=== PATIENT | female | born 1975 | race Two or more races ===

== ENCOUNTER → 2021-07-01 08:56 | Outpatient (BNVA) | payer MEDICARE, SELFPAY | PROVIDERS: PCP Nurse Practitioner Adult Health; Visit Provider Nurse Practitioner Family | DX: M47.27 Other spondylosis with radiculopathy, lumbosacral region (principal); M53.3 Sacrococcygeal disorders, not elsewhere classified; M13.0 Polyarthritis, unspecified; M79.7 Fibromyalgia; G58.8 Other specified mononeuropathies; Q79.60 Ehlers-Danlos syndrome, unspecified | CPT/HCPCS: 99202 ==

== ENCOUNTER 2021-07-08 05:57 | Outpatient (REF) | payer MEDICARE, SELFPAY ==
--- NOTE | ~2021-07-08 | FL_ITS ---
EXAMINATION: XR FLUOROSCOPY WITH IMAGES CLINICAL INFORMATION: G58.8 - Other specified mononeuropathies COMPARISON: Chest radiographs 03/20/2018 TECHNIQUE: Fluoroscopy performed by pain management physician. Fluoroscopy time: 0.3 minutes DAP: 0.0382 mGycm2 Images: 3 FINDINGS: There are spinal needles directed at the inferior aspect two posterior left ribs. There is contrast seen along the inferior rib. There is likely some paraspinal contrast. No visible vascular communication. FL/FL guidance in treatment room IMPRESSION: Fluoroscopy for pain management procedures.
== END 2021-07-08 05:58 | disposition home or self-care (01) ==
LOC: HO.RADIR 05:57
PROVIDERS: Visit Provider Anesthesiology
DX: G58.8 Other specified mononeuropathies (principal); M47.27 Other spondylosis with radiculopathy, lumbosacral region; M53.3 Sacrococcygeal disorders, not elsewhere classified; M13.0 Polyarthritis, unspecified; M79.7 Fibromyalgia; Q79.60 Ehlers-Danlos syndrome, unspecified
CPT/HCPCS: 64420; 64421; J3300; Q9967

== ENCOUNTER 2021-07-22 05:57 | Outpatient (REF) | payer MEDICARE, SELFPAY ==
--- NOTE | ~2021-07-22 | FL_ITS ---
EXAMINATION: XR FLUOROSCOPY WITH IMAGES CLINICAL INFORMATION: Fluoroscopy was provided during a musculoskeletal procedure. The radiologist was not present during the procedure. COMPARISON: None. TECHNIQUE: Fluoroscopy performed by Dr. Walsh. Fluoroscopy time: 0.2 minutes DAP: 4.7 Gycm2 Images: 2 FINDINGS: Images demonstrate a needle with contrast near the sacroiliac joint. FL/FL guidance in treatment room IMPRESSION: Images with a needle near the sacroiliac joint.
== END 2021-07-22 05:58 | disposition home or self-care (01) ==
LOC: HO.RADIR 05:57
PROVIDERS: Visit Provider Anesthesiology
DX: M47.27 Other spondylosis with radiculopathy, lumbosacral region (principal); M53.3 Sacrococcygeal disorders, not elsewhere classified; M13.0 Polyarthritis, unspecified; M79.7 Fibromyalgia; Q79.60 Ehlers-Danlos syndrome, unspecified; G58.8 Other specified mononeuropathies
CPT/HCPCS: 27096; Q9967

== ENCOUNTER → 2021-07-25 11:39 | Outpatient (BNVA) | payer MEDICARE, SELFPAY | PROVIDERS: PCP Nurse Practitioner Adult Health; Visit Provider Nurse Practitioner Family | DX: M53.3 Sacrococcygeal disorders, not elsewhere classified (principal); M47.27 Other spondylosis with radiculopathy, lumbosacral region; M79.7 Fibromyalgia; M13.0 Polyarthritis, unspecified; Q79.60 Ehlers-Danlos syndrome, unspecified | CPT/HCPCS: Q3014 ==

== ENCOUNTER 2021-08-26 05:59 | Outpatient (REF) | payer MEDICARE, SELFPAY ==
--- NOTE | ~2021-08-26 | FL_ITS ---
EXAMINATION: XR FLUOROSCOPY WITH IMAGES CLINICAL INFORMATION: M53.3 - Sacrococcygeal disorders, not elsewhere classified COMPARISON: None. TECHNIQUE: Fluoroscopy performed by Dr. Morales Walsh. Fluoroscopy time: 0.3 minutes DAP: 0.037 Gycm2 Images: 2 FINDINGS: Spinal needles overlies mid left and mid right SI joints. There is contrast in the periarticular soft tissues with questionable early intra-articular contrast. FL/FL guidance in treatment room IMPRESSION: Fluoroscopy for pain management procedure.
== END 2021-08-26 06:00 | disposition home or self-care (01) ==
LOC: HO.RADIR 05:59
PROVIDERS: Visit Provider Anesthesiology
DX: M53.3 Sacrococcygeal disorders, not elsewhere classified (principal); M47.27 Other spondylosis with radiculopathy, lumbosacral region; M79.7 Fibromyalgia; M13.0 Polyarthritis, unspecified; Q79.60 Ehlers-Danlos syndrome, unspecified
CPT/HCPCS: 27096; J3300; Q9967

== ENCOUNTER → 2021-09-29 08:59 | Outpatient (BNVA) | payer MEDICARE, SELFPAY | PROVIDERS: PCP Nurse Practitioner Adult Health; Visit Provider Nurse Practitioner Family | DX: Q79.60 Ehlers-Danlos syndrome, unspecified (principal); M13.0 Polyarthritis, unspecified; M79.7 Fibromyalgia; M53.3 Sacrococcygeal disorders, not elsewhere classified | CPT/HCPCS: Q3014 ==

== ENCOUNTER → 2021-11-27 16:09 | Outpatient (BNVA) | payer MEDICARE, SELFPAY | PROVIDERS: Visit Provider Nurse Practitioner Family | DX: M47.817 Spondylosis without myelopathy or radiculopathy, lumbosacral region (principal); M13.0 Polyarthritis, unspecified; M79.7 Fibromyalgia; M53.3 Sacrococcygeal disorders, not elsewhere classified; Q79.60 Ehlers-Danlos syndrome, unspecified | CPT/HCPCS: Q3014 ==

== ENCOUNTER 2021-11-29 13:08 | Emergency (ER) | payer MEDICARE, SELFPAY ==
--- NOTE | ~2021-11-29 | XR_ITS ---
EXAMINATION: XR CHEST CLINICAL INFORMATION: Chest wall pain COMPARISON: Previous chest x-ray most recent March 2018 TECHNIQUE: 2 views of the chest were obtained. FINDINGS: No significant abnormality is noted involving the heart, lungs, mediastinum, bony thorax or soft tissues. XR/XR chest 2V IMPRESSION: Unremarkable examination.
[2021-11-29 13:23] VITALS: BP 142/86; PULSE 112; RESP 18; TEMP 37.1; O2SAT 98; BMI 22.8
--- NOTE | 2021-11-29 13:23 | ECG_ITS ---
Test Reason : cx pain Blood Pressure : / mmHG Vent. Rate : 106 BPM Atrial Rate : 106 BPM P-R Int : 118 ms QRS Dur : 076 ms QT Int : 318 ms P-R-T Axes : 069 041 031 degrees QTc Int : 422 ms Sinus tachycardia Otherwise normal ECG When compared with ECG of 20-MAR-2018 22:40, Vent. rate has increased BY 36 BPM Nonspecific T wave abnormality now evident in Inferior leads T wave amplitude has decreased in Lateral leads Referred By: Generic ED Physician Electronically Signed By:TJ ACHARYA MD
[2021-11-29 13:45] LABS: MANUAL DIFF FLAG NO
[2021-11-29 13:47] LABS: Basophils Percent Auto 0.2 % (0-2); Eosinophils Percent Auto 0.1 % (0-4); Hematocrit 38.4 % (37.0-47.0); Imm Gran Abs Auto 0.03 X10*3/uL (0.00-0.03); Imm Gran Pct Auto 0.3 % (0.0-0.4); Lymphocytes Absolute Auto 0.5 X10*3/uL (1.2-4.9); Lymphocytes Percent Auto 4.5 % (20-40); Mean Corpuscular HGB Conc 33.9 g/dl (31.0-35.0); Mean Corpuscular Hemoglobin 31.6 pg (27.0-33.0); Mean Corpuscular Volume 93.2 fL (80.0-98.0); Mean Platelet Volume 10.7 fL (9.4-12.3); Monocytes Absolute Auto 0.8 X10*3/uL (0.1-1.2); Monocytes Percent Auto 7.3 % (2-11); Neutrophils Absolute Auto 9.1 x10*3/uL (2.0-8.3); Neutrophils Percent Auto 87.6 % (45-73); Platelet Count 216 X10*3/uL (160-400); Red Blood Count 4.12 X10*6/uL (4.20-5.50); Red Cell Distribution Width 11.9 % (11.0-16.0); White Blood Count 10.4 X10*3/uL (4.8-10.8)
[2021-11-29 14:00] LABS: Anion Gap 12 (12-20); Blood Urea Nitrogen 9 mg/dL (9-16); Calcium 9.2 mg/dL (8.4-10.2); Carbon Dioxide 30 mmol/L (22-29); Chloride 99 mmol/L (96-108); Creatinine Clr Calc Pharmacy 61.8; Estimated Glomerular Filt Rate > 60; Glucose Random 122 mg/dL (60-115); Potassium 3.7 mmol/L (3.3-5.1); Sodium 137 mmol/L (135-145)
[2021-11-29 14:05] LABS: COVID-19 Test Negative (Negative)
[2021-11-29 14:06] LABS: Troponin-I High Sensitivity < 3.5 ng/L (<3.5-17.0)
== END 2021-11-30 00:25 | disposition left against medical advice (07) ==
LOC: HO.ED 11-30 00:20
PROVIDERS: Emergency Medicine; Emergency Provider Emergency Medicine; PCP Nurse Practitioner Adult Health
DX: R07.89 Other chest pain (principal); Z20.822 Contact with and (suspected) exposure to COVID-19; Z79.899 Other long term (current) drug therapy
CPT/HCPCS: 71046; 80048; 84484; 85025; 87635; 93005; 99283

== ENCOUNTER 2021-12-02 09:06 | Outpatient (REF) | payer MEDICARE, SELFPAY ==
--- NOTE | ~2021-12-02 | XR_ITS ---
EXAMINATION: XR LUMBOSACRAL SPINE WITH OBLIQUES CLINICAL INFORMATION: Spondylosis without myelopathy or radiculopathy COMPARISON: None TECHNIQUE: AP, both oblique, and lateral views of the lumbar spine. Lateral view of the lumbosacral junction. FINDINGS: The vertebral bodies and posterior elements are normal. The disc spaces are preserved and the vertebral alignment is normal. The paraspinal soft tissues are normal. There is moderate stool in the colon. XR/XR lumbar spine 6V w bending IMPRESSION: Unremarkable lumbar spine examination.
== END 2021-12-02 09:07 | disposition home or self-care (01) ==
LOC: HO.XRAY 09:06
PROVIDERS: PCP Nurse Practitioner Adult Health; Visit Provider Nurse Practitioner Family
DX: M47.817 Spondylosis without myelopathy or radiculopathy, lumbosacral region (principal); Q79.60 Ehlers-Danlos syndrome, unspecified
CPT/HCPCS: 72114

== ENCOUNTER 2021-12-23 06:05 | Outpatient (REF) | payer MEDICARE, SELFPAY ==
--- NOTE | ~2021-12-23 | FL_ITS ---
EXAMINATION: XR FLUOROSCOPY WITH IMAGES CLINICAL INFORMATION: M53.3 - Sacrococcygeal disorders, not elsewhere classified COMPARISON: Radiographs lumbar spine 12/02/2021 TECHNIQUE: Fluoroscopy performed by Dr. Morales Walsh. Fluoroscopy time: 0.2 minutes. Cumulative Dose: 2.37 mGy. DAP: 0.646 Gy-cm2. Images: 2. FINDINGS: Spinal needle overlies bilateral mid to lower SI joints. There is contrast in the periarticular soft tissues with probable early intra-articular contrast. FL/FL guidance in treatment room IMPRESSION: Fluoroscopy for pain management procedures.
== END 2021-12-23 06:06 | disposition home or self-care (01) ==
LOC: HO.RADIR 06:05
PROVIDERS: Visit Provider Anesthesiology
DX: M53.3 Sacrococcygeal disorders, not elsewhere classified (principal); M47.27 Other spondylosis with radiculopathy, lumbosacral region; M79.7 Fibromyalgia; M13.0 Polyarthritis, unspecified; Q79.60 Ehlers-Danlos syndrome, unspecified
CPT/HCPCS: 27096; J3300

== ENCOUNTER → 2022-01-26 08:25 | Outpatient (BNVA) | payer MEDICARE, SELFPAY | PROVIDERS: PCP Nurse Practitioner Adult Health; Visit Provider Nurse Practitioner Family | DX: Q79.60 Ehlers-Danlos syndrome, unspecified (principal); M13.0 Polyarthritis, unspecified; M53.3 Sacrococcygeal disorders, not elsewhere classified | CPT/HCPCS: Q3014 ==

== ENCOUNTER → 2022-08-14 10:15 | Outpatient (BNVA) | payer MEDICARE, SELFPAY | PROVIDERS: PCP Nurse Practitioner Adult Health; Visit Provider Nurse Practitioner Family | DX: M47.27 Other spondylosis with radiculopathy, lumbosacral region (principal); Q79.60 Ehlers-Danlos syndrome, unspecified; M54.31 Sciatica, right side; M53.3 Sacrococcygeal disorders, not elsewhere classified; M62.838 Other muscle spasm | CPT/HCPCS: 99212 ==

== ENCOUNTER 2022-08-21 06:31 | Outpatient (REF) | payer MEDICARE, SELFPAY ==
[2022-08-21 08:03] LABS: Alanine Aminotransferase 49 U/L (0-31); Albumin Level 4.5 g/dL (3.5-5.0); Alkaline Phosphatase 122 U/L (39-117); Aspartate Amino Transferase 42 U/L (5-31); Bilirubin Direct < 0.2 mg/dL (0.0-0.5); Bilirubin Total 0.3 mg/dL (0.0-1.0)
== END 2022-08-21 06:32 | disposition home or self-care (01) ==
LOC: HO.LAB 06:31
PROVIDERS: PCP Nurse Practitioner Adult Health; Visit Provider Nurse Practitioner Family
DX: Z01.818 Encounter for other preprocedural examination (principal)
CPT/HCPCS: 36415; 80076

== ENCOUNTER 2022-09-09 14:45 | Outpatient (REF) | payer MEDICARE, SELFPAY ==
--- NOTE | ~2022-09-09 | MR_ITS ---
EXAMINATION: MR LUMBAR SPINE WITHOUT CONTRAST CLINICAL INFORMATION: Right lower extremity radiculopathy. COMPARISON: None available. TECHNIQUE: Multiplanar, multisequence imaging was obtained. FINDINGS: VERTEBRAL BODIES AND PARASPINAL STRUCTURES: The marrow signal is within normal limits. There are no compression fractures or significant subluxations. Marrow edema is present within the left L5 pedicle and left L4-L5 posterior elements, likely reactive to severity of degenerative joint disease. The paraspinal soft tissues are normal. The imaged bony pelvis is unremarkable. CONUS MEDULLARIS AND CAUDA EQUINE: The distal cord, conus tip, and cauda equina nerve roots are normal. SPINAL LEVELS: L1-L2: No disc pathology. Patent central canal and foramina. L2-L3: Very mild loss of disc height and mild disc bulge with mild facet arthropathy. No central canal stenosis. Bulging disc slightly encroaches upon the left neural foramen. L3-L4: Minimal annular bulge and mild facet arthrosis. No central canal stenosis or foraminal narrowing. L4-L5: Very mild disc bulge and rkfkkmrq-ji-gbdstr facet arthropathy with reactive edema in the articular processes, more so on the left side and in the left posterior paraspinal soft tissues, presumably reactive. No central canal stenosis or foraminal narrowing. L5-S1: Broad-based disc bulge present with a right subarticular zone disc protrusion severely compressing the right S1 nerve root. Moderate facet arthropathy without central canal stenosis or foraminal narrowing. MR/MR lumbar spine wo con IMPRESSION: 1. Right subarticular zone disc protrusion at L5-S1 severely compressing the right S1 nerve root. 2. Jzsakwtk-tl-ywwquq facet degeneration at L4-L5 with reactive edema in the articular processes, more so on the left side.
== END 2022-09-09 14:46 | disposition home or self-care (01) ==
LOC: HO.MRI 14:45
PROVIDERS: PCP Nurse Practitioner Adult Health; Visit Provider Nurse Practitioner Family
DX: M47.817 Spondylosis without myelopathy or radiculopathy, lumbosacral region (principal); M54.16 Radiculopathy, lumbar region; Q79.60 Ehlers-Danlos syndrome, unspecified
CPT/HCPCS: 72148

== ENCOUNTER → 2022-09-10 14:42 | Outpatient (BNVA) | payer MEDICARE, SELFPAY | PROVIDERS: PCP Nurse Practitioner Adult Health; Visit Provider Nurse Practitioner Family | DX: M62.838 Other muscle spasm (principal); M54.16 Radiculopathy, lumbar region; M47.817 Spondylosis without myelopathy or radiculopathy, lumbosacral region; M79.7 Fibromyalgia; M53.3 Sacrococcygeal disorders, not elsewhere classified; Q79.60 Ehlers-Danlos syndrome, unspecified | CPT/HCPCS: 99212 ==

== ENCOUNTER → 2022-10-21 09:02 | Outpatient (BNVA) | payer MEDICARE, SELFPAY | PROVIDERS: PCP Nurse Practitioner Adult Health; Visit Provider Neurological Surgery | DX: M54.16 Radiculopathy, lumbar region (principal) | CPT/HCPCS: 99202 ==

== ENCOUNTER 2023-07-19 08:16 | Outpatient (AMB) | payer MEDICARE, SELFPAY ==
--- NOTE | 2023-07-19 08:20 | A.OFFVIS_ITS ---
Intake Vital Signs 07/19/23 08:26 Height 5 ft 2 in Weight 128 lb 6 oz BMI 23.5 BP 128/75 Blood Pressure Location Rt brachial Position Sitting Pulse 69 Pulse Source Pulse Oximeter Pulse Oximetry (%) 100 Oxygen Delivery Method Room Air Intake Visit Reasons: Follow up Intake Note: Pain toay 11/23 Principal Technologist Required: No Accompanied by: Self / Same As Patient Allergies sulfamethoxazole [From BACTRIM] Allergy (Intermediate, Verified 07/19/23 08:26) hives trimethoprim [From BACTRIM] Allergy (Intermediate, Verified 07/19/23 08:26) hives propranolol Allergy (Unknown, Verified 07/19/23 08:26) Unknown Sulfa (Sulfonamide Antibiotics) Allergy (Unknown, Verified 07/19/23 08:26) Unknown Medication List - Last Reconciled 07/19/23 by TRACY Hernandez albuterol sulfate 90 mcg/actuation 2 puffs PO QID PRN pregabalin 25 mg PO BID 30 days thyroid (pork) ([place] Thyroid) 60 mg PO DAILY venlafaxine ER 150 mg PO DAILY venlafaxine ER 37.5 mg PO DAILY zolpidem 10 mg PO BEDTIME PRN HPI HPI Comments History of Present Illness Details Patient presents today for follow up with increasing mid to lower back pain. Denies any recent trauma, injury or falls. Back pain is axial with discogenic and sacroiliac joint components. Patient reports her sciatic and SIJ pain has been under control at this time. Lumbar extension causes her moderate symptoms. She also experiences lower back pain with tightness with bending or flexing forward. Denies any bladder or bowel incontinence or saddle anesthesia. Patient has been treating her symptoms with regular home exercise program, light yoga, red light therapy, ice and heat therapy, TENS unit, and topical applications with CBD and tiger balm but continues with moderate to severe back symptoms. She takes pregabalin for fibromyalgia 25 mg BID and reports this has been beneficial. Patient also receives intranasal Ketamine for Interstitial cystitis and reports some benefit for depression as well. She regularly follows with mental therapist and Psychiatrist. Denies any recent cough, cold, infection, fever, any significant changes in her medical history, medications or recent hospitalizations. PRIOR: Patient presents today in the office for follow up for worsening low back pain radiating to her right leg. Patient was last seen in our office in January 2022 and reached out to our office in May for a physical therapy order for back and SIJ pain exacerbation since April 2022. Patient reports she completed PT, tried TENS unit, ice and heat therapy, rest, continued home exercise program, took CBD roll on, Ibuprofen and Tylenol without any pain relief. Patient reports pins and needles, numbness and tingling sensation in her right leg in L5-S1 distribution. She is also wearing SIJ and right thigh support brace today and ambulates with antalgic and limping gait. Patient reports she was evaluated in [facility] and underwent diagnostic right SIJ injections. She then went for right SIJ RFA procedure on 07/14/[address] [facility] with no pain relief. 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 Patient reports her pain and symptoms have been getting progressively worse and she went to [facility] ER on 07/27/22 and was admitted for pain management and elevated LFT levels which she believes due to taking Tylenol for pain. Patient reports her LFTs have been trending down. She has been treated with Dilaudid 2 mg and Ibuprofen. Patient denies any fever, chills, abdominal pain, bowel or bladder incontinence or saddle anesthesia. Reports right lower extremity weakness. Patient reports chronic constipation and able to move her bowels only with enema. Past Procedures: 07/14/22: Right Sacroiliac Joint RFA at [facility]-0% pain relief 12/23/21: Bilateral Therapeutic SIJ inje ctions-80% ongoing pain relief 07/08/21: Intercostal Therapeutic Inject ion Rib 6,7-100% pain relief 07/22/21: Bilateral Diagnostic SIJ Injec tions-90-95% pain relief for 6 hours 08/26/21: Bilateral Therapeutic SIJ inje ctions-100% pain relief for 2.5 weeks, ongoing 50% pain relief x 3 months PRIOR: Patient is a pleasant 45 year old female who presents to the office in no acute distress, with costochondritis, chronic back pain x 15 years, fibromyalgia, and Samra Danlos syndrome. Costochondritis pain started about 2.5 weeks ago at the lower midsternal area. She had complete work up for chest pain at ER which was negative. Today, she reports her pain is now at the left lateral rib area. Her lower back pain with radiation posteriorly to her left side just below left knee, with mild paresthesias and pain of the left buttock. She cannot sit or stand for prolonged time because her back will lock up. Patient reports she has to stand against the wall or counter, bending forward to relieve her pain partially. She denies any previous back surgery or injections. Denies trauma, injury or fall. She denies lower or upper extremities weakness. Patient denies any fever, abdominal or groin pain, malaise, weight loss, numbness, tingling, bladder/bowel dysfunction or saddle anesthesia. The pain onset was sudden, varies throughout the day and has been constant or intermittent with worst pain intensity rated at 8/10 and least severe pain at 3/10. She states the pain is interfering with sleep, activities of daily living, mood, quality of life, and she cannot function normally. The patient reports the pain in terms of tissue damage as dull, sore, hurting, aching, heavy, tiring, exhausting, punishing, and killing. She has been taking Tylenol, Ibuprofen, intranasal ketamine, gabapentin, cyclobenzaprine, medical marijuana (edible, tincture, vape), lidocaine 5% patches and short script of tramadol with some improvement in her pain. Weather changes, movements and activity aggravates her pain. Heat and cold applications, topical and oral medications have been helpful partially. She rates their pain 3/10. Previously she has tried physical therapy, the last being 5 years [facility]. She is interested in restarting formal PT at different locations. Patient continues home exercise program. She also has tried home acupuncture, massage, and TENS unit. Denies chiropractic manipulation or aqua therapy. She last had imaging of the lumbar MRI within last year at [facility]. This imaging/report is not available today. Referral notes present with normal chest xrays 06/16/21, 06/17/[address] chest pulmonary angiogram 06/17/21 which was also normal and negative for pulmonary embolus. Past medical history is significant for anxiety, asthma, chronic fatigue, depressive disorder, Samra-Danlos syndrome, fibromyalgia, hypothyroidism, interstitial cystitis, irritable bowel syndrome and chronic lower back pain. [facility] Medical History Pelvic prolapse Periodic limb movement disorder GERD (gastroesophageal reflux disease) TMJ (dislocation of temporomandibular joint) Fibromyalgia Sleep apnea Migraine PTSD (post-traumatic stress disorder) Anxiety Polyarthritis Pelvic floor dysfunction Irritable bowel syndrome (IBS) Visceral pain Polycystic ovary Depression Samra-Danlos disease Interstitial cystitis Hypothyroid Asthma Review of Systems Const All systems reviewed & are unremarkable except as noted in HPI and below Physical Exam Vital Signs: Last Vital Signs Pulse 69 07/19/23 08:26 BP 128/75 07/19/23 08:26 Pulse Ox 100 07/19/23 08:26 Oxygen Delivery Method Room Air 07/19/23 08:26 BMI result Body Mass Index 23.5 General: Appears afebrile. Alert and oriented. Mood and affect appropriate. Follows and participates in conversation appropriately. Respiratory effort is unlabored. No cough. Able to transition from sit to stand unassisted. Ambulates with bilaterally normal heel strike and toe off. Repetitive lumbar flexion and axial rotation reproduces pain. Back/Spine/Pelvis Cervical Spine: cervical ROM normal, cervical muscular tenderness and No Cervical spine tenderness Thoracic/Lumbar Spine: thoracic and lumbar spine normal to inspection, Lasegue's sign negative, straight leg raise negative bilaterally, pain with thoraco-lumbar ROM, paraspinal muscle tenderness, No thoracic spinal tenderness and lumbar spinal tenderness at L3, at L4 and at L5 Pelvis: buttock tenderness on the right and no sciatic notch tenderness Sacroiliac joints: bilaterally tender to palpation Results Reviewed Results Reviewed: MR LUMBAR SPINE WITHOUT CONTRAST 09/09/22 CLINICAL INFORMATION: Right lower extremity radiculopathy. FINDINGS: VERTEBRAL BODIES AND PARASPINAL STRUCTURES: The marrow signal is within normal limits. There are no compression fractures or significant subluxations. Marrow edema is present within the left L5 pedicle and left L4-L5 posterior elements, likely reactive to severity of degenerative joint disease. The paraspinal soft tissues are normal. The imaged bony pelvis is unremarkable. CONUS MEDULLARIS AND CAUDA EQUINE: The distal cord, conus tip, and cauda equina nerve roots are normal. SPINAL LEVELS: L1-L2: No disc pathology. Patent central canal and foramina. L2-L3: Very mild loss of disc height and mild disc bulge with mild facet arthropathy. No central canal stenosis. Bulging disc slightly encroaches upon the left neural foramen. L3-L4: Minimal annular bulge and mild facet arthrosis. No central canal stenosis or foraminal narrowing. L4-L5: Very mild disc bulge and fwnygwmu-wy-ddscmr facet arthropathy with reactive edema in the articular processes, more so on the left side and in the left posterior paraspinal soft tissues, presumably reactive. No central canal stenosis or foraminal narrowing. L5-S1: Broad-based disc bulge present with a right subarticular zone disc protrusion severely compressing the right S1 nerve root. Moderate facet arthropathy without central canal stenosis or foraminal narrowing. IMPRESSION: 1. Right subarticular zone disc protrusion at L5-S1 severely compressing the right S1 nerve root. 2. Azocxtjx-kb-bfqcyp facet degeneration at L4-L5 with reactive edema in the articular processes, more so on the left side. Assessment & Plan Assessment & Plan (1) Samra-Danlos disease: Code(s): Q79.60 - Samra-Danlos syndrome, unspecified (2) Polyarthritis: Code(s): M13.0 - Polyarthritis, unspecified (3) Fibromyalgia: Code(s): M79.7 - Fibromyalgia (4) Sacroiliac joint dysfunction of both sides: Code(s): M53.3 - Sacrococcygeal disorders, not elsewhere classified (5) Lumbosacral spondylosis: Code(s): M47.817 - Spondylosis without myelopathy or radiculopathy, lumbosacral region Plan 1. Continue HEP, light yoga, red light therapy, ice and heat therapy, TENS unit, and topical applications with CBD and tiger balm. 2. Schedule for Bilateral Diagnostic L3-L4 DR L5 MBB with local and fluoroscopy for axial low back pain. If she has significant relief from the diagnostic blocks for her axial low back pain, will consider either therapeutic injections, Sprint PNS or RFA depending on her preference. 3. Refill provided for pregabalin. Patient reports good tolerance and no side effects. All questions and concerns have been answered and patient agreed with the plan. Follow up after injections and sooner if needed. Anticoagulation: Patient not on anticoagulant Justification for interventional therapy: ? Patient with average pain > 6/10 ? Patient has exhausted conservative therapy, including physical therapy, acupuncture, massages and TENS unit. ? Patient continuing home exercise program The risks, consequences, alternatives, and benefits of various treatment options were discussed with the patient in great detail, including conservative managem ent, injections and procedures. Medications: Refilled pregabalin 25 mg PO BID 30 days 60 caps 1RF pain M47.817 - Spondylosis without myelopathy or radiculopathy, lumbosacral region, M54.16 - Radiculopathy, lumbar region, M79.7 - Fibromyalgia Coding Level of Care Code Est Pt Level 4 (86612) Diagnoses Samra-Danlos disease Q79.60 Polyarthritis M13.0 Fibromyalgia M79.7 Sacroiliac joint dysfunction of both sides M53.3 Lumbosacral spondylosis M47.817
[2023-07-19 08:26] VITALS: BP 128/75; PULSE 69; O2SAT 100; BMI 23.5
== END 2023-07-19 08:50 | disposition home or self-care (01) ==
PROVIDERS: PCP Nurse Practitioner Adult Health; Visit Provider Nurse Practitioner Family
DX: Q79.60 Ehlers-Danlos syndrome, unspecified (principal); M13.0 Polyarthritis, unspecified; M79.7 Fibromyalgia; M53.3 Sacrococcygeal disorders, not elsewhere classified; M47.817 Spondylosis without myelopathy or radiculopathy, lumbosacral region
CPT/HCPCS: 99214

== ENCOUNTER → 2023-07-19 08:16 | Outpatient (BNVA) | payer MEDICARE, SELFPAY | PROVIDERS: PCP Nurse Practitioner Adult Health; Visit Provider Nurse Practitioner Family | DX: M13.0 Polyarthritis, unspecified (principal); M79.7 Fibromyalgia; M53.3 Sacrococcygeal disorders, not elsewhere classified; M47.817 Spondylosis without myelopathy or radiculopathy, lumbosacral region; Q79.60 Ehlers-Danlos syndrome, unspecified | CPT/HCPCS: 99212 ==

== ENCOUNTER 2023-07-21 09:58 | Outpatient (AMB) | payer MEDICARE, SELFPAY ==
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
== END 2023-07-21 10:49 | disposition home or self-care (01) ==
LOC: HO.HOP 09:58
PROVIDERS: PCP Nurse Practitioner Adult Health; Visit Provider Clinical Nurse Specialist Psychiatric/Mental Health
DX: F33.9 Major depressive disorder, recurrent, unspecified (principal); F41.1 Generalized anxiety disorder; F90.9 Attention-deficit hyperactivity disorder, unspecified type; M79.7 Fibromyalgia
CPT/HCPCS: 99214

== ENCOUNTER → 2023-07-21 09:58 | Outpatient (BNVA) | payer MEDICARE, SELFPAY | PROVIDERS: PCP Nurse Practitioner Adult Health; Visit Provider Clinical Nurse Specialist Psychiatric/Mental Health | DX: F33.9 Major depressive disorder, recurrent, unspecified (principal); F41.1 Generalized anxiety disorder; F90.9 Attention-deficit hyperactivity disorder, unspecified type; M79.7 Fibromyalgia | CPT/HCPCS: 99212 ==

== ENCOUNTER 2023-09-16 10:00 | Outpatient (RCR) | payer MEDICARE, SELFPAY | END 2023-11-16 15:03 | disposition home or self-care (01) | LOC: HO.PT 10:00 | PROVIDERS: PCP Nurse Practitioner Adult Health; Visit Provider Nurse Practitioner Family | DX: M62.838 Other muscle spasm (principal); N94.10 Unspecified dyspareunia | CPT/HCPCS: 97110; 97140; 97162 ==

== ENCOUNTER 2023-09-21 06:16 | Outpatient (REF) | payer MEDICARE, SELFPAY ==
--- NOTE | ~2023-09-21 | FL_ITS ---
EXAMINATION: XR FLUOROSCOPY WITH IMAGES CLINICAL INFORMATION: Spondylosis. COMPARISON: None available. TECHNIQUE: Fluoroscopy Supervised By: Dr. Walsh. Fluoroscopy Time: 0.5 min. Cumulative Dose: 3.42 mGy. DAP: 0.595 Gycm2. Images: 10. FINDINGS: Intraoperative fluoroscopy and spot films were performed during a procedure in the OR. Images demonstrate spinal needles overlying the spine at 4 different levels with contrast surrounding the tips. Please see Dr. Walsh's report for complete details. FL/FL guidance in treatment room IMPRESSION: Intraoperative fluoroscopy and spot films were obtained. Please see Dr. Walsh's report for complete details.
== END 2023-09-21 06:17 | disposition home or self-care (01) ==
LOC: CF 06:16
PROVIDERS: Visit Provider Anesthesiology
DX: M47.817 Spondylosis without myelopathy or radiculopathy, lumbosacral region (principal); Q79.60 Ehlers-Danlos syndrome, unspecified; M13.0 Polyarthritis, unspecified; M79.7 Fibromyalgia; M53.3 Sacrococcygeal disorders, not elsewhere classified
CPT/HCPCS: 64493; 64494; J2795; Q9967

== ENCOUNTER 2023-09-21 13:57 | Outpatient (AMB) | payer MEDICARE, SELFPAY ==
--- NOTE | 2023-09-21 14:01 | A.OFFVIS_ITS ---
Vital Signs 09/21/23 14:46 09/21/23 14:47 Height 5 ft 2 in Weight 128 lb BMI 23.4 BP 116/82 118/70 Blood Pressure Location Lt brachial Lt brachial Position Sitting Sitting Respiration 16 16 Pulse 80 83 Pulse Source Pulse Oximeter Pulse Oximeter Pulse Oximetry (%) 98 97 Oxygen Delivery Method Room Air Room Air Comment Pre-op Post-Op Intake Visit Reasons: BILATERAL DIAGNOSTIC L3, L4, DRL5 MBB Allergies sulfamethoxazole [From BACTRIM] Allergy (Intermediate, Verified 07/19/23 08:26) hives trimethoprim [From BACTRIM] Allergy (Intermediate, Verified 07/19/23 08:26) hives propranolol Allergy (Unknown, Verified 07/19/23 08:26) Unknown Sulfa (Sulfonamide Antibiotics) Allergy (Unknown, Verified 07/19/23 08:26) Unknown [facility] Medical History Pelvic prolapse Periodic limb movement disorder GERD (gastroesophageal reflux disease) TMJ (dislocation of temporomandibular joint) Fibromyalgia Sleep apnea Migraine PTSD (post-traumatic stress disorder) Anxiety Polyarthritis Pelvic floor dysfunction Irritable bowel syndrome (IBS) Visceral pain Polycystic ovary Depression Samra-Danlos disease Interstitial cystitis Hypothyroid Asthma Physical Exam Vital Signs: Last Vital Signs Pulse 83 09/21/23 14:47 Resp 16 09/21/23 14:47 BP 118/70 09/21/23 14:47 Pulse Ox 97 09/21/23 14:47 Oxygen Delivery Method Room Air 09/21/23 14:47 BMI result Body Mass Index 23.4 Assessment & Plan Assessment & Plan (1) Samra-Danlos disease: Code(s): Q79.60 - Samra-Danlos syndrome, unspecified Category: Medical (2) Polyarthritis: Code(s): M13.0 - Polyarthritis, unspecified Category: Medical (3) Fibromyalgia: Code(s): M79.7 - Fibromyalgia Category: Medical (4) Sacroiliac joint dysfunction of both sides: Code(s): M53.3 - Sacrococcygeal disorders, not elsewhere classified Category: Medical (5) Lumbosacral spondylosis: Code(s): M47.817 - Spondylosis without myelopathy or radiculopathy, lumbosacral region Category: Medical Plan: Diagnostic medial branch block L3,L4 dorsal ramus L5 bilateral.? ? ?Informed consent was explained to the patient. All questions were explained and? answered.? The patient was taken inside the operating room where she was positioned prone on the operating table. Time-out was performed delineating correct site, side, the nature of the procedure, patient's allergy, . All operating room staff was participating in OR time-out procedure. ? ? The lower back was prepped with ChloraPrep and draped with sterile towels.? C- arm was brought over the operating field and sq picture of L4-, L5 vertebra and S1 AREA were delineated on the screen.? Point of interest were delineated as confluence of superior articular process of L4 and L5 vertebra bilaterally with corresponding transverse processes as well as confluence of the sacral alae bilaterally with superior articular process of S1.? The projection of the point of interest to the skin were injected with the small amount of local anesthetic lidocaine 2% 1-1.5 cc.? After that 22 gauge 3.5 inch spinal needle was driven sequentially to the points of interest in tunnel vision fashion. After needles gently contacted the bone at the point of interests the needle was injected with small amount of the contrast.? The injection of the contrast did not demonstrate any intravascular or intrathecal spread of the contrast.? After that injection of the? ropivacaine 0.5%-1cc was performed at each needle location.??after that the needles were removed and Bandaids were applied. ? Upon completion of the injections? needle was? removed and sterile Band-Aids were applied.? The patient tolerated procedure very well. Plan 1. Continue HEP, light yoga, red light therapy, ice and heat therapy, TENS unit, and topical applications with CBD and tiger balm. 2. Schedule for Bilateral Diagnostic L3-L4 DR L5 MBB with local and fluoroscopy for axial low back pain. If she has significant relief from the diagnostic blocks for her axial low back pain, will consider either therapeutic injections, Sprint PNS or RFA depending on her preference. 3. Refill provided for pregabalin. Patient reports good tolerance and no side effects. All questions and concerns have been answered and patient agreed with the plan. Follow up after injections and sooner if needed. Anticoagulation: Patient not on anticoagulant Justification for interventional therapy: ? Patient with average pain > 6/10 ? Patient has exhausted conservative therapy, including physical therapy, acupuncture, massages and TENS unit. ? Patient continuing home exercise program The risks, consequences, alternatives, and benefits of various treatment options were discussed with the patient in great detail, including conservative management, injections and procedures. Orders: Orders FL guidance in treatment room 09/21/23 M47.817 - Spondylosis without myelopathy or radiculopathy, lumbosacral region Coding Level of Care Code Procedure Only Diagnoses Samra-Danlos disease Q79.60 Polyarthritis M13.0 Fibromyalgia M79.7 Sacroiliac joint dysfunction of both sides M53.3 Lumbosacral spondylosis M47.817
[2023-09-21 14:46] VITALS: BP 116/82; PULSE 80; RESP 16; O2SAT 98; BMI 23.4
[2023-09-21 14:47] VITALS: BP 118/70; PULSE 83; RESP 16; O2SAT 97
== END 2023-09-21 14:48 | disposition home or self-care (01) ==
LOC: HO.PMCPRC 13:57
PROVIDERS: PCP Nurse Practitioner Adult Health; Visit Provider Anesthesiology
DX: M47.817 Spondylosis without myelopathy or radiculopathy, lumbosacral region (principal); Q79.60 Ehlers-Danlos syndrome, unspecified; M13.0 Polyarthritis, unspecified; M79.7 Fibromyalgia; M53.3 Sacrococcygeal disorders, not elsewhere classified
CPT/HCPCS: 64493; 64494

== ENCOUNTER 2023-09-28 11:16 | Outpatient (AMB) | payer MEDICARE, SELFPAY ==
--- NOTE | 2023-09-28 11:22 | A.OFFVIS_ITS ---
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 Walsh. Patient reports 90-100% pain relief for 6-8 hours after procedure with improved range of motion, mobility and functioning. She is interested to proceed with Sprint PNS trial for axial low back pain as next steps. Patient reports she did not sleep well that day as she went to ER at midnight same day with increased abdominal and mid back pain and recurrence of elevated LFTs. Patient reports she has upcoming GI follow up and plans for potential elective gallbladder removal. Patient denies any recent cough, cold, infection, fever, any other significant changes in her medical history, medications or recent hospitalizations. Denies any bowel dysfunction or saddle anesthesia. Reports intermittent urine incontinence, follows Urology regularly for this and currently undergong Pelvic Floor PT. Patient reports history of PV sling in 2020, vagingal prolapse, rectocele and cystocele repairs. Reports chronic constipation relieved with enemas, medication and dietary fiber. Past Procedures: 09/21/23: Bilateral Diagnostic L3-L4 DR L5 MBB-90-100% pain relief for 6-8 hours 07/14/22: Right Sacroiliac Joint RFA at [facility]-0% pain relief 12/23/21: Bilateral Therapeutic SIJ injections-80% ongoing pain relief 07/08/21: Intercostal Therapeutic Injection Rib 6,7-100% pain relief 07/22/21: Bilateral Diagnostic SIJ Fznikluklc-18-27% pain relief for 6 hours 08/26/21: Bilateral Therapeutic SIJ injections-100% pain relief for 2.5 weeks, ongoing 50% pain relief x 3 months PRIOR: Patient is a pleasant 45 year old female who presents to the office in no acute distress, with costochondritis, chronic back pain x 15 years, fibromyalgia, and Samra Danlos syndrome. Costochondritis pain started about 2.5 weeks ago at the lower midsternal area. She had complete work up for chest pain at ER which was negative. Today, she reports her pain is now at the left lateral rib area. Her lower back pain with radiation posteriorly to her left side just below left knee, with mild paresthesias and pain of the left buttock. She cannot sit or stand for prolonged time because her back will lock up. Patient reports she has to stand against the wall or counter, bending forward to relieve her pain partially. She denies any previous back surgery or injections. Denies trauma, injury or fall. She denies lower or upper extremities weakness. Patient denies any fever, abdominal or groin pain, malaise, weight loss, numbness, tingling, bladder/bowel dysfunction or saddle anesthesia. The pain onset was sudden, varies throughout the day and has been constant or intermittent with worst pain intensity rated at 8/10 and least severe pain at 3/10. She states the pain is interfering with sleep, activities of daily living, mood, quality of life, and she cannot function normally. The patient reports the pain in terms of tissue damage as dull, sore, hurting, aching, heavy, tiring, exhausting, punishing, and killing. She has been taking Tylenol, Ibuprofen, intranasal ketamine, gabapentin, cyclobenzaprine, medical marijuana (edible, tincture, vape), lidocaine 5% patches and short script of tramadol with some improvement in her pain. Weather changes, movements and activity aggravates her pain. Heat and cold applications, topical and oral medications have been helpful partially. She rates their pain 3/10. Previously she has tried physical therapy, the last being 5 years ago through [facility]. She is interested in restarting formal PT at different locations. Patient continues home exercise program. She also has tried home acupuncture, massage, and TENS unit. Denies chiropractic manipulation or aqua therapy. She last had imaging of the lumbar MRI within last year at [facility]. This imaging/report is not available today. Referral notes present with normal chest xrays 06/16/21, 06/17/[address] chest pulmonary angiogram 06/17/21 which was also normal and negative for pulmonary embolus. Past medical history is significant for anxiety, asthma, chronic fatigue, depressive disorder, Samra-Danlos syndrome, fibromyalgia, hypothyroidism, interstitial cystitis, irritable bowel syndrome and chronic lower back pain. [facility] Medical History Pelvic prolapse Periodic limb movement disorder GERD (gastroesophageal reflux disease) TMJ (dislocation of temporomandibular joint) Fibromyalgia Sleep apnea Migraine PTSD (post-traumatic stress disorder) Anxiety Polyarthritis Pelvic floor dysfunction Irritable bowel syndrome (IBS) Visceral pain Polycystic ovary Depression Samra-Danlos disease Interstitial cystitis Hypothyroid Asthma Review of Systems Const All systems reviewed & are unremarkable except as noted in HPI and below Physical Exam Vital Signs: Last Vital Signs Pulse 68 09/28/23 11:25 BP 111/66 09/28/23 11:25 Pulse Ox 97 09/28/23 11:25 Oxygen Delivery Method Room Air 09/28/23 11:25 BMI result Body Mass Index 23.0 General: Appears afebrile. Alert and oriented. Mood and affect appropriate. Follows and participates in conversation appropriately. Respiratory effort is unlabored. No cough. Able to transition from sit to stand unassisted. Ambulates with bilaterally normal heel strike and toe off. Repetitive lumbar flexion and axial rotation reproduces pain. General: Yes no CVA tenderness Back/Spine/Pelvis Other: Lumbar extension reproduces moderate pain, flexion reproduces mild symptoms. Painful facet loading bilaterally. Multiple widespread TTPs 16/16 bilaterally, including upper and lower extremities. Back: no CVA tenderness Cervical Spine: cervical ROM normal, cervical muscular tenderness and No Cervical spine tenderness Thoracic/Lumbar Spine: thoracic and lumbar spine normal to inspection, No Thoracic/lumbar spine scar(s), Lasegue's sign negative, straight leg raise negative bilaterally, pain with thoraco-lumbar ROM, paraspinal muscle tenderness , thoracic spinal tenderness (mid and lower thoracic) and lumbar spinal tenderness at L3, at L4 and at L5 Pelvis: no buttock tenderness and no sciatic notch tenderness Sacroiliac joints: bilaterally tender to palpation Extrem General: Yes capillary refill normal, Yes no clubbing, cyanosis or edema and Yes no calf tenderness Results Reviewed Results Reviewed: MR LUMBAR SPINE WITHOUT CONTRAST 09/09/22 CLINICAL INFORMATION: Right lower extremity radiculopathy. FINDINGS: VERTEBRAL BODIES AND PARASPINAL STRUCTURES: The marrow signal is within normal limits. There are no compression fractures or significant subluxations. Marrow edema is present within the left L5 pedicle and left L4-L5 posterior elements, likely reactive to severity of degenerative joint disease. The paraspinal soft tissues are normal. The imaged bony pelvis is unremarkable. CONUS MEDULLARIS AND CAUDA EQUINE: The distal cord, conus tip, and cauda equina nerve roots are normal. SPINAL LEVELS: L1-L2: No disc pathology. Patent central canal and foramina. L2-L3: Very mild loss of disc height and mild disc bulge with mild facet arthropathy. No central canal stenosis. Bulging disc slightly encroaches upon the left neural foramen. L3-L4: Minimal annular bulge and mild facet arthrosis. No central canal stenosis or foraminal narrowing. L4-L5: Very mild disc bulge and uyupgost-mx-hkypok facet arthropathy with reactive edema in the articular processes, more so on the left side and in the left posterior paraspinal soft tissues, presumably reactive. No central canal stenosis or foraminal narrowing. L5-S1: Broad-based disc bulge present with a right subarticular zone disc protrusion severely compressing the right S1 nerve root. Moderate facet arthropathy without central canal stenosis or foraminal narrowing. IMPRESSION: 1. Right subarticular zone disc protrusion at L5-S1 severely compressing the right S1 nerve root. 2. Agamhnrd-fx-tpcjwd facet degeneration at L4-L5 with reactive edema in the articular processes, more so on the left side. Assessment & Plan Assessment & Plan (1) Samra-Danlos disease: Code(s): Q79.60 - Samra-Danlos syndrome, unspecified Category: Medical (2) Polyarthritis: Code(s): M13.0 - Polyarthritis, unspecified Category: Medical (3) Fibromyalgia: Code(s): M79.7 - Fibromyalgia Category: Medical (4) Sacroiliac joint dysfunction of both sides: Code(s): M53.3 - Sacrococcygeal disorders, not elsewhere classified Category: Medical (5) Lumbosacral spondylosis: Code(s): M47.817 - Spondylosis without myelopathy or radiculopathy, lumbosacral region Category: Medical (6) Mid back pain: Code(s): M54.9 - Dorsalgia, unspecified Category: Medical Plan Patient is status post bilateral diagnostic lumbar medial branch blocks with good results, improved functioning and reduced pain. She would like to proceed with Sprint PNS trial as next steps. We previously discussed therapeutic injections, PNS trial and RFA procedures. Schedule for Bilateral L3 Medial Branch Sprint PNS trial with local and fluoroscopy for axial low back pain. Follow up with GI provider as scheduled. Will obtain thoracic spine to further follow up for mid back pain. Previous thoracic spine in 2016 per EMR review was unremarkable. All questions and concerns have been answered and patient agreed with the plan. Follow up after Sprint placement and sooner if needed. Anticoagulation: Patient not on anticoagulant Justification for interventional therapy: ? Patient with average pain > 6/10 ? Patient has exhausted conservative therapy, including physical therapy, acupuncture, massages and TENS unit. ? Patient continuing home exercise program ? Bilateral Diagnostic L3-L4 DR L5 MBB-90-100% pain relief for 6-8 hours The risks, consequences, alternatives, and benefits of various treatment options were discussed with the patient in great detail, including conservative management, injections and procedures. Orders: Orders XR thoracic spine 3V Today M54.9 - Dorsalgia, unspecified, Q79.60 - Samra- Danlos syndrome, unspecified Coding Level of Care Code Est Pt Level 4 (49420) Diagnoses Samra-Danlos disease Q79.60 Polyarthritis M13.0 Fibromyalgia M79.7 Sacroiliac joint dysfunction of both sides M53.3 Lumbosacral spondylosis M47.817 Mid back pain M54.9
[2023-09-28 11:25] VITALS: BP 111/66; PULSE 68; O2SAT 97; BMI 23.0
== END 2023-09-28 11:53 | disposition home or self-care (01) ==
PROVIDERS: PCP Nurse Practitioner Adult Health; Visit Provider Nurse Practitioner Family
DX: Q79.60 Ehlers-Danlos syndrome, unspecified (principal); M13.0 Polyarthritis, unspecified; M79.7 Fibromyalgia; M53.3 Sacrococcygeal disorders, not elsewhere classified; M47.817 Spondylosis without myelopathy or radiculopathy, lumbosacral region; M54.9 Dorsalgia, unspecified
CPT/HCPCS: 99214

== ENCOUNTER → 2023-09-28 11:16 | Outpatient (BNVA) | payer MEDICARE, SELFPAY | PROVIDERS: PCP Nurse Practitioner Adult Health; Visit Provider Nurse Practitioner Family | DX: M13.0 Polyarthritis, unspecified (principal); M79.7 Fibromyalgia; M53.3 Sacrococcygeal disorders, not elsewhere classified; M47.817 Spondylosis without myelopathy or radiculopathy, lumbosacral region; Q79.60 Ehlers-Danlos syndrome, unspecified; Z98.890 Other specified postprocedural states | CPT/HCPCS: 99212 ==

== ENCOUNTER 2023-10-25 09:29 | Outpatient (AMB) | payer MEDICARE, SELFPAY ==
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
== END 2023-10-25 14:44 | disposition home or self-care (01) ==
LOC: HO.HOP 09:29
PROVIDERS: PCP Nurse Practitioner Adult Health; Visit Provider Clinical Nurse Specialist Psychiatric/Mental Health
DX: F41.1 Generalized anxiety disorder (principal)
CPT/HCPCS: 99215

== ENCOUNTER → 2023-10-25 09:29 | Outpatient (BNVA) | payer MEDICARE, SELFPAY | PROVIDERS: PCP Nurse Practitioner Adult Health; Visit Provider Clinical Nurse Specialist Psychiatric/Mental Health | DX: F41.1 Generalized anxiety disorder (principal) | CPT/HCPCS: 99212 ==

== ENCOUNTER 2023-11-02 06:06 | Outpatient (REF) | payer MEDICARE, SELFPAY ==
--- NOTE | ~2023-11-02 | FL_ITS ---
EXAMINATION: XR FLUOROSCOPY WITH IMAGES CLINICAL INFORMATION: Lumbar spondylosis. COMPARISON: CT abdomen and pelvis 02/20/2018. TECHNIQUE: Fluoroscopy Supervised By: Dr. Morales Walsh. Fluoroscopy Time: 0.2 minutes. Cumulative Dose: 1.85 mGy. DAP: 0.506 Gycm2. Images: 2. FINDINGS: Intraoperative fluoroscopy and spot films were performed during a procedure in the OR. A needle is seen overlying the right side of L5. A tiny curvilinear thin structure is also seen, possibly a tiny epidural catheter. Please correlate with Dr. Morales Walsh's report for complete details. FL/FL guidance in treatment room IMPRESSION: Intraoperative fluoroscopy and spot films were obtained. Please see Dr. Morales Walsh's report for complete details.
== END 2023-11-02 06:07 | disposition home or self-care (01) ==
LOC: CF 06:06
PROVIDERS: Visit Provider Anesthesiology
DX: M47.817 Spondylosis without myelopathy or radiculopathy, lumbosacral region (principal); M47.816 Spondylosis without myelopathy or radiculopathy, lumbar region
CPT/HCPCS: 64555; C1778

== ENCOUNTER 2023-11-02 08:16 | Outpatient (AMB) | payer MEDICARE, SELFPAY ==
--- NOTE | 2023-11-02 08:18 | MHC.OFFVIS ---
Vital Signs 11/02/23 08:28 11/02/23 10:46 Height 5 ft 2 in 5 ft 2 in Weight 126 lb 126 lb BMI 23.0 23.0 BP 124/82 126/70 Blood Pressure Location Lt brachial Lt brachial Position Sitting Sitting Respiration 16 16 Pulse 82 64 Pulse Source Pulse Oximeter Pulse Oximeter Pulse Oximetry (%) 96 98 Oxygen Delivery Method Room Air Room Air Comment Pre-Op post-op Intake Visit Reasons: RIGHT L3 MB SPRINT PNS TRIAL Allergies sulfamethoxazole [From BACTRIM] Allergy (Intermediate, Verified 11/02/23 10:48) hives trimethoprim [From BACTRIM] Allergy (Intermediate, Verified 11/02/23 10:48) hives propranolol Allergy (Unknown, Verified 11/02/23 10:48) Unknown Sulfa (Sulfonamide Antibiotics) Allergy (Unknown, Verified 11/02/23 10:48) Unknown PFSH Medical History Pelvic prolapse Periodic limb movement disorder GERD (gastroesophageal reflux disease) TMJ (dislocation of temporomandibular joint) Fibromyalgia Sleep apnea Migraine PTSD (post-traumatic stress disorder) Anxiety Polyarthritis Pelvic floor dysfunction Irritable bowel syndrome (IBS) Visceral pain Polycystic ovary Depression Samra-Danlos disease Interstitial cystitis Hypothyroid Asthma Physical Exam Vital Signs: Last Vital Signs Pulse 64 11/02/23 10:46 Resp 16 11/02/23 10:46 BP 126/70 11/02/23 10:46 Pulse Ox 98 11/02/23 10:46 Oxygen Delivery Method Room Air 11/02/23 10:46 BMI result Body Mass Index 23.0 Office Procedures Sprint PNS Device: Sprint PNS Device [id number] Percutaneous Peripheral Neuroelectrode Procedure: 20555 - Percutaneous Peripheral Neuroelectrode Procedure code (CPT) selection complete Office Meds lidocaine (PF) 50 mg/5 mL (1 %) injection syringe Performing Provider: Pilar Sheikh APRN, MCKENNA Performing Location: [facility] Administered by: Morales Walsh MD on 11/02/23 08:45 Dose Route Admin Location Dispensed Lot Number Expiration Date NDC Fab[employer]ator Special Items 5 mL subcut 5 mL Assessment & Plan Assessment & Plan (1) Spondylosis of lumbar region without myelopathy or radiculopathy: Code(s): M47.816 - Spondylosis without myelopathy or radiculopathy, lumbar region Category: Medical Plan Sprint PNS L5 on the right. Percutaneous implantation of peripheral nerve stimulation Sprint system. After the risks, benefits and alternatives were discussed with the patient and informed consent was obtained, patient was placed in the prone position and padded to foster comfort. Time out was performed delineating correct site and side of the procedure , name and of the patient, patient participated in time out procedure. Sterily draped C-arm was brought over the operating field and clear picture of the L5 lamina on the right t was delineated on the screen. The upper central portion of the lamina was chosen as a target of the needle tip insertion . After identifying and marking the intended target, the skin around the planned entry point and the subcutaneous tissues were injected with local anesthetic forming skin wheal.. A percutaneous sleeve and stimulating probe lead introduction system were assembled, inserted and advanced through the skin wheal to the point of interest under C-arm view in tunnel vision fashion, the introducer needle was delivered to a location in proximity to the nerve. Multiple stimulation parameters were used to deliver stimulation to the nerve in concert with stimulating at multiple positions around the nerve. nerve target acquisition was confirmed noting generation of in the corresponding to the nerve being stimulated. Various electrical parameter combinations were tested, and the lead location was adjusted (physically relocated) until the patient indicated overlapping the distribution of the patient?s typical region of pain. The stimulating probe was removed from the introducer and a percutaneous lead was guided through the needle and delivered to a location in similar proximity to the nerve. Final location was verified with electrical stimulation. The introducer needle was removed, and the exposed end of the percutaneous lead was attached to an external stimulator unit. At the end of the case various electrical parameter combinations were again tested until the patient indicated paresthesia or muscle tension overlapping the distribution of the patient?s typical region of pain. After confirming that lead impedance was in the normal range, the external unit was detached, the needle was removed, and the lead was anchored at the skin. The lead was threaded into the connector block and electrical continuity and desired patient response was confirmed. The connector block was attached to the external stimulator unit. The site was covered with a sterile occlusive dressing and a image was taken to document final placement. Upon completion of the procedure the patient was taken outside the OR where she recovered uneventfully he went home without immediate complications Orders: Orders FL guidance in treatment room Today M47.817 - Spondylosis without myelopathy or radiculopathy, lumbosacral region AMB Sprint PNS Today M47.817 - Spondylosis without myelopathy or radiculopathy, lumbosacral region Coding Level of Care Code Procedure Only Diagnoses Spondylosis of lumbar region without myelopathy or radiculopathy M47.816 CPT Codes Sprint PNS - Sprint PNS Device: Sprint PNS Device ([id number]) Sprint PNS - SPRINT: 15502 - Percutaneous Peripheral Neuroelectrode ([id number])
[2023-11-02 08:28] VITALS: BP 124/82; PULSE 82; RESP 16; O2SAT 96; BMI 23.0
[2023-11-02 10:46] VITALS: BP 126/70; PULSE 64; RESP 16; O2SAT 98; BMI 23.0
== END 2023-11-02 09:08 | disposition home or self-care (01) ==
LOC: HO.PMCPRC 08:16
PROVIDERS: PCP Nurse Practitioner Adult Health; Visit Provider Anesthesiology
DX: M47.816 Spondylosis without myelopathy or radiculopathy, lumbar region (principal)
CPT/HCPCS: 64555

== ENCOUNTER 2023-11-09 09:01 | Outpatient (AMB) | payer MEDICARE, SELFPAY ==
--- NOTE | 2023-11-09 09:04 | MHC.OFFVIS ---
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 Walsh. Patient reports 80% ongoing pain relief since procedure with good results at 40 stimulation with positive paresthesia on right low back. Patient reports improved range of motion, mobility, functioning and sleep. The dressing was removed today. Lead insertion sites look clean, dry, intact, no redness, no swelling, no pathological discharge. Area was cleansed with Chloraprep. The lead area was cleansed with Chloraprep, applied Bacitracin and covered it with gauze and Tegaderm film dressing. Denies any recent cough, cold, infection, fever, any significant changes in her medical history, medications or recent hospitalizations. Will schedule weekly dressing changes in the office per patient's request. Past Procedures: 11/02/23: Right L5 Sprint PNS trial-80% ongoing pain relief 09/21/23: Bilateral Diagnostic L3-L4 DR L5 MBB-90-100% pain relief for 6-8 hours 07/14/22: Right Sacroiliac Joint RFA at [facility]-0% pain relief 12/23/21: Bilateral Therapeutic SIJ injections-80% ongoing pain relief 07/08/21: Intercostal Therapeutic Injection Rib 6,7-100% pain relief 07/22/21: Bilateral Diagnostic SIJ Yjlossxavt-63-01% pain relief for 6 hours 08/26/21: Bilateral Therapeutic SIJ injections-100% pain relief for 2.5 weeks, ongoing 50% pain relief x 3 months PRIOR: Patient is a pleasant 45 year old female who presents to the office in no acute distress, with costochondritis, chronic back pain x 15 years, fibromyalgia, and Samra Danlos syndrome. Costochondritis pain started about 2.5 weeks ago at the lower midsternal area. She had complete work up for chest pain at ER which was negative. Today, she reports her pain is now at the left lateral rib area. Her lower back pain with radiation posteriorly to her left side just below left knee, with mild paresthesias and pain of the left buttock. She cannot sit or stand for prolonged time because her back will lock up. Patient reports she has to stand against the wall or counter, bending forward to relieve her pain partially. She denies any previous back surgery or injections. Denies trauma, injury or fall. She denies lower or upper extremities weakness. Patient denies any fever, abdominal or groin pain, malaise, weight loss, numbness, tingling, bladder/bowel dysfunction or saddle anesthesia. The pain onset was sudden, varies throughout the day and has been constant or intermittent with worst pain intensity rated at 8/10 and least severe pain at 3/10. She states the pain is interfering with sleep, activities of daily living, mood, quality of life, and she cannot function normally. The patient reports the pain in terms of tissue damage as dull, sore, hurting, aching, heavy, tiring, exhausting, punishing, and killing. She has been taking Tylenol, Ibuprofen, intranasal ketamine, gabapentin, cyclobenzaprine, medical marijuana (edible, tincture, vape), lidocaine 5% patches and short script of tramadol with some improvement in her pain. Weather changes, movements and activity aggravates her pain. Heat and cold applications, topical and oral medications have been helpful partially. She rates their pain 3/10. Previously she has tried physical therapy, the last being 5 years ago through [facility]. She is interested in restarting formal PT at different locations. Patient continues home exercise program. She also has tried home acupuncture, massage, and TENS unit. Denies chiropractic manipulation or aqua therapy. She last had imaging of the lumbar MRI within last year at [facility]. This imaging/report is not available today. Referral notes present with normal chest xrays 06/16/21, 06/17/[address] chest pulmonary angiogram 06/17/21 which was also normal and negative for pulmonary embolus. Past medical history is significant for anxiety, asthma, chronic fatigue, depressive disorder, Samra-Danlos syndrome, fibromyalgia, hypothyroidism, interstitial cystitis, irritable bowel syndrome and chronic lower back pain. [facility] Medical History Pelvic prolapse Periodic limb movement disorder GERD (gastroesophageal reflux disease) TMJ (dislocation of temporomandibular joint) Fibromyalgia Sleep apnea Migraine PTSD (post-traumatic stress disorder) Anxiety Polyarthritis Pelvic floor dysfunction Irritable bowel syndrome (IBS) Visceral pain Polycystic ovary Depression Samra-Danlos disease Interstitial cystitis Hypothyroid Asthma Review of Systems Const All systems reviewed & are unremarkable except as noted in HPI and below Physical Exam Vital Signs: Last Vital Signs Pulse 84 11/09/23 09:09 BP 189/83 H 11/09/23 09:09 Pulse Ox 100 11/09/23 09:09 Oxygen Delivery Method Room Air 11/09/23 09:09 BMI result Body Mass Index 22.9 General: Appears afebrile. Alert and oriented. Mood and affect appropriate. Follows and participates in conversation appropriately. Respiratory effort is unlabored. No cough. Able to transition from sit to stand unassisted. Ambulates with bilaterally normal heel strike and toe off. Lead Insertion Site: Lead insertion site looks clean, dry, intact.? No pathological discharge, no swelling and no erythema.? Lead site dressings were changed today in the clinic. Positive paresthesia at 40 on the right. Results Reviewed Results Reviewed: MR LUMBAR SPINE WITHOUT CONTRAST 09/09/22 CLINICAL INFORMATION: Right lower extremity radiculopathy. FINDINGS: VERTEBRAL BODIES AND PARASPINAL STRUCTURES: The marrow signal is within normal limits. There are no compression fractures or significant subluxations. Marrow edema is present within the left L5 pedicle and left L4-L5 posterior elements, likely reactive to severity of degenerative joint disease. The paraspinal soft tissues are normal. The imaged bony pelvis is unremarkable. CONUS MEDULLARIS AND CAUDA EQUINE: The distal cord, conus tip, and cauda equina nerve roots are normal. SPINAL LEVELS: L1-L2: No disc pathology. Patent central canal and foramina. L2-L3: Very mild loss of disc height and mild disc bulge with mild facet arthropathy. No central canal stenosis. Bulging disc slightly encroaches upon the left neural foramen. L3-L4: Minimal annular bulge and mild facet arthrosis. No central canal stenosis or foraminal narrowing. L4-L5: Very mild disc bulge and qaiqoqdx-sq-aepzxd facet arthropathy with reactive edema in the articular processes, more so on the left side and in the left posterior paraspinal soft tissues, presumably reactive. No central canal stenosis or foraminal narrowing. L5-S1: Broad-based disc bulge present with a right subarticular zone disc protrusion severely compressing the right S1 nerve root. Moderate facet arthropathy without central canal stenosis or foraminal narrowing. IMPRESSION: 1. Right subarticular zone disc protrusion at L5-S1 severely compressing the right S1 nerve root. 2. Hqjjepfj-vb-kkmscx facet degeneration at L4-L5 with reactive edema in the articular processes, more so on the left side. Assessment & Plan Assessment & Plan (1) Spondylosis of lumbar region without myelopathy or radiculopathy: Code(s): M47.816 - Spondylosis without myelopathy or radiculopathy, lumbar region Category: Medical Plan Patient presented today a 1 week s/p Right L5 Sprint with good results. Patient reports improvement in her daily activities, social interactions and sleep. Dressing site was without any signs of infection or pathological discharge and dressing change was done today in the clinic. All questions were answered and the patient agreed with the plan. Follow up in 1 week for Sprint dressing change and sooner if needed. Coding Level of Care Code Est Pt Level 3 (36177) Diagnoses Spondylosis of lumbar region without myelopathy or radiculopathy M47.816
[2023-11-09 09:09] VITALS: BP 189/83; PULSE 84; O2SAT 100; BMI 22.9
== END 2023-11-09 09:25 | disposition home or self-care (01) ==
PROVIDERS: PCP Nurse Practitioner Adult Health; Visit Provider Nurse Practitioner Family
DX: M47.816 Spondylosis without myelopathy or radiculopathy, lumbar region (principal)
CPT/HCPCS: 99024

== ENCOUNTER 2023-11-09 21:19 | Emergency (ER) | payer MEDICARE, SELFPAY ==
[2023-11-09 21:29] VITALS: BP 112/70; PULSE 82; RESP 16; TEMP 37; O2SAT 95; BMI 22.9
[2023-11-09 23:27] VITALS: BP 119/75; PULSE 67; RESP 20; TEMP 37.1; O2SAT 97
--- NOTE | 2023-11-10 00:13 | ED.BACK ---
HPI - Back Pain/Injury General Chief Complaint: Back Pain/Injury Stated Complaint: post op pain and swelling Time Seen by Provider: 11/10/23 00:08 History of Present Illness HPI Narrative: Patient is status post sprint PNS L5 on the right on 11/02/2023 patient was doing fine till earlier today when dressing was changed at 09:00 in his office she came home and started having the pain very sensitive to touch no redness of the skin patient did not have much pain before dressing change patient has tried to connect the stimulator to the wire without much response. Patient's plan to see surgeon in a.m. Related Data Home Medications ?Medication ?Instructions ?Recorded ?Confirmed albuterol sulfate 90 mcg/actuation 2 puff PO QID PRN wheezing 07/01/21 10/25/23 aerosol inhaler thyroid (pork) 60 mg tablet 60 mg PO DAILY 07/01/21 10/25/23 (Bynum Thyroid) Previous Rx's ?Medication ?Instructions ?Recorded dextroamphetamine-amphetamine 10 10 mg PO BID 30 days #60 tabs 07/27/23 mg tablet (Adderall) pregabalin 25 mg capsule 25 mg PO BID pain 30 days #60 caps 09/23/23 dextroamphetamine-amphetamine 10 1 tab PO BID #60 tabs 10/28/23 mg tablet venlafaxine 150 mg 150 mg PO DAILY #90 caps 10/28/23 capsule,extended release 24 hr zolpidem 10 mg tablet (Ambien) 10 mg PO BEDTIME PRN sleep #30 tabs 10/28/23 Allergies Allergy/AdvReac Type Severity Reaction Status Date / Time sulfamethoxazole Allergy Intermediate hives Verified 11/09/23 21:33 [From BACTRIM] trimethoprim [From BACTRIM] Allergy Intermediate hives Verified 11/09/23 21:33 propranolol Allergy Unknown Unknown Verified 11/09/23 21:33 Sulfa (Sulfonamide Allergy Unknown Unknown Verified 11/09/23 21:33 Antibiotics) Review of Systems Review of Systems: Yes all other systems are reviewed and are negative PMFSH Past Medical History Medical History Pelvic prolapse Periodic limb movement disorder GERD (gastroesophageal reflux disease) TMJ (dislocation of temporomandibular joint) Fibromyalgia Sleep apnea Migraine PTSD (post-traumatic stress disorder) Anxiety Polyarthritis Pelvic floor dysfunction Irritable bowel syndrome (IBS) Visceral pain Polycystic ovary Depression Samra-Danlos disease Interstitial cystitis Hypothyroid Asthma Social History Social History Advance Directives: No Advance Directives Information Provided: No Do you have a plan to hurt others: No Plan Patient : No Physical Exam Vital Signs: Vital Signs: Last Vital Signs Temp 98.7 F 11/09/23 23:27 Pulse 67 11/09/23 23:27 Resp 20 11/09/23 23:27 BP 119/75 11/09/23 23:27 Pulse Ox 97 11/09/23 23:27 O2 Del Method Room Air 11/09/23 23:27 BMI result Body Mass Index 22.9 Appearance: Alert. Oriented X3. No acute distress. Neck: Normal inspection. Neck supple. CVS: Normal heart rate and rhythm. Pulses normal. Respiratory: No respiratory distress. Equal air entry bilateral, Abdomen: Soft and nontender. Bowel sounds are present, back: SPNS side looks healthy and intact Skin: Skin warm and dry. Normal skin color. Normal skin turgor. Extremities: No lower extremity edema. No calf tenderness Neuro: Oriented X 3. No motor deficit. No sensory deficit.No cerebellar signs , cranial nerves II-XII intact Medications Administered Discontinued Medications Generic Name Dose Route Start Last Admin Trade Name Freq PRN Reason Stop Dose Admin Morphine Sulfate 15 mg 11/10/23 00:24 11/10/23 00:43 Morphine Sulfate Immed Release 15 Mg Tablet PO 11/10/23 00:25 15 mg ONCE ONE Administration Medical Decision Making Medical Decision Making MDM Narrative: Patient with superficial tenderness at the site of stimulator wire placed at the right lower lumbar area no signs of infection new dressing was applied. Patient advised to follow up with surgeon aNaldomNaldo as scheduled X-ray ordered for lumbar spine but patient left without the x-ray and discharge papers Differential Diagnosis Differential Diagnoses: The differential diagnosis associated with the presentation includes dislodgement of the wire of the back stimulator/cellulitis/muscle spasm Discharge Plan Discharge Clinical Impression: Low back pain Patient Disposition: Home, Self-Care Instructions: Acute Low Back Pain (ED), Spinal Cord Stimulator Placement (DC) Additional Instructions: Follow-up with your pain clinic Apply ice pack Prescriptions: No Action pregabalin 25 mg capsule 25 mg PO BID 30 Days Qty: 60 1RF thyroid (pork) [Bynum Thyroid] 60 mg tablet 60 mg PO DAILY albuterol sulfate 90 mcg/actuation HFA aerosol inhaler 2 puff PO QID PRN (Reason: wheezing) dextroamphetamine-amphetamine [Adderall] 10 mg tablet 10 mg PO BID 30 Days Qty: 60 0RF Rx Instructions: administer doses at least 4-6 hours apart; Partial Fill upon patient request. dextroamphetamine-amphetamine 10 mg tablet 1 tab PO BID Qty: 60 0RF venlafaxine 150 mg capsule,extended release 24hr 150 mg PO DAILY Qty: 90 0RF zolpidem [Ambien] 10 mg tablet 10 mg PO BEDTIME PRN (Reason: sleep) Qty: 30 2RF Print Language: Turkish
[2023-11-10 00:40] VITALS: BP 119/75; PULSE 67; RESP 20; TEMP 37.1; O2SAT 97
[2023-11-10] MEDS: Morphine Sulfate Immed Release 15 MG TABLET PO (00:43)
== END 2023-11-10 01:41 | disposition home or self-care (01) ==
PROVIDERS: Emergency Provider Internal Medicine; PCP Nurse Practitioner Adult Health
DX: M54.50 Low back pain, unspecified (principal); Z79.899 Other long term (current) drug therapy
CPT/HCPCS: 99212; 99283; 99284

== ENCOUNTER 2023-11-11 10:29 | Outpatient (AMB) | payer MEDICARE, SELFPAY ==
--- NOTE | 2023-11-11 10:59 | MHC.OFFVIS ---
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 Walsh. She was seen initially after procedure this Wednesday and reported 80% pain relief at 40 stimulation and positive paresthesia at the right low back. Patient reports she developed pain Wednesday with titration of setting to 50. She did notify [employer] rep and was told new remote supplies were sent out to her. Patient presents today in significant discomfort unable to find a comfortable position. She went to ER yesterday to address acute right sided low back pain and was given Morphine IR 15 mg which provided her 4 hours of pain relief. The dressing was removed today. Lead insertion sites presents with significant redness, tenderness, erythema. Lead intact. No pathological discharge. Area was cleansed with Chloraprep. Given concern for surgical site infection, the Sprint lead was pulled with tip intact. The area was cleansed with Chloraprep, applied Bacitracin and covered it with gauze and Tegaderm film dressing. Patient denies any recent cough, cold, infection, fever, any significant changes in her medical history, medications or recent hospitalizations. Past Procedures: 11/11/23: Right L5 Sprint PNS lead removed 11/02/23: Right L5 [employer] PNS trial-80% ongoing pain relief 09/21/23: Bilateral Diagnostic L3-L4 DR L5 MBB-90-100% pain relief for 6-8 hours 07/14/22: Right Sacroiliac Joint RFA at [facility]-0% pain relief 12/23/21: Bilateral Therapeutic SIJ injections-80% ongoing pain relief 07/08/21: Intercostal Therapeutic Injection Rib 6,7-100% pain relief 07/22/21: Bilateral Diagnostic SIJ Mdsdahozxq-64-05% pain relief for 6 hours 08/26/21: Bilateral Therapeutic SIJ injections-100% pain relief for 2.5 weeks, ongoing 50% pain relief x 3 months PRIOR: Patient is a pleasant 45 year old female who presents to the office in no acute distress, with costochondritis, chronic back pain x 15 years, fibromyalgia, and Samra Danlos syndrome. Costochondritis pain started about 2.5 weeks ago at the lower midsternal area. She had complete work up for chest pain at ER which was negative. Today, she reports her pain is now at the left lateral rib area. Her lower back pain with radiation posteriorly to her left side just below left knee, with mild paresthesias and pain of the left buttock. She cannot sit or stand for prolonged time because her back will lock up. Patient reports she has to stand against the wall or counter, bending forward to relieve her pain partially. She denies any previous back surgery or injections. Denies trauma, injury or fall. She denies lower or upper extremities weakness. Patient denies any fever, abdominal or groin pain, malaise, weight loss, numbness, tingling, bladder/bowel dysfunction or saddle anesthesia. The pain onset was sudden, varies throughout the day and has been constant or intermittent with worst pain intensity rated at 8/10 and least severe pain at 3/10. She states the pain is interfering with sleep, activities of daily living, mood, quality of life, and she cannot function normally. The patient reports the pain in terms of tissue damage as dull, sore, hurting, aching, heavy, tiring, exhausting, punishing, and killing. She has been taking Tylenol, Ibuprofen, intranasal ketamine, gabapentin, cyclobenzaprine, medical marijuana (edible, tincture, vape), lidocaine 5% patches and short script of tramadol with some improvement in her pain. Weather changes, movements and activity aggravates her pain. Heat and cold applications, topical and oral medications have been helpful partially. She rates their pain 3/10. Previously she has tried physical therapy, the last being 5 years ago through [facility]. She is interested in restarting formal PT at different locations. Patient continues home exercise program. She also has tried home acupuncture, massage, and TENS unit. Denies chiropractic manipulation or aqua therapy. She last had imaging of the lumbar MRI within last year at [facility]. This imaging/report is not available today. Referral notes present with normal chest xrays 06/16/21, 06/17/[address] chest pulmonary angiogram 06/17/21 which was also normal and negative for pulmonary embolus. Past medical history is significant for anxiety, asthma, chronic fatigue, depressive disorder, Samra-Danlos syndrome, fibromyalgia, hypothyroidism, interstitial cystitis, irritable bowel syndrome and chronic lower back pain. [facility] Medical History Pelvic prolapse Periodic limb movement disorder GERD (gastroesophageal reflux disease) TMJ (dislocation of temporomandibular joint) Fibromyalgia Sleep apnea Migraine PTSD (post-traumatic stress disorder) Anxiety Polyarthritis Pelvic floor dysfunction Irritable bowel syndrome (IBS) Visceral pain Polycystic ovary Depression Samra-Danlos disease Interstitial cystitis Hypothyroid Asthma Social History (Updated 11/11/23 @ 11:06 by Alison Carlson) Substance Use Type: Other Substance Use Type Other:: edibles Review of Systems Const All systems reviewed & are unremarkable except as noted in HPI and below Physical Exam Vital Signs: Last Vital Signs Pulse 83 11/11/23 11:04 BP 142/92 H 11/11/23 11:04 Pulse Ox 96 11/11/23 11:04 Oxygen Delivery Method Room Air 11/11/23 11:04 BMI result Body Mass Index 22.9 General: Appears afebrile. Acute distress due to pain. Alert and oriented. Mood and affect appropriate. Follows and participates in conversation appropriately. Respiratory effort is unlabored. No cough. Able to transition from sit to stand unassisted. Ambulates with bilaterally normal heel strike and toe off. Lead Insertion Site: Lead insertion site dry, intact but with significant tenderness, erythema, redness and mild swelling. No pathological discharge. Lead removed with tip intact. Results Reviewed Results Reviewed: MR LUMBAR SPINE WITHOUT CONTRAST 09/09/22 CLINICAL INFORMATION: Right lower extremity radiculopathy. FINDINGS: VERTEBRAL BODIES AND PARASPINAL STRUCTURES: The marrow signal is within normal limits. There are no compression fractures or significant subluxations. Marrow edema is present within the left L5 pedicle and left L4-L5 posterior elements, likely reactive to severity of degenerative joint disease. The paraspinal soft tissues are normal. The imaged bony pelvis is unremarkable. CONUS MEDULLARIS AND CAUDA EQUINE: The distal cord, conus tip, and cauda equina nerve roots are normal. SPINAL LEVELS: L1-L2: No disc pathology. Patent central canal and foramina. L2-L3: Very mild loss of disc height and mild disc bulge with mild facet arthropathy. No central canal stenosis. Bulging disc slightly encroaches upon the left neural foramen. L3-L4: Minimal annular bulge and mild facet arthrosis. No central canal stenosis or foraminal narrowing. L4-L5: Very mild disc bulge and frocchaz-nu-hjmprk facet arthropathy with reactive edema in the articular processes, more so on the left side and in the left posterior paraspinal soft tissues, presumably reactive. No central canal stenosis or foraminal narrowing. L5-S1: Broad-based disc bulge present with a right subarticular zone disc protrusion severely compressing the right S1 nerve root. Moderate facet arthropathy without central canal stenosis or foraminal narrowing. IMPRESSION: 1. Right subarticular zone disc protrusion at L5-S1 severely compressing the right S1 nerve root. 2. Vlrloavh-jd-bqrfbl facet degeneration at L4-L5 with reactive edema in the articular processes, more so on the left side. Assessment & Plan Assessment & Plan (1) Spondylosis of lumbar region without myelopathy or radiculopathy: Code(s): M47.816 - Spondylosis without myelopathy or radiculopathy, lumbar region Category: Medical (2) Intractable low back pain: Code(s): M54.59 - Other low back pain Category: Medical (3) Surgical site infection: Code(s): T81.49XA - Infection following a procedure, other surgical site, initial encounter Category: Medical Plan Patient presented today with significant tenderness, redness and erythema at the site and significant right low back pain. Due to significant pain at the lead site, patient went to ER on 11/10/23 for pain control. We removed Sprint PNS lead today with tip intact for concern for surgical site infection. Script sent for cephalexin 500 mg PO Q12H #14 tabs for 7 days. Patient is also instructed to take probiotic in between cephalexin and one more week after patient completes antibiotic. For moderate-severe pain, script sent for Morphine IR 15 mg prn for 7 days. Narcan script sent too. Side effects and precautions were discussed with patient. All questions were answered and the patient agreed with the plan. Follow up in 1-2 weeks for wound site check and sooner if needed. Medications: New morphine Partial Fill upon patient request. 15 mg PO BID 7 days PRN 14 tabs 0RF pain (scale score 7-10) M47.816 - Spondylosis without myelopathy or radiculopathy, lumbar region, M54.59 - Other low back pain Lactobac. rhamnosus GG-inulin 20 billion cell -200 mg ([employer]) Take one tab between antibiotic x1 week and after completing antibiotic x1 week 1 cap PO DAILY 14 days 14 caps 0RF naloxone 4 mg/actuation (Narcan) spray 1 dose into ONE nostril; alternate nostrils w each dose until help arrives 4 mg intranasal Q2M PRN 2 ea 0RF opioid overdose cephalexin 500 mg PO Q12H 7 days 14 tabs 0RF M47.816 - Spondylosis without myelopathy or radiculopathy, lumbar region, T81.49XA - Infection following a procedure, other surgical site, initial encounter Coding Level of Care Code Est Pt Level 4 (10213) Diagnoses Spondylosis of lumbar region without myelopathy or radiculopathy M47.816 Intractable low back pain M54.59 Surgical site infection T81.49XA
[2023-11-11 11:04] VITALS: BP 142/92; PULSE 83; O2SAT 96; BMI 22.9
== END 2023-11-11 11:27 | disposition home or self-care (01) ==
PROVIDERS: PCP Nurse Practitioner Adult Health; Visit Provider Nurse Practitioner Family
DX: M47.816 Spondylosis without myelopathy or radiculopathy, lumbar region (principal); M54.59 Other low back pain; T81.49XA Infection following a procedure, other surgical site, initial encounter
CPT/HCPCS: 99024

== ENCOUNTER → 2023-11-11 10:29 | Outpatient (BNVA) | payer MEDICARE, SELFPAY | PROVIDERS: PCP Nurse Practitioner Adult Health; Visit Provider Nurse Practitioner Family | DX: M47.816 Spondylosis without myelopathy or radiculopathy, lumbar region (principal); M54.59 Other low back pain; T81.49XA Infection following a procedure, other surgical site, initial encounter | CPT/HCPCS: 99212 ==

== ENCOUNTER 2023-11-16 06:13 | Outpatient (REF) | payer MEDICARE, SELFPAY | END 2023-11-16 06:14 | disposition home or self-care (01) | LOC: CF 06:13 | PROVIDERS: Visit Provider Anesthesiology | DX: Z13.89 Encounter for screening for other disorder (principal) ==

== ENCOUNTER 2024-01-18 09:24 | Outpatient (REF) | payer MEDICARE, SELFPAY ==
[2024-01-18 11:21] LABS: Alanine Aminotransferase 48 U/L (0-31); Albumin Level 4.6 g/dL (3.5-5.0); Alkaline Phosphatase 136 U/L (39-117); Aspartate Amino Transferase 36 U/L (5-31); Bilirubin Direct 0.1 mg/dL (0.0-0.5); Bilirubin Total 0.3 mg/dL (0.0-1.0); Total Protein 7.9 g/dL (6.5-8.0)
== END 2024-01-18 09:25 | disposition home or self-care (01) ==
LOC: HO.LAB 09:24
PROVIDERS: PCP Nurse Practitioner Adult Health; Visit Provider Clinical Nurse Specialist Psychiatric/Mental Health
DX: R74.8 Abnormal levels of other serum enzymes (principal); F90.0 Attention-deficit hyperactivity disorder, predominantly inattentive type; F33.9 Major depressive disorder, recurrent, unspecified
CPT/HCPCS: 36415; 80076; 99212

== ENCOUNTER 2024-01-18 09:24 | Outpatient (AMB) | payer MEDICARE, SELFPAY ==
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
== END 2024-01-18 10:10 | disposition home or self-care (01) ==
LOC: HO.HOP 09:25
PROVIDERS: PCP Nurse Practitioner Adult Health; Visit Provider Clinical Nurse Specialist Psychiatric/Mental Health
DX: F90.0 Attention-deficit hyperactivity disorder, predominantly inattentive type (principal); R74.8 Abnormal levels of other serum enzymes; F33.1 Major depressive disorder, recurrent, moderate
CPT/HCPCS: 99214

== ENCOUNTER 2024-04-20 09:36 | Outpatient (AMB) | payer MEDICARE, SELFPAY ==
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
== END 2024-04-20 10:28 | disposition home or self-care (01) ==
LOC: HO.HOP 09:36
PROVIDERS: PCP Nurse Practitioner Adult Health; Visit Provider Clinical Nurse Specialist Psychiatric/Mental Health
DX: F33.1 Major depressive disorder, recurrent, moderate (principal); F90.0 Attention-deficit hyperactivity disorder, predominantly inattentive type; F41.1 Generalized anxiety disorder; G47.00 Insomnia, unspecified
CPT/HCPCS: 99215

== ENCOUNTER → 2024-04-20 09:36 | Outpatient (BNVA) | payer MEDICARE, SELFPAY | PROVIDERS: PCP Nurse Practitioner Adult Health; Visit Provider Clinical Nurse Specialist Psychiatric/Mental Health | DX: F41.1 Generalized anxiety disorder (principal); F90.0 Attention-deficit hyperactivity disorder, predominantly inattentive type; F33.1 Major depressive disorder, recurrent, moderate; G47.00 Insomnia, unspecified; G47.8 Other sleep disorders; Z71.89 Other specified counseling | CPT/HCPCS: 99212 ==

== ENCOUNTER 2024-06-01 09:32 | Outpatient (AMB) | payer MEDICARE, SELFPAY ==
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
== END 2024-06-01 10:06 | disposition home or self-care (01) ==
LOC: HO.HOP 09:32
PROVIDERS: PCP Nurse Practitioner Adult Health; Visit Provider Clinical Nurse Specialist Psychiatric/Mental Health
DX: F41.1 Generalized anxiety disorder (principal); F90.0 Attention-deficit hyperactivity disorder, predominantly inattentive type; G47.00 Insomnia, unspecified; G47.8 Other sleep disorders; F33.1 Major depressive disorder, recurrent, moderate
CPT/HCPCS: 99214

== ENCOUNTER → 2024-06-01 09:32 | Outpatient (BNVA) | payer MEDICARE, SELFPAY | PROVIDERS: PCP Nurse Practitioner Adult Health; Visit Provider Clinical Nurse Specialist Psychiatric/Mental Health | DX: F90.0 Attention-deficit hyperactivity disorder, predominantly inattentive type (principal); F41.1 Generalized anxiety disorder; F33.1 Major depressive disorder, recurrent, moderate; G47.00 Insomnia, unspecified; G47.8 Other sleep disorders; Z71.89 Other specified counseling | CPT/HCPCS: 99212 ==

== ENCOUNTER 2024-07-17 08:45 | Outpatient (REF) | payer MEDICARE, SELFPAY ==
--- NOTE | ~2024-07-17 | XR_ITS ---
EXAMINATION: XR HIP 1 VIEW RIGHT WITH PELVIS HISTORY: M25.551 - Pain in right hip COMPARISON: There are no prior studies for comparison. FINDINGS: A single AP view of the pelvis and two views of the right hip are submitted. Osseous mineralization is normal. There is no fracture or dislocation. The joint space is maintained. The soft tissues are unremarkable. XR/XR hip RT w PEL1V IMPRESSION: Unremarkable examination of the right hip. Electronically signed by: Kip Ramey MD 07/17/2024 10:57 AM AIMEE MALDONADO
--- OUTSIDE RECORDS SUMMARY | 2024-07-17 10:22 | XMS_ITS | Clinical Summary ---
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
== END 2024-07-17 08:46 | disposition home or self-care (01) ==
LOC: HO.XRAY 08:45
PROVIDERS: PCP Nurse Practitioner Adult Health; Visit Provider Nurse Practitioner Family
DX: M25.551 Pain in right hip (principal); M53.3 Sacrococcygeal disorders, not elsewhere classified; M79.7 Fibromyalgia; M62.838 Other muscle spasm; M47.27 Other spondylosis with radiculopathy, lumbosacral region
CPT/HCPCS: 73502; 99212

== ENCOUNTER 2024-07-17 08:45 | Outpatient (AMB) | payer MEDICARE, SELFPAY ==
--- NOTE | 2024-07-17 08:52 | MHC.OFFVIS ---
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 Denies any inciting events, recent trauma, injury or falls. Main pain generator today is right hip pain with radiation into her right groin and lateral thigh. She also continues to endorse significant axial low back and SIJ pain on the right with positive provocative testing. She cannot sleep on right side due to hip pain. Patient has completed numerous courses of formal PT and HEP, with last PT in summer. She also attempted Sprint PNS for axial low back pain but this had to be removed due to insertion site tenderness and concern for infection. Patient has been managing with heat and ice therapy, TENS unit, CBD and fascia blasting. Denies lower extremity weakness, bladder or bowel dysfunction or saddle anesthesia. Denies any recent cough, cold, infection, fever, any significant changes in her medical history, medications or recent hospitalizations. Past Procedures: 11/11/23: Right L5 Sprint PNS lead removed 11/02/23: Right L5 Sprint PNS trial-80% ongoing pain relief 09/21/23: Bilateral Diagnostic L3-L4 DR L5 MBB-90-100% pain relief for 6-8 hours 07/14/22: Right Sacroiliac Joint RFA at [facility]-0% pain relief 12/23/21: Bilateral Therapeutic SIJ injections-80% ongoing pain relief 07/08/21: Intercostal Therapeutic Injection Rib 6,7-100% pain relief 07/22/21: Bilateral Diagnostic SIJ [id number]-66-24% pain relief for 6 hours 08/26/21: Bilateral Therapeutic SIJ injections-100% pain relief for 2.5 weeks, ongoing 50% pain relief x 3 months PRIOR: Patient is a pleasant 45 year old female who presents to the office in no acute distress, with costochondritis, chronic back pain x 15 years, fibromyalgia, and Samra Danlos syndrome. Costochondritis pain started about 2.5 weeks ago at the lower midsternal area. She had complete work up for chest pain at ER which was negative. Today, she reports her pain is now at the left lateral rib area. Her lower back pain with radiation posteriorly to her left side just below left knee, with mild paresthesias and pain of the left buttock. She cannot sit or stand for prolonged time because her back will lock up. Patient reports she has to stand against the wall or counter, bending forward to relieve her pain partially. She denies any previous back surgery or injections. Denies trauma, injury or fall. She denies lower or upper extremities weakness. Patient denies any fever, abdominal or groin pain, malaise, weight loss, numbness, tingling, bladder/bowel dysfunction or saddle anesthesia. The pain onset was sudden, varies throughout the day and has been constant or intermittent with worst pain intensity rated at 8/10 and least severe pain at 3/10. She states the pain is interfering with sleep, activities of daily living, mood, quality of life, and she cannot function normally. The patient reports the pain in terms of tissue damage as dull, sore, hurting, aching, heavy, tiring, exhausting, punishing, and killing. She has been taking Tylenol, Ibuprofen, intranasal ketamine, gabapentin, cyclobenzaprine, medical marijuana (edible, tincture, vape), lidocaine 5% patches and short script of tramadol with some improvement in her pain. Weather changes, movements and activity aggravates her pain. Heat and cold applications, topical and oral medications have been helpful partially. She rates their pain 3/10. Previously she has tried physical therapy, the last being 5 years ago through [facility]. She is interested in restarting formal PT at different locations. Patient continues home exercise program. She also has tried home acupuncture, massage, and TENS unit. Denies chiropractic manipulation or aqua therapy. She last had imaging of the lumbar MRI within last year at [facility]. This imaging/report is not available today. Referral notes present with normal chest xrays 06/16/21, 06/17/[address] chest pulmonary angiogram 06/17/21 which was also normal and negative for pulmonary embolus. Past medical history is significant for anxiety, asthma, chronic fatigue, depressive disorder, Samra-Danlos syndrome, fibromyalgia, hypothyroidism, interstitial cystitis, irritable bowel syndrome and chronic lower back pain. [facility] Medical History Major depression, recurrent Pelvic prolapse Periodic limb movement disorder GERD (gastroesophageal reflux disease) TMJ (dislocation of temporomandibular joint) Fibromyalgia Sleep apnea Migraine PTSD (post-traumatic stress disorder) Anxiety Polyarthritis Pelvic floor dysfunction Irritable bowel syndrome (IBS) Visceral pain Polycystic ovary Depression Samra-Danlos disease Interstitial cystitis Hypothyroid Asthma Social History Substance Use Type: Other Review of Systems Const All systems reviewed & are unremarkable except as noted in HPI and below Physical Exam Vital Signs: Last Vital Signs Pulse 91 07/17/24 08:55 BP 131/84 07/17/24 08:55 Pulse Ox 98 07/17/24 08:55 Oxygen Delivery Method Room Air 07/17/24 08:55 BMI result Body Mass Index 25.1 General: Appears afebrile. Alert and oriented. Mood and affect appropriate. Follows and participates in conversation appropriately. Respiratory effort is unlabored. No cough. Able to transition from sit to stand unassisted. Ambulates with bilaterally normal heel strike and toe off. Repetitive lumbar flexion and axial rotation reproduces pain. General: Yes no CVA tenderness Back/Spine/Pelvis Other: Patient is able to walk and stand on heels and tip toes with no difficulties demonstrating good motor tone. No limping. Can flex forward to 80-90 degrees and extend to 5-10 degrees before experiencing lumbar pain. Painful facet loading bilaterally, worse on the right side. Demonstrates 5/5 strength of quadriceps bilaterally as well as flexion/dorsiflexion of bilateral feet against resistance. 2+ pedal pulses bilaterally. SLR test with dorsiflexion negative bilaterally. +2 patellar and achilles reflexes bilaterally. Facet loading test positive bilaterally. Arron sign, Brent?s, Gaenslen, Pelvic compression and Stinchfield tests are positive on the right. Moderate groin pain with right I/E hip rotations. Significant paraspinals tenderness mostly on the right mid and lower back. Valsalva maneuver negative. Multiple widespread TTPs 16/16 bilaterally, including upper and lower extremities. Back: no CVA tenderness Cervical Spine: cervical ROM normal, cervical muscular tenderness and No Cervical spine tenderness Thoracic/Lumbar Spine: thoracic and lumbar spine normal to inspection, Lasegue's sign negative, straight leg raise negative bilaterally, pain with thoraco-lumbar ROM, paraspinal muscle tenderness, No thoracic spinal tenderness and lumbar spinal tenderness (L4-S1) Pelvis: buttock tenderness on the right and no sciatic notch tenderness Sacroiliac joints: bilaterally (right>left) tender to palpation Extrem General: Yes capillary refill normal, Yes no clubbing, cyanosis or edema and Yes no calf tenderness Results Reviewed Results Reviewed: MR LUMBAR SPINE WITHOUT CONTRAST 09/09/22 CLINICAL INFORMATION: Right lower extremity radiculopathy. FINDINGS: VERTEBRAL BODIES AND PARASPINAL STRUCTURES: The marrow signal is within normal limits. There are no compression fractures or significant subluxations. Marrow edema is present within the left L5 pedicle and left L4-L5 posterior elements, likely reactive to severity of degenerative joint disease. The paraspinal soft tissues are normal. The imaged bony pelvis is unremarkable. CONUS MEDULLARIS AND CAUDA EQUINE: The distal cord, conus tip, and cauda equina nerve roots are normal. SPINAL LEVELS: L1-L2: No disc pathology. Patent central canal and foramina. L2-L3: Very mild loss of disc height and mild disc bulge with mild facet arthropathy. No central canal stenosis. Bulging disc slightly encroaches upon the left neural foramen. L3-L4: Minimal annular bulge and mild facet arthrosis. No central canal stenosis or foraminal narrowing. L4-L5: Very mild disc bulge and wkxikvsq-rx-vdokwb facet arthropathy with reactive edema in the articular processes, more so on the left side and in the left posterior paraspinal soft tissues, presumably reactive. No central canal stenosis or foraminal narrowing. L5-S1: Broad-based disc bulge present with a right subarticular zone disc protrusion severely compressing the right S1 nerve root. Moderate facet arthropathy without central canal stenosis or foraminal narrowing. IMPRESSION: 1. Right subarticular zone disc protrusion at L5-S1 severely compressing the right S1 nerve root. 2. Dvpgapaj-fs-gczzdp facet degeneration at L4-L5 with reactive edema in the articular processes, more so on the left side. Assessment & Plan Assessment & Plan (1) Sacroiliac joint dysfunction of both sides: Code(s): M53.3 - Sacrococcygeal disorders, not elsewhere classified Category: Medical (2) Right hip pain: Code(s): M25.551 - Pain in right hip Category: Medical (3) Fibromyalgia: Code(s): M79.7 - Fibromyalgia Category: Medical (4) Muscle spasm: Code(s): M62.838 - Other muscle spasm Category: Medical (5) Spondylosis of lumbosacral spine with radiculopathy: Code(s): M47.27 - Other spondylosis with radiculopathy, lumbosacral region Category: Medical Plan Right hip xray to assess degree of degenerative changes and arthritis. Discussed interventional treatments for current pain generators, including diagnostic vs therapeutic injections, neuromodulation and ablation procedures. Script provided for cyclobenzaprine. Patient tolerated this well in the past. She is aware to continue monitor for any side effects. All questions and concerns have been answered and patient agreed with the plan. Follow up for xray results and sooner as needed. Orders: Orders XR hip RT w PEL1V Today M25.551 - Pain in right hip, M53.3 - Sacrococcygeal disorders, not elsewhere classified Medications: New cyclobenzaprine 10 mg PO BID PRN 60 tabs 1RF muscle spasm M62.838 - Other muscle spasm, M79.7 - Fibromyalgia Coding Level of Care Code Est Pt Level 4 (21265) Complex EM visit Add On G2211 Diagnoses Sacroiliac joint dysfunction of both sides M53.3 Right hip pain M25.551 Fibromyalgia M79.7 Muscle spasm M62.838 Spondylosis of lumbosacral spine with radiculopathy M47.27
[2024-07-17 08:55] VITALS: BP 131/84; PULSE 91; O2SAT 98; BMI 25.1
--- OUTSIDE RECORDS SUMMARY | 2024-07-17 09:17 | XMS_ITS | Clinical Summary ---
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 1 12/14/2014 Active phenazopyridine (PYRIDIUM) 200 MG tablet Take 200 mg by mouth every 8 (eight) hours. 0 08/28/2015 Active cyclobenzaprine (FLEXERIL) 10 MG tablet 0 10/03/2015 Active meloxicam (MOBIC) 15 MG tablet Take 15 mg by mouth daily. with food 0 11/06/2015 Active ARMOUR THYROID 30 MG tablet 8 12/11/2015 Active SUMAtriptan (IMITREX) 50 MG tablet TAKE 1 TABLET AT FIRST SIGN OF MIGRAINE. MAY REPEAT IN 2 HOURS IF NEEDED DIRECTED 1 05/01/2016 Active NATURE-THROID 48.75 MG TABS 0 07/06/2016 Active tretinoin (RETIN-A) 0.1 % cream APPLY 1 APPLICATION TO AFFECTED AREA EVERY OTHER DAY. MAY INCREASE TO EVERYDAY IF TOLERATED. 0 12/31/2016 Active ALPRAZolam (XANAX) 0.5 MG tablet Take 1 tablet (0.5 mg total) by mouth 2 (two) times a day. 60 tablet 1 03/08/2017 Active duloxetine (CYMBALTA) DR capsule 20 mg Take 1 capsule (20 mg total) by mouth daily. 30 capsule 1 05/06/2017 Active amitriptyline (ELAVIL) tablet 50 mg TAKE 1 TABLET (50 MG TOTAL) BY MOUTH EVERY NIGHT AT BEDTIME. 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 09/26/2014 Family History Medical History Relation Name Comments Alcohol abuse Brother Hypertension Brother Alcohol abuse Father Diabetes Father Stroke Father Suicide Attempts Maternal Grandfather Anemia Mother Diabetes Mother Hypertension Mother Relation Name Status Comments Brother Alive Father Alive Maternal Grandfather Maternal Grandmother Mother Alive Paternal Grandfather Paternal Grandmother Social History Tobacco Use Types Packs/Day Years Used Date Smoking Tobacco: Never Smokeless Tobacco: Never Tobacco Cessation:Counseling Given: No Alcohol Use Standard Drinks/Week Comments Yes 0 (1 standard drink = 0.6 oz pur e alcohol) rare, 2 glasses wine max Sex and Gender Information Value Date Recorded Sex Assigned at Not on file Gender Identity Not on file Sexual Orientation Not on file Last Filed Vital Signs Vital Sign Reading Time Taken Comments Blood Pressure 93/65 04/19/2015 8:08 AM EST Pulse 108 04/19/2015 8:08 AM EST Temperature 36.6 ??C (97.8 ??F) 04/19/2015 8:07 AM ES T Respiratory Rate 18 04/19/2015 8:08 AM EST Oxygen Saturation - - Inhaled Oxygen Concentration - - Weight 58.2 kg (128 lb 4.8 oz) 04/16/2015 5:54 P M EST Height 157.5 cm (5' 2 ) 04/16/2015 5:54 PM EST Body Mass Index 23.47 04/16/2015 5:54 PM EST Plan of Treatment Health Maintenance Due Date Last Done Comments Hepatitis B Vaccines (1 of 3 - 3-dose series) 1973 Hepatitis C Screening 1973 COVID-19 Vaccine (#1) 01/10/1974 Depression Screening 1985 Preventative Health Evaluation 1991 DTap / Tdap / Td (1 - Tdap) 1992 Cervical Cancer Screening (P ap Smear) 1994 Colon Cancer Screening (Colonoscopy) 2018 Breast Cancer Screening (Mammogram) 2023 Shingrix-Zoster Vaccine (1 of 2) 2023 Influenza Vaccine (#1) 2024 Pneumococcal Vaccine Aged Out No long er eligible based on patient's age to complete this topic RSV Ped < 20 months Aged Out No longe r eligible based on patient's age to complete this topic Advance Directives For more information, please contact: [phone] Documents on File Type Date Recorded 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
== END 2024-07-17 09:16 | disposition home or self-care (01) ==
PROVIDERS: PCP Nurse Practitioner Adult Health; Visit Provider Nurse Practitioner Family
DX: M53.3 Sacrococcygeal disorders, not elsewhere classified (principal); M25.551 Pain in right hip; M79.7 Fibromyalgia; M62.838 Other muscle spasm; M47.27 Other spondylosis with radiculopathy, lumbosacral region
CPT/HCPCS: 99214; G2211

== ENCOUNTER → 2024-07-17 09:32 | Outpatient (BNV) | payer MEDICARE, SELFPAY | PROVIDERS: PCP Nurse Practitioner Adult Health; Visit Provider Radiology Diagnostic Radiology | DX: M25.551 Pain in right hip (principal) | CPT/HCPCS: 73502 ==

== ENCOUNTER 2024-08-08 09:24 | Outpatient (AMB) | payer MEDICARE, SELFPAY ==
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
== END 2024-08-08 10:23 | disposition home or self-care (01) ==
LOC: HO.HOP 09:24
PROVIDERS: PCP Nurse Practitioner Adult Health; Visit Provider Clinical Nurse Specialist Psychiatric/Mental Health
DX: F33.0 Major depressive disorder, recurrent, mild (principal); G47.00 Insomnia, unspecified; G47.8 Other sleep disorders; F90.0 Attention-deficit hyperactivity disorder, predominantly inattentive type; F41.1 Generalized anxiety disorder
CPT/HCPCS: 99214

== ENCOUNTER → 2024-08-08 09:24 | Outpatient (BNVA) | payer MEDICARE, SELFPAY | PROVIDERS: PCP Nurse Practitioner Adult Health; Visit Provider Clinical Nurse Specialist Psychiatric/Mental Health | DX: G47.00 Insomnia, unspecified (principal); F33.0 Major depressive disorder, recurrent, mild; F90.0 Attention-deficit hyperactivity disorder, predominantly inattentive type; G47.8 Other sleep disorders; F41.1 Generalized anxiety disorder | CPT/HCPCS: 99212 ==

== ENCOUNTER 2024-09-07 08:33 | Outpatient (AMB) | payer MEDICARE, SELFPAY ==
--- NOTE | 2024-09-07 08:55 | A.OFFVIS_ITS ---
Vital Signs 09/07/24 08:56 Height 5 ft 2 in Weight 130 lb BMI 23.8 BP 148/74 H Blood Pressure Location Rt brachial Position Sitting Respiration 16 Pulse 93 Pulse Source Pulse Oximeter Pulse Oximetry (%) 98 Oxygen Delivery Method Room Air Intake Visit Reasons: Low back- rt hip and SI joint Intake Note: Pain 9/10 right hip, lower back and right groin with radiation into the calf Allergies sulfamethoxazole [From BACTRIM] Allergy (Intermediate, Verified 07/17/24 08:55) hives trimethoprim [From BACTRIM] Allergy (Intermediate, Verified 07/17/24 08:55) hives propranolol Allergy (Unknown, Verified 07/17/24 08:55) Unknown Sulfa (Sulfonamide Antibiotics) Allergy (Unknown, Verified 07/17/24 08:55) Unknown HPI Comments Details: The patient is a 49-year-old female presenting for follow up for chronic pain management, specifically considering right therapeutic sacroiliac joint injections. She initially postponed planned injections due to intense pain and subsequently sought alternative pain relief methods. The current pain involves severe right sided radiating sciatic discomfort with a compression finding at the right L5-S1 nerve root on previous MRI, resulting in radicular symptoms accompanied by numbness and tingling. Most recent right hip xray was normal. The patient's pain rating is exceedingly high, leading to impaired functionality, decreased mobility and disrupted sleep. While exploring non- steroidal pain management, the patient has engaged in modalities such as self- hypnosis, with noted utility in reorienting her pain response. She also uses ice, heat, CBD, tens unit, Epsom salt baths, gentle myofascial massage and fu nctional exercise and stretching to manage her pain and mobility issues. - Onset and Timing: Pain long-standing, deferred injection plan last month. - Quality and Character: Described as severe, shooting, throbbing, aching, dull, impacting right hip, lower back, groin, radiating to right calf. - Primary Location: Right hip, lower back, groin. - Areas of Radiation: Down to the calf, intermittent numbness and tingling - Exacerbating Factors: Walking, changing position from sitting to standing, prolonged sitting, standing, movements. - Relieving Factors: Ice, heat, use of TENS unit, self-hypnosis aiding brain response, CBC gummies. - Interference: Affects much of daily function, mobility, sleep and social interactions due to consistent high-intensity levels. - Affect: Patient undergoes self-hypnosis to refocus pain perception. - Analgesia: Uses transdermal patch with progesterone; current pain level reported as 9/10. - Adverse Effects: Not specified. - Activities of Daily Living: Pain impairs daily activities, sustained high level of discomfort. - Aberrant Drug-Related Behaviors: None indicated. PRIOR: Patient presents today for follow up with acute on chronic exacerbation of right sided low back pain, SIJ and right hip pain. Denies any inciting events, recent trauma, injury or falls. Main pain generator today is right hip pain with radiation into her right groin and lateral thigh. She also continues to endorse significant axial low back and SIJ pain on the right with positive provocative testing. She cannot sleep on right side due to hip pain. Patient has completed numerous courses of formal PT and HEP, with last PT in summer. She also attempted Sprint PNS for axial low back pain but this had to be removed due to insertion site tenderness and concern for infection. Patient has been managing with heat and ice therapy, TENS unit, CBD and fascia blasting. Denies lower extremity weakness, bladder or bowel dysfunction or saddle anesthesia. Denies any recent cough, cold, infection, fever, any significant changes in her medical history, medications or recent hospitalizations. Past Procedures: 11/11/23: Right L5 Sprint PNS lead removed 11/02/23: Right L5 Sprint PNS trial-80% ongoing pain relief 09/21/23: Bilateral Diagnostic L3-L4 DR L5 MBB-90-100% pain relief for 6-8 hours 07/14/22: Right Sacroiliac Joint RFA at [facility]-0% pain relief 12/23/21: Bilateral Therapeutic SIJ injections-80% ongoing pain relief 07/08/21: Intercostal Therapeutic Injection Rib 6,7-100% pain relief 07/22/21: Bilateral Diagnostic SIJ Usdkolaagx-81-78% pain relief for 6 hours 08/26/21: Bilateral Therapeutic SIJ injections-100% pain relief for 2.5 weeks, ongoing 50% pain relief x 3 months PRIOR: Patient is a pleasant 45 year old female who presents to the office in no acute distress, with costochondritis, chronic back pain x 15 years, fibromyalgia, and Samra Danlos syndrome. Costochondritis pain started about 2.5 weeks ago at the lower midsternal area. She had complete work up for chest pain at ER which was negative. Today, she reports her pain is now at the left lateral rib area. Her lower back pain with radiation posteriorly to her left side just below left knee, with mild paresthesias and pain of the left buttock. She cannot sit or stand for prolonged time because her back will lock up. Patient reports she has to stand against the wall or counter, bending forward to relieve her pain partially. She denies any previous back surgery or injections. Denies trauma, injury or fall. She denies lower or upper extremities weakness. Patient denies any fever, abdominal or groin pain, malaise, weight loss, numbness, tingling, bladder/bowel dysfunction or saddle anesthesia. The pain onset was sudden, varies throughout the day and has been constant or intermittent with worst pain intensity rated at 8/10 and least severe pain at 3/10. She states the pain is interfering with sleep, activities of daily living, mood, quality of life, and she cannot function normally. The patient reports the pain in terms of tissue damage as dull, sore, hurting, aching, heavy, tiring, exhausting, punishing, and killing. She has been taking Tylenol, Ibuprofen, i ntranasal ketamine, gabapentin, cyclobenzaprine, medical marijuana (edible, tincture, vape), lidocaine 5% patches and short script of tramadol with some improvement in her pain. Weather changes, movements and activity aggravates her pain. Heat and cold applications, topical and oral medications have been helpful partially. She rates their pain 3/10. Previously she has tried physical therapy, the last being 5 years ago through [facility]. She is interested in restarting formal PT at different locations. Patient continues home exercise program. She also has tried home acupuncture, massage, and TENS unit. Denies chiropractic manipulation or aqua therapy. She last had imaging of the lumbar MRI within last year at [facility]. This imaging/report is not available today. Referral notes present with normal chest xrays 06/16/21, 06/17/[address] chest pulmonary angiogram 06/17/21 which was also normal and negative for pulmonary embolus. Past medical history is significant for anxiety, asthma, chronic fatigue, depressive disorder, Samra-Danlos syndrome, fibromyalgia, hypothyroidism, interstitial cystitis, irritable bowel syndrome and chronic lower back pain. [facility] Medical History Major depression, recurrent Pelvic prolapse Periodic limb movement disorder GERD (gastroesophageal reflux disease) TMJ (dislocation of temporomandibular joint) Fibromyalgia Sleep apnea Migraine PTSD (post-traumatic stress disorder) Anxiety Polyarthritis Pelvic floor dysfunction Irritable bowel syndrome (IBS) Visceral pain Polycystic ovary Depression Samra-Danlos disease Interstitial cystitis Hypothyroid Asthma Social History Substance Use Type: Other Review of Systems Const All systems reviewed & are unremarkable except as noted in HPI and below Physical Exam General: Appears afebrile. Alert and oriented. Mood and affect appropriate. Follows and participates in conversation appropriately. Respiratory effort is unlabored. No cough. Able to transition from sit to stand unassisted. Ambulates with bilaterally normal heel strike and toe off. Repetitive lumbar flexion and axial rotation reproduces pain. General: Yes no CVA tenderness Back/Spine/Pelvis Other: Limited lumbar ROM due to pain. Antalgic gait with mild limping. Painful facet loading bilaterally, worse on the right side. Demonstrates 5/5 strength of quadriceps bilaterally as well as flexion/dorsiflexion of bilateral feet against resistance. 2+ pedal pulses bilaterally. SLR test with dorsiflexion positive on the right. +2 patellar and achilles reflexes bilaterally. Facet loading test positive bilaterally. Arron sign, Brent?s, Gaenslen, Pelvic compression and Stinchfield tests are positive on the right, equivocal on the left. Moderate groin pain with right I/E hip rotations. Significant paraspinals tenderness mostly on the right mid and lower back. Valsalva maneuver negative. Multiple widespread TTPs 16/16 bilaterally, including upper and lower extremities. Back: no CVA tenderness Cervical Spine: cervical ROM normal, cervical muscular tenderness and No Cervical spine tenderness Thoracic/Lumbar Spine: thoracic and lumbar spine normal to inspection, Lasegue's sign positive on the right and diffuse, pain with thoraco-lumbar ROM, paraspinal muscle tenderness, No thoracic spinal tenderness and lumbar spinal tenderness (L4-S1) Pelvis: buttock tenderness on the right and no sciatic notch tenderness Sacroiliac joints: bilaterally (right>left) tender to palpation Extrem General: Yes capillary refill normal, Yes no clubbing, cyanosis or edema and Yes no calf tenderness Results Reviewed Results Reviewed: MR LUMBAR SPINE WITHOUT CONTRAST 09/09/22 CLINICAL INFORMATION: Right lower extremity radiculopathy. FINDINGS: VERTEBRAL BODIES AND PARASPINAL STRUCTURES: The marrow signal is within normal limits. There are no compression fractures or significant subluxations. Marrow edema is present within the left L5 pedicle and left L4-L5 posterior elements, likely reactive to severity of degenerative joint disease. The paraspinal soft tissues are normal. The imaged bony pelvis is unremarkable. CONUS MEDULLARIS AND CAUDA EQUINE: The distal cord, conus tip, and cauda equina nerve roots are normal. SPINAL LEVELS: L1-L2: No disc pathology. Patent central canal and foramina. L2-L3: Very mild loss of disc height and mild disc bulge with mild facet arthropathy. No central canal stenosis. Bulging disc slightly encroaches upon the left neural foramen. L3-L4: Minimal annular bulge and mild facet arthrosis. No central canal stenosis or foraminal narrowing. L4-L5: Very mild disc bulge and tsohnhpd-xb-icimkn facet arthropathy with reactive edema in the articular processes, more so on the left side and in the left posterior paraspinal soft tissues, presumably reactive. No central canal stenosis or foraminal narrowing. L5-S1: Broad-based disc bulge present with a right subarticular zone disc protrusion severely compressing the right S1 nerve root. Moderate facet arthropathy without central canal stenosis or foraminal narrowing. IMPRESSION: 1. Right subarticular zone disc protrusion at L5-S1 severely compressing the right S1 nerve root. 2. Nkpfbznz-ce-ijpjur facet degeneration at L4-L5 with reactive edema in the articular processes, more so on the left side. XR HIP 1 VIEW RIGHT WITH PELVIS 07/17/24 HISTORY: M25.551 - Pain in right hip COMPARISON: There are no prior studies for comparison. FINDINGS: A single AP view of the pelvis and two views of the right hip are submitted. Osseous mineralization is normal. There is no fracture or dislocation. The joint space is maintained. The soft tissues are unremarkable. IMPRESSION: Unremarkable examination of the right hip. Assessment & Plan Assessment & Plan (1) Samra-Danlos disease: Code(s): Q79.60 - Samra-Danlos syndrome, unspecified Category: Medical (2) Sacroiliac joint dysfunction of both sides: Code(s): M53.3 - Sacrococcygeal disorders, not elsewhere classified Category: Medical (3) Spondylosis of lumbosacral spine with radiculopathy: Code(s): M47.27 - Other spondylosis with radiculopathy, lumbosacral region Category: Medical (4) Lumbar back pain with radiculopathy affecting right lower extremity: Code(s): M54.16 - Radiculopathy, lumbar region Category: Medical (5) Intractable low back pain: Code(s): M54.59 - Other low back pain Category: Medical (6) Right hip pain: Code(s): M25.551 - Pain in right hip Category: Medical (7) Fibromyalgia: Code(s): M79.7 - Fibromyalgia Category: Medical (8) Muscle spasm: Code(s): M62.838 - Other muscle spasm Category: Medical Plan Right hip xray was normal. Patient continues to endorse daily chronic pain syndrome associated with low back axial and radicular pain, right SI joint and hip pain. Discussed interventional treatments for current pain generators, including diagnostic vs therapeutic injections, ablation procedures and longer term neuromodulation with SCS trial and implant. Extensive discussion regarding the risks and benefits of SCS trial and implant procedures and all questions were answered to patient satisfaction. Alternatively, an ITDD pain pump was discussed to offer opioid and non-opioid relief options tailored to effectiveness assessed during a trial phase. The patient favored hydromorphone for pain relief, an alignment appreciated given her refractory pain levels. Patient is aware of necessity to complete psychological evaluation. She is currently seeing Tamara Dubon ASSOCIATE RELATIONS SPECIALIST at [facility] per patient. Placed referral for psychology clearance in anticipation of SCS vs ITDD trial. In meantime, we will proceed with right therapeutic SI joint injection as planned for symptomatic relief while awaiting psychology clearance. Patient was informed and verbally consented to the use of an ambient scribe for clinic note documentation during this visit. Orders: Referrals Psychology Referral F33.0 - Major depressive disorder, recurrent, mild, F41.1 - Generalized anxiety disorder, F90.0 - Attention-deficit hyperactivity disorder, predominantly inattentive type, M47.27 - Other spondylosis with radiculopathy, lumbosacral region, M53.3 - Sacrococcygeal disorders, not elsewhere classified, M54.16 - Radiculopathy, lumbar region, M54.59 - Other low back pain, Q79.60 - Samra-Danlos syndrome, unspecified Patient Instructions: - Review the given brochure materials about the spinal cord stimulator and pain pump treatments. - Follow up with your psychologist for psychological evaluation needed before tr ial procedures. - Consider discussing further pain management strategies based on the information provided. - Contact the clinic if experiencing any new or worsening symptoms. - Maintain current pain relief regimen as much as possible within comfort levels until next follow-up. - Await call from our office to reschedule right SI joint steroid injection as previously planned. Coding Level of Care Code Est Pt Level 4 (69820) Complex EM visit Add On G2211 Diagnoses Samra-Danlos disease Q79.60 Sacroiliac joint dysfunction of both sides M53.3 Spondylosis of lumbosacral spine with radiculopathy M47.27 Lumbar back pain with radiculopathy affecting right lower extremity M54.16 Intractable low back pain M54.59 Right hip pain M25.551 Fibromyalgia M79.7 Muscle spasm M62.838
[2024-09-07 08:56] VITALS: BP 148/74; PULSE 93; RESP 16; O2SAT 98; BMI 23.8
--- OUTSIDE RECORDS SUMMARY | 2024-09-07 08:58 | XMS_ITS | Clinical Summary ---
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
== END 2024-09-07 09:08 | disposition home or self-care (01) ==
LOC: HO.PMC 08:34
PROVIDERS: PCP Nurse Practitioner Adult Health; Visit Provider Nurse Practitioner Family
DX: Q79.60 Ehlers-Danlos syndrome, unspecified (principal); M53.3 Sacrococcygeal disorders, not elsewhere classified; M47.27 Other spondylosis with radiculopathy, lumbosacral region; M54.59 Other low back pain; M25.551 Pain in right hip; M79.7 Fibromyalgia; M62.838 Other muscle spasm
CPT/HCPCS: 99214; G2211

== ENCOUNTER → 2024-09-07 08:33 | Outpatient (BNVA) | payer MEDICARE, SELFPAY | PROVIDERS: PCP Nurse Practitioner Adult Health; Visit Provider Nurse Practitioner Family | DX: Q79.60 Ehlers-Danlos syndrome, unspecified (principal); M53.3 Sacrococcygeal disorders, not elsewhere classified; M47.27 Other spondylosis with radiculopathy, lumbosacral region; M54.16 Radiculopathy, lumbar region; M54.59 Other low back pain; M25.551 Pain in right hip; M79.7 Fibromyalgia; M62.838 Other muscle spasm | CPT/HCPCS: 99212 ==

== ENCOUNTER 2024-10-16 09:35 | Outpatient (AMB) | payer MEDICARE, SELFPAY ==
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
--- OUTSIDE RECORDS SUMMARY | 2024-10-16 10:14 | XMS_ITS | Clinical Summary ---
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
== END 2024-10-16 10:09 | disposition home or self-care (01) ==
LOC: HO.HOP 09:35
PROVIDERS: PCP Nurse Practitioner Adult Health; Visit Provider Clinical Nurse Specialist Psychiatric/Mental Health
DX: F33.0 Major depressive disorder, recurrent, mild (principal); G47.00 Insomnia, unspecified; G47.8 Other sleep disorders; F90.0 Attention-deficit hyperactivity disorder, predominantly inattentive type; F41.1 Generalized anxiety disorder
CPT/HCPCS: 99214

== ENCOUNTER → 2024-10-16 09:35 | Outpatient (BNVA) | payer MEDICARE, SELFPAY | PROVIDERS: PCP Nurse Practitioner Adult Health; Visit Provider Clinical Nurse Specialist Psychiatric/Mental Health | DX: F33.0 Major depressive disorder, recurrent, mild (principal); G47.00 Insomnia, unspecified; G47.8 Other sleep disorders; F90.0 Attention-deficit hyperactivity disorder, predominantly inattentive type; F41.1 Generalized anxiety disorder; Z71.89 Other specified counseling | CPT/HCPCS: 99212 ==

== ENCOUNTER 2025-01-12 08:27 | Outpatient (AMB) | payer MEDICARE, SELFPAY ==
--- NOTE | 2025-01-12 08:33 | A.OFFVIS_ITS ---
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 The right hip pain has been persistent and radiates to the groin and buttocks, exacerbated by prolonged sitting or lying on the side. The patient previously received a right therapeutic sacroiliac injection in August, which provided temporary relief. A pelvic X-ray in July showed normal hip structures. The left elbow pain began in mid-October without any specific injury and was initially accompanied by swelling. The patient has been using NSAIDs, heat, ice, and K-Tape for management, with some improvement in swelling but persistent pain. The patient has a history of chronic low back pain and interstitial cystitis, for which she uses cyclobenzaprine as needed, pregabalin daily, and intranasal ketamine for acute pain management. - Right hip pain radiates to the groin and buttocks, exacerbated by prolonged sitting or lying on the side. - Left elbow pain began in mid-October, initially swollen, worsened by supination and pronation. - Affect: Pain impacts daily activities and mood. - Analgesia: Uses cyclobenzaprine as needed, pregabalin daily, and intranasal ketamine for acute pain. - Adverse Effects: No specific adverse effects discussed. - Activities of Daily Living: Pain interferes with prolonged sitting and certain movements. - Aberrant Drug Related Behaviors: No aberrant behaviors reported. PRIOR: The patient is a 49-year-old female presenting for follow up for chronic pain management, specifically considering right therapeutic sacroiliac joint injections. She initially postponed planned injections due to intense pain and subsequently sought alternative pain relief methods. The current pain involves severe right sided radiating sciatic discomfort with a compression finding at the right L5-S1 nerve root on previous MRI, resulting in radicular symptoms accompanied by numbness and tingling. Most recent right hip xray was normal. The patient's pain rating is exceedingly high, leading to impaired functionality, decreased mobility and disrupted sleep. While exploring non- steroidal pain management, the patient has engaged in modalities such as self- hypnosis, with noted utility in reorienting her pain response. She also uses ice, heat, CBD, tens unit, Epsom salt baths, gentle myofascial massage and f unctional exercise and stretching to manage her pain and mobility issues. - Onset and Timing: Pain long-standing, deferred injection plan last month. - Quality and Character: Described as severe, shooting, throbbing, aching, dull, impacting right hip, lower back, groin, radiating to right calf. - Primary Location: Right hip, lower back, groin. - Areas of Radiation: Down to the calf, intermittent numbness and tingling - Exacerbating Factors: Walking, changing position from sitting to standing, prolonged sitting, standing, movements. - Relieving Factors: Ice, heat, use of TENS unit, self-hypnosis aiding brain response, CBC gummies. - Interference: Affects much of daily function, mobility, sleep and social interactions due to consistent high-intensity levels. - Affect: Patient undergoes self-hypnosis to refocus pain perception. - Analgesia: Uses transdermal patch with progesterone; current pain level reported as 9/10. - Adverse Effects: Not specified. - Activities of Daily Living: Pain impairs daily activities, sustained high level of discomfort. - Aberrant Drug-Related Behaviors: None indicated. PRIOR: Patient presents today for follow up with acute on chronic exacerbation of right sided low back pain, SIJ and right hip pain. Denies any inciting events, recent trauma, injury or falls. Main pain generator today is right hip pain with radiation into her right groin and lateral thigh. She also continues to endorse significant axial low back and SIJ pain on the right with positive provocative testing. She cannot sleep on right side due to hip pain. Patient has completed numerous courses of formal PT and HEP, with last PT in summer. She also attempted Sprint PNS for axial low back pain but this had to be removed due to insertion site tenderness and concern for infection. Patient has been managing with heat and ice therapy, TENS unit, CBD and fascia blasting. Denies lower extremity weakness, bladder or bowel dysfunction or saddle anesthesia. Denies any recent cough, cold, infection, fever, any significant changes in her medical history, medications or recent hospitalizations. Past Procedures: 11/11/23: Right L5 Sprint PNS lead removed 11/02/23: Right L5 Sprint PNS trial-80% ongoing pain relief 09/21/23: Bilateral Diagnostic L3-L4 DR L5 MBB-90-100% pain relief for 6-8 hours 07/14/22: Right Sacroiliac Joint RFA at [facility]-0% pain relief 12/23/21: Bilateral Therapeutic SIJ injections-80% ongoing pain relief 07/08/21: Intercostal Therapeutic Injection Rib 6,7-100% pain relief 07/22/21: Bilateral Diagnostic SIJ Gfaygsiiax-79-32% pain relief for 6 hours 08/26/21: Bilateral Therapeutic SIJ injections-100% pain relief for 2.5 weeks, ongoing 50% pain relief x 3 months PRIOR: Patient is a pleasant 45 year old female who presents to the office in no acute distress, with costochondritis, chronic back pain x 15 years, fibromyalgia, and Samra Danlos syndrome. Costochondritis pain started about 2.5 weeks ago at the lower midsternal area. She had complete work up for chest pain at ER which was negative. Today, she reports her pain is now at the left lateral rib area. Her lower back pain with radiation posteriorly to her left side just below left knee, with mild paresthesias and pain of the left buttock. She cannot sit or stand for prolonged time because her back will lock up. Patient reports she has to stand against the wall or counter, bending forward to relieve her pain partially. She denies any previous back surgery or injections. Denies trauma, injury or fall. She denies lower or upper extremities weakness. Patient denies any fever, abdominal or groin pain, malaise, weight loss, numbness, tingling, bladder/bowel dysfunction or saddle anesthesia. The pain onset was sudden, varies throughout the day and has been constant or intermittent with worst pain intensity rated at 8/10 and least severe pain at 3/10. She states the pain is interfering with sleep, activities of daily living, mood, quality of life, and she cannot function normally. The patient reports the pain in terms of tissue damage as dull, sore, hurting, aching, heavy, tiring, exhausting, punishing, and killing. She has been taking Tylenol, Ibuprofen, intranasal ketamine, gabapentin, cyclobenzaprine, medical marijuana (edible, tincture, vape), lidocaine 5% patches and short script of tramadol with some improvement in her pain. Weather changes, movements and activity aggravates her pain. Heat and cold applications, topical and oral medications have been helpful partially. She rates their pain 3/10. Previously she has tried physical therapy, the last being 5 years ago through [facility]. She is interested in restarting formal PT at different locations. Patient continues home exercise program. She also has tried home acupuncture, massage, and TENS unit. Denies chiropractic manipulation or aqua therapy. She last had imaging of the lumbar MRI within last year at [facility]. This imaging/report is not available today. Referral notes present with normal chest xrays 06/16/21, 06/17/[address] chest pulmonary angiogram 06/17/21 which was also normal and negative for pulmonary embolus. Past medical history is significant for anxiety, asthma, chronic fatigue, depressive disorder, Samra-Danlos syndrome, fibromyalgia, hypothyroidism, interstitial cystitis, irritable bowel syndrome and chronic lower back pain. [facility] Medical History Major depression, recurrent Pelvic prolapse Periodic limb movement disorder GERD (gastroesophageal reflux disease) TMJ (dislocation of temporomandibular joint) Fibromyalgia Sleep apnea Migraine PTSD (post-traumatic stress disorder) Anxiety Polyarthritis Pelvic floor dysfunction Irritable bowel syndrome (IBS) Visceral pain Polycystic ovary Depression Samra-Danlos disease Interstitial cystitis Hypothyroid Asthma Social History Substance Use Type: Other Review of Systems Const Details: - Musculoskeletal: Reports right hip pain radiating to right low back, groin and buttock, left elbow pain with initial swelling. - Neurological: Denies any new neurological symptoms. All systems reviewed & are unremarkable except as noted in HPI and below Physical Exam Vital Signs: Last Vital Signs Pulse 89 01/12/25 08:38 BP 122/72 01/12/25 08:38 Pulse Ox 100 01/12/25 08:38 Oxygen Delivery Method Room Air 01/12/25 08:38 BMI result Body Mass Index 25.3 General: Appears afebrile. Alert and oriented. Mood and affect appropriate. Follows and participates in conversation appropriately. Respiratory effort is unlabored. No cough. Able to transition from sit to stand unassisted. Ambulates with bilaterally normal heel strike and toe off. Repetitive lumbar flexion and axial rotation reproduces pain. General: Yes no CVA tenderness Back/Spine/Pelvis Other: Limited lumbar ROM due to pain. Demonstrates 5/5 strength of quadriceps bilaterally as well as flexion/dorsiflexion of bilateral feet against resistance. 2+ pedal pulses bilaterally. SLR test with dorsiflexion negative bilaterally. +2 patellar and achilles reflexes bilaterally. Facet loading test positive bilaterally. Arron sign, Brent?s, Gaenslen, Pelvic compression and Stinchfield tests are positive on the right. Mild groin pain with right I/E hip rotations. Moderate TTP to right GTB. Valsalva maneuver negative. Multiple widespread TTPs 16/16 bilaterally, including upper and lower extremities. Back: no CVA tenderness Cervical Spine: cervical ROM normal, cervical muscular tenderness and No Cervical spine tenderness Thoracic/Lumbar Spine: thoracic and lumbar spine normal to inspection, Thoracic/lumbar spine scar(s), Lasegue's sign negative, straight leg raise negative bilaterally, pain with thoraco-lumbar ROM, paraspinal muscle tenderness, thoraco-lumbar ROM limited, No thoracic spinal tenderness and lumbar spinal tenderness (L4-S1) Pelvis: buttock tenderness on the right and no sciatic notch tenderness Sacroiliac joints: bilaterally (right>left) tender to palpation Extrem General: Yes capillary refill normal, Yes no clubbing, cyanosis or edema and Yes no calf tenderness Left upper extremity: elbow/forearm Details: normal to inspection, tenderness Location: of the olecranon and of the lateral epicondyle, normal ROM, crepitus and distal pulses intact; no swelling, no unusual warmth and no ecchymosis Results Reviewed Results Reviewed: MR LUMBAR SPINE WITHOUT CONTRAST 09/09/22 CLINICAL INFORMATION: Right lower extremity radiculopathy. FINDINGS: VERTEBRAL BODIES AND PARASPINAL STRUCTURES: The marrow signal is within normal limits. There are no compression fractures or significant subluxations. Marrow edema is present within the left L5 pedicle and left L4-L5 posterior elements, likely reactive to severity of degenerative joint disease. The paraspinal soft tissues are normal. The imaged bony pelvis is unremarkable. CONUS MEDULLARIS AND CAUDA EQUINE: The distal cord, conus tip, and cauda equina nerve roots are normal. SPINAL LEVELS: L1-L2: No disc pathology. Patent central canal and foramina. L2-L3: Very mild loss of disc height and mild disc bulge with mild facet arthropathy. No central canal stenosis. Bulging disc slightly encroaches upon the left neural foramen. L3-L4: Minimal annular bulge and mild facet arthrosis. No central canal stenosis or foraminal narrowing. L4-L5: Very mild disc bulge and zsxivahh-vj-phthgo facet arthropathy with reactive edema in the articular processes, more so on the left side and in the left posterior paraspinal soft tissues, presumably reactive. No central canal stenosis or foraminal narrowing. L5-S1: Broad-based disc bulge present with a right subarticular zone disc protrusion severely compressing the right S1 nerve root. Moderate facet arthropathy without central canal stenosis or foraminal narrowing. IMPRESSION: 1. Right subarticular zone disc protrusion at L5-S1 severely compressing the right S1 nerve root. 2. Acyrtefp-hy-hbzzjm facet degeneration at L4-L5 with reactive edema in the articular processes, more so on the left side. XR HIP 1 VIEW RIGHT WITH PELVIS 07/17/24 HISTORY: M25.551 - Pain in right hip COMPARISON: There are no prior studies for comparison. FINDINGS: A single AP view of the pelvis and two views of the right hip are submitted. Osseous mineralization is normal. There is no fracture or dislocation. The joint space is maintained. The soft tissues are unremarkable. IMPRESSION: Unremarkable examination of the right hip. Assessment & Plan Assessment & Plan (1) Lumbosacral spondylosis: Code(s): M47.817 - Spondylosis without myelopathy or radiculopathy, lumbosacral region Category: Medical (2) Right hip pain: Code(s): M25.551 - Pain in right hip Category: Medical (3) Samra-Danlos disease: Code(s): Q79.60 - Samra-Danlos syndrome, unspecified Category: Medical (4) Fibromyalgia: Code(s): M79.7 - Fibromyalgia Category: Medical (5) Sacroiliac joint dysfunction of both sides: Code(s): M53.3 - Sacrococcygeal disorders, not elsewhere classified Category: Medical (6) Greater trochanteric bursitis of right hip: Code(s): M70.61 - Trochanteric bursitis, right hip Category: Medical (7) Lateral epicondylitis of left elbow: Code(s): M77.12 - Lateral epicondylitis, left elbow Category: Medical Plan - Plan to perform right therapeutic sacroiliac joint and right greater trochanteric bursa steroid injections with local anesthesia and fluoroscopy. Expectations, risks and benefits were reviewed. Patient is aware she will be contacted to schedule this procedure. - Referral to Orthopedics for further evaluation and management of left elbow pain. Continue conservative management and PT. - Continue current medication regimen including cyclobenzaprine and pregabalin. All questions and concerns have been answered and patient agreed with the treatment plan. Follow up for and sooner as needed. Patient was informed and verbally consented to the use of an ambient scribe for clinic note documentation during this visit. Patient Instructions: I discussed with the patient the plan to proceed with right therapeutic sacroiliac joint and greater trochanteric bursa injections once insurance approval is obtained. We also talked about referring her to orthopedics for her left elbow pain to explore further treatment options. Coding Level of Care Code Est Pt Level 4 (83044) Complex EM visit Add On G2211 Diagnoses Lumbosacral spondylosis M47.817 Right hip pain M25.551 Samra-Danlos disease Q79.60 Fibromyalgia M79.7 Sacroiliac joint dysfunction of both sides M53.3 Greater trochanteric bursitis of right hip M70.61 Lateral epicondylitis of left elbow M77.12
[2025-01-12 08:38] VITALS: BP 122/72; PULSE 89; O2SAT 100; BMI 25.3
--- OUTSIDE RECORDS SUMMARY | 2025-01-12 09:18 | XMS_ITS | Encounter Summary ---
Author Organization [facility] Address [address] [facility] [address] [place] [address] Phone Care Team Providers Care Teacher Music Name Role Phone Rigo Lopez MCKENNA Primary Care Provider [phone] iLsa Sommers MD Unavailable [phone] Smitha Simmons APRICOT WASHER Unavailable Gina Barajas PA Unavailable Reddy Valdez MD Unavailable [phone] Tamara Dubon MAINTENANCE LEADER Unavailable Monika James MD Unavailable Alhaji Reese MD Unavailable [phone] Cesar Lester MD Unavailable Beth Armendariz RN Unavailable Amisha Steen ASSISTANT LIBRARIAN Unavailable [phone] Encounter Details Date Type Department Care Team (Late st Contact Info) Description 06/16/2022 Telephone [facility] [address] [facility], [address] [place] [address] Tyrone Brennan MD [address] [facility] [address] [place] [address] [email or web address] Social History Tobacco Use Types Packs/Day Years Used Date Smoking Tobacco: Never Smokeless Tobacco: Never Alcohol Use Standard Drinks/Week Comments Yes 0 (1 standard drink = 0.6 oz pur e alcohol) rarely Comments No Sex and Gender Information Value Date Recorded Sex Assigned at Female 05/14/2019 9:08 PM EST Legal Sex Female 10:31 PM EDT Gender Identity Female 05/14/2019 9:08 PM EST Sexual Orientation Choose not to disclose 2018 9:08 PM EST Occupation Industry Job Start Date Job End Date SSDI Not on file Not on file Not on file documented as of this encounter Plan of Treatment Upcoming Encounters Date Type Department Care Team (Late st Contact Info) Description 09/13/2024 Procedure Pass [address] [address] 01/31/2025 3:00 PM EDT Office Visit [facility] [address] [place] [address] Alhaji Swan MD [address] [place] [address] 2nd [place] [address] [email or web address] 03/27/2025 8:00 AM EST Appointment [address] [address] Rigo Lopez CNP [address] [place] [address], [address] [place] [address] [email or web address] documented as of this encounter Visit Diagnoses Diagnosis Arthropathy of right sacroiliac joint- Primary Visit for screening mammogram documented in this encounter Additional Health Concerns Assessment Noted Time PHQ-2 Depression Total Score: 2 05/28/19 22 8:17 AM EST documented as of this encounter Care Teams Teacher Music Relationship Specialty Start Date End Date Rigo Lopez CNP [address] [place] [address], [address] [place] [address] [email or web address] [email or web address] PCP - General Family Medicine 07/25/18 Lisa Sommers MD [address] [place] [address], [address] [place] [address] Urology 07/25/18 Smitha Simmons NP [address] [place] [address] Family Medicine 05/21/20 Gina Barajas PA [address] [place] [address] Bread Baker 05/21/20 08/20/22 Reddy Valdez MD [address] [place] [address] [address] [place] [address] [email or web address] Sleep Medicine 05/21/20 08/20/22 Tamara Dubon, MAINTENANCE LEADER [address] [place] [address] 16 [place] [address] Psychiatry 03/31/21 Monika James MD [address] [place] [address], [facility] [address] [place] [address] [email or web address] Rheumatology 03/31/21 08/20/22 Alhaji Reese MD [address] [place] [address] Gastroenterology 05/28/21 08/20/22 Cesar Lester MD [address] [place] [address], [address] [place] [address] [email or web address] Insurance Assigned Provider 08/23/21 05/22/23 Beth Armendariz, RN [address] [place] [address] [email or web address] iCMP Roll Forming Machine Operator 10/05/22 Amisha Steen FNP [address] [place] [address] [address] [place] [address] Nurse Practitioner 08/27/23 documented as of this encounter Additional Source Comments The information contained in this document represents components of the legal health record. It is not the complete legal health record.[facility]
--- OUTSIDE RECORDS SUMMARY | 2025-01-12 09:18 | XMS_ITS | Encounter Summary ---
Author Organization [facility] Address [address] [address] Phone Care Team Providers Care Commercial Pest Control Representative Name Role Phone Rigo Lopez MCKENNA Primary Care Provider [phone] Lisa Sommers MD Unavailable Smitha Simmons LITIGATION PARTNER Unavailable [phone] Gina Barajas PA Unavailable Reddy Valdez MD Unavailable [phone] Tamara Dubon INVENTORY CONTROL ANALYST Unavailable Monika James MD Unavailable lAhaji Reese MD Unavailable [phone] Cesar Lester MD Unavailable Beth Armendariz RN Unavailable Amisha Steen ISOBUTYLENE OPERATOR CHIEF Unavailable [phone] Encounter Details Date Type Department Care Team (Late st Contact Info) Description 07/17/2021 Procedure Pass [facility], Ct Scan - [address] [address] Social History Tobacco Use Types Packs/Day Years Used Date Smoking Tobacco: Never Smokeless Tobacco: Never Alcohol Use Standard Drinks/Week Comments Not Currently 0 (1 standard drink = 0.6 oz pur e alcohol) Comments No Sex and Gender Information Value [...] st Contact Info) Description 09/13/2024 Procedure Pass [facility], [address] [address] 01/31/2025 3:00 PM EDT Office Visit [facility] [address] [place] [address] Alhaji Swan MD [address] [place] [address] 03/27/2025 8:00 AM EST Appointment [address] [address] Rigo Lopez CNP [address] [place] [address], [address] [address] jesus documented as of this encounter Visit Diagnoses Not on filedocumented in this encounter Additional Health Concerns Infection Onset Date Last Indicated Resolved Time CoV-Risk 10/09/2021 10/09/2021 10/20/2021 1:24 AM EDT Assessment Noted Time PHQ-2 Depression Total Score: 2 05/28/19 22 8:17 AM EST documented as of this encounter Care Teams Commercial Pest Control Representative Relationship Specialty Start Date End Date Rigo Lopez CNP [address] [place] [address], [address] [place] [address] jesus PCP - General Family Medicine 07/25/18 Lisa Sommers MD [address] [place] [address], [address] [place] [address] [email or web address] Urology 07/25/18 Smitha Simmons, LITIGATION PARTNER [address] [place] [address] Family Medicine 05/21/20 Gina Barajas PA [address] [place] [address] Automobile Lights Assembler 05/21/20 08/20/22 Reddy Valdez MD [address] [place] [address], [address] [place] [address] Sleep Medicine 05/21/20 08/20/22 Tamara Dubon, INVENTORY CONTROL ANALYST [address] [place] [address] 16 [place] [address] Psychiatry 03/31/21 Monika James MD [address] [place] [address], [address] [place] [address] Rheumatology 03/31/21 08/20/22 Alhaji Reese MD [address] [place] [address] Gastroenterology 05/28/21 08/20/22 Cesar Lester MD [address] [place] [address], [address] [place] [address] [email or web address] Insurance Assigned Provider 08/23/21 05/22/23 Beth Armendariz, RN [address] [place] [address] [email or web address] iCMP Residential Carpet Installer 10/05/22 Amisha Steen FNP [address] [place] [address] Nurse Practitioner 08/27/23 documented as of this encounter Additional Source Comments The information contained in this document represents components of the legal health record. It is not the complete legal health record.[facility]
--- OUTSIDE RECORDS SUMMARY | 2025-01-12 09:18 | XMS_ITS | Encounter Summary ---
Author Organization [facility] Address [address] [address] Phone Care Team Providers Care Dish Room Worker Name Role Phone Rigo Lopez MCKENNA Primary Care Provider [phone] Lisa Sommers MD Unavailable [phone] Kuldeep Pérez Unavailable Smitha Simmons POTATO CHIP SORTER Unavailable Gina Barajas PA Unavailable Reddy Valdez MD Unavailable [phone] Ling Tamara A FOREIGN STUDENT ADVISER Unavailable Monika James MD Unavailable Alhaji Reese MD Unavailable [phone] Cesar Lester MD Unavailable Beth Armendariz RN Unavailable Amisha SteenP Unavailable Encounter Details Date Type Department Care Team (Late st Contact Info) Description 09/30/2020 Procedure Pass [facility] Admitting Dept Virtual Department 30 [place] [address] Social History Tobacco Use Types Packs/Day [...] st Contact Info) Description 09/13/2024 Procedure Pass [facility], [address] [address] 01/31/2025 3:00 PM EDT Office Visit [facility] [address] [place] [address] Alhaji Swan MD [address] [place] [address] 03/27/2025 8:00 AM EST Appointment [address] [address] Rigo Lopez CNP [address] [place] [address], [address] [place] [address] jesus documented as of this encounter Visit Diagnoses Not on filedocumented in this encounter Additional Health Concerns Infection Onset Date Last Indicated Resolved Time CoV-Risk 10/09/2021 10/09/2021 10/20/2021 1:24 AM EDT Assessment Noted Time PHQ-2 Depression Total Score: 2 05/18/19 21 11:52 AM EST documented as of this encounter Care Teams Dish Room Worker Relationship Specialty Start Date End Date Rigo Lopez CNP [address] [place] [address], [address] [place] [address] jesus PCP - General Family Medicine 07/25/18 Lisa Sommers MD [address] [place] [address], [address] [place] [address] Urology 07/25/18 Kuldeep Pérez PA [address] [place] [address], [address] [place] [address] [email or web address] 05/21/20 03/30/21 Smitha Simmons NP [address] [place] [address] Family Medicine 05/21/20 Gina Barajas PA [address] [place] [address] Metallurgist Helper 05/21/20 08/20/22 Reddy Valdez MD [address] [place] [address] [email or web address] Sleep Medicine 05/21/20 08/20/22 Tamara Dubon, FOREIGN STUDENT ADVISER [address] [place] [address] 16 [place] [address] Psychiatry 03/31/21 Monika James MD [address] [place] [address] [email or web address] Rheumatology 03/31/21 08/20/22 Alhaji Reese MD [address] [place] [address] [email or web address] Gastroenterology 05/28/21 08/20/22 Cesar Lester MD [address] [place] [address], [address] [place] [address] [email or web address] Insurance Assigned Provider 08/23/21 05/22/23 Beth Armendariz, RN [address] [place] [address] [email or web address] iCMP Security Operations Analyst 10/05/22 Amisha Steen FNP [address] [place] [address] [address] [place] [address] Nurse Practitioner 08/27/23 documented as of this encounter Additional Source Comments The information contained in this document represents components of the legal health record. It is not the complete legal health record.[facility]
--- OUTSIDE RECORDS SUMMARY | 2025-01-12 09:18 | XMS_ITS | Encounter Summary ---
Author Organization [facility] Address [address] [address] Phone Care Team Providers Care Truck Jumper Name Role Phone Rigo Lopez MCKENNA Primary Care Provider [phone] Lisa Sommers MD Unavailable Kuldeep Pérez Unavailable Smitha Simmons PRODUCTION HELPER Unavailable Gina Barajas PA Unavailable Reddy Valdez MD Unavailable [phone] Ling Tamara A CLOUD SECURITY ARCHITECT Unavailable Monika James MD Unavailable Alhaji Reese MD Unavailable [phone] Cesar Lester MD Unavailable Beth Armendariz RN Unavailable [phone] Amisha SteenP Unavailable Encounter Details Date Type Department Care Team (Late st Contact Info) Description 03/09/2021 Procedure Pass [facility], Ct Scan - [address] [id number] Social History Tobacco Use Types Packs/Day Years [...] on file documented as of this encounter Functional Status * Calculated C-SSRS Risk Score (Lifetime/Recent) Answer Date of Assessment Author No Risk Indicated 03/09/2021 6:16 AM EDT Vinny Marquez, MAGGY * Alpha Suicide Severity Rating Scale (Screener/Recent Self-Report) Question Answer Date of Assessment Author 1. Wish to be (Past 1 Month) No 021 6:16 AM ALFREDT Vinny Marquez, MAGGY 2. Non-Specific Active Suici gonsalo Thoughts (Past 1 Month) No 03/09/2021 6:16 AM EDT Luis Marquez, MAGGY 6. Suicidal Behavior (Lifetime) No 6:16 AM EDT Vinny Marquez, MAGGY documented as of this encounter Plan of Treatment Upcoming Encounters Date Type Department Care Team (Late st Contact Info) Description 09/13/2024 Procedure Pass [address] [address] 01/31/2025 3:00 PM EDT Office Visit [facility] [address] [place] [address] [place] [address] Alhaji Swan MD [address] [place] [address] 2nd [place] [address] 03/27/2025 8:00 AM EST Appointment [address] [address] Rigo Lopez, HEEL COVERER [address] [facility], [address] [place] [address] jesus documented as of this encounter Visit Diagnoses Not on filedocumented in this encounter Additional Health Concerns Infection Onset Date Last Indicated Resolved Time CoV-Risk 10/09/2021 10/09/2021 10/20/2021 1:24 AM EDT Assessment Noted Time PHQ-2 Depression Total Score: 2 05/18/19 21 11:52 AM EST documented as of this encounter Care Teams Truck Jumper Relationship Specialty Start Date End Date Rigo Lopez CNP [address] [place] [address], [address] [place] [address] jesus PCP - General Family Medicine 07/25/18 Lisa Sommers MD [address] [place] [address], [address] [place] [address] Urology 07/25/18 Kuldeep Pérez PA [address] [place] [address], [address] [place] [address] [email or web address] 05/21/20 03/30/21 Smitha Simmons NP [address] [place] [address] Family Medicine 05/21/20 Gina Barajas PA [address] [place] [address] Cat Breeder 05/21/20 08/20/22 Reddy Valdez MD [address] [place] [address], [address] [place] [address] Sleep Medicine 05/21/20 08/20/22 Tamara Dubon, CLOUD SECURITY ARCHITECT [address] [place] [address] [address] [place] [address] Psychiatry 03/31/21 Monika James MD [address] [place] [address], [address] [place] [address] Rheumatology 03/31/21 08/20/22 Alhaji Reese MD [address] [place] [address] Gastroenterology 05/28/21 08/20/22 Cesar Lester MD [address] [place] [address], [address] [place] [address] Insurance Assigned Provider 08/23/21 05/22/23 Beth Armendariz RN [address] [place] [address] [email or web address] iCMP Drafter Patent 10/05/22 Amisha Steen FNP [address] [place] [address] Nurse Practitioner 08/27/23 documented as of this encounter Additional Source Comments The information contained in this document represents components of the legal health record. It is not the complete legal health record.[facility]
--- OUTSIDE RECORDS SUMMARY | 2025-01-12 09:18 | XMS_ITS | Encounter Summary ---
Author Organization [facility] Address [address] [address] Phone Care Team Providers Care Underwater Trapper Name Role Phone Rigo Lopez MCKENNA Primary Care Provider [phone] Lisa Sommers MD Unavailable Smitha Simmons FULL ROLL INSPECTOR Unavailable [phone] Gina Barajas PA Unavailable Reddy Valdez MD Unavailable [phone] Tamara Dubon MACHINE CHOCOLATE MOLDER Unavailable Monika James MD Unavailable [phone] Alhaji Reese MD Unavailable [phone] Cesar Lester MD Unavailable Beth Armendariz RN Unavailable Amisha Steen CONDUCTOR SYMPHONIC ORCHESTRA Unavailable Encounter Details Date Type Department Care Team (Late st Contact Info) Description 01/21/2022 Procedure Pass [facility], [address] [address] Social History Tobacco Use Types [...] st Contact Info) Description 09/13/2024 Procedure Pass [address] [address] 01/31/2025 3:00 PM EDT Office Visit [facility] [address] [place] [address] Alhaji Swan MD [address] [place] [address] [email or web address] 03/27/2025 8:00 AM EST Appointment [address] [address] Rigo Lopez CNP [address] [place] [address], [address] [place] [address] [email or web address] [email or web address] documented as of this encounter Visit Diagnoses Not on filedocumented in this encounter Additional Health Concerns Assessment Noted Time PHQ-2 Depression Total Score: 2 05/28/19 22 8:17 AM EST documented as of this encounter Care Teams Underwater Trapper Relationship Specialty Start Date End Date Rigo Lopez CNP [address] [place] [address], [address] [place] [address] jesus [email or web address] PCP - General Family Medicine 07/25/18 Lisa Sommers MD [address] [place] [address], [address] [place] [address] Urology 07/25/18 Smitha Simmons NP [address] [place] [address] Family Medicine 05/21/20 Gian Barajas PA [address] [place] [address] Water Maintenance Supervisor 05/21/20 08/20/22 Reddy Valdez MD [address] [place] [address], [facility] [address] [place] [address] [email or web address] Sleep Medicine 05/21/20 08/20/22 Tamara Dubon CNS [address] [place] [address] 16 [place] [address] Psychiatry 03/31/21 Monika James MD [address] [place] [address], [facility] [address] [place] [address] [email or web address] Rheumatology 03/31/21 08/20/22 Alhaji Reese MD [address] [place] [address] [email or web address] Gastroenterology 05/28/21 08/20/22 Cesar Lester MD [address] [place] [address], [address] [place] [address] [email or web address] Insurance Assigned Provider 08/23/21 05/22/23 Beth Armendariz RN 10 [place] [address] iCMP Medical Billing Coder 10/05/22 Amisha Steen FNP [address] [place] [address] Nurse Practitioner 08/27/23 documented as of this encounter Additional Source Comments The information contained in this document represents components of the legal health record. It is not the complete legal health record.[facility]
--- OUTSIDE RECORDS SUMMARY | 2025-01-12 09:18 | XMS_ITS | Encounter Summary ---
Author Organization [facility] Address [address] [address] Phone Care Team Providers Care Engine Builder Name Role Phone Rigo Lopez MCKENNA Primary Care Provider [phone] Lisa Sommers MD Unavailable Smitha Simmons ELECTRIC SPOT WELDER Unavailable [phone] Gina Barajas PA Unavailable Reddy Valdez MD Unavailable [phone] Tamara Dubon MARINE OPERATIONS COORDINATOR Unavailable Monika James MD Unavailable Alhaji Reese MD Unavailable [phone] Cesar Lester MD Unavailable Beth Armendariz RN Unavailable Amisha Steen LENS EDGE GRINDER MACHINE Unavailable [phone] Encounter Details Date Type Department Care Team (Late st Contact Info) Description 07/10/2021 Procedure Pass [facility], [address] [address] Social History Tobacco Use Types [...] st Contact Info) Description 09/13/2024 Procedure Pass [address] [address] 01/31/2025 3:00 PM EDT Office Visit [facility] [address] [place] [address] Alhaji Swan MD [address] [place] [address] 03/27/2025 8:00 AM EST Appointment [address] [address] Rigo Lopez CNP [address] [place] [address], [address] [address] jesus documented as of this encounter Visit Diagnoses Not on filedocumented in this encounter Additional Health Concerns Infection Onset Date Last Indicated Resolved Time CoV-Risk 10/09/2021 10/09/2021 10/20/2021 1:24 AM EDT Assessment Noted Time PHQ-2 Depression Total Score: 2 05/28/19 22 8:17 AM EST documented as of this encounter Care Teams Engine Builder Relationship Specialty Start Date End Date Rigo Lopez CNP [address] [place] [address], [address] [address] jesus PCP - General Family Medicine 07/25/18 Lisa Sommers MD [address] [place] [address], [address] [place] [address] Urology 07/25/18 Smitha Simmons, ELECTRIC SPOT WELDER [address] [place] [address] Family Medicine 05/21/20 Gina Barajas PA [address] [place] [address] Spine Supervisor 05/21/20 08/20/22 Reddy Valdez MD [address] [place] [address], [address] [place] [address] Sleep Medicine 05/21/20 08/20/22 Tamara Dubon, MARINE OPERATIONS COORDINATOR [address] [place] [address] 16 [place] [address] Psychiatry 03/31/21 Monika James MD [address] [place] [address], [address] [place] [address] Rheumatology 03/31/21 08/20/22 Alhaji Reese MD [address] [place] [address] Gastroenterology 05/28/21 08/20/22 Cesar Lester MD [address] [place] [address], [address] [place] [address] Insurance Assigned Provider 08/23/21 05/22/23 Beth Armendariz, RN [address] [place] [address] [email or web address] iCMP Hogshead Wrecker 10/05/22 Amisha Steen FNP [address] [place] [address] Nurse Practitioner 08/27/23 documented as of this encounter Additional Source Comments The information contained in this document represents components of the legal health record. It is not the complete legal health record.[facility]
--- OUTSIDE RECORDS SUMMARY | 2025-01-12 09:18 | XMS_ITS | Encounter Summary ---
Author Organization [facility] Address [address] [address] Phone Care Team Providers Care Frame Stripper Name Role Phone Rigo Lopez MCKENNA Primary Care Provider [phone] Lisa Sommers MD Unavailable [phone] Smitha Simmons SALESPERSON PETS AND PET SUPPLIES Unavailable [phone] Tamara Dubon CONTROL AND RECOVERY SPECIAL TACTICS Unavailable Beth Armendariz RN Unavailable Amisha Steen GAS TURBINE POWERPLANT MECHANIC Unavailable [phone] Encounter Details Date Type Department Care Team (Late st Contact Info) Description 06/25/2023 Procedure Pass [facility], [address] [id number] Social History Tobacco Use Types Packs/Day Years Used Date Smoking Tobacco: Never Smokeless Tobacco: Never Alcohol Use Standard Drinks/Week Comments Not Currently 0 (1 standard drink = 0.6 oz pur e alcohol) Education Answer Date Recorded Are you interested in more education? Not on kwame e 09/11/2022 Are you concerned about learning? Not on file 09/11/2022 No 09/11/2022 No 09/11/2022 Digital Access Answer Date Recorded No 10/12/2022 No 10/12/2022 Reliable internet access at home? Not on file 10/12/2022 Device with a working camera? Not on file Comments No Sex and Gender Information Value [...] st Contact Info) Description 09/13/2024 Procedure Pass [facility], [address] [address] 01/31/2025 3:00 PM EDT Office Visit [facility] Pul[facility], Allergy and Critical Care Medicine 10 [facility] [place] [address] Alhaji Swan MD [address] [place] [address] [email or web address] 03/27/2025 8:00 AM EST Appointment [address] [address] Rigo Lopez CNP 22 [facility], [address] [place] [address] jesus documented as of this encounter Visit Diagnoses Not on filedocumented in this encounter Additional Health Concerns Assessment Noted Time PHQ-9 Depression Total Score: 19 024 7:15 AM EDT PHQ-2 Depression Total Score: 5 08/27/19 24 7:15 AM EDT documented as of this encounter Care Teams Frame Stripper Relationship Specialty Start Date End Date Rigo Lopez CNP 22 [facility], [address] [place] [address] jesus PCP - General Family Medicine 07/25/18 Lisa Sommers MD [address] [facility], [address] [place] [address] [email or web address] [email or web address] 07/25/18 Smitha Simmons, SALESPERSON PETS AND PET SUPPLIES [address] [place] [address] Family Medicine 05/21/20 Tamara Dubon CNS [address] [place] [address] Psychiatry 03/31/21 Beth Armendariz, MAGGY 10 [place] [address] [email or web address] [email or web address] Administrator Health Care Facility 10/05/22 Amisha Steen FNP [address] [place] [address] Nurse Practitioner 08/27/23 documented as of this encounter Additional Source Comments The information contained in this document represents components of the legal health record. It is not the complete legal health record.[facility]
--- OUTSIDE RECORDS SUMMARY | 2025-01-12 09:18 | XMS_ITS | Encounter Summary ---
Author Organization [facility] Address [address] [address] Phone Care Team Providers Care Steel Box Toe Inserter Name Role Phone Rigo Lopez MCKENNA Primary Care Provider [phone] Lisa Sommers MD Unavailable Smitha Simmons CUSTOMS IMPORT SPECIALIST Unavailable [phone] Tamara Dubon BUMPER STRAIGHTENER Unavailable [phone] Beth Armendariz RN Unavailable Amisha Steen CREATIVE DEVELOPER Unavailable Reason for Visit * Reason Onset Date Comments Abdominal Pain 07/06/2023 X 5 days Encounter Details Date Type Department Care Team (Late st Contact Info) Description 07/06/2023 Nurse Triage [facility]NAGEMENT 30 [place] [address] Beth Armendariz, RN 10 [place], [place] [id number] Abdominal Pain (X 5 days) Social History Tobacco Use Types Packs/Day Years [...] st Contact Info) Description 09/13/2024 Procedure Pass [address] [address] 01/31/2025 3:00 PM EDT Office Visit [facility] Pulmonary, Allergy and Critical Care Medicine [address] [place] [address] Alhaji Swan MD [address] [place] [address] [email or web address] 03/27/2025 8:00 AM EST Appointment [address] [address] Rigo Lopez CNP [address] [place] [address], [address] [place] [address] jesus documented as of this encounter Visit Diagnoses Not on filedocumented in this encounter Additional Health Concerns Assessment Noted Time PHQ-9 Depression Total Score: 19 023 7:59 AM EDT PHQ-2 Depression Total Score: 2 10/28/19 23 9:48 AM EDT documented as of this encounter Care Teams Steel Box Toe Inserter Relationship Specialty Start Date End Date Rigo Lopez CNP [address] [place] [address], [address] [place] [address] jesus PCP - General Family Medicine 07/25/18 Lisa Sommers MD [address] [place] [address], [address] [place] [address] Urology 07/25/18 Smitha Simmons, CUSTOMS IMPORT SPECIALIST [address] [place] [address] Family Medicine 05/21/20 Tamara Dubon CNS [address] [place] [address] 16 [place] [address] Psychiatry 03/31/21 Beth Armendariz RN [address] [place] [address] iCMP Pile Driver Engineer 10/05/22 Amisha Steen FNP [address] [place] [address] Nurse Practitioner 08/27/23 documented as of this encounter Additional Source Comments The information contained in this document represents components of the legal health record. It is not the complete legal health record.[facility]
--- OUTSIDE RECORDS SUMMARY | 2025-01-12 09:18 | XMS_ITS | Encounter Summary ---
Author Organization [facility] Address [address] [address] Phone Care Team Providers Care Dispensing Lead Name Role Phone Rigo Lopez MCKENNA Primary Care Provider [phone] Lisa Sommers MD Unavailable [phone] Smitha Simmons SURVEILLANCE SYSTEMS ENGINEER Unavailable [phone] Tamara Dubon SKIVER MACHINE OPERATOR Unavailable Beth Armendariz RN Unavailable [phone] Amisha Steen PRESENTATION SPECIALIST Unavailable Encounter Details Date Type Department Care Team (Late st Contact Info) Description 01/09/2025 Telephone [facility] [facility] [address] [place] [phone] Lesli Schmid LPN 22 [place], [place] [phone] [email or web address] Social History Tobacco Use Types Packs/Day Years [...] with a working camera? Not on file Intimate Partner Violence Answer Date R ecorded Denied Basic Needs Not on file 08/27/2023 In the past 12 months have y ou been in a relationship with a person who hurts, threatens, or tries to control you? No 08/27/2023 Worried food would run out Not on file 08/26 In the past 12 months have y ou been in a relationship with a person who hurts, threatens, or tries to control you? No 08/27/2023 Comments No Sex and Gender Information Value Date Recorded Sex Assigned at Female 05/14/2019 9:08 PM EST Legal Sex Female 10:31 PM EDT Gender Identity Female 05/14/2019 9:08 PM EST Sexual Orientation Choose not to disclose 2018 9:08 PM EST Occupation Industry Job Start Date Job End Date SSDI Not on file Not on file Not on file documented as of this encounter Progress Notes * Lesli Schmid LPN - 01/09/2025 1:38 PM EDT Signed orders for [facility] PT faxed to [phone] with confirmation of receipt. Sent for scanning to the chart. documented in this encounter Plan of Treatment Upcoming Encounters Date Type Department Care Team (Late st Contact Info) Description 09/13/2024 Procedure Pass [address] [address] 01/31/2025 3:00 PM EDT Office Visit [facility], Allergy and Critical Care Medicine [address] [place] [address] [place] [address] Alhaji Swan MD [address] [place] [address] 2nd [place] [address] 03/27/2025 8:00 AM EST Appointment [facility], Mammography- [facility] 30 [place] [address] Rigo Lopez CNP 22 [facility], [address] [place] [address] jesus documented as of this encounter Visit Diagnoses Not on filedocumented in this encounter Additional Health Concerns Assessment Noted Time PHQ-9 Depression Total Score: 19 024 7:15 AM EDT PHQ-2 Depression Total Score: 5 08/27/19 24 7:15 AM EDT documented as of this encounter Care Teams Dispensing Lead Relationship Specialty Start Date End Date Rigo Lopez CNP [address] [place] [address], [address] [place] [address] jesus PCP - General Family Medicine 07/25/18 Lisa Sommers MD [address] [place] [address], [address] [address] Urology 07/25/18 Smitha Simmons SURVEILLANCE SYSTEMS ENGINEER [address] [place] [address] Family Medicine 05/21/20 Tamara Dubon CNS [address] [place] [address] Psychiatry 03/31/21 Beth Armendariz, MAGGY [address] [place] [address] iCMP Box Attacher 10/05/22 Amisha Steen FNP [address] [place] [address] Nurse Practitioner 08/27/23 documented as of this encounter Additional Source Comments The information contained in this document represents components of the legal health record. It is not the complete legal health record.[facility]
--- OUTSIDE RECORDS SUMMARY | 2025-01-12 09:18 | XMS_ITS | Encounter Summary ---
Author Organization [facility] Address [address] [address] Phone Care Team Providers Care Telephone Ad Taker Name Role Phone Rigo Lopez MCKENNA Primary Care Provider [phone] Lisa Sommers MD Unavailable Smitha Simmons DYNAMIC BALANCER Unavailable [phone] Tamara Dubon APPARATUS OPERATOR Unavailable Cesar Lester MD Unavailable [phone] Beth Armendariz RN Unavailable Amisha Steen INVENTORY TRANSCRIBER Unavailable Encounter Details Date Type Department Care Team (Late st Contact Info) Description 08/21/2022 Procedure Pass [facility], [facility] 30 [place] [address] Social History Tobacco Use Types Packs/Day Years [...] st Contact Info) Description 09/13/2024 Procedure Pass [facility], [address] [address] 01/31/2025 3:00 PM EDT Office Visit [facility], Allergy and Critical Care Medicine 10 [facility] [place] [address] Alhaji Swan MD [address] [place] [address] 2nd [place] [address] 03/27/2025 8:00 AM EST Appointment [facility], [address] [address] Rigo Lopez CNP [address] [place] [address], [address] [place] [address] jesus documented as of this encounter Visit Diagnoses Not on filedocumented in this encounter Additional Health Concerns Assessment Noted Time PHQ-9 Depression Total Score: 19 023 7:59 AM EDT PHQ-2 Depression Total Score: 6 08/20/19 23 7:59 AM EDT documented as of this encounter Care Teams Telephone Ad Taker Relationship Specialty Start Date End Date Rigo Lopez CNP [address] [place] [address], [address] [place] [address] jesus PCP - General Family Medicine 07/25/18 Lisa Sommers MD [address] [place] [address], [address] [address] Urology 07/25/18 Smitha Simmons NP [address] [place] [address] Family Medicine 05/21/20 Tamara Dubon CNS [address] [place] [address] 16 [place] [address] Psychiatry 03/31/21 Cesar Lester MD [address] [place] [address], [address] [place] [address] [email or web address] Insurance Assigned Provider 08/23/21 05/22/23 Beth Armendariz RN [address] [place] [phone] [email or web address] iCMP [employer] Labourer 10/05/22 Amisha Steen FNP [address] [place] [address] Nurse Practitioner 08/27/23 documented as of this encounter Additional Source Comments The information contained in this document represents components of the legal health record. It is not the complete legal health record.[facility]
--- OUTSIDE RECORDS SUMMARY | 2025-01-12 09:18 | XMS_ITS | Encounter Summary ---
Author Organization [facility] Address [address] [address] Phone Care Team Providers Care Advertising Editor Name Role Phone Rigo Lopez CNP Unavailable Harvinder Vallejo MD Unavailable [phone] Rigo Lopez CNP Primary Care Provider [phone] Alhaji Martinez MD Unavailable [phone] Lisa Sommers MD Unavailable Cesar Lester MD Unavailable [phone] Kuldeep Pérez PA Unavailable Smitha Simmons FLIGHT COORDINATOR Unavailable Gina Barajas PA Unavailable Reddy Valdez MD Unavailable [phone] Tamara Dubon FOOD SPECIALIST Unavailable Monika James MD Unavailable [phone] Alhaji Reese MD Unavailable [phone] Cesar Lester MD Unavailable [phone] Beth Armendariz RN Unavailable Buchachiy, Amisha K AUTOMATION ANALYST Unavailable Reason for Referral * Physical Therapy (Routine) - Closed Specialty Diagnoses / Procedures Referred By Contac t Referred To Contact Physical Therapy Diagnoses Encounter for rehabilitation Kobi Bradley MD Phone: tel: fax: [address] [address] Phone: tel: Referral ID Status Reason Start Date Expiration Date Visits Re quested Visits Authorized [id number] Closed 05/31/2019 05/31/2020 99 [phone] Encounter Details Date Type Department Care Team (Latest Contact Info) Description 05/31/2019 Transcribe Orders [facility] [address] [place] [address] Kobi Bradley MD [address] [place] [address] Encounter for rehabilitation (Primary Dx) Social History Tobacco Use Types Packs/Day Years Used Date Smoking Tobacco: Never Smokeless Tobacco: Never Alcohol Use Standard Drinks/Week Comments Not Currently 0 (1 standard drink = 0.6 oz pur e alcohol) Comments Unknown Sex and Gender Information Value Date Recorded [...] st Contact Info) Description 09/13/2024 Procedure Pass [facility], [facility]- [address] [address] 01/31/2025 3:00 PM EDT Office Visit [facility], Allergy and Critical Care Medicine 10 [facility] [address] [place], [place] [phone] Alhaji Swan MD [address] [address] 03/27/2025 8:00 AM EST Appointment [facility], Mammography- [address] [address] Rigo Lopez CNP 22 [facility], [address] [place] [address] jesus documented as of this encounter Procedures Procedure Name Priority Date/Time Associated Diagnosis Comments AMB REFERRAL TO [facility] PHYSICAL THERAPY Routine 06/14/2019 3:15 PM EST Encounter for rehabilitation documented in this encounter Results * Ambulatory referral to [facility] Physical Therapy (06/14/2019 3:15 PM EST) Kobi Bradley MD AMB [facility] REFERRALS Final Result documented in this encounter Visit Diagnoses Diagnosis Encounter for rehabilitation- Primary Visit for screening mammogram documented in this encounter Additional Health Concerns Infection Onset Date Last Indicated Resolved Time CoV-Risk 09/18/2019 09/18/2019 10/02/2019 1:23 AM EDT CoV-Risk 10/09/2021 10/09/2021 10/20/2021 1:24 AM EDT Assessment Noted Time PHQ-2 Depression Total Score: 2 07/26/19 19 8:38 AM EDT documented as of this encounter Care Teams Advertising Editor Relationship Specialty Start Date End Date Rigo Lopez CNP 22 [facility], [address] [place] [address] jesus PCP - General Family Medicine 07/25/18 Rigo Lopez CNP 22 [facility], [address] [place] [address] jesus Historical LMR Provider 03/06/17 Harvinder Vallejo MD 22 [facility], [address] [place] [address] Internal Medicine 04/19/18 05/20/20 Alhaji Martinez MD [address] [place] [address] [email or web address] Rheumatology 07/25/18 05/20/20 Lisa Sommers MD [address] [place] [address], [address] [place] [address] Urology 07/25/18 Cesar Lester MD [address] [place] [address], [address] [place] [address] [email or web address] Insurance Assigned Provider 02/11/19 05/25/20 Kuldeep Pérez PA [address] [place] [address], [address] [place] [address] [email or web address] 05/21/20 03/30/21 Smitha Simmons NP [address] [place] [address] Family Medicine 05/21/20 Gina Barajas PA [address] [place] [address] [address] Cleaner 05/21/20 08/20/22 Reddy Valdez MD [address] [place] [address], [address] [place] [address] [email or web address] Sleep Medicine 05/21/20 08/20/22 Tamara Dubon, FOOD SPECIALIST [address] [place] [address] 16 [place] [address] Psychiatry 03/31/21 Monika James MD [address] [place] [address], [address] [place] [address] Rheumatology 03/31/21 08/20/22 Alhaji Reese MD [address] [place] [address] Gastroenterology 05/28/21 08/20/22 Cesar Lester MD [address] [place] [address], [address] [place] [address] Insurance Assigned Provider 08/23/21 05/22/23 Beth Armendariz RN [address] [place] [address] iCMP Greenhouse Instructor 10/05/22 Amisha Steen FNP [address] [place] [address] 205 [place] [address] Nurse Practitioner 08/27/23 documented as of this encounter Additional Source Comments The information contained in this document represents components of the legal health record. It is not the complete legal health record.[facility]
--- OUTSIDE RECORDS SUMMARY | 2025-01-12 09:18 | XMS_ITS | Clinical Summary ---
Author Organization [facility] Address [address] [address] Phone Care Team Providers Care Clinical Resource Director Name Role Phone Cristela Alba MCKENNA Primary Care Provider [phone] Lisa Sommers MD Unavailable [phone] Smitha Simmons PARTY SUPPLY SPECIALIST Unavailable Tamara Dubon SENIOR DENTIST Unavailable Beth Armendariz RN Unavailable Amisha tSeen DOPE HOUSE OPERATOR HELPER Unavailable Allergies Active Allergy Reactions Criticality Noted Date Comments Arnica Rash Low 11/11/2021 Nsaids (Non-Steroidal Anti-Inflammatory Drug) Rash Low 05/28/2021 Propofol Anaphylaxis High 10/07/2018 During ear drum patching Sulfamethoxazole-Trimetho prim Hives High 04/16/2015 Medications lysine 500 mg Tab Take by mouth daily. Active thyroid, pork, 60 mg Tab Take 60 mg by mouth daily. Active assist device for inhaler DeviIndications:M ild persistent asthma with acute exacerbation Use as directed with inhaler for asthma 1 each 2 Active zolpidem (AMBIEN) 10 mg tablet Take 10 mg by mouth nightly at bedtime as needed. 3 Active dextroamphetamine -amphetamine (ADDERALL) 10 mg Tab tablet Take 10 mg by mouth daily. Take 5-10 mg po once to twice daily Active pregabalin (LYRICA) 25 MG capsule Take 25 mg by mouth 2 (two) times a day. Active venlafaxine (EFFEXOR-XR) 150 MG 24 hr capsule Take 1 capsule by mouth every morning. 4 Active venlafaxine (EFFEXOR-XR) 37.5 MG 24 hr capsule Take 37.5 mg by mouth. 4 Active triamcinolone acetonide 0.1 % cream Apply topically 2 (two) times a day. 30 g 4 Active estradioL (VIVELLE-DOT) 0.025 mg/[address] 1 patch onto the skin 2 (two) times a week. 5 Active progesterone (PROMETRIUM) 100 mg capsule Take 100 mg by mouth daily. 5 Active betamethasone dipropionate 0.05 % cream Apply topically daily as needed. 5 Active albuterol 90 mcg/actuation inhalerIndication s:Mild persistent asthma, unspecified whether complicated Inhale 2 puffs into the lungs every 6 (six) hours as needed for wheezing or shortness of breath/dyspnea . 18 g 1 5 Active EPINEPHrine 0.3 mg/0.3 mL auto-injector Inject 0.3 mL (0.3 mg total) into the muscle as needed for anaphylaxis. 1 each 2 5 Active cyclobenzaprine (FLEXERIL) 10 MG tablet Take 10 mg by mouth 2 (two) times a day as needed (muscle spasm). 5 Active Active Problems Patient Care Coordination No te Formatting of this note migh t be different from the original. Patient is high risk for these reasons: Samra-Danlos syndrome, chronic fatigue, fibromyalgia. Living Situation: Own home, has stairs to enter. She is able to safely enter and exit home. Functional Status (ADL's/iADLs): Independent in ADL's. Chores can be sporadic depending on how she is feeling. Family/Social Supports: Has emergency contacts listed, no other supports discussed. Goals of Care (HCP/Molst): Reports having HCP will get a copy to PCP office. Community Supports (e.g. VNA, DME Vendors, Elder Services): Mental health providers. [facility] Transportation: She has her own vehicle, drives herself. Medication Management System/Specialized Pharmacy Needs: TBD Financial Concerns: N/A Other Supports and Care Needs: PA for thyroid medication. Problem Noted Date Diagnosed Date Medicare annual wellness visit, subsequent 08/26 Assessment & Plan (08/27/2023 9:33 AM EDT): She declines PCV20 vaccine. We discussed that she is eligible for Covid and Shingrix. Warning signs of breast cancer and breast self-awareness reviewed. Pap smears have been discontinued per ASCCP guidelines. Next screening colonoscopy 2030 per GI. She will have labs drawn through [facility] at her next visit. Screening HIV test today. Continue regular dental and eye care. Disorder of SI (sacroiliac) joint 11/11/2021 Assessment & Plan (08/27/2023 9:34 AM EDT): Chronic back pain. She reports that she is currently in a flare today. She continues on pregabalin and is waiting for authorization for stimulator. Family history of early CAD 05/28/2021 Chronic constipation 03/20/2020 Assessment & Plan (08/27/2023 9:35 AM EDT): Back to baseline after switching back to XR venlafaxine from IR formulation. Assessment & Plan (08/04/2023 3:48 PM EDT): Her exam is very benign and reassuring. Likely had an exacerbation of her chronic constipation. This is likely due to changing from extended release venlafaxine to twice daily. I asked her to check with her medication prescriber to see if there is some way to get her back on the extended release as I suspect the cost differential could not be as significant as she was led to believe. If this does not help her symptoms, she will let us know. She was started on Lyrica about 3 months ago, and this could possibly be playing a role, but timewise it seems less likely to be causative. S/P sacrocolpopexy 03/20/2020 Carpal tunnel syndrome of left wrist 12/01/2019 Assessment & Plan (12/03/2020 12:23 PM EDT): Continue Cock-Up wrist splint for Carpal tunnel symptom relief. Patient also using CBD, medical marijuana. Assessment & Plan (07/30/2020 8:42 AM EDT): Continue Cock-Up wrist splint for Carpal Tunnel Syndrome symptom relief at night. Trial of Diclofenac gel for wrist tenderness relief. Narcolepsy and cataplexy 10/15/2018 Pain in both hands 09/01/2018 Pain in both feet 09/01/2018 Conductive hearing loss, bilateral 03/10/2018 Overview (03/10/2018): Chronic, has had PE tubes and chronic perforation on the R. Hx Surgery with Dr Melgoza. Chronic fatigue syndrome with fibromyalgia 03/24 Assessment & Plan (08/27/2023 9:34 AM EDT): Medications have been stable. Continue specialist follow up. She walks in her home and takes the stairs frequently. Activity encouraged. Moderate episode of recurrent major depressive d isorder 03/24/2017 Assessment & Plan (08/27/2023 9:35 AM EDT): Moderately severe based on PHQ today. She endorses low mood which she attributes to the loss of a friend. She is under the care of a psychiatric prescriber and therapist and denies thoughts of self harm. 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 Continue Stretching, strengthening exercises. Assessment & Plan (07/30/2020 8:39 AM EDT): Strengthening, stretching exercises for elbows. Will start physical therapy strengthening exercise for hands at next visit. Hypothyroidism 03/24/2017 Assessment & Plan (08/27/2023 9:33 AM EDT): Managed by integrative medicine. Await next TSH. Mild persistent asthma with acute exacerbation 1 05/24/2016 REBECA (obstructive sleep apnea) 03/24/2017 Pelvic floor dysfunction 08/10/2012 Assessment & Plan (08/27/2023 9:34 AM EDT): Doing pelvic floor PT through [facility] with HEP. Interstitial cystitis 07/22/2012 Irritable bowel syndrome with constipation 06/26 Sciatica 08/15/2009 Resolved Problems Problem Noted Date Diagnosed Date Resolved Date Abdominal pain, epigastric 07/17/2021 0 08/27/2023 Polyarthropathy 01/06/2019 08/21/2022 Assessment & Plan (12/03/2020 12:25 PM EDT): Continue Flexeril 10 mg PO daily. Continue Stretching, strengthening exercises. Patient also using CBD, Medical marijuana. Assessment & Plan (07/30/2020 8:43 AM EDT): Trial of Diclofenac gel. Apply 2 g to upper extremity, 4 g to lower extremity joint 2-3 times daily for joint pain relief. Patient also uses CBD oil, Medical Marijuana. Fibromyalgia 09/01/2018 08/21/2022 Assessment & Plan (12/03/2020 12:24 PM EDT): Continue Flexeril 10 mg PO daily. Patient will trial 1 1/2 pills PO qhs to see if it will increase sleep at [facility]. Patient is taking Seroquel and temazepam for sleep aids. Continue good sleep habits. Assessment & Plan (07/30/2020 8:41 AM EDT): Continue Flexeril 10 mg PO qhs for sleep aid, muscle tenderness of Fibromyalgia. Patient also uses CBD oild, Medical marijuana, Seroquel, Temazepam for Sleep, Fibromyalgia muscle tenderness relief. Intractable migraine with au ra without status migrainosus 03/24/2017 07/25/2018 Dysthymia 09/26/2014 07/25/2018 Disturbance in personality 09/26/2014 0 07/25/2018 Encounters Date Type Department Care Team Description 01/09/2025 Telephone [facility] [address] [place] [address] Lesli Schmid LPN 01/04/2025 Patient Outreach [facility] [address] [place] [address] Beth Armendariz, MAGGY Care Coordination ([facility] Follow up outreach, [facility] transition information ) 11/30/2024 Patient Outreach [facility] [address] [place] [address] Beth Armendariz, MAGGY Care Coordination ([facility] Follow up outreach ) 11/24/2024 3:30 PM EDT Office Visit [address] [place] [address] Cristela Alba CNP Left elbow pain (Primary Dx) 11/24/2024 Orders Only [address] [place] [address] ProviderMikie MD 10/27/2024 3:00 PM EDT Office Visit [address] [place] [address] Cristela Alba CNP Multiple allergies (Primary Dx); Rash and other nonspecific skin eruption; Mild persistent asthma, unspecified whether complicated 10/23/2024 Patient Outreach [facility] [address] [address] Beth Armendariz, MAGGY Care Coordination ([facility] Follow up outreach ) from Last 3 Months Immunizations Immunization Administration Dates Next Due COVID-19 (Pre-03/08) Moderna Vaccine, mRNA, PF 09/06/2020,08/09/2020 Hepatitis B Adult 03/15/2019,10/13/2018,09/14/19 19 Influenza Quadrivalent Preservative Free IM 09/2020 Influenza Recombinant Andrea valent Preservative Free IM 03/22/2018 Pneumococcal polysaccharide PPSV23 12/28/2016 Tdap 05/20/2022,12/28/2016 Family History Medical History Relation Comments Hypertension Brother 1 Obesity Brother 1 Alcohol abuse Brother 2 EDILSON disease Brother 2 Heart attack Brother 2 Smoker Hyperlipidemia Brother 2 Hypertension Brother 2 Stroke Brother 2 x 3 Depression Daughter GI problems Daughter Joint hypermobility Daughter Macular degeneration Daughter Alcohol abuse Father In remission Diabetes type II Father Hyperlipidemia Father Hypertension Father Stroke Father Former smoker. Ischemic stroke, wheelchair bound. No Known Problems Maternal Grandfather No Known Problems Maternal Grandmother Cancer Mother Diabetes type II Mother Hypertension Mother No Known Problems Paternal Grandfather No Known Problems Paternal Grandmother Heart attack Paternal Uncle Breast cancer Neg Hx Colon cancer Neg Hx Glaucoma Neg Hx Prostate cancer Neg Hx Relation Status Comments Brother 1 Alive Brother 2 Alive Daughter Alive Father Alive Maternal Grandfather Maternal Grandmother Mother Alive Paternal Grandfather Paternal Grandmother Paternal Uncle (Age 43) Social History Tobacco Use Types Packs/Day Years Used Date Smoking Tobacco: Never Smokeless Tobacco: Never Tobacco Cessation:Counseling Given: Not Answered Alcohol Use Standard Drinks/Week Comments Not Currently [...] file Not on file Not on file Last Filed Vital Signs Vital Sign Reading Time Taken Comments Blood Pressure 108/72 11/24/2024 3:12 PM EDT Pulse 89 11/24/2024 3:12 PM EDT Temperature 36.8 C (98.2 F) 11/24/2024 3:12 PM EDT Respiratory Rate 20 08/07/2022 9:38 AM EDT Oxygen Saturation 98% 11/24/2024 3:12 PM EDT Inhaled Oxygen Concentration - - Weight 63.5 kg (140 lb) 11/24/2024 3:12 PM EDT Height 157.5 cm (5' 2 ) 11/24/2024 3:12 PM EDT Body Mass Index 25.61 11/24/2024 3:12 PM EDT Plan of Treatment Upcoming Encounters Date Type Department Care Team (Late st Contact Info) Description 09/13/2024 Procedure [facility], [address] [address] 01/31/2025 3:00 PM EDT Office Visit [facility] [address] [place] [address] [place] [address] Jimmy Swan MD [address] [place] [id number] 03/27/2025 8:00 AM EST Appointment [facility], [address] [address] Cristela Alba, ACQUISITION ASSOCIATE [address] [facility], [address] [place] [address] [email or web address] Health Maintenance Due Date Last Done Comments PNEUMOCOCCAL VACCINES (50+ years) (2 of 2 - PCV) 12/28/2017 12/28/2016 COLOGUARD 2018 FIT TEST 2018 FOBT 2018 SIGMOIDOSCOPY 2018 VIRTUAL COLONOSCOPY 2018 ZOSTER VACCINES (1 of 2) 2023 COVID-19 VACCINE ( season) 2024 04/19/2021, 09/06/2020, 08/09/2020 DEPRESSION SCREENING 08/26/2024 08/27/2023, 08/27/19 24 INFLUENZA VACCINE (#1) 2024 , 05/21/2020, 03/22/2018 MAMMOGRAM 12/09/2025 12/10/2023, 05/0 01/2023, 07/10/2021, Additional history exists LIPID PANEL 06/11/2026 06/11/2021, 05/18, 06/11/2021, Additional history exists SCREENING FOR DIABETES 09/06/2026 4, 08/07/2022, 08/20/2020, Additional history exists COLONOSCOPY 09/30/2030 09/30/2020, 08/29/2012 COLORECTAL CANCER SCREENING 09/30/2030 Adult Td,Tdap Booster 05/20/2032 05/20/2022, 017 HEPATITIS C SCREENING Completed 10/24/2022, 021 HIV ONE-TIME SCREENING (18-65 YEARS) Completed 09/29/2023 SMOKING STATUS SCREENING (Once After 26 Yrs) Completed 11/24/2024 HEPATITIS A VACCINES Aged Out No long er eligible based on patient's age to complete this topic HIB VACCINES Aged Out No longer eligi ble based on patient's age to complete this topic MENINGOCOCCAL VACCINES (ACWY) Aged Out No longer eligible based on patient's age to complete this topic MENINGOCOCCAL VACCINES (B) Aged Out N o longer eligible based on patient's age to complete this topic Medical Devices Not on file Procedures Procedure Name Priority Date/Time Associated Diagnosis Comments OUTSIDE XR IMAGING REPORT ONLY Routine 11/21/2024 3:52 PM EDT BI MAMMOGRAM SCREENING WITH TOMOSYNTHESIS WITH CAD (BILATERAL) Routine 12/10/2023 11:22 AM EDT Visit for screening mammogram OUTSIDE GLUCOSE FASTING Routine 09/07/2023 OUTSIDE HDL Routine 06/11/2021 ENDOSCOPY, COLON 09/30/2020 1:29 PM EDT OUTSIDE HEPATITIS C VIRUS SCREENING Routine 05/28/2020 from Last 3 Months or Most Recently Relevant to Health Maintenance Results * Outside XR Imaging Report Only (11/21/2024 3:52 PM EDT) Historical Provider MD FAY XR CHEST Final Res ult * BI MAMMOGRAM SCREENING WITH TOMOSYNTHESIS WITH CAD (BILATERAL) (12/10/2023 11:22 AM EDT) Anatomical Region Laterality Modality Breast Left, Breast Right, Breast Bilateral Bila teral Mammography 12/13/2023 12:4 1 PM EDT Impressions 12/13/2023 12:42 PM EDT No mammographic evidence of malignancy in either breast. Annual screening mammography is recommended. BI-RADS 1 NEGATIVE The patient will be notified of the results and recommendations. Narrative 12/13/2023 12:42 PM EDT BI MAMMOGRAM SCREENING WITH TOMOSYNTHESIS WITH CAD (BILATERAL) Additional patient information: Screening. COMPARISON: Comparison is made with relevant prior imaging. Breast composition: The breast tissue is heterogeneously dense which may obscure small masses. FINDINGS: No abnormal masses, suspicious calcifications, or other significant findings are identified mammographically in either breast. Procedure Note Siri Castro MD - 12/13/2023 BI MAMMOGRAM SCREENING WITH TOMOSYNTHESIS WITH CAD (BILATERAL) Additional patient information: Screening. COMPARISON: Comparison is made with relevant prior imaging. Breast composition: The breast tissue is heterogeneously dense which mayobscure small masses. FINDINGS: No abnormal masses, suspicious calcifications, or other significantfindings are identified mammographically in either breast. IMPRESSION: No mammographic evidence of malignancy in either breast. Annual screening mammography is recommended. BI-RADS 1 NEGATIVE The patient will be notified of the results and recommendations. Cristela Alba ACQUISITION ASSOCIATE IMG MG EXAMS Final Res ult * Outside Glucose,Fasting (09/07/2023) Glucose, fasting - External 94 65 - 99 mg/dL us Historical Provider LAB BLOOD ORDERABLES Татьяна l Result * Outside HDL (06/11/2021) HDL - External 71 40 - 80 mg/dL us Historical Provider LAB BLOOD ORDERABLES Татьяна l Result * ENDOSCOPY, COLON (09/30/2020 1:29 PM EDT) Narrative Transcriptions Jimmy Reese MD - 09/30/2020 1:29 PM EDT Patient Name: Kaitlynn Ness Attending MD:: JIMMY REESE MD Procedure Date: 09/30/2020 1:29 PM Date of : 1975 Age: 45 Admit Type: Outpatient Gender: Female Room: [facility] Referring MD: CRISTELA ALBA Exam Type: Colonoscopy Indications: Last colonoscopy: 2012 (elsewhere), Generalized abdominal pain, Change in bowel habits,Constipation, Obstipation Medications: Monitored Anesthesia Care, Total IV Anesthesia(TIVA); NO PROPOFOL GIVEN Procedure: Informed consent was obtained from the patient after discussion of the indications, limitations, alternatives, benefits, and risks of the procedure. Risks specifically discussed include but are not limited to medication reactions, missed lesions, bleeding, perforation, or the need for emergentsurgery. Throughout the procedure, the patient's bloodpressure, pulse, end-tidal CO2, and oxygen saturations were monitored continuously. The Olympus pediatric variable colonoscopePCF-[id number] #4 was introduced through the anus and advanced tothe terminal ileum, with identification of theappendiceal orifice and IC valve. The colonoscopy was somewhat difficult due to the patient's discomfort during the procedure. Successful completion of the procedurewas aided by increasing the dose of sedation medicationand applying abdominal pressure. The patient toleratedthe procedure fairly well. The quality of the bowel preparation was good. Complications: No immediate complications. Estimated blood loss:None. Findings: Hemorrhoids were found on perianal exam. The colon (entire examined portion) was mildly redundant. The terminal ileum appeared normal. Retroflexion in the right colon was performed. Non-bleeding internal hemorrhoids were found during retroflexion. The hemorrhoids were small. The exam was otherwise without abnormality on direct and retroflexion views. Normal mucosa was found in the entire colon.Biopsies for histology were taken with a cold forceps fromthe ascending colon and transverse colon for evaluationof microscopic colitis. Impression: - Hemorrhoids found on perianal exam. - Redundant colon. - The examined portion of the ileum was normal. - Non-bleeding internal hemorrhoids. - The examination was otherwise normal on direct and retroflexion views. - Normal mucosa in the entire examined colon.Biopsied. Recommendation: - I will send results of your biopsy to you and your referring physician or provider. If you do notreceive notification within 3 weeks, please call [email or web address]. - Repeat colonoscopy in 10 years for screeningpurposes. - Return to GI office as previously scheduled. JIMMY REESE MD 09/30/2020 2:01:57 PM This report has been signed electronically. Number of Addenda: 0 Note Initiated On: 09/30/2020 1:29 PM Procedure Code(s): --- Professional --- 77622, Colonoscopy, flexible; with biopsy, single or multiple --- Technical --- 12774, Colonoscopy, flexible; with biopsy, single or multiple Diagnosis Code(s): --- Professional --- K64.8, Other hemorrhoids R10.84, Generalized abdominal pain R19.4, Change in bowel habit K59.00, Constipation, unspecified Q43.8, Other specified congenital malformations of intestine --- Technical --- K64.8, Other hemorrhoids R10.84, Generalized abdominal pain R19.4, Change in bowel habit K59.00, Constipation, unspecified Q43.8, Other specified congenital malformations of intestine CPT copyright 2018 [employer]. All rights reserved. The codes documented in this report are preliminary and upon volunteer firefighter reviewmay be revised to meet current compliance requirements. Procedure Date: 09/30/2020 1:29:00 PM [address] [place] [address] Cristela Alba ACQUISITION ASSOCIATE GI PROCEDURE ORDERABLES F inal Result * Outside Hepatitis C Virus Screening (05/28/2020) Hepatitis C Screening - External Neg Historical Provider LAB BLOOD ORDERABLES Татьяна l Result from Last 3 Months or Most Recently Relevant to Health Maintenance Insurance MEDICARE PART A & B [employer] MEDEX SUPPLEMENT MEDICARE PART A & B [employer] SUPPLE[employer] MEDICARE PART A & B [employer] MEDEX SUPPLEMENT MEDICARE PART A & B [facility] MEDEX SUPPLEMENT MEDICARE PART A & B [employer] CROSS MEDEX SUPPLEMENT MEDICARE PART A & B [employer] CROSS MEDEX SUPPLEMENT MEDICARE PART A & B [employer] CROSS MEDEX SUPPLEMENT MEDICARE PART A & B [employer] CROSS MEDEX SUPPLEMENT MEDICARE PART A & B [employer] MEDEX SUPPLEMENT Care Teams Clinical Resource Director Relationship Specialty Start Date End Date Cristela Alba CNP [address] [place] [address], [address] [place] [address] [email or web address] PCP - General Family Medicine 07/25/18 Lisa Sommers MD [address] [place] [address], [address] [place] [address] Urology 07/25/18 Smitha Simmons NP [address] [place] [id number] Family Medicine 05/21/20 Tamara Dubon CNS [address] [place] [address] [address] [place] [address] Psychiatry 03/31/21 Beth Armendariz, MAGGY [address] [place] [address] [email or web address] Grower 10/05/22 Amisha Steen FNP [address] [place] [id number] Nurse Practitioner 08/27/23 Additional Source Comments The information contained in this document represents components of the legal health record. It is not the complete legal health record.[facility]
--- OUTSIDE RECORDS SUMMARY | 2025-01-12 09:18 | XMS_ITS | Encounter Summary ---
Author Organization [facility] Address [address] [address] Phone Care Team Providers Care Fireworks Display Specialist Name Role Phone Rigo Lopez [facility] Unavailable Alhaji Martinez MD Unavailable [phone] Rigo Lopez [facility] Primary Care Provider [phone] Harvinder Vallejo MD Unavailable [phone] Rigo Lopez [facility] Primary Care Provider Alhaji Martinez MD Unavailable Lisa Sommers MD Unavailable Cesar Lester MD Unavailable [phone] Kuldeep Pérez PA Unavailable Smitha Simmons SCALES INSPECTOR Unavailable Gina Barajas PA Unavailable Reddy Valdez MD Unavailable [phone] Tamara Dubon SOCK DRIER Unavailable Monika James MD Unavailable Alhaji Reese MD Unavailable [phone] Cesar Lester MD Unavailable [phone] Beth Armendariz RN Unavailable [phone] Amisha Steen Unavailable [phone] Reason for Referral * Physical Therapy (Routine) - Closed Specialty Diagnoses / Procedures Referred By Conttyrone t Referred To Contact Physical Therapy Diagnoses Pelvic floor dysfunction System, Provider Not In, [facility] [id number] [place] [address] Phone: tel: Referral ID Status Reason Start Date Expiration Date Visits Re quested Visits Authorized [id number] Closed 11/16/2017 05/16/[phone] Encounter Details Date Type Department Care Team (Latest Contact Info) Description 11/16/2017 Transcribe Orders [facility] Rehabilitation Services [address] [place] [address] Kobi Bradley MD [address] [place] [address] Pelvic floor dysfunction (Primary Dx) Social History Tobacco Use Types Packs/Day Years Used Date Smoking Tobacco: Never Smokeless Tobacco: Never Comments Unknown Sex and Gender Information Value Date Recorded Sex Assigned at Female 05/14/2019 9:08 PM EST Legal Sex Female 10:31 PM EDT Gender Identity Female 05/14/2019 9:08 PM EST Sexual Orientation Choose not to disclose 2018 9:08 PM EST documented as of this encounter Plan of Treatment Upcoming Encounters Date Type Department Care Team (Late st Contact Info) Description 09/13/2024 Procedure Pass [facility], [facility]- [address] [address] 01/31/2025 3:00 PM EDT Office Visit [facility] Pulmonary, Allergy and Critical Care Medicine 10 [facility] [place] [address] [place] [address] Alhaji Swan MD 10 [facility] 2nd [place] [address] 03/27/2025 8:00 AM EST Appointment [facility], Mammography- [facility] [address] [place] [address] Rigo Lopez CNP 22 [facility], [address] [place] [address] jesus documented as of this encounter Procedures Procedure Name Priority Date/Time Associated Diagnosis Comments AMB REFERRAL TO [facility] PHYSICAL THERAPY Routine 12/02/2017 10:52 AM EDT Pelvic floor dysfunction documented in this encounter Results * Ambulatory referral to [facility] Physical Therapy (12/02/2017 10:52 AM EDT) us Provider Not In System PhD AMB [facility] REFERRALS Fin al Result documented in this encounter Visit Diagnoses Diagnosis Pelvic floor dysfunction- Primary Visit for screening mammogram documented in this encounter Additional Health Concerns Infection Onset Date Last Indicated Resolved Time CoV-Risk 09/18/2019 09/18/2019 10/02/2019 1:23 AM EDT CoV-Risk 10/09/2021 10/09/2021 10/20/2021 1:24 AM EDT documented as of this encounter Care Teams Fireworks Display Specialist Relationship Specialty Start Date End Date Alhaji Martinez MD [address] [place] [address] [email or web address] PCP - Internal Medicine Rheumatology 03/24/17 9 Rigo Lopez CNP 22 [facility], [address] [place] [address] jesus PCP - General Family Medicine 03/24/17 07/24/18 Rigo Lopez CNP 22 [facility], [address] [place] [address] jesus PCP - General Family Medicine 07/25/18 Rigo Lopez CNP [address] [place] [address], [address] [place] [address] jesus [email or web address] Historical LMR Provider 03/06/17 Harvinder Vallejo MD [address] [place] [address], [address] [place] [address] [email or web address] Internal Medicine 04/19/18 05/20/20 Alhaji Martinez MD [address] [place] [address] [email or web address] Rheumatology 07/25/18 05/20/20 Lisa Sommers MD [address] [place] [address], [address] [place] [address] [email or web address] Urology 07/25/18 Cesar Lester MD [address] [place] [address], [address] [place] [address] [email or web address] Insurance Assigned Provider 02/11/19 05/25/20 Kuldeep éPrez PA [address] [place] [address], [address] [place] [address] [email or web address] 05/21/20 03/30/21 Smitha Simmons NP [address] [place] [address] Family Medicine 05/21/20 Gina Barajas PA [address] [place] [address] J2Ee Programmer 05/21/20 08/20/22 Reddy Valdez MD [address] [place] [address], [address] [place] [address] [email or web address] Sleep Medicine 05/21/20 08/20/22 Tamara Dubon, SOCK DRIER [address] [place] [address] 16 [place] [address] Psychiatry 03/31/21 Monika James MD [address] [place] [address], [address] [place] [address] Rheumatology 03/31/21 08/20/22 Alhaji Reese MD [address] [place] [address] Gastroenterology 05/28/21 08/20/22 Cesar Lester MD [address] [place] [address], [address] [place] [address] Insurance Assigned Provider 08/23/21 05/22/23 Beth Armendariz, MAGGY [address] [place] [address] iCMP Financial Reporting Specialist 10/05/22 Amisha Steen FNP [address] [place] [address] Nurse Practitioner 08/27/23 documented as of this encounter Additional Source Comments The information contained in this document represents components of the legal health record. It is not the complete legal health record.[facility]
--- OUTSIDE RECORDS SUMMARY | 2025-01-12 09:18 | XMS_ITS | Encounter Summary ---
Author Organization [facility] Address [address] [address] Phone Care Team Providers Care Industrial Education Teacher Name Role Phone Rigo Lopez [facility] Primary Care Provider [phone] Lisa Sommers MD Unavailable [phone] Smitha Simmons SHRINK PIT SUPERVISOR Unavailable Gina Barajas PA Unavailable Reddy Valdez MD Unavailable Tamara Dubon PILE DRIVER ENGINEER Unavailable Monika James MD Unavailable Alhaji Reese MD Unavailable [phone] Cesar Lester MD Unavailable Beth Armendariz RN Unavailable [phone] Amisha Steen SALT CUTTER Unavailable [phone] Encounter Details Date Type Department Care Team (Late st Contact Info) Description 06/16/2021 Procedure Pass [facility], Ct Scan - [address] [id number] Social History Tobacco Use Types Packs/Day Years [...] Date of Assessment Author No Risk Indicated 06/17/2021 2:02 PM EST [place]Ad[place], TENT FINISHER * [place] Suicide Severity Rating Scale (Screener/Recent Self-Report) Question Answer Date of Assessment Author 1. Wish to be (Past 1 Month) No 06/17/2021 2:02 PM EST CharAdalgisa nye, TENT FINISHER 2. Non-Specific Active Suicidal Thoughts (Past 1 Month) No 06/17/2021 2:02 PM EST CharAdalgisa, TENT FINISHER 6. Suicidal Behavior (Lifetime) No 06/17/2021 2:02 PM EST BurlingtonAdalgisa, TENT FINISHER documented as of this encounter Plan of Treatment Upcoming Encounters Date Type Department Care Team (Late st Contact Info) Description 09/13/2024 Procedure Pass [address] [address] 01/31/2025 3:00 PM EDT Office Visit [facility] Pulmonary, Allergy and Critical Care Medicine [address] [place] [address] Alhaji Swan MD [address] [place] [address] 03/27/2025 8:00 AM EST Appointment [address] [address] Rigo Lopez CNP 22 [facility], [address] [place] [address] jesus documented as of this encounter Visit Diagnoses Not on filedocumented in this encounter Additional Health Concerns Infection Onset Date Last Indicated Resolved Time CoV-Risk 10/09/2021 10/09/2021 10/20/2021 1:24 AM EDT Assessment Noted Time PHQ-2 Depression Total Score: 2 05/28/19 8:17 AM EST documented as of this encounter Care Teams Industrial Education Teacher Relationship Specialty Start Date End Date Rigo Lopez CNP [address] [place] [address], [address] [place] [address] jesus [email or web address] PCP - General Family Medicine 07/25/18 Lisa Sommers MD [address] [place] [address], [address] [place] [address] Urology 07/25/18 Smitha Simmons NP [address] [place] [address] Family Medicine 05/21/20 Gina Barajas PA [address] [place] [address] Microsoft Infrastructure Consultant 05/21/20 08/20/22 Reddy Valdez MD [address] [place] [address], [address] [address] [email or web address] Sleep Medicine 05/21/20 08/20/22 Tamara Dubon CNS [address] [place] [address] 16 [place] [address] Psychiatry 03/31/21 Monika James MD [address] [place] [address], [address] [place] [address] Rheumatology 03/31/21 08/20/22 Alhaji Reese MD [address] [place] [address] 2 [place] [address] [email or web address] Gastroenterology 05/28/21 08/20/22 Cesar Lester MD [address] [place] [address], [address] [place] [address] Insurance Assigned Provider 08/23/21 05/22/23 Beth Armendariz RN 10 [place] [address] [email or web address] iCMP Development Executive 10/05/22 Amisha Steen FNP [address] [place] [address] 205 [place] [address] Nurse Practitioner 08/27/23 documented as of this encounter Additional Source Comments The information contained in this document represents components of the legal health record. It is not the complete legal health record.[facility]
--- OUTSIDE RECORDS SUMMARY | 2025-01-12 09:19 | XMS_ITS | Encounter Summary ---
Author Organization [facility] Address [address] [address] Phone Care Team Providers Care Mold Yard Crane Operator Name Role Phone Rigo Lopez [facility] Primary Care Provider Lisa Sommers MD Unavailable Smitha Simmons CONVEYOR CONSOLE OPERATOR Unavailable Gina Barajas PA Unavailable Reddy Valdez MD Unavailable [phone] Tamara Dubon INSURANCE FOLLOW UP REPRESENTATIVE Unavailable Monika James MD Unavailable Alhaji Reese MD Unavailable [phone] Cesar Lester MD Unavailable Beth Armendariz RN Unavailable [phone] Amisha SteenP Unavailable Encounter Details Date Type Department Care Team (Late st Contact Info) Description 06/19/2021 Ancillary Orders [facility],Outside Imaging 30 [place] [address] System, Provider Not In, PhD Partners [address] [address] Social History Tobacco Use Types Packs/Day Years [...] st Contact Info) Description 09/13/2024 Procedure Pass [facility], [address] [address] 01/31/2025 3:00 PM EDT Office Visit [facility] Pulmonary, Allergy and Critical Care Medicine [address] [place] [address] Alhaji Swan MD [address] [place] [address] 03/27/2025 8:00 AM EST Appointment [address] [address] Rigo Lopez, MCKENNA 22 [facility], [address] [place] [address] jesus documented as of this encounter Results * Mammogram Outside (No Interpretation) (12/27/2014 12:00 AM EDT) Narrative SYSTEMGENERATED, DOCUMENTATION - 06/19/2021 11:44 AM EST This study is for PACS storage only and not for interpretation. us Provider Not In System PhD IMG OUTSIDE IMAGING W /OUT INTERPRETATION Final Result documented in this encounter Visit Diagnoses Not on filedocumented in this encounter Additional Health Concerns Infection Onset Date Last Indicated Resolved Time CoV-Risk 10/09/2021 10/09/2021 10/20/2021 1:24 AM EDT Assessment Noted Time PHQ-2 Depression Total Score: 2 05/28/19 22 8:17 AM EST documented as of this encounter Care Teams Mold Yard Crane Operator Relationship Specialty Start Date End Date AishwaryaRigo mckee CNP [address] [place] [address], [address] [place] [address] jesus [email or web address] PCP - General Family Medicine 07/25/18 Lisa Sommers MD [address] [place] [address], [address] [place] [address] [email or web address] Urology 07/25/18 Smitha Simmons CONVEYOR CONSOLE OPERATOR [address] [place] [address] Family Medicine 05/21/20 Gina Barajas PA [address] [place] [address] Glass Production Machine Operator 05/21/20 08/20/22 Reddy Valdez MD [address] [place] [address], [address] [place] [address] [email or web address] Sleep Medicine 05/21/20 08/20/22 Tamara Dubon, INSURANCE FOLLOW UP REPRESENTATIVE [address] [place] [address] 16 [place] [address] Psychiatry 03/31/21 Monika James MD [address] [place] [address], [address] [place] [address] Rheumatology 03/31/21 08/20/22 Alhaji Reese MD [address] [place] [address] 2 [place] [address] [email or web address] Gastroenterology 05/28/21 08/20/22 Cesar Lester MD [address] [place] [address], [address] [place] [address] [email or web address] Insurance Assigned Provider 08/23/21 05/22/23 Beth Armendariz RN [address] [place] [address] [email or web address] iCMP Vp Analysis 10/05/22 Amisha Steen FNP [address] [place] [address] 205 [place] [address] Nurse Practitioner 08/27/23 documented as of this encounter Additional Source Comments The information contained in this document represents components of the legal health record. It is not the complete legal health record.[facility]
--- OUTSIDE RECORDS SUMMARY | 2025-01-12 09:19 | XMS_ITS | Encounter Summary ---
Author Organization [facility] Address [address] [address] Phone Care Team Providers Care Safety Risk Lead Name Role Phone Rigo Lopez [facility]NA Primary Care Provider [phone] Lisa Sommers MD Unavailable [phone] Smitha Simmons FINANCIAL COMPLIANCE MANAGER Unavailable Gina Barajas PA Unavailable [phone] Reddy Valdez MD Unavailable [phone] Tamara Dubon V BELT MOLD ASSEMBLER AND CURER Unavailable Monika James MD Unavailable Alhaji Reese MD Unavailable [phone] Cesar Lester MD Unavailable Beth Armendariz RN Unavailable [phone] Amisha Steen FIGHTING VEHICLE INFANTRYMAN Unavailable [phone] Encounter Details Date Type Department Care Team (Late st Contact Info) Description 05/28/2021 Procedure Pass [facility], [address] [address] Social History Tobacco Use Types [...] st Contact Info) Description 09/13/2024 Procedure Pass [address] [address] 01/31/2025 3:00 PM EDT Office Visit [facility], Allergy and Critical Care Medicine [address] [place] [address] Alhaji Swan MD [address] [place] [address] 03/27/2025 8:00 AM EST Appointment [address] [address] Rigo Lopez CNP [address] [place] [address], [address] [address] [email or web address] [email or web address] documented as of this encounter Visit Diagnoses Not on filedocumented in this encounter Additional Health Concerns Infection Onset Date Last Indicated Resolved Time CoV-Risk 10/09/2021 10/09/2021 10/20/2021 1:24 AM EDT Assessment Noted Time PHQ-2 Depression Total Score: 2 05/28/19 22 8:17 AM EST documented as of this encounter Care Teams Safety Risk Lead Relationship Specialty Start Date End Date Rigo Lopez CNP [address] [place] [address], [address] [address] jesus PCP - General Family Medicine 07/25/18 Lisa Sommers MD [address] [place] [address], [address] [place] [address] Urology 07/25/18 Smitha Simmons, FINANCIAL COMPLIANCE MANAGER [address] [place] [address] Family Medicine 05/21/20 Gina Barajas PA [address] [place] [address] Public Relations Sales Marketing 05/21/20 08/20/22 Reddy Valdez MD [address] [place] [address], [address] [place] [address] Sleep Medicine 05/21/20 08/20/22 Tamara Dubon, V BELT MOLD ASSEMBLER AND CURER [address] [place] [address] 16 [place] [address] Psychiatry 03/31/21 Monika James MD [address] [place] [address], [address] [place] [address] Rheumatology 03/31/21 08/20/22 Alhaji Reese MD [address] [place] [address] Gastroenterology 05/28/21 08/20/22 Cesar Lester MD [address] [place] [address], [address] [place] [address] Insurance Assigned Provider 08/23/21 05/22/23 Beth Armendariz, RN [address] [place] [address] [email or web address] Water Gas Operator 10/05/22 Amisha Steen FNP [address] [place] [address] Nurse Practitioner 08/27/23 documented as of this encounter Additional Source Comments The information contained in this document represents components of the legal health record. It is not the complete legal health record.[facility]
--- OUTSIDE RECORDS SUMMARY | 2025-01-12 09:19 | XMS_ITS | Clinical Summary ---
Author Organization [facility] Address [address] [place] [address] Care Team Providers Care Retail Interior Designer Name Role Phone Unavailable Primary Care Provider [...] 108 04/19/2015 8:08 AM EST Temperature 36.6 C (97.8 F) 04/19/2015 8:07 AM EST Respiratory Rate 18 04/19/2015 8:08 AM EST [...] (1 of 2) 2023 Influenza Vaccine (#1) 2025 Pneumococcal Vaccine Aged Out No long er eligible based on patient's age to complete this topic RSV Ped < 20 months Aged Out No longe r eligible based on patient's age to complete this topic Advance Directives For more information, please contact: [phone] Documents on File Type Date Recorded Patient Bow Maker Production Expl anation Advance Directive and Living Will 04/23/2015 Latest Code Status on File Code Status Date Activated Date Inactivated Comments Full Code 04/16/2015 6:34 PM 04/19/2015 7:40 PM This code status was ascertained in the following way: per unit protocol.
--- OUTSIDE RECORDS SUMMARY | 2025-01-12 09:19 | XMS_ITS | Encounter Summary ---
Author Organization [facility] Address [address] [address] Phone Care Team Providers Care Insulation And Flooring Assembler Name Role Phone Rigo Lopez MCKENNA Primary Care Provider Lisa Sommers MD Unavailable [phone] Smitha Simmons FIRE RANGE TECHNICIAN Unavailable Gina Barajas PA Unavailable Reddy Valdez MD Unavailable [phone] Tamara Dubon PRE SALES TECHNICAL ENGINEER Unavailable Monika James MD Unavailable Alhaji Reese MD Unavailable [phone] Cesar Lester MD Unavailable Beth Armendariz RN Unavailable Amisha SteenP Unavailable Encounter Details Date Type Department Care Team (Late st Contact Info) Description 06/19/2021 Ancillary Orders [facility],Outside Imaging 30 [place] [address] System, Provider Not In, PhD Partners [address] [address] Social History Tobacco Use Types Packs/Day Years [...] st Contact Info) Description 09/13/2024 Procedure Pass [facility], [address] [address] 01/31/2025 3:00 PM EDT Office Visit [facility], Allergy and Critical Care Medicine [address] [place] [address] Alhaji Swan MD [address] [place] [address] 03/27/2025 8:00 AM EST Appointment [address] [address] Rigo Lopez, MCKENNA 22 [facility], [address] [place] [address] jesus documented as of this encounter Results * Mammogram Outside (No Interpretation) (09/05/2016 12:00 AM EDT) Narrative SYSTEMGENERATED, DOCUMENTATION - 06/19/2021 11:43 AM EST This study is for PACS [...] documented as of this encounter Care Teams Insulation And Flooring Assembler Relationship Specialty Start Date End Date AishwaryaRigo mckee CNP [address] [place] [address], [address] [place] [address] jesus [email or web address] PCP - General Family Medicine 07/25/18 Lisa Sommers MD [address] [place] [address], [address] [place] [address] [email or web address] Urology 07/25/18 Smitha Simmons FIRE RANGE TECHNICIAN [address] [place] [address] Family Medicine 05/21/20 Gina Barajas PA [address] [place] [address] Print Production Manager 05/21/20 08/20/22 Reddy Valdez MD [address] [place] [address], [address] [place] [address] [email or web address] Sleep Medicine 05/21/20 08/20/22 Tamara Dubon, PRE SALES TECHNICAL ENGINEER [address] [place] [address] 16 [place] [address] Psychiatry 03/31/21 Monika James MD [address] [place] [address], [address] [place] [address] Rheumatology 03/31/21 08/20/22 Alhaji Reese MD [address] [place] [address] 2 [place] [address] [email or web address] Gastroenterology 05/28/21 08/20/22 Cesar Lester MD [address] [place] [address], [address] [place] [address] [email or web address] Insurance Assigned Provider 08/23/21 05/22/23 Beth Armendariz RN [address] [place] [address] [email or web address] Assistant Professor Of Biology 10/05/22 Amisha Steen FNP [address] [place] [address] 205 [place] [address] Nurse Practitioner 08/27/23 documented as of this encounter Additional Source Comments The information contained in this document represents components of the legal health record. It is not the complete legal health record.[facility]
== END 2025-01-12 08:58 | disposition home or self-care (01) ==
LOC: HO.PMC 08:28
PROVIDERS: PCP Nurse Practitioner Adult Health; Visit Provider Nurse Practitioner Family
DX: M47.817 Spondylosis without myelopathy or radiculopathy, lumbosacral region (principal); M25.551 Pain in right hip; Q79.60 Ehlers-Danlos syndrome, unspecified; M79.7 Fibromyalgia; M53.3 Sacrococcygeal disorders, not elsewhere classified; M70.61 Trochanteric bursitis, right hip; M77.12 Lateral epicondylitis, left elbow
CPT/HCPCS: 99214; G2211

== ENCOUNTER → 2025-01-12 08:27 | Outpatient (BNVA) | payer MEDICARE, SELFPAY | PROVIDERS: PCP Nurse Practitioner Adult Health; Visit Provider Nurse Practitioner Family | DX: M47.817 Spondylosis without myelopathy or radiculopathy, lumbosacral region (principal); M25.551 Pain in right hip; M79.7 Fibromyalgia; M53.3 Sacrococcygeal disorders, not elsewhere classified; M70.61 Trochanteric bursitis, right hip; M77.12 Lateral epicondylitis, left elbow; Q79.60 Ehlers-Danlos syndrome, unspecified | CPT/HCPCS: 99212 ==

== ENCOUNTER 2025-01-16 09:06 | Outpatient (AMB) | payer MEDICARE, SELFPAY ==
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
--- OUTSIDE RECORDS SUMMARY | 2025-01-16 09:59 | XMS_ITS | Encounter Summary ---
Author Organization [facility] Address [address] [address] Phone Care Team Providers Care Neuropsychiatric Aide Name Role Phone Rigo Lopez MCKENNA Primary Care Provider Lisa Sommers MD Unavailable Smitha Simmons ELECTRICIAN HELPER POWERHOUSE Unavailable [phone] Gina Barajas PA Unavailable Reddy Valdez MD Unavailable [phone] Tamara Dubon RESPITE WORKER Unavailable Monika James MD Unavailable [phone] Alhaji Reese MD Unavailable [phone] Cesar Lester MD Unavailable Beth Armendariz RN Unavailable Amisha SteenP Unavailable Encounter Details Date Type Department Care Team (Late st Contact Info) Description 06/19/2021 Ancillary Orders [facility],Outside Imaging [address] [place] [address] System, Provider Not In, PhD Partners [address] [address] Social History Tobacco Use Types Packs/Day Years [...] st Contact Info) Description 09/13/2024 Procedure Pass [facility], [address] [address] 01/31/2025 3:00 PM EDT Office Visit [facility], Allergy [facility] Critical [facility] Medicine [address] [place] [address] Alhaji Swan MD [address] [place] [address] 03/27/2025 8:00 AM EST Appointment [address] [address] Rigo Lopez, MCKENNA 22 [facility], [address] [place] [address] jesus documented as of this encounter Results [...] documented as of this encounter Care Teams Neuropsychiatric Aide Relationship Specialty Start Date End Date AishwaryaRigo mckee CNP [address] [place] [address], [address] [place] [address] [email or web address] [email or web address] PCP - General Family Medicine 07/25/18 Lisa Sommers MD [address] [place] [address], [address] [place] [address] [email or web address] Urology 07/25/18 Smitha Simmons ELECTRICIAN HELPER POWERHOUSE [address] [place] [address] Family Medicine 05/21/20 Gina Barajas PA [address] [place] [address] Hotel Operations Manager 05/21/20 08/20/22 Reddy Valdez MD [address] [place] [address], [address] [place] [address] [email or web address] Sleep Medicine 05/21/20 08/20/22 Tamara Dubon, RESPITE WORKER [address] [place] [address] 16 [place] [address] Psychiatry 03/31/21 Monika James MD [address] [place] [address], [address] [place] [address] Rheumatology 03/31/21 08/20/22 Alhaji Reese MD [address] [place] [address] 2 [place] [address] [email or web address] Gastroenterology 05/28/21 08/20/22 Cesar Lester MD [address] [place] [address], [address] [place] [address] [email or web address] Insurance Assigned Provider 08/23/21 05/22/23 Beth Armendariz RN [address] [place] [address] [email or web address] iCMP Shallot Packer 10/05/22 Amisha Steen FNP [address] [place] [address] 205 [place] [address] Nurse Practitioner 08/27/23 documented as of this encounter Additional Source Comments The information contained in this document represents components of the legal health record. It is not the complete legal health record.[facility]
--- OUTSIDE RECORDS SUMMARY | 2025-01-16 09:59 | XMS_ITS | Encounter Summary ---
Author Organization [facility] Address [address] [address] Phone Care Team Providers Care Automatic Machines Supervisor Name Role Phone Rigo Lopez MCKENNA Primary Care Provider Lisa Sommers MD Unavailable Smitha Simmons GENERAL MANAGER IN TRAINING Unavailable Gina Barajas PA Unavailable [phone] Reddy Valdez MD Unavailable [phone] Tamara Dubon PRODUCTION PACKAGER Unavailable Monika James MD Unavailable Alhaji Reese MD Unavailable [phone] Cesar Lester MD Unavailable Beth Armendariz RN Unavailable [phone] Amisha SteenP Unavailable Encounter Details Date Type Department Care Team (Late st Contact Info) Description 06/19/2021 Ancillary Orders [facility],Outside Imaging 30 [place] [address] System, Provider Not In, PhD Partners [address] [address] Social History Tobacco Use Types Packs/Day Years [...] st Contact Info) Description 09/13/2024 Procedure Pass [facility], [address] [address] 01/31/2025 3:00 PM EDT Office Visit [facility], Allergy and Critical Care Medicine [address] [place] [address] Alhaji Swan MD [address] [place] [address] 03/27/2025 8:00 AM EST Appointment [address] [address] Rigo Lopez, MCKENNA 22 [facility], [address] [place] [address] jesus documented as of this encounter Results [...] documented as of this encounter Care Teams Automatic Machines Supervisor Relationship Specialty Start Date End Date AishwaryaRigo mckee CNP [address] [place] [address], [address] [place] [address] jesus [email or web address] PCP - General Family Medicine 07/25/18 Lisa Sommers MD [address] [place] [address], [address] [place] [address] [email or web address] Urology 07/25/18 Smitha Simmons GENERAL MANAGER IN TRAINING [address] [place] [address] Family Medicine 05/21/20 Gina Barajas PA [address] [place] [address] Colliery Clerk 05/21/20 08/20/22 Reddy Valdez MD [address] [place] [address], [address] [place] [address] [email or web address] Sleep Medicine 05/21/20 08/20/22 Tamara Dubon, PRODUCTION PACKAGER [address] [place] [address] 16 [place] [address] Psychiatry 03/31/21 Monika James MD [address] [place] [address], [address] [place] [address] Rheumatology 03/31/21 08/20/22 Alhaji Reese MD [address] [place] [address] 2 [place] [address] [email or web address] Gastroenterology 05/28/21 08/20/22 Cesar Lester MD [address] [place] [address], [address] [place] [address] [email or web address] Insurance Assigned Provider 08/23/21 05/22/23 Beth Armendariz RN [address] [place] [address] [email or web address] iCMP Senior Contracts Manager 10/05/22 Amisha Steen FNP [address] [place] [address] 205 [place] [address] Nurse Practitioner 08/27/23 documented as of this encounter Additional Source Comments The information contained in this document represents components of the legal health record. It is not the complete legal health record.[facility]
--- OUTSIDE RECORDS SUMMARY | 2025-01-16 09:59 | XMS_ITS | Encounter Summary ---
Author Organization [facility] Address [address] [address] Phone Care Team Providers Care Security Nurse Name Role Phone Rigo Lopez MCKENNA Primary Care Provider [phone] Lisa Sommers MD Unavailable [phone] Smitha Simmons BAIT MAN Unavailable Gina Barajas PA Unavailable Reddy Valdez MD Unavailable [phone] Tamara Dubon CERTIFIED VETERINARY TECHNICIAN Unavailable Monika James MD Unavailable Alhaji Reese MD Unavailable [phone] Cesar Lester MD Unavailable Beth Armendariz RN Unavailable Amisha Steen HYPERBARIC WELDER DIVER Unavailable [phone] Encounter Details Date Type Department Care Team (Late st Contact Info) Description 05/28/2021 Procedure Pass [facility], [address] [address] Social History Tobacco Use Types [...] st Contact Info) Description 09/13/2024 Procedure Pass [address] [address] 01/31/2025 3:00 PM EDT Office Visit [facility], All[facility] Critical [facility] [address] [place] [address] Alhaji Swan MD [address] [place] [address] 03/27/2025 8:00 AM EST Appointment [address] [address] Rigo Lopez CNP [address] [place] [address], [address] [address] [email or web address] [email or web address] documented as of this encounter Visit Diagnoses Not on filedocumented in this encounter Additional Health Concerns Infection Onset Date Last Indicated Resolved Time CoV-Risk 10/09/2021 10/09/2021 10/20/2021 1:24 AM EDT Assessment Noted Time PHQ-2 Depression Total Score: 2 05/28/19 22 8:17 AM EST documented as of this encounter Care Teams Security Nurse Relationship Specialty Start Date End Date Rigo Lopez CNP [address] [place] [address], [address] [address] jesus PCP - General Family Medicine 07/25/18 Lisa Sommers MD [address] [place] [address], [address] [place] [address] Urology 07/25/18 Smitha Simmons, BAIT MAN [address] [place] [address] Family Medicine 05/21/20 Gina Barajas PA [address] [place] [address] Tomahawk Weapon System Operator 05/21/20 08/20/22 Reddy Valdez MD [address] [place] [address], [address] [place] [address] Sleep Medicine 05/21/20 08/20/22 Tamara Dubon, CERTIFIED VETERINARY TECHNICIAN [address] [place] [address] 16 [place] [address] Psychiatry 03/31/21 Monika James MD [address] [place] [address], [address] [place] [address] Rheumatology 03/31/21 08/20/22 Alhaji Reese MD [address] [place] [address] Gastroenterology 05/28/21 08/20/22 Cesar Lester MD [address] [place] [address], [address] [place] [address] Insurance Assigned Provider 08/23/21 05/22/23 Beth Armendariz, RN [address] [place] [address] [email or web address] iCMP Market Development Executive 10/05/22 Amisha Steen FNP [address] [place] [address] Nurse Practitioner 08/27/23 documented as of this encounter Additional Source Comments The information contained in this document represents components of the legal health record. It is not the complete legal health record.[facility]
--- OUTSIDE RECORDS SUMMARY | 2025-01-16 09:59 | XMS_ITS | Encounter Summary ---
Author Organization [facility] Address [address] [address] Phone Care Team Providers Care Senior Professional Services Consultant Name Role Phone Rigo Lopez MCKENNA Primary Care Provider [phone] Lisa Sommers MD Unavailable Smitha Simmons PROOF PLATE MAKER Unavailable Gina Barajas PA Unavailable Reddy Valdez MD Unavailable [phone] Tamara Dubon FINISH INSPECTOR Unavailable Monika James MD Unavailable Alhaji Reese MD Unavailable [phone] Cesar Lester MD Unavailable [phone] Beth Armendariz RN Unavailable [phone] Amisha Steen ENVIRONMENTAL DIRECTOR Unavailable Encounter Details Date Type Department Care Team (Late st Contact Info) Description 07/10/2021 Procedure Pass [facility], [address] [address] Social History Tobacco Use Types [...] st Contact Info) Description 09/13/2024 Procedure Pass [address] [address] 01/31/2025 3:00 PM EDT Office Visit [facility] [address] [place] [address] Alhaji Swan MD [address] [place] [address] 03/27/2025 8:00 AM EST Appointment [address] [address] Rigo Lopez CNP [address] [place] [address], [address] [address] [email or web address] [email or web address] documented as of this encounter Visit Diagnoses Not on filedocumented in this encounter Additional Health Concerns Infection Onset Date Last Indicated Resolved Time CoV-Risk 10/09/2021 10/09/2021 10/20/2021 1:24 AM EDT Assessment Noted Time PHQ-2 Depression Total Score: 2 05/28/19 22 8:17 AM EST documented as of this encounter Care Teams Senior Professional Services Consultant Relationship Specialty Start Date End Date Rigo Lopez CNP [address] [place] [address], [address] [address] jesus PCP - General Family Medicine 07/25/18 Lisa Sommers MD [address] [place] [address], [address] [place] [address] Urology 07/25/18 Smitha Simmons, PROOF PLATE MAKER [address] [place] [address] Family Medicine 05/21/20 Gina Barajas PA [address] [place] [address] Waist Cutter 05/21/20 08/20/22 Reddy Valdez MD [address] [place] [address], [address] [place] [address] Sleep Medicine 05/21/20 08/20/22 Tamara Dubon, FINISH INSPECTOR [address] [place] [address] 16 [place] [address] Psychiatry 03/31/21 Monika James MD [address] [place] [address], [address] [place] [address] Rheumatology 03/31/21 08/20/22 Alhaji Reese MD [address] [place] [address] Gastroenterology 05/28/21 08/20/22 Cesar Lester MD [address] [place] [address], [address] [place] [address] Insurance Assigned Provider 08/23/21 05/22/23 Beth Armendariz, RN [address] [place] [address] [email or web address] iCMP Video Game Programmer 10/05/22 Amisha Steen FNP [address] [place] [address] Nurse Practitioner 08/27/23 documented as of this encounter Additional Source Comments The information contained in this document represents components of the legal health record. It is not the complete legal health record.[facility]
--- OUTSIDE RECORDS SUMMARY | 2025-01-16 09:59 | XMS_ITS | Encounter Summary ---
Author Organization [facility] Address [address] [address] Phone Care Team Providers Care Motor Vehicles Supervisor Name Role Phone Rigo Lopez MCKENNA Primary Care Provider [phone] Lisa Sommers MD Unavailable Kuldeep Pérez Unavailable Smitha Simmons FREIGHT CALLER Unavailable Gina Barajas PA Unavailable [phone] Reddy Valdez MD Unavailable [phone] Ling Tamara A PASSENGER TIRE INSPECTOR Unavailable Monika James MD Unavailable Alhaji Reese MD Unavailable Cesar Lester MD Unavailable Beth Armendariz RN Unavailable [phone] Amisha SteenP Unavailable Encounter Details Date Type Department Care Team (Late st Contact Info) Description 03/09/2021 Procedure Pass [facility], Ct Scan - [address] [id number] Social History Tobacco Use Types Packs/Day Years [...] 6:16 AM EDT Vinny Marquez, MAGGY * Pershing Suicide Severity Rating Scale (Screener/Recent Self-Report) Question [...] st Contact Info) Description 09/13/2024 Procedure Pass [address] [address] 01/31/2025 3:00 PM EDT Office Visit [facility], Allergy and Critical [facility] Medicine [address] [place] [address] [place] [address] Alhaji Swan MD [address] [place] [address] 2nd [place] [address] 03/27/2025 8:00 AM EST Appointment [address] [address] Rigo Lopez, ORNAMENTAL PAINTER 22 [facility], [address] [place] [address] jesus documented as of this encounter Visit Diagnoses Not on filedocumented in this encounter Additional Health Concerns Infection Onset Date Last Indicated Resolved Time CoV-Risk 10/09/2021 10/09/2021 10/20/2021 1:24 AM EDT Assessment Noted Time PHQ-2 Depression Total Score: 2 05/18/19 21 11:52 AM EST documented as of this encounter Care Teams Motor Vehicles Supervisor Relationship Specialty Start Date End Date Rigo Lopez CNP [address] [place] [address], [address] [place] [address] jesus PCP - General Family Medicine 07/25/18 Lisa Sommers MD [address] [place] [address], [address] [place] [address] Urology 07/25/18 Kuldeep Pérez PA [address] [place] [address], [address] [place] [address] [email or web address] 05/21/20 03/30/21 Smitha Simmons NP [address] [place] [address] Family Medicine 05/21/20 Gina Barajas PA [address] [place] [address] Loan Underwriter 05/21/20 08/20/22 Reddy Valdez MD [address] [place] [address], [address] [place] [address] Sleep Medicine 05/21/20 08/20/22 Tamara Dubon, PASSENGER TIRE INSPECTOR [address] [place] [address] [address] [place] [address] Psychiatry 03/31/21 Monika James MD [address] [place] [address], [address] [place] [address] Rheumatology 03/31/21 08/20/22 Alhaji Reese MD [address] [place] [address] Gastroenterology 05/28/21 08/20/22 Cesar Lester MD [address] [place] [address], [address] [place] [address] Insurance Assigned Provider 08/23/21 05/22/23 Beth Armendariz RN [address] [place] [address] [email or web address] iCMP School Traffic Supervisor 10/05/22 Amisha Steen FNP [address] [place] [address] Nurse Practitioner 08/27/23 documented as of this encounter Additional Source Comments The information contained in this document represents components of the legal health record. It is not the complete legal health record.[facility]
--- OUTSIDE RECORDS SUMMARY | 2025-01-16 09:59 | XMS_ITS | Encounter Summary ---
Author Organization [facility] Address [address] [address] Phone Care Team Providers Care Route Carrier Name Role Phone Rigo Lopez MCKENNA Primary Care Provider [phone] Lisa Sommers MD Unavailable Smitha Simmons SENIOR TECHNICAL ANALYST Unavailable [phone] Gina Barajas PA Unavailable Reddy Valdez MD Unavailable [phone] Tamara Dubon LOTUS NOTES ADMINISTRATOR Unavailable Monika James MD Unavailable Alhaji Reese MD Unavailable [phone] Cesar Lester MD Unavailable Beth Armendariz RN Unavailable Amisha Steen DIGITAL MARKETER Unavailable Encounter Details Date Type Department Care Team (Late st Contact Info) Description 07/17/2021 Procedure Pass [facility], Ct Scan - [address] [address] Social History Tobacco Use Types [...] st Contact Info) Description 09/13/2024 Procedure Pass [facility], [address] [address] 01/31/2025 3:00 PM EDT Office Visit [facility] Critical [facility] Medicine [address] [place] [address] Alhaji Swan MD [address] [place] [address] 03/27/2025 8:00 AM EST Appointment [address] [address] Rigo Lopez CNP [address] [place] [address], [address] [address] [email or web address] documented as of this encounter Visit Diagnoses Not on filedocumented in this encounter Additional Health Concerns Infection Onset Date Last Indicated Resolved Time CoV-Risk 10/09/2021 10/09/2021 10/20/2021 1:24 AM EDT Assessment Noted Time PHQ-2 Depression Total Score: 2 05/28/19 22 8:17 AM EST documented as of this encounter Care Teams Route Carrier Relationship Specialty Start Date End Date Rigo Lopez CNP [address] [place] [address], [address] [place] [address] jesus PCP - General Family Medicine 07/25/18 Lisa Sommers MD [address] [place] [address], [address] [place] [address] [email or web address] Urology 07/25/18 Smitha Simmons, SENIOR TECHNICAL ANALYST [address] [place] [address] Family Medicine 05/21/20 Gina Barajas PA [address] [place] [address] Dependency Case Manager 05/21/20 08/20/22 Reddy Valdez MD [address] [place] [address], [address] [place] [address] Sleep Medicine 05/21/20 08/20/22 Tamara Dubon, LOTUS NOTES ADMINISTRATOR [address] [place] [address] 16 [place] [address] Psychiatry 03/31/21 Monika James MD [address] [place] [address], [address] [place] [address] Rheumatology 03/31/21 08/20/22 Alhaji Reese MD [address] [place] [address] Gastroenterology 05/28/21 08/20/22 Cesar Lester MD [address] [place] [address], [address] [place] [address] [email or web address] Insurance Assigned Provider 08/23/21 05/22/23 Beth Armendariz, RN [address] [place] [address] [email or web address] iCMP Curriculum Development Manager 10/05/22 Amisha Steen FNP [address] [place] [address] Nurse Practitioner 08/27/23 documented as of this encounter Additional Source Comments The information contained in this document represents components of the legal health record. It is not the complete legal health record.[facility]
--- OUTSIDE RECORDS SUMMARY | 2025-01-16 09:59 | XMS_ITS | Encounter Summary ---
Author Organization [facility] Address [address] [address] Phone Care Team Providers Care Flame Hardener Name Role Phone Rigo Lopez MCKENNA Primary Care Provider [phone] Lisa Sommers MD Unavailable Smitha Simmons SUBMERSIBLE PILOT Unavailable [phone] Tamara Dubon COMMERCIAL LINES SALES EXECUTIVE Unavailable [phone] Cesar Lester MD Unavailable Beth Armendariz RN Unavailable Amisha Steen FINANCIAL CONTROLLER Unavailable Encounter Details Date Type Department Care Team (Late st Contact Info) Description 08/21/2022 Procedure Pass [facility], [facility] [address] [place] [address] Social History Tobacco Use Types Packs/Day Years [...] st Contact Info) Description 09/13/2024 Procedure Pass [facility], [address] [address] 01/31/2025 3:00 PM EDT Office Visit [facility], Allergy and Critical Care Medicine 10 [facility] [place] [address] [place] [address] Alhaji Swan MD [address] [place] [address] 2nd [place] [address] 03/27/2025 8:00 AM EST Appointment [facility], [address] [address] Rigo Lopez CNP [address] [place] [address], [address] [place] [address] jesus documented as of this encounter Visit Diagnoses Not on filedocumented in this encounter Additional Health Concerns Assessment Noted Time PHQ-9 Depression Total Score: 19 023 7:59 AM EDT PHQ-2 Depression Total Score: 6 08/20/19 23 7:59 AM EDT documented as of this encounter Care Teams Flame Hardener Relationship Specialty Start Date End Date Rigo Lopez CNP [address] [place] [address], [address] [place] [address] jesus PCP - General Family Medicine 07/25/18 Lisa Sommers MD [address] [place] [address], [address] [address] Urology 07/25/18 Smitha Simmons NP [address] [place] [address] Family Medicine 05/21/20 Tamara Dubon CNS [address] [place] [address] 16 [place] [address] Psychiatry 03/31/21 Cesar Lester MD [address] [place] [address], [address] [place] [address] [email or web address] Insurance Assigned Provider 08/23/21 05/22/23 Beth Armendariz RN [address] [place] [id number] [email or web address] iCMP Global Clinical Leader 10/05/22 Amisha Steen FNP [address] [place] [address] Nurse Practitioner 08/27/23 documented as of this encounter Additional Source Comments The information contained in this document represents components of the legal health record. It is not the complete legal health record.[facility]
--- OUTSIDE RECORDS SUMMARY | 2025-01-16 09:59 | XMS_ITS | Clinical Summary ---
Author Organization [facility] Address [address] [place] [address] Care Team Providers Care Kieselguhr Regenerator Operator Name Role Phone Unavailable Primary Care Provider [...] Advance Directives For more information, please contact: [phone] Documents on File Type Date Recorded Patient Named Account Executive Expl anation Advance Directive and Living Will 04/23/2015 Latest Code Status on File Code Status Date Activated Date Inactivated Comments Full Code 04/16/2015 6:34 PM 04/19/2015 7:40 PM This code status was ascertained in the following way: per unit protocol.
--- OUTSIDE RECORDS SUMMARY | 2025-01-16 09:59 | XMS_ITS | Encounter Summary ---
Author Organization [facility] Address [address] [address] Phone Care Team Providers Care Concrete Products Machine Operator Name Role Phone Rigo Lopez MCKENNA Primary Care Provider [phone] Lisa Sommers MD Unavailable Smitha Simmons EAP SPECIALIST Unavailable [phone] Gina Barajas PA Unavailable [phone] Reddy Valdez MD Unavailable [phone] Tamara Dubon FURNACE FEEDER Unavailable Monika James MD Unavailable [phone] Alhaji Reese MD Unavailable [phone] Cesar Lester MD Unavailable Beth Armendariz RN Unavailable [phone] Amisha Steen CASE MAKING MACHINE OPERATOR Unavailable Encounter Details Date Type Department Care Team (Late st Contact Info) Description 06/16/2021 Procedure Pass [facility], Ct Scan - [address] [id number] Social History Tobacco Use Types Packs/Day Years [...] No Risk Indicated 06/17/2021 2:02 PM EST CharAdalgisa, MOTOR TRANSPORT INSPECTOR * Knox Suicide Severity Rating Scale (Screener/Recent Self-Report) Question Answer Date of Assessment Author 1. Wish to be (Past 1 Month) No 06/17/2021 2:02 PM EST [place] n[place], MOTOR TRANSPORT INSPECTOR 2. Non-Specific Active Suicidal Thoughts (Past 1 Month) No 06/17/2021 2:02 PM EST CharAdalgisa, MOTOR TRANSPORT INSPECTOR 6. Suicidal Behavior (Lifetime) No 06/17/2021 2:02 PM EST CharAdalgisa, MOTOR TRANSPORT INSPECTOR documented as of this encounter Plan of Treatment Upcoming Encounters Date Type Department Care Team (Late st Contact Info) Description 09/13/2024 Procedure Pass [address] [address] 01/31/2025 3:00 PM EDT Office Visit [facility], Allergy [facility] Critical Care Medicine [address] [place] [address] Alhaji Swan MD [address] [place] [address] 03/27/2025 8:00 AM EST Appointment [address] [address] Rigo Lopez CNP [address], [address] [place] [address] jesus documented as of this encounter Visit Diagnoses Not on filedocumented in this encounter Additional Health Concerns Infection Onset Date Last Indicated Resolved Time CoV-Risk 10/09/2021 10/09/2021 10/20/2021 1:24 AM EDT Assessment Noted Time PHQ-2 Depression Total Score: 2 05/28/19 8:17 AM EST documented as of this encounter Care Teams Concrete Products Machine Operator Relationship Specialty Start Date End Date Rigo Lopez CNP [address] [place] [address], [address] [place] [address] [email or web address] PCP - General Family Medicine 07/25/18 Lisa Sommers MD [address] [place] [address], [address] [place] [address] Urology 07/25/18 Smitha Simmons NP [address] [place] [address] Family Medicine 05/21/20 Gina Barajas PA [address] [place] [address] Screen Tacker 05/21/20 08/20/22 Reddy Valdez MD [address] [place] [address], [address] [address] [email or web address] Sleep Medicine 05/21/20 08/20/22 Tamara Dubon CNS [address] [place] [address] 16 [place] [address] Psychiatry 03/31/21 Monika James MD [address] [place] [address], [address] [place] [address] Rheumatology 03/31/21 08/20/22 Alhaji Reese MD [address] [place] [address] 2 [place] [address] [email or web address] Gastroenterology 05/28/21 08/20/22 Cesar Lester MD [address] [place] [address], [address] [place] [address] Insurance Assigned Provider 08/23/21 05/22/23 Beth Armendariz RN 10 [place] [address] [email or web address] iCMP Typesetting Machine Tender 10/05/22 Amisha Steen FNP [address] [place] [address] 205 [place] [address] Nurse Practitioner 08/27/23 documented as of this encounter Additional Source Comments The information contained in this document represents components of the legal health record. It is not the complete legal health record.[facility]
--- OUTSIDE RECORDS SUMMARY | 2025-01-16 09:59 | XMS_ITS | Encounter Summary ---
Author Organization [facility] Address [address] [facility] [address] [place] [address] Phone Care Team Providers Care Executive Assistant To General Counsel Name Role Phone Rigo Lopez MCKENNA Primary Care Provider [phone] Lisa Sommers MD Unavailable Smitha Simmons LICENSED DIRECT ENTRY MIDWIFE Unavailable Gina Barajas PA Unavailable Reddy Valdez MD Unavailable [phone] Tamara Dubon MARKETING ADMINISTRATIVE ASSISTANT Unavailable Monika James MD Unavailable Alhaji Reese MD Unavailable [phone] Cesar Lester MD Unavailable Beth Armendariz RN Unavailable Amisha Steen STAFF TOXICOLOGIST Unavailable Encounter Details Date Type Department Care Team (Late st Contact Info) Description 06/16/2022 Telephone [facility] [address] [facility], [address] [place] [address] Tyrone Brennan MD [address] [facility] [address] [place] [address] [email or web address] Social History Tobacco Use Types Packs/Day Years [...] st Contact Info) Description 09/13/2024 Procedure Pass [address] [address] 01/31/2025 3:00 PM EDT Office Visit [facility] Critical [facility] [address] [place] [address] Alhaji Swan MD [address] [place] [address] 2[address] [place] [address] [email or web address] 03/27/2025 8:00 AM EST Appointment [address] [address] Rigo Lopez CNP [address] [place] [address], [address] [place] [address] [email or web address] documented as of this encounter Visit Diagnoses Diagnosis Arthropathy of right sacroiliac joint- Primary Visit for screening mammogram documented in this encounter Additional Health Concerns Assessment Noted Time PHQ-2 Depression Total Score: 2 05/28/19 22 8:17 AM EST documented as of this encounter Care Teams Executive Assistant To General Counsel Relationship Specialty Start Date End Date Rigo Lopez CNP [address] [place] [address], [address] [place] [address] [email or web address] PCP - General Family Medicine 07/25/18 Lisa Sommers MD [address] [place] [address], [address] [place] [address] Urology 07/25/18 Smitha Simmons NP [address] [place] [address] Family Medicine 05/21/20 Gina Barajas PA [address] [place] [address] French Comber 05/21/20 08/20/22 Reddy Valdez MD [address] [place] [address] [address] [place] [address] [email or web address] Sleep Medicine 05/21/20 08/20/22 Tamara Dubon, MARKETING ADMINISTRATIVE ASSISTANT [address] [place] [address] 16 [place] [address] Psychiatry 03/31/21 Monika James MD [address] [place] [address], [facility] [address] [place] [address] [email or web address] Rheumatology 03/31/21 08/20/22 Alhaji Reese MD [address] [place] [address] Gastroenterology 05/28/21 08/20/22 Cesar Lester MD [address] [place] [address], [address] [place] [address] [email or web address] Insurance Assigned Provider 08/23/21 05/22/23 eBth Armendariz, RN [address] [place] [address] [email or web address] iCMP Senior Software Qa Analyst 10/05/22 Amisha Steen FNP [address] [place] [address] [address] [place] [address] Nurse Practitioner 08/27/23 documented as of this encounter Additional Source Comments The information contained in this document represents components of the legal health record. It is not the complete legal health record.[facility]
--- OUTSIDE RECORDS SUMMARY | 2025-01-16 09:59 | XMS_ITS | Clinical Summary ---
Author Organization [facility] Address [address] [address] Phone Care Team Providers Care Supervisor Feed House Name Role Phone Cristela Alba MCKENNA Primary Care Provider [phone] Lisa Sommers MD Unavailable Smitha Simmons WATERSHED PROGRAM MANAGER Unavailable Tamara Dubon OCCUPATIONAL HEALTH PROFESSIONAL Unavailable Beth Armendariz RN Unavailable Amisha Steen PARTITION NOTCHER Unavailable Allergies Active Allergy Reactions Criticality Noted [...] DME Vendors, Elder Services): Mental health providers. [facility] Transportation: She has her own vehicle, drives [...] GI. She will have labs drawn through [facility] at her next visit. Screening HIV test [...] AM EDT): Doing pelvic floor PT through [facility] with HEP. Interstitial cystitis 07/22/2012 Irritable bowel [...] see if it will increase sleep at [facility]. Patient is taking Seroquel and [...] Type Department Care Team Description 01/09/2025 Telephone [facility] [address] [place] [address] Lesli Schmid LPN 01/04/2025 Patient Outreach [facility] [address] [place] [address] Beth Armendariz, MAGGY Care Coordination ([facility] Follow up outreach, [facility] transition information ) 11/30/2024 Patient Outreach [facility] [address] [place] [address] Beth Armendariz, MAGGY Care Coordination ([facility] Follow up outreach ) 11/24/2024 3:30 PM EDT Office Visit [address] [place] [address] Cristela Alba CNP Left elbow pain (Primary Dx) 11/24/2024 Orders Only [address] [place] [address] ProviderMikie MD 10/27/2024 3:00 PM EDT Office Visit [address] [place] [address] Cristela Alba CNP Multiple allergies (Primary Dx); Rash and other nonspecific skin eruption; Mild persistent asthma, unspecified whether complicated 10/23/2024 Patient Outreach [facility] [address] [address] Beth Armendariz, MAGGY Care Coordination ([facility] Follow up outreach ) from Last [...] st Contact Info) Description 09/13/2024 Procedure Pass [facility], [address] [address] 01/31/2025 3:00 PM EDT Office Visit [facility] [address] [place] [address] [place] [address] Jimmy Swan MD [address] [place] [address] 03/27/2025 8:00 AM EST Appointment [facility], [address] [address] Cristela Alba, RUBBER BOOTS AND SHOES REPAIRER [address] [facility], [address] [place] [address] jesus Health Maintenance Due Date Last Done Comments PNEUMOCOCCAL VACCINES (50+ years) (2 of 2 - PCV) 12/28/2017 12/28/2016 COLOGUARD 2018 FIT TEST 2018 FOBT 2018 SIGMOIDOSCOPY 2018 VIRTUAL COLONOSCOPY 2018 ZOSTER VACCINES (1 of 2) 2023 DEPRESSION SCREENING 08/26/2024 08/27/2023, 08/27/19 24 INFLUENZA VACCINE (#1) 2024 , 05/21/2020, 03/22/2018 COVID-19 VACCINE ( season) 2025 04/19/2021, 09/06/2020, 08/09/2020 MAMMOGRAM 12/09/2025 12/10/2023, 05/0 01/2023, 07/10/2021, Additional history exists LIPID PANEL 06/11/2026 06/11/2021, 05/18, 06/11/2021, Additional history exists SCREENING FOR DIABETES 09/06/2026 , 08/07/2022, 08/20/2020, Additional history exists COLONOSCOPY 09/30/2030 [...] of the results and recommendations. Cristela Alba RUBBER BOOTS AND SHOES REPAIRER IMG MG EXAMS Final Res ult * [...] 47 Admit Type: Outpatient Gender: Female Room: [facility] Referring MD: CRISTELA ALBA Exam Type: Colonoscopy [...] 1:29 PM Procedure Code(s): --- Professional --- 67656, Colonoscopy, flexible; with biopsy, single or multiple --- Technical --- 97376, Colonoscopy, flexible; with biopsy, single or multiple Diagnosis Code(s): --- Professional --- K64.8, Other hemorrhoids R10.84, Generalized abdominal pain R19.4, Change in bowel habit K59.00, Constipation, unspecified Q43.8, Other specified congenital malformations of intestine --- Technical --- K64.8, Other hemorrhoids R10.84, Generalized abdominal pain R19.4, Change in bowel habit K59.00, Constipation, unspecified Q43.8, Other specified congenital malformations of intestine CPT copyright 2018 [employer]. All rights reserved. The codes documented in this report are preliminary and upon finisher wallboard and plasterboard reviewmay be revised to meet current compliance requirements. Procedure Date: 09/30/2020 1:29:00 PM [address] [place] [address] Cristela Alba RUBBER BOOTS AND SHOES REPAIRER GI PROCEDURE ORDERABLES F inal Result * Outside Hepatitis C Virus Screening (05/28/2020) Hepatitis C Screening - External Neg Historical Provider LAB BLOOD ORDERABLES Татьяна l Result from Last 3 Months or Most Recently Relevant to Health Maintenance Insurance MEDICARE PART A & B [facility] MEDEX SUPPLEMENT MEDICARE PART A & B [employer] SUPPLEMENT MEDICARE PART A & B [employer] SUPPLEMENT MEDICARE PART A & B [facility] MEDEX SUPPLEMENT MEDICARE PART A & B [facility] [employer] MEDEX SUPPLEMENT MEDICARE PART A & B [facility] MEDEX SUPPLEMENT MEDICARE PART A & B [facility] MEDEX SUPPLEMENT MEDICARE PART A & B [facility] MEDEX SUPPLEMENT MEDICARE PART A & B [employer] MEDEX SUPPLEMENT Care Teams Supervisor Feed House Relationship Specialty Start Date End Date Cristela lAba CNP [address] [place] [address], [address] [place] [address] jesus PCP - General Family Medicine 07/25/18 Lisa Sommers MD [address] [place] [address], [address] [place] [address] Urology 07/25/18 Smitha Simmons NP [address] [place] [address] Family Medicine 05/21/20 Tamara Dubon CNS [address] [place] [address] 16 [place] [address] Psychiatry 03/31/21 Beth Armendariz, MAGGY [address] [place] [address] [email or web address] iCMP Laboratory Technology Teacher 10/05/22 Amisha Steen FNP [address] [place] [address] Nurse Practitioner 08/27/23 Additional Source Comments The information contained in this document represents components of the legal health record. It is not the complete legal health record.[facility]
--- OUTSIDE RECORDS SUMMARY | 2025-01-16 09:59 | XMS_ITS | Encounter Summary ---
Author Organization [facility] Address [address] [address] Phone Care Team Providers Care Windshield Technician Name Role Phone Rigo Lopez MCKENNA Primary Care Provider [phone] Lisa Sommers MD Unavailable Kuldeep Pérez Unavailable Smitha Simmons LIVESTOCK NUTRITION TERRITORY MANAGER Unavailable [phone] Gina Barajas PA Unavailable Reddy Valdez MD Unavailable [phone] Ling Tamara A WIRELESS NETWORK ENGINEER Unavailable Monika James MD Unavailable Alhaji Reese MD Unavailable [phone] Cesar Lester MD Unavailable Beth Armendariz RN Unavailable Amisha SteenP Unavailable [phone] Encounter Details Date Type Department Care Team (Late st Contact Info) Description 09/30/2020 Procedure Pass [facility] Endoscopy Admitting Dept Virtual Department 30 [place] [address] Social History Tobacco Use Types [...] st Contact Info) Description 09/13/2024 Procedure Pass [facility], [address] [address] 01/31/2025 3:00 PM EDT Office Visit [facility] Pulmonary, Allergy and Critical Care Medicine [address] [place] [address] Alhaji Swan MD [address] [place] [address] 03/27/2025 8:00 AM EST Appointment [address] [address] Rigo Lopez CNP [address] [place] [address], [address] [place] [address] jesus documented as of this encounter Visit Diagnoses Not on filedocumented in this encounter Additional Health Concerns Infection Onset Date Last Indicated Resolved Time CoV-Risk 10/09/2021 10/09/2021 10/20/2021 1:24 AM EDT Assessment Noted Time PHQ-2 Depression Total Score: 2 05/18/19 21 11:52 AM EST documented as of this encounter Care Teams Windshield Technician Relationship Specialty Start Date End Date Rigo Lopez CNP [address] [place] [address], [address] [place] [address] jesus PCP - General Family Medicine 07/25/18 Lisa Sommers MD [address] [place] [address], [address] [place] [address] Urology 07/25/18 Kuldeep Pérez PA [address] [place] [address], [address] [place] [address] [email or web address] 05/21/20 03/30/21 Smitha Simmons NP [address] [place] [address] Family Medicine 05/21/20 Gina Barajas PA [address] [place] [address] Bridge Toll Collector 05/21/20 08/20/22 Reddy Valdez MD [address] [place] [address] [email or web address] Sleep Medicine 05/21/20 08/20/22 Tamara Dubon, WIRELESS NETWORK ENGINEER [address] [place] [address] 16 [place] [address] Psychiatry 03/31/21 Monika James MD [address] [place] [address] [email or web address] Rheumatology 03/31/21 08/20/22 Alhaji Reese MD [address] [place] [address] [email or web address] Gastroenterology 05/28/21 08/20/22 Cesar Lester MD [address] [place] [address], [address] [place] [address] [email or web address] Insurance Assigned Provider 08/23/21 05/22/23 Beth Armendariz, RN [address] [place] [address] [email or web address] iCMP Tire Stripper 10/05/22 Amisha Steen FNP [address] [place] [address] [address] [place] [address] Nurse Practitioner 08/27/23 documented as of this encounter Additional Source Comments The information contained in this document represents components of the legal health record. It is not the complete legal health record.[facility]
--- OUTSIDE RECORDS SUMMARY | 2025-01-16 09:59 | XMS_ITS | Encounter Summary ---
Author Organization [facility] Address [address] [address] Phone Care Team Providers Care Hris Specialist Name Role Phone Rigo Lopez [facility] Unavailable Alhaji Martinez MD Unavailable [phone] Rigo Lopez [facility] Primary Care Provider [phone] Harvinder Vallejo MD Unavailable [phone] Rigo Lopez [facility] Primary Care Provider Alhaji Martinez MD Unavailable Lisa Sommers MD Unavailable Cesar Lester MD Unavailable [phone] Kuldeep Pérez PA Unavailable Smitha Simmons MARKETING AND OUTREACH COORDINATOR Unavailable Gina Barajas PA Unavailable Reddy Valdez MD Unavailable [phone] Tamara Dubon LANDSCAPE DESIGNER Unavailable Monika James MD Unavailable Alhaji Reese MD Unavailable [phone] Cesar Lester MD Unavailable Beth Armendariz RN Unavailable [phone] Amisha Steen Unavailable [phone] Reason for Referral * Physical Therapy (Routine) - Closed Specialty Diagnoses / Procedures Referred By Conttyrone t Referred To Contact Physical Therapy Diagnoses Pelvic floor dysfunction System, Provider Not In, [facility] [id number] [place] [address] Phone: tel: Referral ID Status Reason Start Date Expiration Date Visits Re quested Visits Authorized [id number] Closed 11/16/2017 05/16/2018 99 99 Encounter Details Date Type Department Care Team (Latest Contact Info) Description 11/16/2017 Transcribe Orders [facility] Rehabilitation Services 8 [place] [address] Kobi Bradley MD [address] [place] [address] Pelvic floor dysfunction (Primary Dx) Social History [...] st Contact Info) Description 09/13/2024 Procedure Pass [facility], [facility]- [address] [address] 01/31/2025 3:00 PM EDT Office Visit [facility] Pulmonary, Allergy and Critical Care Medicine 10 [facility] [place] [address] Alhaji Swan MD 10 [facility] 2nd [place] [address] 03/27/2025 8:00 AM EST Appointment [facility], Mammography- [facility] 30 [place] [address] Rigo Lopez CNP [address] [facility], [address] [place] [address] jesus documented as of this encounter Procedures Procedure Name Priority Date/Time Associated Diagnosis Comments AMB REFERRAL TO [facility] PHYSICAL THERAPY Routine 12/02/2017 10:52 AM EDT Pelvic floor dysfunction documented in this encounter Results * Ambulatory referral to [facility] Physical Therapy (12/02/2017 10:52 AM EDT) us Provider Not In System PhD AMB [facility] REFERRALS Fin al Result documented in this encounter Visit Diagnoses Diagnosis Pelvic floor dysfunction- Primary Visit for screening mammogram documented in this encounter Additional Health Concerns Infection Onset Date Last Indicated Resolved Time CoV-Risk 09/18/2019 09/18/2019 10/02/2019 1:23 AM EDT CoV-Risk 10/09/2021 10/09/2021 10/20/2021 1:24 AM EDT documented as of this encounter Care Teams Hris Specialist Relationship Specialty Start Date End Date Alhaji Martinez MD [address] [place] [address] [email or web address] PCP - Internal Medicine Rheumatology 03/24/17 9 Rigo Lopez CNP [address] [facility], [address] [place] [address] jesus PCP - General Family Medicine 03/24/17 07/24/18 Rigo Lopez CNP [address] [facility], [address] [place] [address] jesus PCP - General Family Medicine 07/25/18 Rigo Lopez CNP [address] [place] [address], [address] [place] [address] jesus [email or web address] Historical LMR Provider 03/06/17 Harvinder Vallejo MD [address] [place] [address], [address] [place] [address] [email or web address] Internal Medicine 04/19/18 05/20/20 Alhaji Martinez MD [address] [place] [address] [email or web address] Rheumatology 07/25/18 05/20/20 Lisa Sommers MD [address] [place] [address], [address] [place] [address] [email or web address] Urology 07/25/18 Cesar Lester MD [address] [place] [address], [address] [place] [address] [email or web address] Insurance Assigned Provider 02/11/19 05/25/20 Kuldeep Pérez PA [address] [place] [address], [address] [place] [address] [email or web address] 05/21/20 03/30/21 Smitha Simmons NP [address] [place] [address] Family Medicine 05/21/20 Gina Barajas PA [address] [place] [address] Pasting Machine Offbearer 05/21/20 08/20/22 Reddy Valdez MD [address] [place] [address], [address] [place] [address] [email or web address] Sleep Medicine 05/21/20 08/20/22 Tamara Dubon, LANDSCAPE DESIGNER [address] [place] [address] 16 [place] [address] Psychiatry 03/31/21 Monika James MD [address] [place] [address], [address] [place] [address] Rheumatology 03/31/21 08/20/22 Alhaji Reese MD [address] [place] [address] Gastroenterology 05/28/21 08/20/22 Cesar Lester MD [address] [place] [address], [address] [place] [address] Insurance Assigned Provider 08/23/21 05/22/23 Beth Armendariz, MAGGY 10 [place] [address] iCMP Copier Technician 10/05/22 Amisha Steen FNP [address] [place] [address] Nurse Practitioner 08/27/23 documented as of this encounter Additional Source Comments The information contained in this document represents components of the legal health record. It is not the complete legal health record.[facility]
--- OUTSIDE RECORDS SUMMARY | 2025-01-16 09:59 | XMS_ITS | Encounter Summary ---
Author Organization [facility] Address [address] [address] Phone Care Team Providers Care Lifter Name Role Phone Rigo Lopez MCKENNA Primary Care Provider [phone] Lisa Sommers MD Unavailable Smitha Simmons FRANCHISE DEVELOPMENT MANAGER Unavailable [phone] Tamara Dubon EGG FACTORY WORKER Unavailable [phone] Beth Armendariz RN Unavailable Amisha Steen JIG HAND Unavailable Reason for Visit * Reason Onset Date Comments Abdominal Pain 07/06/2023 X 5 days Encounter Details Date Type Department Care Team (Late st Contact Info) Description 07/06/2023 Nurse Triage [facility] INTEGRATED CARE MANAGEMENT 30 [place] [address] Beth Armendariz, RN 10 [place], [place] [phone] Abdominal Pain (X 5 days) Social History [...] st Contact Info) Description 09/13/2024 Procedure Pass [address] [address] 01/31/2025 3:00 PM EDT Office Visit [facility] Pulmonary, Allergy and Critical Care Medicine [address] [place] [address] Alhjai Swan MD [address] [place] [address] [email or web address] 03/27/2025 8:00 AM EST Appointment [address] [address] Rigo Lopez CNP [address] [place] [address], [address] [place] [address] jesus documented as of this encounter Visit Diagnoses Not on filedocumented in this encounter Additional Health Concerns Assessment Noted Time PHQ-9 Depression Total Score: 19 023 7:59 AM EDT PHQ-2 Depression Total Score: 2 10/28/19 23 9:48 AM EDT documented as of this encounter Care Teams Lifter Relationship Specialty Start Date End Date Rigo Lopez CNP [address] [place] [address], [address] [place] [address] jesus PCP - General Family Medicine 07/25/18 Lisa Sommers MD [address] [place] [address], [address] [place] [address] Urology 07/25/18 Smitha Simmnos, FRANCHISE DEVELOPMENT MANAGER [address] [place] [address] Family Medicine 05/21/20 Tamara Dubon CNS [address] [place] [address] 16 [place] [address] Psychiatry 03/31/21 Beth Armendariz RN [address] [place] [address] iCMP Development Chemist 10/05/22 Amisha Steen FNP [address] [place] [address] Nurse Practitioner 08/27/23 documented as of this encounter Additional Source Comments The information contained in this document represents components of the legal health record. It is not the complete legal health record.[facility]
--- OUTSIDE RECORDS SUMMARY | 2025-01-16 09:59 | XMS_ITS | Encounter Summary ---
Author Organization [facility] Address [address] [address] Phone Care Team Providers Care Smearer Name Role Phone Rigo Lopez MCKENNA Primary Care Provider [phone] Lisa Sommers MD Unavailable [phone] Smitha Simmons SOCIAL STUDIES TEACHER Unavailable Gina Barajas PA Unavailable Reddy Valdez MD Unavailable [phone] Tamara Dubon CAPITAL PROJECT ENGINEER Unavailable Monika James MD Unavailable Alhaji Reese MD Unavailable [phone] Cesar Lester MD Unavailable Beth Armendariz RN Unavailable Amisha Steen BROOCH AND BRACELET MAKER Unavailable [phone] Encounter Details Date Type Department Care Team (Late st Contact Info) Description 01/21/2022 Procedure Pass [facility], [address] [address] Social History Tobacco Use Types [...] st Contact Info) Description 09/13/2024 Procedure Pass [address] [address] 01/31/2025 3:00 PM EDT Office Visit [facility] Pulmonary, Allergy and Critical Care Medicine [address] [place] [address] Alhaji Swan MD [address] [place] [address] [email or web address] 03/27/2025 8:00 AM EST Appointment [address] [address] Rigo Lopez CNP [address] [place] [address], [address] [place] [address] jesus [email or web address] documented as of this encounter Visit Diagnoses Not on filedocumented in this encounter Additional Health Concerns Assessment Noted Time PHQ-2 Depression Total Score: 2 05/28/19 22 8:17 AM EST documented as of this encounter Care Teams Smearer Relationship Specialty Start Date End Date Rigo Lopez CNP [address] [place] [address], [address] [place] [address] jesus [email or web address] PCP - General Family Medicine 07/25/18 Lisa Sommers MD [address] [place] [address], [address] [place] [address] Urology 07/25/18 Smitha Simmons NP [address] [place] [address] Family Medicine 05/21/20 Gina Barajas PA [address] [place] [address] Reefer Truck Driver 05/21/20 08/20/22 Reddy Valdez MD [address] [place] [address], [facility] [address] [place] [address] [email or web address] Sleep Medicine 05/21/20 08/20/22 Tamara Dubon CNS [address] [place] [address] 16 [place] [address] Psychiatry 03/31/21 Monika James MD [address] [place] [address], [facility] 203 [place] [address] [email or web address] Rheumatology 03/31/21 08/20/22 Alhaji Reese MD [address] [place] [address] [email or web address] Gastroenterology 05/28/21 08/20/22 Cesar Lester MD [address] [place] [address], [address] [place] [address] [email or web address] Insurance Assigned Provider 08/23/21 05/22/23 Beth Armendariz RN 10 [place] [address] iCMP Holter Scanning Technician 10/05/22 Amisha Steen FNP [address] [place] [address] Nurse Practitioner 08/27/23 documented as of this encounter Additional Source Comments The information contained in this document represents components of the legal health record. It is not the complete legal health record.[facility]
--- OUTSIDE RECORDS SUMMARY | 2025-01-16 09:59 | XMS_ITS | Encounter Summary ---
Author Organization [facility] Address [address] [address] Phone Care Team Providers Care Legal Word Processor Name Role Phone Rigo Lopez MCKENNA Primary Care Provider [phone] Lisa Sommers MD Unavailable Smitha Simmons STRIPPING SHOVEL OPERATOR Unavailable Tamara Dubon BAKESHOP CLEANER Unavailable [phone] Beth Armendariz RN Unavailable [phone] Amisha Steen DRAWING INSTRUCTOR Unavailable Encounter Details Date Type Department Care Team (Late st Contact Info) Description 06/25/2023 Procedure Pass [facility], [address] [phone] Social History Tobacco Use Types Packs/Day Years [...] st Contact Info) Description 09/13/2024 Procedure Pass [facility], [address] [address] 01/31/2025 3:00 PM EDT Office Visit [facility] Pulmonary, Allergy and Critical Care Medicine [address] [place] [address] Alhaji Swan MD [address] [place] [address] [email or web address] 03/27/2025 8:00 AM EST Appointment [address] [address] Rigo Lopez CNP 22 [facility], [address] [place] [address] jesus documented as of this encounter Visit Diagnoses Not on filedocumented in this encounter Additional Health Concerns Assessment Noted Time PHQ-9 Depression Total Score: 19 024 7:15 AM EDT PHQ-2 Depression Total Score: 5 08/27/19 24 7:15 AM EDT documented as of this encounter Care Teams Legal Word Processor Relationship Specialty Start Date End Date Rigo Lopez CNP [address] [facility], [address] [place] [address] jesus PCP - General Family Medicine 07/25/18 Lisa Sommers MD [address] [facility], [address] [place] [address] [email or web address] Urology 07/25/18 Smitha Simmons, STRIPPING SHOVEL OPERATOR [address] [place] [address] Family Medicine 05/21/20 Tamara Dubon CNS [address] [place] [address] Psychiatry 03/31/21 Beth Armendariz, MAGGY 10 [place] [address] [email or web address] iCMP Director Of Radio Services 10/05/22 Amisha Steen FNP [address] [place] [address] Nurse Practitioner 08/27/23 documented as of this encounter Additional Source Comments The information contained in this document represents components of the legal health record. It is not the complete legal health record.[facility]
--- OUTSIDE RECORDS SUMMARY | 2025-01-16 09:59 | XMS_ITS | Encounter Summary ---
Author Organization [facility] Address [address] [address] Phone Care Team Providers Care Armature Rewinder Name Role Phone Rigo Lopez CNP Unavailable Harvinder Vallejo MD Unavailable [phone] Rigo Lopez CNP Primary Care Provider [phone] Alhaji Martinez MD Unavailable [phone] Lisa Sommers MD Unavailable Cesar Lester MD Unavailable [phone] Kuldeep Pérez PA Unavailable Smitha Simmons MODEL MAKING SUPERVISOR Unavailable Gina Barajas PA Unavailable Reddy Valdez MD Unavailable [phone] Tamara Dubon NAME PLATE STAMPING MACHINE OPERATOR Unavailable Monika James MD Unavailable [phone] Alhaji Reese MD Unavailable [phone] Cesar Lester MD Unavailable [phone] Beth Armendariz RN Unavailable Buchachiy, Amisha K DRILL PRESS OPERATOR Unavailable Reason for Referral * Physical Therapy (Routine) - Closed Specialty Diagnoses / Procedures Referred By Contac t Referred To Contact Physical Therapy Diagnoses Encounter for rehabilitation Kobi Bradley MD Phone: tel: fax: [address] [address] Phone: tel: Referral ID Status Reason Start Date Expiration Date Visits Re quested Visits Authorized [id number] Closed 05/31/2019 05/31/2020 99 [phone] Encounter Details Date Type Department Care Team (Latest Contact Info) Description 05/31/2019 Transcribe Orders [facility] Rehabilitation Services 8 [place] [address] Kobi Bradley MD [address] [place] [address] Encounter for rehabilitation (Primary Dx) Social History [...] st Contact Info) Description 09/13/2024 Procedure Pass [facility], [facility]- [address] [address] 01/31/2025 3:00 PM EDT Office Visit [facility] Pulmonary, Allergy and Critical Care Medicine 10 [facility] [address] [place], [place] [phone] Alhaji Swan MD [address] [address] 03/27/2025 8:00 AM EST Appointment [facility], Mammography- [address] [address] Rigo Lopez CNP 22 [facility], [address] [place] [address] jesus documented as of this encounter Procedures Procedure Name Priority Date/Time Associated Diagnosis Comments AMB REFERRAL TO [facility] PHYSICAL THERAPY Routine 06/14/2019 3:15 PM EST Encounter for rehabilitation documented in this encounter Results * Ambulatory referral to [facility] Physical Therapy (06/14/2019 3:15 PM EST) Kobi Bradley MD AMB [facility] REFERRALS Final Result documented in this [...] documented as of this encounter Care Teams Armature Rewinder Relationship Specialty Start Date End Date Rigo Lopez CNP 22 [facility], [address] [place] [address] jesus PCP - General Family Medicine 07/25/18 Rigo Lopez CNP 22 [facility], [address] [place] [address] jesus Historical LMR Provider 03/06/17 Harvinder Vallejo MD 22 [facility], [address] [place] [address] Internal Medicine 04/19/18 05/20/20 Alhaji Martinez MD [address] [place] [address] [email or web address] Rheumatology 07/25/18 05/20/20 Lisa Sommers MD [address] [place] [address], [address] [place] [address] Urology 07/25/18 Cesar Lester MD [address] [place] [address], [address] [place] [address] [email or web address] Insurance Assigned Provider 02/11/19 05/25/20 Kuldeep Pérez PA [address] [place] [address], [address] [place] [address] [email or web address] 05/21/20 03/30/21 Smitha Simmons NP [address] [place] [address] Family Medicine 05/21/20 Gina Barajas PA [address] [place] [address] Patient Account Representative 05/21/20 08/20/22 Reddy Vladez MD [address] [place] [address], [address] [place] [address] [email or web address] Sleep Medicine 05/21/20 08/20/22 Tamara Dubon, NAME PLATE STAMPING MACHINE OPERATOR [address] [place] [address] 16 [place] [address] Psychiatry 03/31/21 Monika James MD [address] [place] [address], [address] [place] [address] Rheumatology 03/31/21 08/20/22 Alhaji Reese MD [address] [place] [address] Gastroenterology 05/28/21 08/20/22 Cesar Lester MD [address] [place] [address], [address] [place] [address] Insurance Assigned Provider 08/23/21 05/22/23 Beth Armendariz RN [address] [place] [address] iCMP Medical Administrator 10/05/22 Amisha Steen FNP [address] [place] [address] 205 [place] [address] Nurse Practitioner 08/27/23 documented as of this encounter Additional Source Comments The information contained in this document represents components of the legal health record. It is not the complete legal health record.[facility]
== END 2025-01-16 10:07 | disposition home or self-care (01) ==
LOC: HO.HOP 09:06
PROVIDERS: PCP Nurse Practitioner Adult Health; Visit Provider Clinical Nurse Specialist Psychiatric/Mental Health
DX: F33.0 Major depressive disorder, recurrent, mild (principal); G47.00 Insomnia, unspecified; G47.8 Other sleep disorders; F90.0 Attention-deficit hyperactivity disorder, predominantly inattentive type; F41.1 Generalized anxiety disorder
CPT/HCPCS: 99214

== ENCOUNTER → 2025-01-16 09:06 | Outpatient (BNVA) | payer MEDICARE, SELFPAY | PROVIDERS: PCP Nurse Practitioner Adult Health; Visit Provider Clinical Nurse Specialist Psychiatric/Mental Health | DX: F33.0 Major depressive disorder, recurrent, mild (principal); G47.00 Insomnia, unspecified; G47.8 Other sleep disorders; F90.0 Attention-deficit hyperactivity disorder, predominantly inattentive type; F41.1 Generalized anxiety disorder | CPT/HCPCS: 99212 ==

== ENCOUNTER 2025-02-20 06:24 | Outpatient (REF) | payer MEDICARE, SELFPAY ==
--- NOTE | ~2025-02-20 | FL_ITS ---
EXAMINATION: XR FLUOROSCOPY WITH IMAGES CLINICAL INFORMATION: Sacrococcygeal disorder COMPARISON: Previous imaging 07/06/2024 TECHNIQUE: Fluoroscopy provided to: Dr. Walsh Fluoroscopy time: 12.3 seconds DAP: 1.4 mGycm2 Images: 4 FINDINGS: Intraoperative fluoroscopy was provided for use by Dr. Walsh. A radiologist was not present during imaging. Today's dictation is only for administrative purposes to document intraoperative fluoroscopy. FL/FL guidance in treatment room IMPRESSION: Intraoperative fluoroscopy provided for use by Dr. Walsh. Please see procedure note for details findings. Electronically signed by: Brain Arnold MD 02/20/2025 04:18 PM EDT
--- OUTSIDE RECORDS SUMMARY | 2025-02-20 06:27 | XMS_ITS | Encounter Summary ---
Author Organization [facility] Address [address] [address] Phone Care Team Providers Care Roastmaster Name Role Phone Rigo Lopez MCKENNA Primary Care Provider Lisa Sommers MD Unavailable Smitha Simmons SAMPLE GRINDER Unavailable Gina Barajas PA Unavailable [phone] Reddy Valdez MD Unavailable [phone] Tamara Dubon MANAGER CAFE Unavailable Monika James MD Unavailable Alhaji Reese MD Unavailable [phone] Cesar Lester MD Unavailable [phone] Beth Armendariz RN Unavailable [email or web address] Amisha Steen REHABILITATION COUNSELOR Unavailable Divina Jade RN Unavailable [phone] Encounter Details Date Type Department Care Team (Late st Contact Info) Description 06/19/2021 Ancillary Orders [facility],Outside Imaging 30 [place], [place] [id number] System, Provider Not In, PhD Partners [address] [address] Social History Tobacco Use Types Packs/Day Years [...] st Contact Info) Description 09/13/2024 Procedure Pass [address] [address] 03/27/2025 8:00 AM EST Appointment [address] [address] Rigo Lopez, TOW CAR DRIVER [address] [facility], [address] [place] [address] jesus 05/22/2025 2:00 PM EST Office Visit [facility] Pulmonary, Allergy and Critical Care Medicine [address] [place] [address] Remy Darby MD [address] [place] [address] documented as of this encounter Results * [...] documented as of this encounter Care Teams Roastmaster Relationship Specialty Start Date End Date Rigo Lopez CNP [address] [facility], [address] [place] [address] jesus PCP - General Family Medicine 07/25/18 Lisa Sommers MD [address] [place] [address], [address] [place] [address] Urology 07/25/18 Smitha Simmons SAMPLE GRINDER [address] [place] [address] Family Medicine 05/21/20 Gina Barajas PA 395 [place] [address] Supply Controller 05/21/20 08/20/22 Reddy Valdez MD [address] [facility], [address] [place] [address] Sleep Medicine 05/21/20 08/20/22 Tamara Dubon, MANAGER CAFE [address] [place] [address] 16 [place] [address] Psychiatry 03/31/21 Monika James MD [address] [facility], [address] [place] [address] Rheumatology 03/31/21 08/20/22 Alhaji Reese MD [address] [place] [address] [email or web address] Gastroenterology 05/28/21 08/20/22 Cesar Lester MD [address] [place] [address], [address] [place] [address] [email or web address] Insurance Assigned Provider 08/23/21 05/22/23 Beth Armendariz RN [address] [place] [address], [address] [place] [address] [email or web address] iCMP Agency Service Representative 10/05/22 01/17/25 Amisha Steen FNP [address] [place] [address] Nurse Practitioner 08/27/23 Divina Jade, RN [address] [place] [address] [email or web address] iCMP Agency Service RepresentativeRelease Manager 01/18/25 documented as of this encounter Additional Source Comments The information contained in this document represents components of the legal health record. It is not the complete legal health record.[facility]
--- OUTSIDE RECORDS SUMMARY | 2025-02-20 06:27 | XMS_ITS ---
Author Organization [facility] Address [address] [place] [address] Phone Care Team Providers Care Mine Analyst Name Role Phone John Rigo ANDRES Primary Care Provider [phone] Lisa Sommers MD Unavailable Smitha Simmons SECURITY TEST ENGINEER Unavailable [phone] Tamara Dubon BENCH MOLDER Unavailable Amisha Steen INSTRUMENTATION ENGINEER Unavailable [phone] Divina Jade RN Unavailable Population Health Care Management (PHCM) Status:Enrolled (Active) Start date:06/01/2023 Enrollment date:06/01/2023 Current support & services provided:[facility] Related social drivers of health:Housing Stability, Child or Family Care, Education, Food, Unemployment, Paying for Meds, Paying Utility Bills, Transportation, Digital Access, SNAP/WIC Case Team Name Relationship Phone Email Divina Jade RN Registered Nurse(Responsible Staff) [phone] Alma Waller PHCM Hydro Plant Operator [email or web address] Continued Care and Services Coordination
--- OUTSIDE RECORDS SUMMARY | 2025-02-20 06:27 | XMS_ITS | Encounter Summary ---
Author Organization [facility] Address [address] [place] [address] Phone Care Team Providers Care Mulling Machine Operator Name Role Phone Rigo Lopez MCKENNA Primary Care Provider Lisa Sommers MD Unavailable Smitha Simmons MATERIAL ASSEMBLER Unavailable Gina Barajas Unavailable Reddy Valdez MD Unavailable [phone] Tamara Dubon OFFICE ADMINISTRATION INSTRUCTOR Unavailable Monika James MD Unavailable [phone] Alhaji Reese MD Unavailable [phone] Cesar Lester MD Unavailable [phone] Beth Armendariz RN Unavailable [email or web address] Amisha Steen TYPING CHECKER Unavailable [phone] Divina Jade RN Unavailable [phone] Encounter Details Date Type Department Care Team (Late st Contact Info) Description 05/28/2021 Procedure Pass [facility], [address] [id number] Social History Tobacco Use Types Packs/Day Years [...] st Contact Info) Description 09/13/2024 Procedure Pass [address] [address] 03/27/2025 8:00 AM EST Appointment [address] [address] Rigo Lopez CNP [address] [place] [address], [address] [place] [address] [email or web address] [email or web address] 05/22/2025 2:00 PM EST Office Visit [facility] Pulmonary, Allergy and Critical Care Medicine 10 [place] [address] Remy Darby MD [address] [place] [address] 2nd [place] [address] documented as of this encounter Visit Diagnoses Not on filedocumented in this encounter Additional Health Concerns Infection Onset Date Last Indicated Resolved Time CoV-Risk 10/09/2021 10/09/2021 10/20/2021 1:24 AM EDT Assessment Noted Time PHQ-2 Depression Total Score: 2 05/28/19 22 8:17 AM EST documented as of this encounter Care Teams Mulling Machine Operator Relationship Specialty Start Date End Date Rigo Lopez CNP [address] [place] [address], [address] [place] [address] jesus PCP - General Family Medicine 07/25/18 Lisa Sommers MD [address] [place] [address], [address] [place] [address] Urology 07/25/18 Smitha Simmons, RIC [address] [place] [address] Family Medicine 05/21/20 Gina Barajas PA [address] [place] [address] Stain Dipper 05/21/20 08/20/22 Reddy Valdez MD [address] [place] [address], [address] [place] [address] [email or web address] Sleep Medicine 05/21/20 08/20/22 Tamara Dubon, OFFICE ADMINISTRATION INSTRUCTOR [address] [place] [address] 16 [place] [address] Psychiatry 03/31/21 Monika James MD [address] [place] [address], [address] [place] [address] [email or web address] Rheumatology 03/31/21 08/20/22 Alhaji Reese MD [address] [place] [address] Gastroenterology 05/28/21 08/20/22 Cesar Lester MD [address] [place] [address], [address] [place] [address] [email or web address] Insurance Assigned Provider 08/23/21 05/22/23 Beth Armendariz, MAGGY 22 [facility], [address] [place] [address] [email or web address] iCMP Billet Grinder 10/05/22 01/17/25 Amisha Steen, [facility] [address] [place] [address] Drive Jai [address] [place] [address] Nurse Practitioner 08/27/23 Divina Jade, MAGGY 10 [place], [place] 2995662 [email or web address] iCMP Billet GrinderMopper 01/18/25 documented as of this encounter Additional Source Comments The information contained in this document represents components of the legal health record. It is not the complete legal health record.[facility]
--- OUTSIDE RECORDS SUMMARY | 2025-02-20 06:27 | XMS_ITS | Encounter Summary ---
Author Organization [facility] Address [address] [facility] [address] [place] [address] Phone Care Team Providers Care Ror Engineer Name Role Phone Rigo Lopez MCKENNA Primary Care Provider Lisa Sommers MD Unavailable Smitha Simmons TICKER INSTALLER Unavailable Gina Barajas PA Unavailable [phone] Reddy Valdez MD Unavailable [phone] Tamara Dubon BUSINESS RECORDS MANAGER Unavailable Monika James MD Unavailable Alhaji Reese MD Unavailable [phone] Cesar Lester MD Unavailable [phone] Beth Armendariz RN Unavailable [email or web address] Amisha Steen TURNING SANDER OPERATOR Unavailable [phone] Divina Jade RN Unavailable [phone] Encounter Details Date Type Department Care Team (Late st Contact Info) Description 06/16/2022 Telephone [facility] [address] [place] [address], [address] [place], [place] [phone] Tyrone Brennan MD [facility] [address] [place] [address] [email or web address] Social History Tobacco Use Types Packs/Day Years [...] st Contact Info) Description 09/13/2024 Procedure Pass [address] [address] 03/27/2025 8:00 AM EST Appointment [address] [address] Rigo Lopez CNP [address] [place] [address], [address] [place] [address] jesus 05/22/2025 2:00 PM EST Office Visit [facility] Pulmonary, Allergy and Critical Care Medicine [address] [place] [address] [place] [address] Remy Darby MD [address] [place] [address] documented as of this encounter Visit Diagnoses Diagnosis Arthropathy of right sacroiliac joint- Primary Visit for screening mammogram documented in this encounter Additional Health Concerns Assessment Noted Time PHQ-2 Depression Total Score: 2 05/28/19 22 8:17 AM EST documented as of this encounter Care Teams Ror Engineer Relationship Specialty Start Date End Date Rigo Lopez CNP [address] [place] [address], [address] [place] [address] [email or web address] [email or web address] PCP - General Family Medicine 07/25/18 Lisa Sommers MD [address] [place] [address], [address] [place] [address] Urology 07/25/18 Smitha Simmons, TICKER INSTALLER [address] [place] [address] Family Medicine 05/21/20 Gina Barajas PA [address] [place] [address] Insurance Underwriter Sales 05/21/20 08/20/22 Reddy Valdez MD [address] [place] [address], [address] [place] [address] [email or web address] Sleep Medicine 05/21/20 08/20/22 Tamara Dubon, BUSINESS RECORDS MANAGER [address] [place] [address] 16 [place] [address] Psychiatry 03/31/21 Monika James MD [address] [place] [address], [facility] [address] [place] [address] Rheumatology 03/31/21 08/20/22 Alhaji Reese MD [address] [place] [address] Gastroenterology 05/28/21 08/20/22 Cesar Lester MD 22 [facility], [address] [place] [address] [email or web address] Insurance Assigned Provider 08/23/21 05/22/23 Beth Armendariz RN 22 [facility], [address] [place] [address] [email or web address] iCMP Audiovisual Equipment Operator 10/05/22 01/17/25 Amisha Steen FNP [address] [place] [address] Drive [address] [place] [address] Nurse Practitioner 08/27/23 Divina Jade, RN [address] [place] [address] [email or web address] iCMP Audiovisual Equipment OperatorFuneral Director/Embalmer 01/18/25 documented as of this encounter Additional Source Comments The information contained in this document represents components of the legal health record. It is not the complete legal health record.[facility]
--- OUTSIDE RECORDS SUMMARY | 2025-02-20 06:27 | XMS_ITS | Encounter Summary ---
Author Organization [facility] Address [address] [address] Phone Care Team Providers Care Associate Director Qa Name Role Phone Rigo Lopez MCKENNA Primary Care Provider [phone] Lisa Sommers MD Unavailable Smitha Simmons SYSTEMS OPERATOR Unavailable Tamara Dubon SOLVENT PLANT TREATER Unavailable Amisha Steen [employer] HOME ECONOMICS TEACHER Unavailable Divina Jade RN Unavailable Reason for Visit * Reason Onset Date Comments Vortex spacer in office 02/16/2025 Encounter Details Date Type Department Care Team (Late st Contact Info) Description 02/16/2025 Telephone [facility] Pulmonary, Allergy and Critical Care Medicine 10 [place], [place] [phone] Deborah Pugh 10 [place], [place] [phone] [email or web address] Vortex spacer in office Social History Tobacco Use Types Packs/Day Years [...] as of this encounter Progress Notes * Deborah Pugh - 02/16/2025 10:24 AM EDT Pt 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 Pt rcvd. documented in this encounter Plan of Treatment Upcoming Encounters Date Type Department Care Team (Late st Contact Info) Description 09/13/2024 Procedure Pass [address] [address] 03/27/2025 8:00 AM EST Appointment [address] [address] Rigo Lopez, SLABBING MACHINE OPERATOR 22 [facility], [address] [place] [address] jesus 05/22/2025 2:00 PM EST Office Visit [facility] Pulmonary, Allergy and Critical Care Medicine 10 [facility] [place], [place] [phone] Remy Darby MD [address] [place] [address] documented as of this encounter Visit Diagnoses Not on filedocumented in this encounter Additional Health Concerns Assessment Noted Time PHQ-9 Depression Total Score: 19 024 7:15 AM EDT PHQ-2 Depression Total Score: 5 08/27/19 24 7:15 AM EDT documented as of this encounter Care Teams Associate Director Qa Relationship Specialty Start Date End Date Rigo Lopez CNP [address] [place] [address], [address] [place] [address] jesus PCP - General Family Medicine 07/25/18 Lisa Sommers MD [address] [place] [address], [address] [place] [address] Urology 07/25/18 Smitha Simmons, RIC [address] [place] [address] Family Medicine 05/21/20 Tamara Dubon SOLVENT PLANT TREATER [address] [place] [address] 16 [place] [address] Psychiatry 03/31/21 Amisha Steen FNP [address] [place] [address] [place] [address] Nurse Practitioner 08/27/23 Divina Jade, MAGGY [address] [place] [address] iCMP Cereal ChemistPublications Distribution Clerk 01/18/25 documented as of this encounter Additional Source Comments The information contained in this document represents components of the legal health record. It is not the complete legal health record.[facility]
--- OUTSIDE RECORDS SUMMARY | 2025-02-20 06:27 | XMS_ITS | Encounter Summary ---
Author Organization [facility] Address [address] [address] Phone Care Team Providers Care Hedis Coordinator Name Role Phone Rigo Lopez MCKENNA Primary Care Provider [phone] Lisa Sommers MD Unavailable Smitha Simmons SOCIOLOGY RESEARCH ASSISTANT Unavailable Tamara Dubon SHIP WORKER Unavailable [phone] Beth Armendariz RN Unavailable [email or web address] Amisha Steen TARIFF COMPILING CLERK Unavailable [phone] Divina Jade RN Unavailable [phone] Reason for Visit * Reason Onset Date Comments Abdominal Pain 07/06/2023 X 5 days Encounter Details Date Type Department Care Team (Late st Contact Info) Description 07/06/2023 Nurse Triage [facility]ATED [facility]NAGEMENT 30 [place] [address] Beth Armendariz, MAGGY [email or web address] Abdominal Pain (X 5 days) Social History [...] st Contact Info) Description 09/13/2024 Procedure [address] [address] 03/27/2025 8:00 AM EST Appointment [address] [address] Rigo Lopez CNP 22 [facility], [address] [place] [address] jesus [email or web address] 05/22/2025 2:00 PM EST Office Visit [facility] Pulmonary, Allergy and Critical Care Medicine [address] [place] [address] [place] [address] Remy Darby MD [address] [place] [address] documented as of this encounter Visit Diagnoses Not on filedocumented in this encounter Additional Health Concerns Assessment Noted Time PHQ-9 Depression Total Score: 19 023 7:59 AM EDT PHQ-2 Depression Total Score: 2 10/28/19 23 9:48 AM EDT documented as of this encounter Care Teams Hedis Coordinator Relationship Specialty Start Date End Date Rigo Lopez CNP [address] [place] [address], [address] [place] [address] jesus PCP - General Family Medicine 07/25/18 Lisa Sommers MD [address] [facility], [address] [place] [address] [email or web address] Urology 07/25/18 Smitha Simmons, SOCIOLOGY RESEARCH ASSISTANT [address] [place] [address] Family Medicine 05/21/20 Tamara Dubon, SHIP WORKER [address] [place] [address] Psychiatry 03/31/21 Beth Armendariz RN [address] [place] [address] [email or web address] iCMP Charhouse Worker 10/05/22 Amisha Steen FNP [address] [place] [address] J[address] [place] [address] Nurse Practitioner 08/27/23 Divina Jade, RN [address] [place] [address] [email or web address] iCMP Charhouse WorkerLicensed Sales Producer 01/18/25 documented as of this encounter Additional Source Comments The information contained in this document represents components of the legal health record. It is not the complete legal health record.[facility]
--- OUTSIDE RECORDS SUMMARY | 2025-02-20 06:27 | XMS_ITS | Encounter Summary ---
Author Organization [facility] Address [address] [address] Phone Care Team Providers Care Head Of Maintenance Name Role Phone Rigo Lopez MCKENNA Primary Care Provider Lisa Sommers MD Unavailable Smitha Simmons BUSINESS CONTINUITY GLOBAL DIRECTOR Unavailable Gina Barajas PA Unavailable Reddy Valdez MD Unavailable [phone] Tamara Dubon LOCAL ANNOUNCER Unavailable Monika James MD Unavailable Alhaji Reese MD Unavailable [phone] Cesar Lester MD Unavailable [phone] Beth Armendariz RN Unavailable [email or web address] Amisha Steen LEARNING COORDINATOR Unavailable [phone] Divina Jade RN Unavailable [phone] Encounter Details Date Type Department Care Team (Late st Contact Info) Description 06/19/2021 Ancillary Orders [facility],Outside Imaging 30 [place], [place] [phone] System, Provider Not In, PhD Partners [address] [address] Social History Tobacco Use Types Packs/Day Years [...] st Contact Info) Description 09/13/2024 Procedure Pass [address] [address] 03/27/2025 8:00 AM EST Appointment [address] [address] Rigo Lopez, JOURNALISM PROFESSOR 22 [facility], [address] [place] [address] jesus 05/22/2025 2:00 PM EST Office Visit [facility] Pulmonary, Allergy and Critical Care Medicine [address] [place] [address] Remy Darby MD [address] [place] [address] documented as of this encounter Results * [...] documented as of this encounter Care Teams Head Of Maintenance Relationship Specialty Start Date End Date Rigo Lopez CNP 22 [facility], [address] [place] [address] jesus PCP - General Family Medicine 07/25/18 Lisa Sommers MD [address] [place] [address], [address] [place] [address] Urology 07/25/18 Smitha Simmons BUSINESS CONTINUITY GLOBAL DIRECTOR [address] [place] [address] Family Medicine 05/21/20 Gina Barajas PA [address] [place] [address] Tuft Machine Operator 05/21/20 08/20/22 Reddy Valdez MD 22 [facility], [address] [place] [address] Sleep Medicine 05/21/20 08/20/22 Tamara Dubon, LOCAL ANNOUNCER [address] [place] [address] 16 [place] [address] Psychiatry 03/31/21 Monika James MD 22 [facility], [address] [place] [address] Rheumatology 03/31/21 08/20/22 Alhaji Reese MD [address] [place] [address] [email or web address] Gastroenterology 05/28/21 08/20/22 Cesar Lester MD [address] [place] [address], [address] [place] [address] [email or web address] Insurance Assigned Provider 08/23/21 05/22/23 Beth Armendariz RN [address] [place] [address], [address] [place] [address] [email or web address] iCMP Member Of The Legislative [employer] 10/05/22 01/17/25 Amisha Steen FNP [address] [place] [address] Nurse Practitioner 08/27/23 Divina Jade, RN [address] [place] [address] [email or web address] iCMP Member Of The Legislative CouncilChief Librarian Work With Blind 01/18/25 documented as of this encounter Additional Source Comments The information contained in this document represents components of the legal health record. It is not the complete legal health record.[facility]
--- OUTSIDE RECORDS SUMMARY | 2025-02-20 06:27 | XMS_ITS | Encounter Summary ---
Author Organization [facility] Address [address] [address] Phone Care Team Providers Care Crisis Clinician Name Role Phone Rigo Lopez MCKENNA Primary Care Provider Lisa Sommers MD Unavailable Smitha Simmons RABBLER Unavailable [phone] Gina Barajas Unavailable Reddy Valdez MD Unavailable [phone] Tamara Dubon FALSEWORK BUILDER Unavailable Monika James MD Unavailable Alhaji Reese MD Unavailable Cesar Lester MD Unavailable [phone] Beth Armendariz RN Unavailable [email or web address] Amisha Steen MOLD CLEANING AND STORAGE SUPERVISOR Unavailable Divina Jade RN Unavailable [phone] Encounter Details Date Type Department Care Team (Late st Contact Info) Description 07/17/2021 Procedure Pass [facility], Ct Scan - [address] [id number] Social History Tobacco Use Types Packs/Day Years [...] st Contact Info) Description 09/13/2024 Procedure Pass [address] [address] 03/27/2025 8:00 AM EST Appointment [address] [address] Rigo Lopez CNP [address] [place] [address], [address] [place] [address] jesus .Global Active 05/22/2025 2:00 PM EST Office Visit [facility] Critical [facility] Medicine [address] [place] [address] Remy Darby MD [address] [place] [address] 2nd [place] [address] documented as of this encounter Visit Diagnoses Not on filedocumented in this encounter Additional Health Concerns Infection Onset Date Last Indicated Resolved Time CoV-Risk 10/09/2021 10/09/2021 10/20/2021 1:24 AM EDT Assessment Noted Time PHQ-2 Depression Total Score: 2 05/28/19 22 8:17 AM EST documented as of this encounter Care Teams Crisis Clinician Relationship Specialty Start Date End Date Rigo Lopez CNP [address] [place] [address], [address] [place] [address] jesus PCP - General Family Medicine 07/25/18 Lisa Sommers MD [address] [place] [address], [address] [place] [address] Urology 07/25/18 Smitha Simmons, RIC [address] [place] [address] Family Medicine 05/21/20 Gina Barajas PA [address] [place] [address] Compensator Worker 05/21/20 08/20/22 Reddy Valdez MD [address] [place] [address], [facility] [address] [place] [address] [email or web address] Sleep Medicine 05/21/20 08/20/22 Tamara Dubon, FALSEWORK BUILDER [address] [place] [address] 16 [place] [address] Psychiatry 03/31/21 Monika James MD [address] [place] [address], [address] [place] [address] Rheumatology 03/31/21 08/20/22 Alhaji Reese MD [address] [place] [address] Gastroenterology 05/28/21 08/20/22 Cesar Lester MD [address] [place] [address], [address] [place] [address] [email or web address] Insurance Assigned Provider 08/23/21 05/22/23 Beth Armendariz, MAGGY [address] [facility], [address] [place] [address] [email or web address] iCMP Cycle Director 10/05/22 01/17/25 Amihsa Steen, [facility] [address] [place] [address] [address] [place] [address] Nurse Practitioner 08/27/23 Divina Jade, MAGGY [address] [place], [place] [id number] [email or web address] [facility] Cycle DirectorHarness Worker 01/18/25 documented as of this encounter Additional Source Comments The information contained in this document represents components of the legal health record. It is not the complete legal health record.[facility]
--- OUTSIDE RECORDS SUMMARY | 2025-02-20 06:27 | XMS_ITS | Clinical Summary ---
Author Organization [facility] Address [address] [address] Phone Care Team Providers Care Virtual Classroom Manager Name Role Phone Cristela Alba MCKENNA Primary Care Provider [phone] Lisa Sommers MD Unavailable Smitha Simmons METAL TECHNICIAN Unavailable [phone] Tamara Dubon TAR HEEL Unavailable Amisha Steen DIRECTOR FUNDS DEVELOPMENT Unavailable Divina Jade RN Unavailable Allergies Active Allergy Reactions Criticality Noted Date Comments Arnica Rash Low 11/11/2021 Nickel Rash Low 01/31/2025 Nsaids (Non-Steroidal Anti-Inflammatory Drug) Rash Low 05/28/2021 Propofol Anaphylaxis High 10/07/2018 During ear drum patching Sulfamethoxazole-Trimetho prim Hives High 04/16/2015 Medications lysine 500 mg Tab Take by mouth daily. Active thyroid, pork, 60 mg Tab Take 60 mg by mouth daily. Active assist device for inhaler DeviIndications: Mild persistent asthma with acute exacerbation Use as directed with inhaler for asthma 1 each 2 Active zolpidem (AMBIEN) 10 mg tablet Take 10 mg by mouth nightly at bedtime as needed. 3 Active dextroamphetamin e-amphetamine (ADDERALL) 10 mg Tab tablet Take 10 [...] Take 37.5 mg by mouth. 4 Active estradioL (VIVELLE-DOT) 0.025 mg/[address] 1 patch onto the skin 2 (two) times a week. 5 Active progesterone (PROMETRIUM) 100 mg capsule Take 100 mg by mouth daily. 5 Active albuterol 90 mcg/actuation inhalerIndicatio ns:Mild persistent asthma, unspecified whether complicated Inhale 2 puffs into the lungs every 6 (six) hours as needed for wheezing or shortness of breath/dyspne a. 18 g 1 5 Active EPINEPHrine 0.3 mg/0.3 mL auto-injector Inject 0.3 mL (0.3 mg total) into the muscle as needed for anaphylaxis. 1 each 2 5 Active cyclobenzaprine (FLEXERIL) 10 MG tablet Take 10 mg by mouth 2 (two) times a day as needed (muscle spasm). 5 Active cetirizine (ZYRTEC) 10 MG tablet Take 10 mg by mouth daily. Active budesonide-formo terol 80-4.5 mcg/actuation inhaler Inhale 2 puffs into the lungs 2 (two) times a day. 10.2 g 5 5 Active triamcinolone acetonide 0.1 % cream Apply topically 2 (two) times a day. 30 g 4 02/01/20 25 Discontin ued(No longer taking) betamethasone dipropionate 0.05 % cream Apply topically daily as needed. 5 02/01/20 25 Discontin ued(No longer taking) Active Problems Patient Care Coordination No te [...] DME Vendors, Elder Services): Mental health providers. [place] [employer] Transportation: She has her own vehicle, drives herself. Medication Management System/Specialized Pharmacy Needs: TBD Financial Concerns: N/A Other Supports and Care Needs: PA for thyroid medication. Problem Noted Date Diagnosed Date Dermatitis 01/31/2025 Assessment & Plan (01/31/2025 3:55 PM EDT): Episode of pruritic erythematous rash with periorbital swelling in the spring which resolved after stopping use of protein shakes and new face wash. Unclear if it was due to a contact dermatitis which seems less likely given the appearance and time course, or rather more of an eczematous or nonspecific allergic reaction. Given that there is been no recurrence over the last 3 months, no further testing or intervention required. She certainly can rechallenge herself with low doses of hemp, flax or Kosta which were ingredients in her protein shake. Would avoid the use of the previous face wash. Seasonal allergic rhinitis due to pollen 025 Assessment & Plan (01/31/2025 3:57 PM EDT): Mild symptoms of allergic rhinitis managed well with oral antihistamines. No indication of further testing and certainly no indication for subcu immunotherapy. Can always add trial of nasal steroids if needed. Would continue daily nonsedating antihistamine given frequent oral symptoms with use of cannabis. Would consider rotating antihistamines however and avoid long-term use of only Zyrtec given recent reports of withdrawal pruritus. Medicare annual wellness visit, subsequent 08/26 Assessment & Plan (08/27/2023 9:33 AM EDT): She declines PCV20 vaccine. We discussed that she is eligible for Covid and Shingrix. Warning signs of breast cancer and breast self-awareness reviewed. Pap smears have been discontinued per ASCCP guidelines. Next screening colonoscopy 2030 per GI. She will have labs drawn through [facility] at her next visit. Screening HIV [...] by integrative medicine. Await next TSH. Mild intermittent asthma without complication Assessment & Plan (01/31/2025 3:56 PM EDT): Mild intermittent asthma with occasional albuterol use. Recommend discontinue albuterol and changed to ICS/LABA for as needed use. If becomes ill and needs regular use, can be used both as a maintenance and rescue. In the future if she were to have more significant recurrent asthma symptoms, further evaluation with spirometry would be appropriate. REBECA (obstructive sleep apnea) 03/24/2017 Pelvic floor dysfunction 08/10/2012 Assessment & Plan (08/27/2023 9:34 AM EDT): Doing pelvic floor PT [facility] with HE[facility]. Interstitial cystitis 07/22/2012 Irritable bowel [...] see if it will increase sleep at [facility]. Patient is taking Seroquel and temazepam for [...] Encounters Date Type Department Care Team Description 02/16/2025 Telephone [facility], Allergy and Critical Care Medicine [address] [place], [place] [id number] Lexy, Deborah Vortex spacer in office 02/12/[address] [facility] [address] [place] [address] 02/08/2025 Telephone [facility], Allergy [facility] Critical Care Medicine [address] [place] [address] Ewa Elaine RN 02/01/2025 Telephone [facility]ergy [facility] [address] [place] [address] Lexy Deborah Spacer sample 01/31/2025 3:00 PM EDT Office Visit [facility], Allergy [facility] Critical Care Medicine 10 [place] [address] Jimmy Swan MD Mild intermittent asthma without complication (Primary Dx); Seasonal allergic rhinitis due to pollen; Dermatitis 01/09/[address] [place] [address] Lesli Schmid LPN 01/04/2025 Patient Outreach [facility] [address] [place] [address] Beth Armendariz, MAGGY Care Coordination ([facility] Follow up outreach, [facility] transition information ) 11/30/2024 Patient Outreach [facility] [address] [place] [address] Beth Armendariz, MAGGY Care Coordination ([facility] Follow up outreach ) 11/24/2024 3:30 PM EDT Office Visit [address] [place] [address] Cristela Alba, MCKENNA Left elbow pain (Primary Dx) 11/24/2024 Orders Only [address] [place] [address] Provider, MD Mikie from Last 3 Months Immunizations Immunization Administration [...] Sign Reading Time Taken Comments Blood Pressure 106/84 01/31/2025 2:51 PM EDT Pulse 67 01/31/2025 2:51 PM EDT Temperature 36.3 C (97.3 F) 01/31/2025 2:51 PM EDT Respiratory Rate 96 01/31/2025 2:51 PM EDT Oxygen Saturation 98% 11/24/2024 3:12 PM EDT Inhaled Oxygen Concentration - - Weight 63.8 kg (140 lb 9.6 oz) 01/31/2025 2:51 P M EDT Height 157.5 cm (5' 2 ) 01/31/2025 2:51 PM EDT Body Mass Index 25.72 01/31/2025 2:51 PM EDT Plan of Treatment Upcoming Encounters Date Type Department Care Team (Late st Contact Info) Description 09/13/2024 Procedure Pass [address] [address] 03/27/2025 8:00 AM EST Appointment [address] [address] Cristela Alba, ROVING HAULER [facility], [address] [place] [address] jesus 05/22/2025 2:00 PM EST Office Visit [facility], Allergy and Critical Care Medicine 10 [facility] [place] [address] Remy Darby MD [address] [address] Health Maintenance Due Date Last Done Comments PNEUMOCOCCAL VACCINES (50+ years) (2 of 2 - PCV) 12/28/2017 12/28/2016 COLOGUARD 2018 FIT TEST 2018 FOBT 2018 SIGMOIDOSCOPY 2018 VIRTUAL COLONOSCOPY 2018 RSV VACCINE (1 - Risk 50-74 years 1-dose series) 2023 ZOSTER VACCINES (1 of 2) 2023 DEPRESSION SCREENING 08/26/2024 08/27/2023, 08/27/19 24 INFLUENZA VACCINE (#1) 2024 , 05/21/2020, 03/22/2018 COVID-19 VACCINE ( - season) 2025 04/19/2021, 09/06/2020, 08/09/2020 MAMMOGRAM 12/09/2025 [...] of the results and recommendations. Cristela Alba ROVING HAULER IMG MG EXAMS Final Res ult * Outside Glucose,Fasting (09/07/2023) Glucose, fasting - External 94 65 - 99 mg/dL Historical Provider MD LAB BLOOD ORDERABLES Татьяна l Result * Outside HDL (06/11/2021) HDL - External 71 40 - 80 mg/dL Historical Provider LAB BLOOD ORDERABLES Татьяан l Result * ENDOSCOPY, COLON (09/30/2020 1:29 PM EDT) Narrative Transcriptions Jimmy Reese MD - 09/30/2020 1:29 PM EDT Patient Name: Kaitlynnpedrito Wongon Attending MD:: JIMMY REESE MD Procedure Date: 09/30/2020 1:29 PM Date of : 1975 Age: 45 Admit Type: Outpatient Gender: Female Room: [facility] Referring MD: CRISTELA ALBA Exam Type: [...] 1:29 PM Procedure Code(s): --- Professional --- 40327, Colonoscopy, flexible; with biopsy, single or multiple --- Technical --- 78779, Colonoscopy, flexible; with biopsy, single or multiple Diagnosis Code(s): --- Professional --- K64.8, Other hemorrhoids R10.84, Generalized abdominal pain R19.4, Change in bowel habit K59.00, Constipation, unspecified Q43.8, Other specified congenital malformations of intestine --- Technical --- K64.8, Other hemorrhoids R10.84, Generalized abdominal pain R19.4, Change in bowel habit K59.00, Constipation, unspecified Q43.8, Other specified congenital malformations of intestine CPT copyright 2018 [employer]. All rights reserved. The codes documented in this report are preliminary and upon invasive manager reviewmay be revised to meet current compliance requirements. Procedure Date: 09/30/2020 1:29:00 PM [address] [place], [place] [phone] Cristela Alba CNP GI PROCEDURE ORDERABLES F inal Result * Outside Hepatitis C Virus Screening (05/28/2020) Hepatitis C Screening - External Neg Historical Provider LAB BLOOD ORDERABLES Татьяна l Result from Last 3 Months or Most Recently Relevant to Health Maintenance Insurance MEDICARE PART A & B [employer] MEDEX SUPPLEMENT MEDICARE PART A & B [employer] MED[employer] SUPPLEMENT MEDICARE PART A & B [employer] MEDEX SUPPLEMENT MEDICARE PART A & B [employer] MEDEX SUPPLEMENT MEDICARE PART A & B [employer] MEDEX SUPPLEMENT MEDICARE PART A & B [employer] MEDEX SUPPLEMENT MEDICARE PART A & B [facility] MEDEX SUPPLEMENT MEDICARE PART A & B [employer] MEDEX SUPPLEMENT MEDICARE PART A & B [employer] MEDEX SUPPLEMENT Care Teams Virtual Classroom Manager Relationship Specialty Start Date End Date Cristela Alba CNP [address] [place] [address], [address] [place] [address] jesus PCP - General Family Medicine 07/25/18 Lisa Sommers MD [address] [facility], [address] [place] [address] Urology 07/25/18 Smitha Simmons, METAL TECHNICIAN [address] [place] [address] Family Medicine 05/21/20 Tamara Dubon, TAR HEEL [address] [place] [address] Psychiatry 03/31/21 Amisha Steen FNP [address] [place] [address] Nurse Practitioner 08/27/23 Divina Jade, RN 10 [place] [address] [email or web address] iCMP Radiation Protection TechnicianTypewriter Operator Automatic 01/18/25 Additional Source Comments The information contained in this document represents components of the legal health record. It is not the complete legal health record.[facility]
--- OUTSIDE RECORDS SUMMARY | 2025-02-20 06:27 | XMS_ITS | Encounter Summary ---
Author Organization [facility] Address [address] [place] [address] Phone Care Team Providers Care Record Retrieval Specialist Name Role Phone Rigo Lopez MCKENNA Primary Care Provider Lisa Sommers MD Unavailable Smitha Simmons GLASS GLAZIER Unavailable Gina Barajas Unavailable Reddy Valdez MD Unavailable [phone] Tamara Dubon ACCOUNT SPECIALIST Unavailable Monika James MD Unavailable [phone] Alhaji Reese MD Unavailable [phone] Cesar Lester MD Unavailable [phone] Beth Armendariz RN Unavailable [email or web address] Amisha Steen FIREPOT OPERATOR AND TENDER Unavailable [phone] Divina Jade RN Unavailable [phone] Encounter Details Date Type Department Care Team (Late st Contact Info) Description 07/10/2021 Procedure Pass [facility], [address] [id number] Social History Tobacco Use Types Packs/Day Years [...] st Contact Info) Description 09/13/2024 Procedure Pass [address] [address] 03/27/2025 8:00 AM EST Appointment [address] [address] Rigo Lopez CNP [address] [place] [address], [address] [place] [address] jesus 05/22/2025 2:00 PM EST Office Visit [facility], Allergy and Critical Care Medicine 10 [place] [address] Remy Darby MD [address] [place] [address] 2nd [place] [address] documented as of this encounter Visit Diagnoses Not on filedocumented in this encounter Additional Health Concerns Infection Onset Date Last Indicated Resolved Time CoV-Risk 10/09/2021 10/09/2021 10/20/2021 1:24 AM EDT Assessment Noted Time PHQ-2 Depression Total Score: 2 05/28/19 22 8:17 AM EST documented as of this encounter Care Teams Record Retrieval Specialist Relationship Specialty Start Date End Date Rigo Lopez CNP [address] [place] [address], [address] [place] [address] jesus PCP - General Family Medicine 07/25/18 Lisa Sommers MD [address] [place] [address], [address] [place] [address] Urology 07/25/18 Smitha Simmons, RIC [address] [place] [address] Family Medicine 05/21/20 Gina Barajas PA [address] [place] [address] Egg Trayer 05/21/20 08/20/22 Reddy Valdez MD [address] [place] [address], [address] [place] [address] [email or web address] Sleep Medicine 05/21/20 08/20/22 Tamara Dubon, ACCOUNT SPECIALIST [address] [place] [address] 16 [place] [address] Psychiatry 03/31/21 Monika James MD [address] [place] [address], [address] [place] [address] [email or web address] Rheumatology 03/31/21 08/20/22 Alhaji Reese MD [address] [place] [address] Gastroenterology 05/28/21 08/20/22 Cesar Lester MD [address] [place] [address], [address] [place] [address] [email or web address] Insurance Assigned Provider 08/23/21 05/22/23 Beth Armendariz, MAGGY [address] [facility], [address] [place] [address] [email or web address] Oral And Maxillofacial Surgery Resident 10/05/22 01/17/25 Amisha Steen, [facility] [address] [place] [address] Drive [address] [place] [address] Nurse Practitioner 08/27/23 Divina Jade, MAGGY 10 [place], [place] [id number] [email or web address] iCMP Oral And Maxillofacial Surgery ResidentVp Training 01/18/25 documented as of this encounter Additional Source Comments The information contained in this document represents components of the legal health record. It is not the complete legal health record.[facility]
--- OUTSIDE RECORDS SUMMARY | 2025-02-20 06:27 | XMS_ITS | Encounter Summary ---
Author Organization [facility] Address [address] [address] Phone Care Team Providers Care Endoscope Technician Name Role Phone Rigo Lopez MCKENNA Primary Care Provider Lisa Sommers MD Unavailable Smitha Simmons MANAGER TRADING Unavailable [phone] Gina Barajas Unavailable [phone] Reddy Valdez MD Unavailable [phone] Tamara Dubon WOUND CARE COORDINATOR Unavailable Monika James MD Unavailable Alhaji Reese MD Unavailable [phone] Cesar Lester MD Unavailable [phone] Beth Armendariz RN Unavailable [email or web address] Amisha Steen MANAGER ECONOMIC Unavailable [phone] Divina Jade RN Unavailable [phone] Encounter Details Date Type Department Care Team (Late st Contact Info) Description 06/16/2021 Procedure Pass [facility], Ct Scan - [address] [id number] Social History Tobacco Use Types Packs/Day Years [...] Author No Risk Indicated 06/17/2021 2:02 PM Adalgisa Gonzalez CNP * [place] Suicide Severity Rating Scale (Screener/Recent Self-Report) Question Answer Date of Assessment Author 1. Wish to be (Past 1 Month) No 06/17/2021 2:02 PM Adalgisa Gonzalez CNP 2. Non-Specific Active Suicidal Thoughts (Past 1 Month) No 06/17/2021 2:02 PM Adalgisa Gonzalez CNP 6. Suicidal Behavior (Lifetime) No 06/17/2021 2:02 PM Adalgisa Gonzalez CNP documented as of this encounter Plan of Treatment Upcoming Encounters Date Type Department Care Team (Late st Contact Info) Description 09/13/2024 Procedure Pass [address] [address] 03/27/2025 8:00 AM EST Appointment [address] [address] Rigo Lopez CNP [address] [facility], [address] [place] [address] jesus 05/22/2025 2:00 PM EST Office Visit [facility] All[facility] Critical [facility] Medicine 10 [place] [address] Remy Darby MD [address] [place] [id number] [email or web address] documented as of this encounter Visit Diagnoses Not on filedocumented in this encounter Additional Health Concerns Infection Onset Date Last Indicated Resolved Time CoV-Risk 10/09/2021 10/09/2021 10/20/2021 1:24 AM EDT Assessment Noted Time PHQ-2 Depression Total Score: 2 05/28/19 22 8:17 AM EST documented as of this encounter Care Teams Endoscope Technician Relationship Specialty Start Date End Date Rigo Lopez CNP [address] [place] [address], [address] [place] [address] jesus [email or web address] PCP - General Family Medicine 07/25/18 Lisa Sommers MD [address] [place] [address], [address] [place] [address] Urology 07/25/18 Smitha Simmons MANAGER TRADING [address] [place] [address] Family Medicine 05/21/20 Gina Barajas PA [address] [place] [address] Sulfuric Acid Plant Supervisor 05/21/20 08/20/22 Reddy Valdez MD [address] [place] [address], [address] [place] [address] [email or web address] Sleep Medicine 05/21/20 08/20/22 Tamara Dubon CNS [address] [place] [address] 16 [place] [address] Psychiatry 03/31/21 Monika James MD [address] [place] [address], [address] [place] [address] [email or web address] Rheumatology 03/31/21 08/20/22 Alhaji Reese MD [address] [place] [address] [email or web address] Gastroenterology 05/28/21 08/20/22 Cesar Lester MD [address] [place] [address], [address] [place] [address] [email or web address] Insurance Assigned Provider 08/23/21 05/22/23 Beth Armendariz RN [address] [place] [address], [address] [place] [address] [email or web address] iCMP As400 Analyst 10/05/22 01/17/25 Amisha Steen FNP [address] [place] [address] Nurse Practitioner 08/27/23 Divina Jade, RN [address] [place] [address] [email or web address] iCMP As400 AnalystCommunity Health Nurse Supervisor 01/18/25 documented as of this encounter Additional Source Comments The information contained in this document represents components of the legal health record. It is not the complete legal health record.[facility]
--- OUTSIDE RECORDS SUMMARY | 2025-02-20 06:27 | XMS_ITS | Encounter Summary ---
Author Organization [facility] Address [address] [address] Phone Care Team Providers Care Lotus Notes Developer Name Role Phone Rigo Lopez MCKENNA Primary Care Provider Lisa Sommers MD Unavailable [phone] Smitha Simmons CALENDER ROLL OPERATOR Unavailable Tamara Dubon CRM CAMPAIGN MANAGER Unavailable [phone] Cesar Lester MD Unavailable [phone] Beth Armendariz RN Unavailable [email or web address] Amisha Steen OPERATIONS CONTROLLER Unavailable [phone] Divina Jade RN Unavailable [phone] Encounter Details Date Type Department Care Team (Late st Contact Info) Description 08/21/2022 Procedure Pass [facility], [facility] [address] [place] [address] Social History Tobacco Use Types Packs/Day Years [...] st Contact Info) Description 09/13/2024 Procedure Pass [facility], [address] [address] 03/27/2025 8:00 AM EST Appointment [address] [address] Rigo Lopez CNP 22 [facility], [address] [place] [address] jesus 05/22/2025 2:00 PM EST Office Visit CD Pulmonary, Allergy and Critical Care Medicine [address] [place] [address] [place], [place] [id number] Remy Darby MD [address] [place] [address] documented as of this encounter Visit Diagnoses Not on filedocumented in this encounter Additional Health Concerns Assessment Noted Time PHQ-9 Depression Total Score: 19 023 7:59 AM EDT PHQ-2 Depression Total Score: 6 08/20/19 23 7:59 AM EDT documented as of this encounter Care Teams Lotus Notes Developer Relationship Specialty Start Date End Date Rigo Lopez CNP [address] [place] [address], [address] [place] [address] jesus PCP - General Family Medicine 07/25/18 Lisa Sommers MD [address] [place] [address], [address] [place] [address] Urology 07/25/18 Smitha Simmons CALENDER ROLL OPERATOR [address] [place] [address] Family Medicine 05/21/20 Tamara Dubon CNS [address] [place] [address] 16 [place] [address] Psychiatry 03/31/21 Cesar Lester MD [address] [place] [address], [address] [place] [address] [email or web address] Insurance Assigned Provider 08/23/21 05/22/23 Beth Armendariz RN [address] [place] [address], [address] [place] [address] [email or web address] iCMP Live Truck Technician 10/05/22 01/17/25 Amisha Steen FNP [address] [place] [address] Nurse Practitioner 08/27/23 Divina Jade, RN [address] [place] [phone] [email or web address] iCMP Live Truck TechnicianChief Crna 01/18/25 documented as of this encounter Additional Source Comments The information contained in this document represents components of the legal health record. It is not the complete legal health record.[facility]
--- OUTSIDE RECORDS SUMMARY | 2025-02-20 06:27 | XMS_ITS | Encounter Summary ---
Author Organization [facility] Address [address] [address] Phone Care Team Providers Care Rn Midwife Name Role Phone Rigo Lopez MCKENNA Primary Care Provider [phone] Lisa Sommers MD Unavailable Kuldeep Pérez Unavailable [phone] Smitha Simmons SOLO MUSICIAN Unavailable Gina Barajas Unavailable Reddy Valdez MD Unavailable [phone] Ling Tamara A SECURITY PUBLIC SAFETY OFFICER Unavailable Monika James MD Unavailable Alhaji Reese MD Unavailable [phone] Cesar Lester MD Unavailable [phone] Beth Armendariz RN Unavailable [email or web address] Amisha SteenP Unavailable Divina Jade RN Unavailable Encounter Details Date Type Department Care Team (Late st Contact Info) Description 03/09/2021 Procedure Pass [facility], Ct Scan - [address] [address] Social History Tobacco Use Types Packs/Day Years [...] Risk Indicated 03/09/2021 6:16 AM EDT Vinny Marquez RN * [place] Suicide Severity Rating Scale (Screener/Recent Self-Report) Question Answer Date of Assessment Author 1. Wish to be (Past 1 Month) No 021 6:16 AM Vinny Newton RN 2. Non-Specific Active Suici gonsalo Thoughts (Past 1 Month) No 03/09/2021 6:16 AM Luis Newton, MAGGY 6. Suicidal Behavior (Lifetime) No 6:16 AM Vinny Newton, MAGGY documented as of this encounter Plan of Treatment Upcoming Encounters Date Type Department Care Team (Late st Contact Info) Description 09/13/2024 Procedure Pass [address] [address] 03/27/2025 8:00 AM EST Appointment [address] [address] Rigo Lopez, LACQUER COATER [address], [address] [place] [address] jesus 05/22/2025 2:00 PM EST Office Visit [facility] Pulmonary, Allergy and Critical Care Medicine 10 [facility] A [place] [address] Remy Darby MD [address] [place] [address] 2[address] [place] [address] documented as of this encounter Visit Diagnoses Not on filedocumented in this encounter Additional Health Concerns Infection Onset Date Last Indicated Resolved Time CoV-Risk 10/09/2021 10/09/2021 10/20/2021 1:24 AM EDT Assessment Noted Time PHQ-2 Depression Total Score: 2 05/18/19 21 11:52 AM EST documented as of this encounter Care Teams Rn Midwife Relationship Specialty Start Date End Date Rigo Lopez CNP 22 [facility], [address] [place] [address] jesus [email or web address] PCP - General Family Medicine 07/25/18 Lisa Sommers MD [address] [place] [address], [address] [place] [address] [email or web address] Urology 07/25/18 Kuldeep Pérez PA [address] [place] [address], [address] [place] [address] [email or web address] 05/21/20 03/30/21 Smitha Simmons NP [address] [place] [address] Family Medicine 05/21/20 Gina Barajas PA [address] [place] [address] Senior Consultant 05/21/20 08/20/22 Reddy Valdez MD 22 [facility], [address] [place] [address] Sleep Medicine 05/21/20 08/20/22 Tamara Dubon, RUSS [address] [place] [address] 16 [place] [address] Psychiatry 03/31/21 Monika James MD [address] [place] [address], [address] [place] [address] Rheumatology 03/31/21 08/20/22 Alhaji Reese MD [address] [place] [address] [email or web address] Gastroenterology 05/28/21 08/20/22 Cesar Lester MD [address] [place] [address], [address] [place] [address] [email or web address] Insurance Assigned Provider 08/23/21 05/22/23 Beth Armendariz, MAGGY [address] [place] [address], [address] [place] [address] [email or web address] iCMP Cone Cleaner 10/05/22 01/17/25 Amisha Steen FNP [address] [place] [address] Nurse Practitioner 08/27/23 Divina Jade, MAGGY [address] [place] [address] [email or web address] iCMP Cone CleanerAccount Manager Trainee 01/18/25 documented as of this encounter Additional Source Comments The information contained in this document represents components of the legal health record. It is not the complete legal health record.[facility]
--- OUTSIDE RECORDS SUMMARY | 2025-02-20 06:27 | XMS_ITS | Encounter Summary ---
Author Organization [facility] Address [address] [address] Phone Care Team Providers Care Health And Human Performance Professor Name Role Phone Rigo Lopez [facility] Unavailable Alhaji Martinez MD Unavailable [phone] Rigo Lopez [facility] Primary Care Provider [phone] Harvinder Vallejo MD Unavailable [phone] Rigo Lopez [facility] Primary Care Provider Alhaji Martinez MD Unavailable Lisa Sommers MD Unavailable [phone] Cesar Lester MD Unavailable [phone] Kuldeep Pérez PA Unavailable Smitha Simmons CURRICULUM AND ASSESSMENT COORDINATOR Unavailable Gina Barajas PA Unavailable Redyd Valdez MD Unavailable [phone] Tamara Dubon FINISHER OPERATOR Unavailable Monika James MD Unavailable Alhaji Reese MD Unavailable [phone] Cesar Lester MD Unavailable [phone] Beth Armendariz RN Unavailable [email or web address] Amisha Steen SITE SAFETY MANAGER Unavailable [phone] Divina Jade RN Unavailable [phone] Reason for Referral * Physical Therapy (Routine) - Closed Specialty Diagnoses / Procedures Referred By Contac t Referred To Contact Physical Therapy Diagnoses Pelvic floor dysfunction System, Provider Not In, PhD [facility] [address] [address] Phone: tel: Referral ID Status Reason Start Date Expiration Date Visits Re quested Visits Authorized [id number] Closed 11/16/2017 05/16/2018 99 99 Encounter Details Date Type Department Care Team (Latest Contact Info) Description 11/16/2017 Transcribe Orders [facility] [address] [place] [address] Kobi Bradley MD [address] [place] [address] Pelvic floor dysfunction (Primary Dx) Social History [...] st Contact Info) Description 09/13/2024 Procedure Pass [address] [address] 03/27/2025 8:00 AM EST Appointment [address] [address] Rigo Lopez, MULTIPLE EFFECT EVAPORATOR OPERATOR 22 [facility], [address] [place] [address] jesus 05/22/2025 2:00 PM EST Office Visit [facility] Pulmonary, Allergy and Critical Care Medicine 10 [place] [address] Remy Darby MD [address] [address] documented as of this encounter Procedures Procedure Name Priority Date/Time Associated Diagnosis Comments AMB REFERRAL TO [facility] PHYSICAL [facility]ERAPY Routine 12/02/2017 10:52 AM EDT Pelvic floor dysfunction documented in this encounter Results * Ambulatory referral to [facility] Physical Therapy (12/02/2017 10:52 AM EDT) us Provider Not In System PhD AMB [facility] REFERRALS Fin al Result documented in this encounter Visit Diagnoses Diagnosis Pelvic floor dysfunction- Primary Visit for screening mammogram documented in this encounter Additional Health Concerns Infection Onset Date Last Indicated Resolved Time CoV-Risk 09/18/2019 09/18/2019 10/02/2019 1:23 AM EDT CoV-Risk 10/09/2021 10/09/2021 10/20/2021 1:24 AM EDT documented as of this encounter Care Teams Health And Human Performance Professor Relationship Specialty Start Date End Date Alhaji Martinez MD [address] [place] [address] [email or web address] PCP - Internal Medicine Rheumatology 03/24/17 9 Rigo Lopez CNP 22 [facility], [address] [place] [address] jesus PCP - General Family Medicine 03/24/17 07/24/18 Rigo Lopez CNP 22 [facility], [address] [place] [address] jesus [email or web address] PCP - General Family Medicine 07/25/18 Rigo Lopez CNP [address] [place] [address], [address] [place] [address] jesus Historical LMR Provider 03/06/17 Harvinder Vallejo MD [address] [place] [address], [address] [place] [address] [email or web address] Internal Medicine 04/19/18 05/20/20 Alhaji Martinez MD [address] [place] [address] [email or web address] Rheumatology 07/25/18 05/20/20 Lisa Sommers MD [address] [place] [address], [address] [place] [address] [email or web address] Urology 07/25/18 Cesar Lester MD [address] [place] [address], [address] [place] [address] [email or web address] Insurance Assigned Provider 02/11/19 05/25/20 Kuldeep Pérez PA [address] [place] [address], [address] [place] [address] [email or web address] 05/21/20 03/30/21 Smitha Simmons NP [address] [place] [address] Family Medicine 05/21/20 Gina Barajas PA [address] [place] [address] High School Academic Coach 05/21/20 08/20/22 Reddy Valdez MD [address] [place] [address], [address] [place] [address] [email or web address] Sleep Medicine 05/21/20 08/20/22 Tamara Dubon, FINISHER OPERATOR [address] [place] [address] 16 [place] [address] Psychiatry 03/31/21 Monika James MD [address] [place] [address], [address] [place] [address] Rheumatology 03/31/21 08/20/22 Alhaij Reese MD [address] [place] [address] [email or web address] Gastroenterology 05/28/21 08/20/22 Cesar Lester MD [address] [place] [address], [address] [place] [address] [email or web address] Insurance Assigned Provider 08/23/21 05/22/23 Beth Armendariz RN [address] [place] [address] [email or web address] iCMP Clerical Adjudicator 10/05/22 01/17/25 Amisha Steen FNP [address] [place] [address] 205 [place] [address] Nurse Practitioner 08/27/23 Divina Jade, RN [address] [place] [address] [email or web address] iCMP Clerical AdjudicatorMusical String Maker 01/18/25 documented as of this encounter Additional Source Comments The information contained in this document represents components of the legal health record. It is not the complete legal health record.[facility]
--- OUTSIDE RECORDS SUMMARY | 2025-02-20 06:27 | XMS_ITS | Encounter Summary ---
Author Organization [facility] Address [address] [address] Phone Care Team Providers Care Oil Spraying Machine Operator Name Role Phone Rigo Lopez MCKENNA Primary Care Provider [phone] Lisa Sommers MD Unavailable [phone] Kuldeep Pérez Unavailable Smitha Simmons CHARM FILTER OPERATOR HELPER Unavailable Gina Barajas PA Unavailable Reddy Valdez MD Unavailable [phone] Ling Tamara A MILL SUPERVISOR Unavailable Monika James MD Unavailable [phone] Alhaji Reese MD Unavailable [phone] Cesar Lester MD Unavailable [phone] Beth Armendariz RN Unavailable [email or web address] Amisha Steen MITER SAW OPERATOR Unavailable Divina Jade RN Unavailable [phone] Encounter Details Date Type Department Care Team (Late st Contact Info) Description 09/30/2020 Procedure Pass [facility] Endoscopy Admitting Dept Virtual Department 30 [place] [address] Social History Tobacco Use Types [...] st Contact Info) Description 09/13/[address] [address] 03/27/2025 8:00 AM EST Appointment [address] [address] Rigo Lopez CNP [address] [place] [address], [address] [place] [address] [email or web address] [email or web address] 05/22/2025 2:00 PM EST Office Visit [facility] Pulmonary, Allergy and Critical Care Medicine [address] [place] [address] Remy Darby MD [address] [place] [address] documented as of this encounter Visit Diagnoses Not on filedocumented in this encounter Additional Health Concerns Infection Onset Date Last Indicated Resolved Time CoV-Risk 10/09/2021 10/09/2021 10/20/2021 1:24 AM EDT Assessment Noted Time PHQ-2 Depression Total Score: 2 05/18/19 21 11:52 AM EST documented as of this encounter Care Teams Oil Spraying Machine Operator Relationship Specialty Start Date End Date Rigo Lopez CNP [address] [place] [address], [address] [place] [address] jesus PCP - General Family Medicine 07/25/18 Lisa Sommers MD [address] [place] [address], [address] [place] [address] Urology 07/25/18 Kuldeep Pérez PA [address] [place] [address], [address] [place] [address] [email or web address] 05/21/20 03/30/21 Smitha Simmons NP [address] [place] [address] Family Medicine 05/21/20 Gina Barajas PA [address] [place] [address] Rotary Machine Operator 05/21/20 08/20/22 Reddy Valdez MD [address] [place] [address] Sleep Medicine 05/21/20 08/20/22 Tamara Dubon, MILL SUPERVISOR [address] [place] [address] 16 [place] [address] Psychiatry 03/31/21 Monika James MD [address] [place] [address] 203 [place] [address] Rheumatology 03/31/21 08/20/22 Alhaji Reese MD [address] [place] [address] [email or web address] Gastroenterology 05/28/21 08/20/22 Cesar Lester MD [address] [place] [address], [address] [place] [address] [email or web address] Insurance Assigned Provider 08/23/21 05/22/23 Beth Armendariz RN [address] [place] [address], [address] [place] [address] [email or web address] iCMP Food Service Attendant 10/05/22 01/17/25 Amisha Steen, TRACY [address] [place] [address] Nurse Practitioner 08/27/23 Divina Jade, RN [address] [place] [address] [email or web address] iCMP Food Service AttendantVolcanology Professor 01/18/25 documented as of this encounter Additional Source Comments The information contained in this document represents components of the legal health record. It is not the complete legal health record.[facility]
--- OUTSIDE RECORDS SUMMARY | 2025-02-20 06:27 | XMS_ITS | Encounter Summary ---
Author Organization [facility] Address [address] [address] Phone Care Team Providers Care General Car Yard Supervisor Name Role Phone Rigo Lopez MCKENNA Primary Care Provider [phone] Lisa Sommers MD Unavailable Smitha Simmons CARTON REPAIRER Unavailable [phone] Tamara Dubon HUMAN RESOURCES ANALYST Unavailable Beth Armendariz RN Unavailable [email or web address] Amisha Steen CLOUD CONSULTANT Unavailable Divina Jade RN Unavailable [phone] Encounter Details Date Type Department Care Team (Late st Contact Info) Description 06/25/2023 Procedure Pass [facility], [facility] [address] [place] [address] Social History Tobacco Use Types Packs/Day Years [...] Contact Info) Description 09/13/2024 Procedure Pass [address] [address] 03/27/2025 8:00 AM EST Appointment [address] [address] Rigo Lopez CNP [address] [place] [address], [address] [place] [address] jesus [email or web address] 05/22/2025 2:00 PM EST Office Visit [facility] Pulmonary, Allergy and Critical Care Medicine 10 [place] [address] Remy Darby MD 10 [facility] 2nd [place] [address] documented as of this encounter Visit Diagnoses Not on filedocumented in this encounter Additional Health Concerns Assessment Noted Time PHQ-9 Depression Total Score: 19 024 7:15 AM EDT PHQ-2 Depression Total Score: 5 08/27/19 24 7:15 AM EDT documented as of this encounter Care Teams General Car Yard Supervisor Relationship Specialty Start Date End Date Rigo Lopez CNP [address] [place] [address], [address] [place] [address] jesus PCP - General Family Medicine 07/25/18 Lisa Sommers MD [address] [place] [address], [address] [place] [address] [email or web address] Urology 07/25/18 Smitha Simmons, CARTON REPAIRER [address] [place] [address] Family Medicine 05/21/20 Tamara Dubon, HUMAN RESOURCES ANALYST [address] [place] [address] Psychiatry 03/31/21 Beth Armendariz RN [address] [place] [address] [email or web address] iCMP Bus Person 10/05/22 Amisha Steen FNP [address] [place] [address] Nurse Practitioner 08/27/23 Divina Jade, RN [address] [place] [phone] [email or web address] iCMP Bus PersonGlass Processing Worker 01/18/25 documented as of this encounter Additional Source Comments The information contained in this document represents components of the legal health record. It is not the complete legal health record.[facility]
--- OUTSIDE RECORDS SUMMARY | 2025-02-20 06:27 | XMS_ITS | Encounter Summary ---
Author Organization [facility] Address [address] [address] Phone Care Team Providers Care Wrapper Hand Name Role Phone Rigo Lopez CNP Unavailable Harvinder Vallejo MD Unavailable [phone] Rigo Lopez CNP Primary Care Provider [phone] Alhaji Martinez MD Unavailable Lisa Sommers MD Unavailable Cesar Lester MD Unavailable [phone] Kuldeep Pérez PA Unavailable Smitha Simmons BACK UP WORKER Unavailable Gina Barajas PA Unavailable Reddy Valdez MD Unavailable [phone] Tamara Dubon RN ON SITE Unavailable Monika James MD Unavailable Alhaji Reese MD Unavailable [phone] Cesar Lester MD Unavailable [phone] Beth Armendariz RN Unavailable [email or web address] Amisha Steen LOG TURNER Unavailable Divina Jade RN Unavailable [phone] Reason for Referral * Physical Therapy (Routine) - Closed Specialty Diagnoses / Procedures Referred By Cruz falcon Referred To Contact Physical Therapy Diagnoses Encounter for rehabilitation Kobi Bradley MD Phone: tel: fax: [address] [address] Phone: tel: Referral ID Status Reason Start Date Expiration Date Visits Re quested Visits Authorized [id number] Closed 05/31/2019 05/31/2020 99 99 Encounter Details Date Type Department Care Team (Latest Contact Info) Description 05/31/2019 Transcribe Orders [facility] Rehabilitation Services [address] [place] [address] Kobi Bradley MD [address] [place] [address] Encounter for rehabilitation (Primary Dx) Social History [...] st Contact Info) Description 09/13/2024 Procedure Pass [address] [address] 03/27/2025 8:00 AM EST Appointment [address] [address] Rigo Lopez CNP [address] [facility], [address] [place] [address] jesus 05/22/2025 2:00 PM EST Office Visit [facility] Pulmonary, Allergy and Critical Care Medicine 10 Main [facility] [place] [address] Remy Darby MD [address] [place] [address] documented as of this encounter Procedures Procedure Name Priority Date/Time Associated Diagnosis Comments AMB REFERRAL TO [facility] PHYSICAL THERAPY Routine 06/14/2019 3:15 PM EST Encounter for rehabilitation documented in this encounter Results * Ambulatory referral to [facility] Physical Therapy (06/14/2019 3:15 PM EST) Kobi Bradley MD AMB [facility] REFERRALS Final Result documented in [...] documented as of this encounter Care Teams Wrapper Hand Relationship Specialty Start Date End Date Rigo Lopez CNP [address] [facility], [address] [place] [address] [email or web address] [email or web address] PCP - General Family Medicine 07/25/18 Rigo Lopez CNP [address] [facility] [place] [address] [email or web address] Historical LMR Provider 03/06/17 Harvinder Vallejo MD [address] [place] [address], [address] [place] [address] [email or web address] Internal Medicine 04/19/18 05/20/20 Alhaji Martinez MD [address] [place] [address] 1 [place] [address] [email or web address] Rheumatology 07/25/18 05/20/20 Lisa Sommers MD [address] [place] [address], [address] [place] [address] [email or web address] Urology 07/25/18 Cesar Lester MD [address] [place] [address], [address] [place] [address] [email or web address] Insurance Assigned Provider 02/11/19 05/25/20 Kuldeep Pérez PA [address] [place] [address], [address] [place] [address] [email or web address] 05/21/20 03/30/21 Smitha Simmons NP [address] [place] [address] Family Medicine 05/21/20 Gina Barajas PA [address] [place] [address] Insurance Sales Assistant 05/21/20 08/20/22 Reddy Valdez MD [address] [place] [address], [address] [place] [address] Sleep Medicine 05/21/20 08/20/22 Tamara Dubon, RN ON SITE [address] [place] [address] 16 [place] [address] Psychiatry 03/31/21 Monika James MD [address] [place] [address], [address] [place] [address] Rheumatology 03/31/21 08/20/22 Alhaji Reese MD [address] [place] [address] [email or web address] Gastroenterology 05/28/21 08/20/22 Cesar Lester MD [address] [place] [address], [address] [place] [address] [email or web address] Insurance Assigned Provider 08/23/21 05/22/23 Beth Armendariz, MAGGY [address] [place] [address] [email or web address] iCMP Heel Packer 10/05/22 01/17/25 Amisha Steen FNP [address] [place] [address] Nurse Practitioner 08/27/23 Divina Jade, MAGGY [address] [place] [address] [email or web address] iCMP Heel PackerWedding Designer 01/18/25 documented as of this encounter Additional Source Comments The information contained in this document represents components of the legal health record. It is not the complete legal health record.[facility]
--- OUTSIDE RECORDS SUMMARY | 2025-02-20 06:27 | XMS_ITS | Clinical Summary ---
Author Organization [facility] Address [address] [place] [address] Care Team Providers Care Director Of Annual Giving Name Role Phone Unavailable Primary Care Provider [...] Advance Directives For more information, please contact: [phone] Documents on File Type Date Recorded Patient Lead Producer Expl anation Advance Directive and Living Will 04/23/2015 Latest Code Status on File Code Status Date Activated Date Inactivated Comments Full Code 04/16/2015 6:34 PM 04/19/2015 7:40 PM This code status was ascertained in the following way: per unit protocol.
--- OUTSIDE RECORDS SUMMARY | 2025-02-20 06:27 | XMS_ITS | Encounter Summary ---
Author Organization [facility] Address [address] [place] [address] Phone Care Team Providers Care Concrete Plant Laborer Name Role Phone Rigo Lopez MCKENNA Primary Care Provider Lisa Sommers MD Unavailable [phone] Smitha Simmons COMMERCIAL PRINT SALESMAN Unavailable Gina Barajas Unavailable Reddy Valdez MD Unavailable [phone] Tamara Dubon BODYWORK THERAPIST Unavailable Monika James MD Unavailable [phone] Alhaji Reese MD Unavailable [phone] Cesar Lester MD Unavailable [phone] Beth Armendariz RN Unavailable [email or web address] Amisha Steen SEED CLEANING MACHINE OPERATOR Unavailable [phone] Divina Jade RN Unavailable [phone] Encounter Details Date Type Department Care Team (Late st Contact Info) Description 01/21/2022 Procedure Pass [facility], [address] [id number] Social History Tobacco Use Types Packs/Day Years [...] Contact Info) Description 09/13/2024 Procedure [address] [address] 03/27/2025 8:00 AM EST Appointment [address] [address] Rigo Lopez CNP 22 [facility], [address] [place] [address] [email or web address] [email or web address] 05/22/2025 2:00 PM EST Office Visit [facility] Pulmonary, Allergy and Critical Care Medicine 10 [place] [address] Remy Darby MD 10 [facility] [address] [address] documented as of this encounter Visit Diagnoses Not on filedocumented in this encounter Additional Health Concerns Assessment Noted Time PHQ-2 Depression Total Score: 2 05/28/19 22 8:17 AM EST documented as of this encounter Care Teams Concrete Plant Laborer Relationship Specialty Start Date End Date Rigo Lopez CNP [address] [place] [address], [address] [place] [address] jesus PCP - General Family Medicine 07/25/18 Lisa Sommers MD [address] [place] [address], [address] [place] [address] [email or web address] Urology 07/25/18 Smitha Simmons, COMMERCIAL PRINT SALESMAN [address] [place] [address] Family Medicine 05/21/20 Gina Barajas PA [address] [place] [address] Fiscal Accountant 05/21/20 08/20/22 Reddy Valdez MD [address] [place] [address] [address] [place] [address] [email or web address] Sleep Medicine 05/21/20 08/20/22 Tamara Dubon, BODYWORK THERAPIST [address] [place] [address] 16 [place] [address] Psychiatry 03/31/21 Monika James MD [address] [place] [address], [facility] [address] [place] [address] [email or web address] Rheumatology 03/31/21 08/20/22 Alhaji Reese MD [address] [place] [address] Gastroenterology 05/28/21 08/20/22 Cesar Lester MD [address] [place] [address], [address] [place] [address] [email or web address] Insurance Assigned Provider 08/23/21 05/22/23 Beth Armendariz, MAGGY 22 [facility], [address] [place] [address] [email or web address] iCMP Package Sorter 10/05/22 01/17/25 Amisha Steen, TRACY [address] [place] [address] Jai [address] [place] [address] Nurse Practitioner 08/27/23 Divina Jade, MAGGY [address] [place] [id number] [email or web address] iCMP Package SorterPumpman 01/18/25 documented as of this encounter Additional Source Comments The information contained in this document represents components of the legal health record. It is not the complete legal health record.[facility]
== END 2025-02-20 06:25 | disposition home or self-care (01) ==
LOC: CF 06:24
PROVIDERS: Visit Provider Anesthesiology
DX: M53.3 Sacrococcygeal disorders, not elsewhere classified (principal); M70.61 Trochanteric bursitis, right hip; M54.59 Other low back pain; M25.551 Pain in right hip
CPT/HCPCS: 20610; 27096; J2795; J3301; Q9967

== ENCOUNTER 2025-02-20 13:53 | Outpatient (AMB) | payer MEDICARE, SELFPAY ==
--- NOTE | 2025-02-20 14:07 | MHC.OFFVIS ---
Vital Signs 02/20/25 14:08 02/20/25 14:57 Height 5 ft 2 in Weight 138 lb BMI 25.2 BP 121/69 127/66 Blood Pressure Location Lt brachial Lt brachial Position Sitting Sitting Respiration 16 16 Pulse 77 86 Pulse Source Pulse Oximeter Pulse Oximeter Pulse Oximetry (%) 99 97 Oxygen Delivery Method Room Air Room Air Intake Visit Reasons: Right TX SIJ Inj/Right TX GTB Inj Allergies sulfamethoxazole (From BACTRIM) Allergy (Intermediate, Verified 01/12/25 08:38) hives trimethoprim (From BACTRIM) Allergy (Intermediate, Verified 01/12/25 08:38) hives propranolol Allergy (Unknown, Verified 01/12/25 08:38) Unknown Sulfa (Sulfonamide Antibiotics) Allergy (Unknown, Verified 01/12/25 08:38) Unknown PFSH Medical History Major depression, recurrent Pelvic prolapse Periodic limb movement disorder GERD (gastroesophageal reflux disease) TMJ (dislocation of temporomandibular joint) Fibromyalgia Sleep apnea Migraine PTSD (post-traumatic stress disorder) Anxiety Polyarthritis Pelvic floor dysfunction Irritable bowel syndrome (IBS) Visceral pain Polycystic ovary Depression Samra-Danlos disease Interstitial cystitis Hypothyroid Asthma Social History Substance Use Type: Other Physical Exam Vital Signs: Last Vital Signs Pulse 86 02/20/25 14:57 Resp 16 02/20/25 14:57 BP 127/66 02/20/25 14:57 Pulse Ox 97 02/20/25 14:57 Oxygen Delivery Method Room Air 02/20/25 14:57 BMI result Body Mass Index 25.2 Assessment & Plan Assessment & Plan (1) Sacroiliac joint dysfunction of both sides: Code(s): M53.3 - Sacrococcygeal disorders, not elsewhere classified Category: Medical (2) Greater trochanteric bursitis of right hip: Code(s): M70.61 - Trochanteric bursitis, right hip Category: Medical (3) Intractable low back pain: Code(s): M54.59 - Other low back pain Category: Medical (4) Right hip pain: Code(s): M25.551 - Pain in right hip Category: Medical Plan Sacroiliac joint injection therapeutic right and trochanteric bursa steroid injection on the right. Informed consent was explained thoroughly to the patient.? All questions about benefits and risks for the procedure were answered. Patient came to the operating room and was positioned prone on the operating table with the pillow under the abdomen.? The lower back and buttocks of the patient were prepped with ChloraPrep prepped and draped with sterile utility towels.? Sterilely draped C-arm was brought over the operating field and sq picture of patient's pelvis was demonstrated on the screen.? For the right joint tilting C-arm contralateral to the site of the joint the most posterior portion of the joints was superimposed with anterior silhouette of the joint.? Skin was injected in the projection of the joint slightly medial to the location of the joint with 25 gauge 1/2 inch needle using local lidocaine 2% mixed with ropivacaine 0.5% one to one. After that 22 gauge 3 and 1/2 inch needle was driven to the right joint in tunnel vision fashion.? When needle entered the joint capsule injection of the contrast was performed demonstrating intra-articular and minimally periarticular spread of the contrast.? After that 5 cc. of ropivacaine 0.5% mixed with Kenalog 40 mg was injected into the joint. Upon completion of the injections the needles were removed, and attention was attracted to the right greater trochanteric area. The 22 gauge 3-1/2 inch needle was driven to were the greater trochanter were the presumable location of the trochanteric bursa would be. When the tip of the needle gently contacted the bone on the greater trochanter area under x-ray guidance the needle was slightly withdrawn and injection of the contrast was performed demonstrating no intravascular and no intra-articular injection of medication. After that injection of the 5 cc of ropivacaine 0.5% with Kenalog 40 mg was performed. After that needle was removed Band-Aids were applied.? Upon completion of the injection patient was taken outside of the operating room to the recovery room where recovered uneventfully. Orders: Orders [place] guidance in treatment room Today M53.3 - Sacrococcygeal disorders, not elsewhere classified Coding Level of Care Code Procedure Only Diagnoses Sacroiliac joint dysfunction of both sides M53.3 Greater trochanteric bursitis of right hip M70.61 Intractable low back pain M54.59 Right hip pain M25.551
[2025-02-20 14:08] VITALS: BP 121/69; PULSE 77; RESP 16; O2SAT 99; BMI 25.2
[2025-02-20 14:57] VITALS: BP 127/66; PULSE 86; RESP 16; O2SAT 97
--- OUTSIDE RECORDS SUMMARY | 2025-02-20 17:09 | XMS_ITS | Encounter Summary ---
Author Organization [facility] Address [address] [address] Phone Care Team Providers Care Manager Life Name Role Phone Rigo Lopez [facility] Unavailable Alhaji Martinez MD Unavailable [phone] Rigo Lopez [facility] Primary Care Provider [phone] Harvinder Vallejo MD Unavailable Rigo Lopez [facility] Primary Care Provider Alhaji Martinez MD Unavailable Lisa Sommers MD Unavailable Cesar Lester MD Unavailable [phone] Kuldeep Pérez PA Unavailable Smitha Simmons TECHNOLOGY PROGRAM MANAGER Unavailable Gina Barajas PA Unavailable Reddy Valdez MD Unavailable [phone] Tamara Dubon MALARIOLOGIST Unavailable Monika James MD Unavailable Alhaji Reese MD Unavailable [phone] Cesar Lester MD Unavailable [phone] Beth Armendariz RN Unavailable [email or web address] Amisha Steen CAMPUS COORDINATOR Unavailable [phone] Divina Jade RN Unavailable [phone] Reason for Referral * Physical Therapy (Routine) - Closed Specialty Diagnoses / Procedures Referred By Contac t Referred To Contact Physical Therapy Diagnoses Pelvic floor dysfunction System, Provider Not In, [facility] [address] [address] Phone: tel: Referral ID Status Reason Start Date Expiration Date Visits Re quested Visits Authorized [id number] Closed 11/16/2017 05/16/2018 99 99 Encounter Details Date Type Department Care Team (Latest Contact Info) Description 11/16/2017 Transcribe Orders [facility] Rehabilitation Services 8 [place] [address] Kobi Bradley MD [address] [place] [address] Pelvic floor dysfunction (Primary Dx) Social History [...] st Contact Info) Description 09/13/2024 Procedure Pass [address] [address] 03/27/2025 8:00 AM EST Appointment [address] [address] Rigo Lopez, RETAIL MANAGEMENT KEYHOLDER [address] [facility], [address] [place] [address] jesus 05/22/2025 2:00 PM EST Office Visit [facility] Pulmonary, Allergy and Critical Care Medicine 10 Main [place] [address] Remy Darby MD [address] [address] documented as of this encounter Procedures Procedure Name Priority Date/Time Associated Diagnosis Comments AMB REFERRAL TO [facility] PHYSICAL THERAPY Routine 12/02/2017 10:52 AM EDT Pelvic floor dysfunction documented in this encounter Results * Ambulatory referral to [facility] Physical Therapy (12/02/2017 10:52 AM EDT) us [...] documented as of this encounter Care Teams Manager Life Relationship Specialty Start Date End Date Alhaji Martinez MD [address] [address] [email or web address] PCP - Internal Medicine Rheumatology 03/24/17 9 Rigo Lopez CNP [address] [facility], [address] [place] [address] jesus PCP - General Family Medicine 03/24/17 07/24/18 Rigo Lopez CNP [address] [facility], [address] [place] [address] [email or web address] [email or web address] PCP - General Family Medicine 07/25/18 Rigo Lopez CNP [address] [place] [address], [address] [place] [address] [email or web address] Historical LMR Provider 03/06/17 Harvinder Vallejo MD [address] [place] [address], [address] [place] [address] [email or web address] Internal Medicine 04/19/18 05/20/20 Alhaji Martinez MD [address] [place] [address] [email or web address] Rheumatology 07/25/18 05/20/20 Lisa Sommers MD [address] [place] [address], [address] [place] [address] [email or web address] Urology 07/25/18 Cesar Lester MD [address] [place] [address], [address] [place] [address] [email or web address] Insurance Assigned Provider 02/11/19 05/25/20 Kuldeep Pérez PA [address] [place] [address], [address] [place] [address] [email or web address] 05/21/20 03/30/21 Smitha Simmons TECHNOLOGY PROGRAM MANAGER [address] [place] [address] Family Medicine 05/21/20 Gina Barajas, TAVON [address] [place] [address] Door To Door Sales Representative 05/21/20 08/20/22 Reddy Valdez MD [address] [facility], [address] [place] [address] [email or web address] Sleep Medicine 05/21/20 08/20/22 Tamara Dubon, MALARIOLOGIST [address] [place] [address] Psychiatry 03/31/21 Monika James MD [address] [place] [address], [address] [place] [address] [email or web address] Rheumatology 03/31/21 08/20/22 Alhaji Reese MD [address] [place] [address] [email or web address] Gastroenterology 05/28/21 08/20/22 Cesar Lester MD [address] [place] [address], [address] [place] [address] [email or web address] Insurance Assigned Provider 08/23/21 05/22/23 Beth Armendariz RN [address] [place] [address] 2 [place] [address] [email or web address] iCMP Salesperson [employer] 10/05/22 01/17/25 Amisha Steen FNP [address] [place] [address] Nurse Practitioner 4/12/24 Divina Jade, RN [address] [place] [address] [email or web address] iCMP Salesperson China And GlasswareClinical Pharmacy Specialist 01/18/25 documented as of this encounter Additional Source Comments The information contained in this document represents components of the legal health record. It is not the complete legal health record.[facility]
--- OUTSIDE RECORDS SUMMARY | 2025-02-20 17:09 | XMS_ITS | Encounter Summary ---
Author Organization [facility] Address [address] [facility] [address] [place] [address] Phone Care Team Providers Care Teaching Fellow Name Role Phone Rigo Lopez MCKENNA Primary Care Provider Lisa Sommers MD Unavailable Smitha Simmons ENERGY ENGINEER Unavailable [phone] Gina Barajas PA Unavailable Reddy Valdez MD Unavailable [phone] Tamara Dubon INSURANCE LOSS ADJUSTER Unavailable Monika James MD Unavailable [phone] Alhaji Reese MD Unavailable [phone] Cesar Lester MD Unavailable [phone] Beth Armendariz RN Unavailable [email or web address] Amisha Steen HOTEL CONTROLLER Unavailable [phone] Diivna Jade RN Unavailable [phone] Encounter Details Date Type Department Care Team (Late st Contact Info) Description 06/16/2022 Telephone [facility] [address] [place] [address], [address] [place], [place] [id number] Tyrone Brennan MD [address] [facility] [address] [place] [address] [email or web address] Social History Tobacco Use Types [...] Upcoming Encounters Date Type Department Care Team ([facility] st Contact Info) Description 09/13/2024 Procedure Pass [address] [address] 03/27/2025 8:00 AM EST Appointment [address] [address] Rigo Lopez CNP [address] [place] [address], [address] [place] [address] jesus 05/22/2025 2:00 PM EST Office Visit [facility] Pulmonary, Allergy and Critical Care Medicine [address] [place] [address] [place] [address] Remy Darby MD [address] [place] [address] documented as of this encounter Visit Diagnoses Diagnosis Arthropathy of right sacroiliac joint- Primary Visit for screening mammogram documented in this encounter Additional Health Concerns Assessment Noted Time PHQ-2 Depression Total Score: 2 05/28/19 22 8:17 AM EST documented as of this encounter Care Teams Teaching Fellow Relationship Specialty Start Date End Date Rigo Lopez CNP [address] [place] [address], [address] [place] [address] [email or web address] [email or web address] PCP - General Family Medicine 07/25/18 Lisa Sommers MD [address] [place] [address], [address] [place] [address] Urology 07/25/18 Smitha Simmons, ENERGY ENGINEER [address] [place] [address] Family Medicine 05/21/20 Gina Barajas PA [address] [place] [address] Education Officer 05/21/20 08/20/22 Reddy Valdez MD [address] [place] [address], [address] [address] [email or web address] Sleep Medicine 05/21/20 08/20/22 Tamara Dubon, INSURANCE LOSS ADJUSTER [address] [place] [address] Psychiatry 03/31/21 Monika aJmes MD [address] [place] [address], [facility] [address] [place] [address] Rheumatology 03/31/21 08/20/22 Alhaji Reese MD [address] [place] [address] Gastroenterology 05/28/21 08/20/22 Cesar Lester MD 22 [facility], [address] [place] [address] [email or web address] Insurance Assigned Provider 08/23/21 05/22/23 Beth Armendariz RN 22 [facility], [address] [place] [address] [email or web address] Labor Training Manager 10/05/22 01/17/25 Amisha Steen FNP [address] [place] [address] Drive Jai [address] [place] [address] Nurse Practitioner 08/27/23 Divina Jade, MAGGY [address] [place] [address] [email or web address] iCMP Labor Training ManagerGrocery Specialist 01/18/25 documented as of this encounter Additional Source Comments The information contained in this document represents components of the legal health record. It is not the complete legal health record.[facility]
--- OUTSIDE RECORDS SUMMARY | 2025-02-20 17:09 | XMS_ITS ---
Author Organization [facility] Address [address] [place] [address] Phone Care Team Providers Care Operations Processor Name Role Phone John Rigo ANDRES Primary Care Provider [phone] Lisa Sommers MD Unavailable Smitha Simmons SIDE FRAMER Unavailable Tamara Dubon ORDER ENTRY SPECIALIST Unavailable Amisha Steen DIRECTOR OF PHYSICAL EDUCATION Unavailable Divina Jade RN Unavailable [phone] Population Health Care Management (PHCM) Status:Enrolled (Active) Start date:06/01/2023 Enrollment date:06/01/2023 Current support & services provided:[facility]ARE [place] Related social drivers of health:Housing Stability, Child or Family Care, Education, Food, Unemployment, Paying for Meds, Paying Utility Bills, Transportation, Digital Access, SNAP/WIC Case Team Name Relationship Phone Email Divina Jade RN Registered Nurse(Responsible Staff) [phone] Alma Waller PHCM Travel Registered Nurse Icu [email or web address] Continued Care and Services Coordination
--- OUTSIDE RECORDS SUMMARY | 2025-02-20 17:09 | XMS_ITS | Encounter Summary ---
Author Organization [facility] Address [address] [address] Phone Care Team Providers Care Food Science Technician Name Role Phone Rigo Lopez MCKENNA Primary Care Provider [phone] Lisa Sommers MD Unavailable Kuldeep Pérez Unavailable Smitha Simmons SWEATBAND SEPARATOR Unavailable [phone] Gina Barajas PA Unavailable Reddy Valdez MD Unavailable [phone] Tamara Dubon RUBBER GOODS CUTTER FINISHER Unavailable Monika James MD Unavailable [phone] Alhaji Reese MD Unavailable Cesar Lester MD Unavailable [phone] Beth Armendariz RN Unavailable [email or web address] Amisha SteenP Unavailable Divina Jade RN Unavailable Encounter Details Date Type Department Care Team (Late st Contact Info) Description 09/30/2020 Procedure Pass [facility] Endoscopy Admitting Dept Virtual Department [address] [place] [address] Social History Tobacco Use Types [...] Contact Info) Description 09/13/2024 Procedure Pass [address] [address] 03/27/2025 8:00 AM EST Appointment [address] [address] Rigo Lopez CNP [address] [place] [address], [address] [place] [address] jesus 05/22/2025 2:00 PM EST Office Visit [facility] Pulmonary, Allergy and Critical Care Medicine 10 [place] [address] Remy Darby MD [address] [place] [address] documented as of this encounter Visit Diagnoses Not on filedocumented in this encounter Additional Health Concerns Infection Onset Date Last Indicated Resolved Time CoV-Risk 10/09/2021 10/09/2021 10/20/2021 1:24 AM EDT Assessment Noted Time PHQ-2 Depression Total Score: 2 05/18/19 21 11:52 AM EST documented as of this encounter Care Teams Food Science Technician Relationship Specialty Start Date End Date Rigo Lopez CNP [address] [place] [address], [address] [place] [address] jesus PCP - General Family Medicine 07/25/18 Lisa Sommers MD [address] [place] [address], [address] [place] [address] Urology 07/25/18 Kuldeep Pérez PA [address] [place] [address], [address] [place] [address] [email or web address] 05/21/20 03/30/21 Smitha Simmons NP [address] [place] [address] Family Medicine 05/21/20 Gina Barajas PA [address] [place] [address] Review Specialist 05/21/20 08/20/22 Reddy Valdez MD [address] [place] [address], [facility] [address] [place] [address] Sleep Medicine 05/21/20 08/20/22 Tamara Dubon, RUBBER GOODS CUTTER FINISHER [address] [place] [address] Psychiatry 03/31/21 Monika James MD [address] [place] [address] 203 [place] [address] Rheumatology 03/31/21 08/20/22 Alhaji Reese MD [address] [place] [address] [email or web address] Gastroenterology 05/28/21 08/20/22 Cesar Lester MD [address] [place] [address], [address] [place] [address] [email or web address] Insurance Assigned Provider 08/23/21 05/22/23 Beth Armendariz, MAGGY [address] [place] [address], [address] [place] [address] [email or web address] iCMP Lead Maintenance Technician 10/05/22 01/17/25 Amisha Steen, TRACY [address] [place] [address] Nurse Practitioner 08/27/23 Divina Jade, RN [address] [place] [address] [email or web address] iCMP Lead Maintenance TechnicianSales Manager [place] 01/18/25 documented as of this encounter Additional Source Comments The information contained in this document represents components of the legal health record. It is not the complete legal health record.[facility]
--- OUTSIDE RECORDS SUMMARY | 2025-02-20 17:09 | XMS_ITS | Encounter Summary ---
Author Organization [facility] Address [address] [address] Phone Care Team Providers Care Manager Hair Name Role Phone Rigo Lopez MCKENNA Primary Care Provider [phone] Lisa Sommers MD Unavailable [phone] Kuldeep Pérez Unavailable Smitha Simmons EYEGLASS LENS GENERATOR Unavailable [phone] Gina Barajas PA Unavailable Reddy Valdez MD Unavailable [phone] Tamara Dubon SCREEN OPERATOR Unavailable Monika James MD Unavailable [phone] Alhaji Reese MD Unavailable [phone] Cesar Lester MD Unavailable [phone] Beth Armendariz RN Unavailable [email or web address] Amisha SteenP Unavailable [phone] Divina Jade RN Unavailable Encounter Details Date Type Department Care Team (Late st Contact Info) Description 03/09/2021 Procedure Pass [facility], Ct Scan - [address] [address] Social History Tobacco Use Types Packs/Day Years [...] Author No Risk Indicated 03/09/2021 6:16 AM ALFREDT Vinny Marquez RN * Cass Suicide Severity Rating Scale (Screener/Recent Self-Report) Question Answer Date of Assessment Author 1. Wish to be (Past 1 Month) No 6:16 AM Vinny Newton RN 2. Non-Specific Active Suici gonsalo Thoughts (Past 1 Month) No 03/09/2021 6:16 AM Luis Newton, RN 6. Suicidal Behavior (Lifetime) No 6:16 AM Vinny Newton, MAGGY documented as of this encounter Plan of Treatment Upcoming Encounters Date Type Department Care Team (Late st Contact Info) Description 09/13/2024 Procedure Pass [address] [address] 03/27/2025 8:00 AM EST Appointment [address] [address] Rigo Lopez, MANAGER STUDY [address], [address] [place] [address] jesus 05/22/2025 2:00 PM EST Office Visit [facility] Pulmonary, Allergy and Critical Care Medicine 10 [facility] [place] [address] Remy Darby MD [address] [address] documented as of this encounter Visit Diagnoses Not on filedocumented in this encounter Additional Health Concerns Infection Onset Date Last Indicated Resolved Time CoV-Risk 10/09/2021 10/09/2021 10/20/2021 1:24 AM EDT Assessment Noted Time PHQ-2 Depression Total Score: 2 05/18/19 21 11:52 AM EST documented as of this encounter Care Teams Manager Hair Relationship Specialty Start Date End Date Rigo Lopez CNP [address] [facility], [address] [place] [address] jesus PCP - General Family Medicine 07/25/18 Lisa Sommers MD [address] [place] [address], [address] [place] [address] Urology 07/25/18 Kuldeep Pérez PA [address] [place] [address], [address] [place] [address] [email or web address] 05/21/20 03/30/21 Smitha Simmons NP [address] [place] [address] Family Medicine 05/21/20 Gina Barajas PA [address] [place] [address] Fabric Pattern Grader 05/21/20 08/20/22 Reddy Valdez MD [address] [facility], [address] [place] [address] Sleep Medicine 05/21/20 08/20/22 Tamara Dubon, SCREEN OPERATOR [address] [place] [address] Psychiatry 03/31/21 Monika James MD [address] [place] [address], [address] [place] [address] Rheumatology 03/31/21 08/20/22 Alhaji Reese MD [address] [place] [address] [email or web address] Gastroenterology 05/28/21 08/20/22 Cesar Lester MD [address] [place] [address], [address] [place] [address] [email or web address] Insurance Assigned Provider 08/23/21 05/22/23 Beth Armendariz, MAGGY [address] [place] [address], [address] [place] [address] [email or web address] iCMP Engineering Technician 10/05/22 01/17/25 Amisha Steen FNP [address] [place] [address] Nurse Practitioner 08/27/23 Divina Jade, RN [address] [place] [address] [email or web address] iCMP Engineering TechnicianPedal Assembler 01/18/25 documented as of this encounter Additional Source Comments The information contained in this document represents components of the legal health record. It is not the complete legal health record.[facility]
--- OUTSIDE RECORDS SUMMARY | 2025-02-20 17:10 | XMS_ITS | Encounter Summary ---
Author Organization [facility] Address [address] [address] Phone Care Team Providers Care Plunket Nurse Name Role Phone Rigo Lopez CNP Unavailable Harvinder Vallejo MD Unavailable [phone] Rigo Lopez CNP Primary Care Provider [phone] Alhaji Martinez MD Unavailable Lisa Sommers MD Unavailable Cesar Lester MD Unavailable [phone] Kuldeep Pérez PA Unavailable Smitha Simmons WELFARE CASE WORKER Unavailable Gina Barajas PA Unavailable Reddy Valdez MD Unavailable Tamara Dubon DISTRIBUTION SALES REPRESENTATIVE Unavailable Monika James MD Unavailable Alhaji Reese MD Unavailable [phone] Cesar Lester MD Unavailable [phone] Beth Armendariz RN Unavailable [email or web address] Amisha Steen SALES PLANNING MANAGER Unavailable Divina Jade RN Unavailable [phone] Reason for Referral * Physical Therapy (Routine) - Closed Specialty Diagnoses / Procedures Referred By Cruz falcon Referred To Contact Physical Therapy Diagnoses Encounter for rehabilitation Kobi Bradley MD Phone: tel: fax: [address] [address] Phone: tel: Referral ID Status Reason Start Date Expiration Date Visits Re quested Visits Authorized [id number] Closed 05/31/2019 05/31/2020 99 [phone] Encounter Details Date Type Department Care Team (Latest Contact Info) Description 05/31/2019 Transcribe Orders [facility] 8 [place] [address] Kobi Bradley MD [address] [place] [address] Encounter for rehabilitation (Primary Dx) Social History [...] st Contact Info) Description 09/13/2024 Procedure Pass [address] [address] 03/27/2025 8:00 AM EST Appointment [address] [address] Rigo Lopez CNP [address] [facility], [address] [place] [address] jesus 05/22/2025 2:00 PM EST Office Visit [facility] Pulmonary, Allergy and Critical Care Medicine 10 [facility] [place] [address] Remy Darby MD [address] [place] [address] documented as of this encounter Procedures Procedure Name Priority Date/Time Associated Diagnosis Comments AMB REFERRAL TO [facility] PHYSICAL THERAPY Routine 06/14/2019 3:15 PM EST Encounter for rehabilitation documented in this encounter Results * Ambulatory referral to [facility] Physical Therapy (06/14/2019 3:15 PM EST) Kobi Bradley MD AMB [facility] REFERRALS Final Result documented in this encounter [...] documented as of this encounter Care Teams Plunket Nurse Relationship Specialty Start Date End Date Rigo Lopez CNP [address] [facility], [address] [place] [address] jesus [email or web address] PCP - General Family Medicine 07/25/18 Rigo Lopez CNP [address] [facility], [address] [place] [address] jesus Historical LMR Provider 03/06/17 Harvinder Vallejo MD [address] [place] [address], [address] [place] [address] [email or web address] Internal Medicine 04/19/18 05/20/20 Alhaji Martinez MD [address] [place] [address] 1 [place] [address] [email or web address] Rheumatology 07/25/18 05/20/20 Lisa Sommers MD [address] [place] [address], [address] [place] [address] Urology 07/25/18 Cesar Lester MD [address] [place] [address], [address] [place] [address] [email or web address] Insurance Assigned Provider 02/11/19 05/25/20 Kuldeep Pérez PA [address] [place] [address], [address] [place] [address] [email or web address] 05/21/20 03/30/21 Smitha Simmons NP [address] [place] [address] Family Medicine 05/21/20 Gina Barajas PA [address] [place] [address] Cipher Expert 05/21/20 08/20/22 Reddy Valdez MD [address] [place] [address], [address] [place] [address] Sleep Medicine 05/21/20 08/20/22 Tamara Dubon, RUSS [address] [place] [address] Psychiatry 03/31/21 Monika James MD [address] [place] [address], [address] [place] [address] [email or web address] Rheumatology 03/31/21 08/20/22 Alhaji Reese MD [address] [place] [address] [email or web address] Gastroenterology 05/28/21 08/20/22 Cesar Lester MD [address] [place] [address], [address] [place] [address] [email or web address] Insurance Assigned Provider 08/23/21 05/22/23 Beth Armendariz, MAGGY [address] [place] [address] [email or web address] iCMP Refrigeration System Installer 10/05/22 01/17/25 Amisha Steen FNP [address] [place] [address] Nurse Practitioner 08/27/23 Divina Jade, MAGGY [address] [place] [address] [email or web address] iCMP Refrigeration System InstallerMachine Ii Cutter 01/18/25 documented as of this encounter Additional Source Comments The information contained in this document represents components of the legal health record. It is not the complete legal health record.[facility]
--- OUTSIDE RECORDS SUMMARY | 2025-02-20 17:10 | XMS_ITS | Clinical Summary ---
Author Organization [employer] [facility] Address [address] [place] [address] Care Team Providers Care Php Magento Developer Name Role Phone Unavailable Primary Care Provider [...] Advance Directives For more information, please contact: [phone] Documents on File Type Date Recorded Patient Lead Teller Expl anation Advance Directive and Living Will 04/23/2015 Latest Code Status on File Code Status Date Activated Date Inactivated Comments Full Code 04/16/2015 6:34 PM 04/19/2015 7:40 PM This code status was ascertained in the following way: per unit protocol.
--- OUTSIDE RECORDS SUMMARY | 2025-02-20 17:10 | XMS_ITS | Encounter Summary ---
Author Organization [facility] Address [address] [address] Phone Care Team Providers Care Power Operator Name Role Phone Rigo Lopez MCKENNA Primary Care Provider Lisa Sommers MD Unavailable Smitha Simmons CITY BUS DRIVER Unavailable [phone] Tamara Dubon ONLINE CONTENT EDITOR Unavailable Cesar Lester MD Unavailable [phone] Beth Armendariz RN Unavailable [email or web address] Amisha Steen RADIOACTIVITY TECHNICIAN Unavailable Divina Jade RN Unavailable [phone] Encounter Details Date Type Department Care Team (Late st Contact Info) Description 08/21/2022 Procedure Pass [facility], [address] [address] Social History Tobacco Use Types Packs/Day Years [...] st Contact Info) Description 09/13/2024 Procedure Pass [facility], [address] [address] 03/27/2025 8:00 AM EST Appointment [address] [address] Rigo Lopez CNP [address] [facility], [address] [place] [address] jesus 05/22/2025 2:00 PM EST Office Visit [facility] Pulmonary, Allergy and Critical Care Medicine [address] [place] [address] [place] [address] Remy Darby MD [address] [place] [address] documented as of this encounter Visit Diagnoses Not on filedocumented in this encounter Additional Health Concerns Assessment Noted Time PHQ-9 Depression Total Score: 19 023 7:59 AM EDT PHQ-2 Depression Total Score: 6 08/20/19 23 7:59 AM EDT documented as of this encounter Care Teams Power Operator Relationship Specialty Start Date End Date Rigo Lopez CNP [address] [place] [address], [address] [place] [address] jesus PCP - General Family Medicine 07/25/18 Lisa Sommers MD [address] [place] [address], [address] [place] [address] Urology 07/25/18 Smitha Simmons CITY BUS DRIVER [address] [place] [address] Family Medicine 05/21/20 Tamara Dubon CNS [address] [place] [address] Psychiatry 03/31/21 Cesar Lester MD [address] [place] [address], [address] [place] [address] [email or web address] Insurance Assigned Provider 08/23/21 05/22/23 Beth Armendariz RN [address] [place] [address], [address] [place] [address] [email or web address] iCMP Lead Database Developer 10/05/22 01/17/25 Amisha Steen FNP [address] [place] [address] Nurse Practitioner 08/27/23 Divina Jade, RN [address] [place] [id number] [email or web address] iCMP Lead Database DeveloperMain Galley Scullion 01/18/25 documented as of this encounter Additional Source Comments The information contained in this document represents components of the legal health record. It is not the complete legal health record.[facility]
--- OUTSIDE RECORDS SUMMARY | 2025-02-20 17:10 | XMS_ITS | Encounter Summary ---
Author Organization [facility] Address [address] [address] Phone Care Team Providers Care Statistics Manager Name Role Phone Rigo Lopez MCKENNA Primary Care Provider Lisa Sommers MD Unavailable Smitha Simmons DISK SANDER Unavailable Gina Barajas PA Unavailable Reddy Valdez MD Unavailable [phone] Tamara Dubon FORENSIC SERGEANT Unavailable Monika James MD Unavailable [phone] Alhaji Reese MD Unavailable [phone] Cesar Lester MD Unavailable [phone] Beth Armendariz RN Unavailable [email or web address] Amisha Steen EXECUTIVE TEAM LEADER Unavailable [phone] Divina Jade RN Unavailable [phone] Encounter Details Date Type Department Care Team (Late st Contact Info) Description 07/17/2021 Procedure Pass [facility], Ct Scan - [address] [address] Social History Tobacco Use Types Packs/Day Years [...] Contact Info) Description 09/13/2024 Procedure Pass [address] [address] 03/27/2025 8:00 AM EST Appointment [address] [address] Rigo Lopez CNP [address] [place] [address], [address] [place] [address] [email or web address] [email or web address] 05/22/2025 2:00 PM EST Office Visit [facility] Pulmonary, Allergy and Critical Care Medicine 10 [place] [address] Remy Darby MD [address] [place] [address] 2[address] [place] [address] documented as of this encounter Visit Diagnoses Not on filedocumented in this encounter Additional Health Concerns Infection Onset Date Last Indicated Resolved Time CoV-Risk 10/09/2021 10/09/2021 10/20/2021 1:24 AM EDT Assessment Noted Time PHQ-2 Depression Total Score: 2 05/28/19 22 8:17 AM EST documented as of this encounter Care Teams Statistics Manager Relationship Specialty Start Date End Date Rigo Lopez CNP [address] [place] [address], [address] [place] [address] jesus PCP - General Family Medicine 07/25/18 Lisa Sommers MD [address] [place] [address], [address] [place] [address] [email or web address] Urology 07/25/18 Smitha Simmons, DISK SANDER [address] [place] [address] Family Medicine 05/21/20 Gina Barajas PA [address] [place] [address] General Merchandise Salesperson 05/21/20 08/20/22 Reddy Valdez MD [address] [place] [address], [facility] [address] [place] [address] [email or web address] Sleep Medicine 05/21/20 08/20/22 Tamara Dubon, FORENSIC SERGEANT [address] [place] [address] Psychiatry 03/31/21 Monika James MD [address] [place] [address], [address] [place] [address] [email or web address] Rheumatology 03/31/21 08/20/22 Alhaji Reese MD [address] [place] [address] [email or web address] Gastroenterology 05/28/21 08/20/22 Cesar Lester MD [address] [place] [address], [address] [place] [address] [email or web address] Insurance Assigned Provider 08/23/21 05/22/23 Beth Armendariz, MAGGY [address] [facility], [address] [place] [address] [email or web address] iCMP Fiber Drier Operator 10/05/22 01/17/25 Amisha Steen, [facility] [address] [place] [address] [address] [place] [address] Nurse Practitioner 08/27/23 Divina Jade, MAGGY [address] [place], [place] [address] [email or web address] iCMP Fiber Drier OperatorRadiation Control Specialist 01/18/25 documented as of this encounter Additional Source Comments The information contained in this document represents components of the legal health record. It is not the complete legal health record.[facility]
--- OUTSIDE RECORDS SUMMARY | 2025-02-20 17:10 | XMS_ITS | Encounter Summary ---
Author Organization [facility] Address [address] [address] Phone Care Team Providers Care Senior Drafter Name Role Phone Rigo Lopez MCKENNA Primary Care Provider Lisa Sommers MD Unavailable Smitha Simmons BUFFING MACHINE OPERATOR SEMIAUTOMATIC Unavailable Gina Barajas PA Unavailable Reddy Valdez MD Unavailable Tamara Dubon INSTRUCTOR OF SPANISH Unavailable Monika James MD Unavailable Alhaji Reese MD Unavailable [phone] Cesar Lester MD Unavailable [phone] Beth Armendariz RN Unavailable [email or web address] Amisha Steen SUPERVISOR LEAF SPRING FABRICATION Unavailable Divina Jade RN Unavailable [phone] Encounter Details Date Type Department Care Team (Late st Contact Info) Description 06/19/2021 Ancillary Orders [facility],Outside Imaging [address] [place], [place] [id number] System, Provider Not In, PhD Partners [address] [address] Social History Tobacco Use Types Packs/Day Years [...] st Contact Info) Description 09/13/2024 Procedure Pass [address] [address] 03/27/2025 8:00 AM EST Appointment [address] [address] Rigo Lopez, WOOD STRIP BLOCK FLOOR INSTALLER 22 [facility], [address] [place] [address] jesus 05/22/2025 2:00 PM EST Office Visit CD Pulmonary, Allergy and Critical Care Medicine [address] [place] [address] Remy Darby MD [address] [place] [address] documented as of this encounter Results * [...] as of this encounter Care Teams Senior Drafter Relationship Specialty Start Date End Date Rigo Lopez CNP 22 [facility], [address] [place] [address] jesus PCP - General Family Medicine 07/25/18 Lisa Sommers MD [address] [place] [address], [address] [place] [address] Urology 07/25/18 Smitha Simmons BUFFING MACHINE OPERATOR SEMIAUTOMATIC [address] [place] [address] Family Medicine 05/21/20 Gina Barajas PA [address] [place] [address] Senior Insight Manager 05/21/20 08/20/22 Reddy Valdez MD 22 [facility], [facility] 301 [place] [address] Sleep Medicine 05/21/20 08/20/22 Tamara Dubon, INSTRUCTOR OF SPANISH [address] [place] [address] Psychiatry 03/31/21 Monika James MD 22 [facility], [address] [place] [address] Rheumatology 03/31/21 08/20/22 Alhaji Reese MD [address] [place] [address] [email or web address] Gastroenterology 05/28/21 08/20/22 Cesar Lester MD [address] [place] [address], [address] [place] [address] [email or web address] Insurance Assigned Provider 08/23/21 05/22/23 Beth Armendariz RN [address] [place] [address], [address] [place] [address] [email or web address] iCMP Peanut Sheller 10/05/22 01/17/25 Amisha Steen FNP [address] [place] [address] Nurse Practitioner 08/27/23 Divina Jade, RN [address] [place] [address] [email or web address] iCMP Peanut ShellerDuplicate Maker 01/18/25 documented as of this encounter Additional Source Comments The information contained in this document represents components of the legal health record. It is not the complete legal health record.[facility]
--- OUTSIDE RECORDS SUMMARY | 2025-02-20 17:10 | XMS_ITS | Encounter Summary ---
Author Organization [facility] Address [address] [address] Phone Care Team Providers Care Wet Pan Operator Name Role Phone Rigo Lopez MCKENNA Primary Care Provider [phone] Lisa Sommers MD Unavailable [phone] Smitha Simmons MANAGER CARE Unavailable [phone] Tamara Dubon E COMMERCE MANAGER Unavailable Beth Armendariz RN Unavailable [email or web address] Amisha Steen MITER SAWYER Unavailable [phone] Divina Jade RN Unavailable Encounter Details Date Type Department Care Team (Late st Contact Info) Description 06/25/2023 Procedure Pass [facility], [facility] [address] [place] [address] Social History Tobacco Use Types Packs/Day Years [...] st Contact Info) Description 09/13/2024 Procedure Pass [address] [address] 03/27/2025 8:00 AM EST Appointment [address] [address] Rigo Lopez CNP [address] [place] [address], [address] [place] [address] jesus [email or web address] 05/22/2025 2:00 PM EST Office Visit [facility] Pulmonary, Allergy and Critical Care Medicine [address] [place] [address] Remy Darby MD [address] [address] documented as of this encounter Visit Diagnoses Not on filedocumented in this encounter Additional Health Concerns Assessment Noted Time PHQ-9 Depression Total Score: 19 024 7:15 AM EDT PHQ-2 Depression Total Score: 5 08/27/19 24 7:15 AM EDT documented as of this encounter Care Teams Wet Pan Operator Relationship Specialty Start Date End Date Rigo Lopez CNP [address] [place] [address], [address] [place] [address] jesus PCP - General Family Medicine 07/25/18 Lisa Sommers MD [address] [place] [address], [address] [place] [address] [email or web address] Urology 07/25/18 Smitha Simmons, MANAGER CARE [address] [place] [address] Family Medicine 05/21/20 Tamara Dubon, E COMMERCE MANAGER [address] [place] [address] Psychiatry 03/31/21 Beth Armendariz, MAGGY [address] [place] [address] [email or web address] iCMP Transfer And Pumphouse Operator 10/05/22 Amisha Steen FNP [address] [place] [address] Nurse Practitioner 08/27/23 Divina Jade, RN [address] [place] [address] [email or web address] iCMP Transfer And Pumphouse OperatorCemetery Keeper 01/18/25 documented as of this encounter Additional Source Comments The information contained in this document represents components of the legal health record. It is not the complete legal health record.[facility]
--- OUTSIDE RECORDS SUMMARY | 2025-02-20 17:10 | XMS_ITS | Encounter Summary ---
Author Organization [facility] Address [address] [address] Phone Care Team Providers Care Commercial Loan Underwriter Name Role Phone Rigo Lopez MCKENNA Primary Care Provider [phone] Lisa Sommers MD Unavailable Smitha Simmons TRUCK DRIVER RUBBISH COLLECTOR Unavailable [phone] Tamara Dubon HEEL COMPRESSOR Unavailable Beth Armendariz RN Unavailable [email or web address] Amisha Steen SOAP MIXER Unavailable [phone] Divina Jade RN Unavailable Reason for Visit * Reason Onset Date Comments Abdominal Pain 07/06/2023 X 5 days Encounter Details Date Type Department Care Team (Late st Contact Info) Description 07/06/2023 Nurse Triage [facility] INTE[facility]ATED [facility] MANAGEMENT [address] [place] [address] Beth Armendariz, MAGGY [email or web address] Abdominal Pain (X 5 days) Social History [...] Contact Info) Description 09/13/2024 Procedure Pass [address] [address] 03/27/2025 8:00 AM EST Appointment [address] [address] Rigo Lopez CNP 22 [facility], [address] [place] [address] jesus [email or web address] 05/22/2025 2:00 PM EST Office Visit [facility] Pulmonary, Allergy and Critical Care Medicine [address] [place] [address] [place] [address] Remy Darby MD [address] [place] [address] documented as of this encounter Visit Diagnoses Not on filedocumented in this encounter Additional Health Concerns Assessment Noted Time PHQ-9 Depression Total Score: 19 023 7:59 AM EDT PHQ-2 Depression Total Score: 2 10/28/19 23 9:48 AM EDT documented as of this encounter Care Teams Commercial Loan Underwriter Relationship Specialty Start Date End Date Rigo Lopez CNP 22 [facility], [address] [place] [address] jesus PCP - General Family Medicine 07/25/18 Lisa Sommers MD [address] [facility], [address] [place] [address] [email or web address] Urology 07/25/18 Smitha Simmons, TRUCK DRIVER RUBBISH COLLECTOR [address] [place] [address] Family Medicine 05/21/20 Tamara Dubon CNS [address] [place] [address] Psychiatry 03/31/21 Beth Armendariz, MAGGY [address] [place] [address] [email or web address] iCMP Flagman 10/05/22 Amisha Steen FNP [address] [place] [address] [address] Nurse Practitioner 08/27/23 Divina Jade, RN 10 [place] [address] [email or web address] iCMP FlagmanLeather Heel Breaster 01/18/25 documented as of this encounter Additional Source Comments The information contained in this document represents components of the legal health record. It is not the complete legal health record.[facility]
--- OUTSIDE RECORDS SUMMARY | 2025-02-20 17:10 | XMS_ITS | Encounter Summary ---
Author Organization [facility] Address [address] [address] Phone Care Team Providers Care Radio Operator Ground Name Role Phone Rigo Lopez MCKENNA Primary Care Provider Lisa Sommers MD Unavailable Smitha Simmons CREPING MACHINE OPERATOR HELPER Unavailable Gina Barajas PA Unavailable [phone] Reddy Valdez MD Unavailable [phone] Tamara Dubon PLANT WIRE CHIEF Unavailable Monika James MD Unavailable Alhaji Reese MD Unavailable [phone] Cesar Lester MD Unavailable [phone] Beth Armendariz RN Unavailable [email or web address] Amisha Steen ONCOLOGY REGISTRAR Unavailable Divina Jade RN Unavailable [phone] Encounter Details Date Type Department Care Team (Late st Contact Info) Description 06/16/2021 Procedure Pass [facility], Ct Scan - [address] [address] Social History Tobacco Use Types Packs/Day Years [...] 06/17/2021 2:02 PM Adalgisa Gonzalez CNP * Chandler Suicide Severity Rating Scale (Screener/Recent Self-Report) Question [...] st Contact Info) Description 09/13/2024 Procedure Pass [address] [address] 03/27/2025 8:00 AM EST Appointment [address] [address] Rigo Lopez, MCKENNA 22 [facility], [address] [place] [address] jesus 05/22/2025 2:00 PM EST Office Visit [facility] Pulmonary, Allergy and Critical Care Medicine 10 [place] [address] Remy Darby MD [address] [place] [phone] [email or web address] documented as of this encounter Visit Diagnoses Not on filedocumented in this encounter Additional Health Concerns Infection Onset Date Last Indicated Resolved Time CoV-Risk 10/09/2021 10/09/2021 10/20/2021 1:24 AM EDT Assessment Noted Time PHQ-2 Depression Total Score: 2 05/28/19 22 8:17 AM EST documented as of this encounter Care Teams Radio Operator Ground Relationship Specialty Start Date End Date Rigo Lopez CNP [address] [place] [address], [address] [place] [address] jesus [email or web address] PCP - General Family Medicine 07/25/18 Lisa Sommers MD [address] [place] [address], [address] [place] [address] [email or web address] Urology 07/25/18 Smitha Simmons CREPING MACHINE OPERATOR HELPER [address] [place] [address] Family Medicine 05/21/20 Gina Barajas PA [address] [place] [address] Manager Traffic 05/21/20 08/20/22 Reddy Valdez MD [address] [place] [address], [address] [place] [address] [email or web address] Sleep Medicine 05/21/20 08/20/22 Tamara Dubon PLANT WIRE CHIEF [address] [place] [address] Psychiatry 03/31/21 Monika James MD [address] [place] [address], [address] [place] [address] [email or web address] Rheumatology 03/31/21 08/20/22 Alhaji Reese MD [address] [place] [address] [email or web address] Gastroenterology 05/28/21 08/20/22 Cesar Lester MD [address] [place] [address], [address] [place] [address] [email or web address] Insurance Assigned Provider 08/23/21 05/22/23 Beth Armendariz RN [address] [place] [address], [address] [place] [address] [email or web address] iCMP Smash Hand 10/05/22 01/17/25 Amisha Steen FNP [address] [place] [address] Drive [facility] [address] [place] [address] Nurse Practitioner 08/27/23 Divina Jade, RN [address] [place] [address] [email or web address] iCMP Smash HandSafe Deposit Clerk 01/18/25 documented as of this encounter Additional Source Comments The information contained in this document represents components of the legal health record. It is not the complete legal health record.[facility]
--- OUTSIDE RECORDS SUMMARY | 2025-02-20 17:10 | XMS_ITS | Encounter Summary ---
Author Organization [facility] Address [address] [place] [address] Phone Care Team Providers Care Personnel Counselor Name Role Phone Rigo Lopez MCKENNA Primary Care Provider Lisa Sommers MD Unavailable [phone] Smitha Simmons LENS MAKER Unavailable Gina Barajas PA Unavailable Reddy Valdez MD Unavailable [phone] Tamara Dubon CRUSHER ASSEMBLER Unavailable Monika James MD Unavailable [phone] Alhaji Reese MD Unavailable [phone] Cesar Lester MD Unavailable [phone] Beth Armendariz RN Unavailable [email or web address] Amisha Steen PIANO AND ORGAN REFINISHER Unavailable Divina Jade RN Unavailable [phone] Encounter Details Date Type Department Care Team (Late st Contact Info) Description 01/21/2022 Procedure Pass [facility], [address] [address] Social History Tobacco Use Types Packs/Day Years [...] st Contact Info) Description 09/13/2024 Procedure Pass [address] [address] 03/27/2025 8:00 AM EST Appointment [address] [address] Rigo Lopez CNP 22 [facility], [address] [place] [address] jesus 05/22/2025 2:00 PM EST Office Visit [facility] Pulmonary, Allergy and Critical Care Medicine 10 [facility] [place] [address] Remy Darby MD [address] [place] [address] documented as of this encounter Visit Diagnoses Not on filedocumented in this encounter Additional Health Concerns Assessment Noted Time PHQ-2 Depression Total Score: 2 05/28/19 22 8:17 AM EST documented as of this encounter Care Teams Personnel Counselor Relationship Specialty Start Date End Date Rigo Lopez CNP [address] [place] [address], [address] [place] [address] jesus PCP - General Family Medicine 07/25/18 Lisa Sommers MD [address] [place] [address], [address] [place] [address] [email or web address] Urology 07/25/18 Smitha Simmons, LENS MAKER [address] [place] [address] Family Medicine 05/21/20 Gina Barajas PA [address] [place] [address] Outpatient Receptionist 05/21/20 08/20/22 Reddy Valdez MD [address] [place] [address], [facility] [address] [place] [address] [email or web address] Sleep Medicine 05/21/20 08/20/22 Tamara Dubon, CRUSHER ASSEMBLER [address] [place] [address] Psychiatry 03/31/21 Monika James MD [address] [place] [address], [address] [place] [address] [email or web address] Rheumatology 03/31/21 08/20/22 Alhaji Reese MD [address] [place] [address] Gastroenterology 05/28/21 08/20/22 Cesar Lester MD [address] [place] [address], [address] [place] [address] [email or web address] Insurance Assigned Provider 08/23/21 05/22/23 Beth Armendariz, MAGGY 22 [facility], [address] [place] [address] [email or web address] iCMP Sole Splitter 10/05/22 01/17/25 Amisha Steen FNP [address] [place] [address] Drive Jai [address] [place] [address] Nurse Practitioner 08/27/23 Divina Jade, MAGGY [address] [place] [phone] [email or web address] iCMP Sole SplitterCustomer Account Manager 01/18/25 documented as of this encounter Additional Source Comments The information contained in this document represents components of the legal health record. It is not the complete legal health record.[facility]
--- OUTSIDE RECORDS SUMMARY | 2025-02-20 17:10 | XMS_ITS | Encounter Summary ---
Author Organization [facility] Address [address] [place] [address] Phone Care Team Providers Care Linen Keeper Name Role Phone Rigo Lopez MCKENNA Primary Care Provider Lisa Sommers MD Unavailable Smitha Simmons SENIOR OFFICE SUPPORT ASSISTANT SOSA Unavailable Gina Barajas PA Unavailable Reddy Valdez MD Unavailable [phone] Tamara Dubon PSYCHIATRIC ARNP Unavailable Monika James MD Unavailable Alhaji Reese MD Unavailable [phone] Cesar Lester MD Unavailable [phone] Beth Armendariz RN Unavailable [email or web address] Amisha Steen BODY DESIGN CHECKER Unavailable Divina Jade RN Unavailable [phone] Encounter Details Date Type Department Care Team (Late st Contact Info) Description 05/28/2021 Procedure Pass [facility], [address] [address] Social History Tobacco Use Types Packs/Day Years [...] st Contact Info) Description 09/13/2024 Procedure Pass [address] [address] 03/27/2025 8:00 AM EST Appointment [address] [address] Rigo Lpoez CNP [address] [place] [address], [address] [place] [address] jesus [email or web address] 05/22/2025 2:00 PM EST Office Visit [facility] Pulmonary, Allergy and Critical Care Medicine 10 [place], [place] 6[address] Remy Darby MD [address] [place] [address] 2[address] [place] [address] documented as of this encounter Visit Diagnoses Not on filedocumented in this encounter Additional Health Concerns Infection Onset Date Last Indicated Resolved Time CoV-Risk 10/09/2021 10/09/2021 10/20/2021 1:24 AM EDT Assessment Noted Time PHQ-2 Depression Total Score: 2 05/28/19 22 8:17 AM EST documented as of this encounter Care Teams Linen Keeper Relationship Specialty Start Date End Date Rigo Lopez CNP [address] [place] [address], [address] [place] [address] jesus PCP - General Family Medicine 07/25/18 Lisa Sommers MD [address] [place] [address], [address] [place] [address] Urology 07/25/18 Smitha Simmons, SENIOR OFFICE SUPPORT ASSISTANT SOSA [address] [place] [address] Family Medicine 05/21/20 Gina Barajas PA [address] [place] [address] Supervisor Graphite 05/21/20 08/20/22 Reddy Valdez MD [address] [place] [address], [address] [address] [email or web address] Sleep Medicine 05/21/20 08/20/22 Tamara Dubon, PSYCHIATRIC ARNP [address] [place] [address] Psychiatry 03/31/21 Monika James MD [address] [place] [address], [address] [place] [address] [email or web address] Rheumatology 03/31/21 08/20/22 Alhaji Reese MD [address] [place] [address] Gastroenterology 05/28/21 08/20/22 Cesar Lester MD [address] [place] [address], [address] [place] [address] [email or web address] Insurance Assigned Provider 08/23/21 05/22/23 Beth Armendariz, MAGGY 22 [facility], [address] [place] [address] [email or web address] iCMP Barrel Cooper 10/05/22 01/17/25 Amisha Steen, [facility] [address] [place] [address] Drive J[address] [place] [address] Nurse Practitioner 08/27/23 Divina Jade, MAGGY [address] [place], [place] [id number] [email or web address] iCMP Barrel CooperFruit Picker 01/18/25 documented as of this encounter Additional Source Comments The information contained in this document represents components of the legal health record. It is not the complete legal health record.[facility]
--- OUTSIDE RECORDS SUMMARY | 2025-02-20 17:10 | XMS_ITS | Encounter Summary ---
Author Organization [facility] Address [address] [address] Phone Care Team Providers Care Customs Compliance Manager Name Role Phone Rigo Lopez MCKENNA Primary Care Provider Lisa Sommers MD Unavailable [phone] Smitha Simmons CIVIL DEFENSE DIRECTOR Unavailable Gina Barajas PA Unavailable [phone] Reddy Valdez MD Unavailable [phone] Tamara Dubon BELL ATTENDANT Unavailable Monika James MD Unavailable [phone] Alhaji Reese MD Unavailable [phone] Cesar Lester MD Unavailable [phone] Beth Armendariz RN Unavailable [email or web address] Amisha Steen PEDIATRIC ONCOLOGY NURSE Unavailable [phone] Divina Jade RN Unavailable [phone] Encounter Details Date Type Department Care Team (Late st Contact Info) Description 06/19/2021 Ancillary Orders [facility],Outside Imaging [address] [place], [place] [phone] System, Provider Not In, PhD Partners [address] [address] Social History Tobacco Use Types Packs/Day Years [...] st Contact Info) Description 09/13/2024 Procedure Pass [address] [address] 03/27/2025 8:00 AM EST Appointment [address] [address] Rigo Lopez, PROGRAM EVALUATION CONSULTANT [facility], [address] [place] [address] jesus 05/22/2025 2:00 PM EST Office Visit [facility] Pulmonary, Allergy and Critical Care Medicine [address] [place] [address] Remy Darby MD [address] [place] [address] documented as of this encounter Results * [...] documented as of this encounter Care Teams Customs Compliance Manager Relationship Specialty Start Date End Date Rigo Lopez CNP [address] [facility], [address] [place] [address] jesus PCP - General Family Medicine 07/25/18 Lisa Sommers MD [address] [place] [address], [address] [place] [address] Urology 07/25/18 Smitha Simmons CIVIL DEFENSE DIRECTOR [address] [place] [address] Family Medicine 05/21/20 Gina Barajas PA [address] [place] [address] University Intern 05/21/20 08/20/22 Reddy Valdez MD [facility], [facility] 301 [place] [address] Sleep Medicine 05/21/20 08/20/22 Tamara Dubon, BELL ATTENDANT [address] [place] [address] Psychiatry 03/31/21 Monika James MD [address] [facility], [address] [place] [address] Rheumatology 03/31/21 08/20/22 Alhaji Reese MD [address] [place] [address] [email or web address] Gastroenterology 05/28/21 08/20/22 Cesar Lester MD [address] [place] [address], [address] [place] [address] [email or web address] Insurance Assigned Provider 08/23/21 05/22/23 Beth Armendariz RN [address] [place] [address], [address] [place] [address] [email or web address] Passementerie Worker 10/05/22 01/17/25 Amisha Steen FNP [address] [place] [address] Nurse Practitioner 08/27/23 Divina Jade, RN [address] [place] [address] [email or web address] iCMP Passementerie WorkerWater Pollution Control Inspector 01/18/25 documented as of this encounter Additional Source Comments The information contained in this document represents components of the legal health record. It is not the complete legal health record.[facility]
--- OUTSIDE RECORDS SUMMARY | 2025-02-20 17:10 | XMS_ITS | Clinical Summary ---
Author Organization [facility] Address [address] [address] Phone Care Team Providers Care Information Systems Architect Name Role Phone Cristela Alba MCKENNA Primary Care Provider [phone] Lisa Sommers MD Unavailable [phone] Smitha Simmons MAGNETIC HEALER Unavailable [phone] Tamara Dubon RESEARCH LAB ASSISTANT Unavailable Amisha Steen PHARMACOLOGY TEACHER Unavailable Divina Jade RN Unavailable [phone] Allergies Active Allergy Reactions Criticality Noted Date [...] DME Vendors, Elder Services): Mental health providers. [place] [employer] Transportation: She has her own vehicle, drives [...] GI. She will have labs drawn through [facility] at her next visit. Screening HIV [...] AM EDT): Doing pelvic floor PT through [facility] with HEP. Interstitial cystitis 07/22/2012 Irritable bowel [...] see if it will increase sleep at [facility]. Patient is taking Seroquel and temazepam [...] Allergy and Critical Care Medicine [address] [facility] [place] [address] Deborah Pugh in office 02/12/2025 Enrollment [facility] Primary [facility] [address] [place] [address] 02/08/2025 Telephone [facility] Pul[facility], Allergy and Critical Care Medicine [address] [place] [address] Ewa Elaine RN 02/01/2025 Telephone [facility] Pul[facility], Allergy and Critical Care Medicine [address] [place] [address] Deborah Pugh Spacer sample 01/31/2025 3:00 PM EDT Office Visit [facility], Allergy and Critical Care Medicine 10 [place] [address] Jimmy Swan MD Mild intermittent asthma without complication (Primary Dx); Seasonal allergic rhinitis due to pollen; Dermatitis 01/09/[address] [place] [address] Lesli Schmid LPN 01/04/2025 Patient Outreach [facility] [address] [place] [address] Beth Armendariz, MAGGY Care Coordination ([facility] Follow up outreach, [facility] transition information ) 11/30/2024 Patient Outreach [facility] IN[facility]GRATED CARE MANAGEMENT [address] [place] [address] Beth Armendariz, MAGGY Care Coordination ([facility] Follow up outreach ) 11/24/2024 3:30 PM EDT Office Visit [address] [place] [address] Cristela Alba, MCKENNA Left elbow pain (Primary Dx) 11/24/2024 Orders Only [address] [place] [address] Provider, MD Mikie from Last 3 Months [...] Contact Info) Description 09/13/20[address] [address] 03/27/2025 8:00 AM EST Appointment [address] [address] Cristela Alba, OUTDOOR EMERGENCY CARE TECHNICIAN 22 [facility], [address] [place] [address] jesus 05/22/2025 2:00 PM EST Office Visit [facility] Pul[facility], Allergy and Critical Care Medicine 10 [place] [address] Remy Darby MD 10 [facility] 2nd [place] [address] Health Maintenance Due Date Last Done Comments [...] Imaging Report Only (11/21/2024 3:52 PM EDT) us Historical Provider MD FAY XR CHEST Final [...] of the results and recommendations. Cristela Alba OUTDOOR EMERGENCY CARE TECHNICIAN IMG MG EXAMS Final Res ult * Outside Glucose,Fasting (09/07/2023) Glucose, fasting - External 94 65 - 99 mg/dL Historical Provider MD LAB BLOOD ORDERABLES Татьяна l Result * Outside HDL (06/11/2021) HDL - External 71 40 - 80 mg/dL Historical Provider LAB BLOOD ORDERABLES Татьяна l Result * ENDOSCOPY, COLON (09/30/2020 1:29 PM EDT) Narrative Transcriptions Jimmy Reese MD - 09/30/2020 1:29 PM EDT Patient Name: Kaitlynn Grover Attending MD:: JIMMY REESE MD Procedure Date: 09/30/2020 1:29 PM Date of : 1975 Age: 45 Admit Type: Outpatient Gender: Female Room: [facility] Referring MD: CRISTELA ALBA Exam Type: [...] 1:29 PM Procedure Code(s): --- Professional --- 24511, Colonoscopy, flexible; with biopsy, single or multiple --- Technical --- 98593, Colonoscopy, flexible; with biopsy, single or multiple Diagnosis Code(s): --- Professional --- K64.8, Other hemorrhoids R10.84, Generalized abdominal pain R19.4, Change in bowel habit K59.00, Constipation, unspecified Q43.8, Other specified congenital malformations of intestine --- Technical --- K64.8, Other hemorrhoids R10.84, Generalized abdominal pain R19.4, Change in bowel habit K59.00, Constipation, unspecified Q43.8, Other specified congenital malformations of intestine CPT copyright 2018 [employer]. All rights reserved. The codes documented in this report are preliminary and upon sugar trucker reviewmay be revised to meet current compliance requirements. Procedure Date: 09/30/2020 1:29:[address] [place] [address] Cristela Alba CNP GI PROCEDURE ORDERABLES F inal Result * Outside Hepatitis C Virus Screening (05/28/2020) Hepatitis C Screening - External Neg Historical Provider LAB BLOOD ORDERABLES Татьяна l Result from Last 3 Months or Most Recently Relevant to Health Maintenance Insurance MEDICARE PART A & B [employer]OSS MEDEX SUPPLEMENT MEDICARE PART A & B [employer]EX SUPPLEMENT MEDICARE PART A & B [employer] MEDEX SUPPLEMENT MEDICARE PART A & B [employer] MEDEX SUPPLEMENT MEDICARE PART A & B [employer] MEDEX SUPPLEMENT MEDICARE PART A & B [employer] MEDEX SUPPLEMENT MEDICARE PART A & B [facility] MEDEX SUPPLEMENT MEDICARE PART A & B [employer]OSS MEDEX SUPPLEMENT MEDICARE PART A & B [employer] MEDEX SUPPLEMENT Care Teams Information Systems Architect Relationship Specialty Start Date End Date Cristela Alba CNP [address] [place] [address], [address] [place] [address] jesus PCP - General Family Medicine 07/25/18 Lisa Sommers MD [address] [facility], [address] [place] [address] Urology 07/25/18 Smitha Simmons, MAGNETIC HEALER [address] [place] [address] Family Medicine 05/21/20 Tamara Dubon, RESEARCH LAB ASSISTANT [address] [place] [address] Psychiatry 03/31/21 Amisha Steen FNP [address] [place] [address] Nurse Practitioner 08/27/23 Divina Jade, RN [address] [place] [address] [email or web address] i[employer] Corporate Accounting ManagerSocial Sciences Professor 01/18/25 Additional Source Comments The information contained in this document represents components of the legal health record. It is not the complete legal health record.[facility]
--- OUTSIDE RECORDS SUMMARY | 2025-02-20 17:10 | XMS_ITS | Encounter Summary ---
Author Organization [facility] Address [address] [place] [address] Phone Care Team Providers Care Instant Powder Supervisor Name Role Phone Rigo Lopez MCKENNA Primary Care Provider Lisa Sommers MD Unavailable Smitha Simmons PROFESSOR OF RADIOLOGY Unavailable [phone] Gina Barajas PA Unavailable Reddy Valdez MD Unavailable [phone] Tamara Dubon SEAMAN OFFICER Unavailable Monika James MD Unavailable Alhaji Reese MD Unavailable [phone] Cesar Lester MD Unavailable [phone] Beth Armendariz RN Unavailable [email or web address] Amisha Steen MARINE STEAM FITTER Unavailable [phone] Divina Jade RN Unavailable [phone] Encounter Details Date Type Department Care Team (Late st Contact Info) Description 07/10/2021 Procedure Pass [facility], [address] [address] Social History Tobacco Use Types Packs/Day Years [...] st Contact Info) Description 09/13/2024 Procedure Pass [address] [address] 03/27/2025 8:00 AM EST Appointment [address] [address] Rigo Lopez CNP [address] [place] [address], [address] [place] [address] [email or web address] 05/22/2025 2:00 PM EST Office Visit [facility] Pulmonary, Allergy and Critical Care Medicine 10 [place], [place] [phone] Remy Darby MD [address] [place] [address] [address] [place] [address] documented as of this encounter Visit Diagnoses Not on filedocumented in this encounter Additional Health Concerns Infection Onset Date Last Indicated Resolved Time CoV-Risk 10/09/2021 10/09/2021 10/20/2021 1:24 AM EDT Assessment Noted Time PHQ-2 Depression Total Score: 2 05/28/19 22 8:17 AM EST documented as of this encounter Care Teams Instant Powder Supervisor Relationship Specialty Start Date End Date Rigo Lopez CNP [address] [place] [address], [address] [place] [address] jesus PCP - General Family Medicine 07/25/18 Lisa Sommers MD [address] [place] [address], [address] [place] [address] Urology 07/25/18 Smitha Simmons, PROFESSOR OF RADIOLOGY [address] [place] [address] Family Medicine 05/21/20 Gina Barajas PA [address] [place] [address] Retinal Surgeon 05/21/20 08/20/22 Reddy Valdez MD [address] [place] [address], [address] [address] [email or web address] Sleep Medicine 05/21/20 08/20/22 Tamara Dubon, SEAMAN OFFICER [address] [place] [address] Psychiatry 03/31/21 Monika James MD [address] [place] [address], [address] [place] [address] [email or web address] Rheumatology 03/31/21 08/20/22 Alhaji Reese MD [address] [place] [address] Gastroenterology 05/28/21 08/20/22 Cesar Lester MD [address] [place] [address], [address] [place] [address] [email or web address] Insurance Assigned Provider 08/23/21 05/22/23 Beth Armendariz, MAGGY [address] [facility], [address] [place] [address] [email or web address] Sales Center Manager 10/05/22 01/17/25 Amisha Steen, [facility] [address] [place] [address] Drive [address] [place] [address] Nurse Practitioner 08/27/23 Divina Jade, MAGGY [address] [place], [place] [id number] [email or web address] iC[employer] Sales Center ManagerTop Lift Cutter 01/18/25 documented as of this encounter Additional Source Comments The information contained in this document represents components of the legal health record. It is not the complete legal health record.[facility]
--- OUTSIDE RECORDS SUMMARY | 2025-02-20 17:10 | XMS_ITS | Encounter Summary ---
Author Organization [facility] Address [address] [address] Phone Care Team Providers Care Bone Drier Operator Name Role Phone Rigo Lopez MCKENNA Primary Care Provider [phone] Lisa Sommers MD Unavailable Smitha Simmons SENIOR PUBLICATIONS SPECIALIST Unavailable [phone] Tamara Dubon STAFF TOXICOLOGIST Unavailable Amisha Steen LITIGATION LEGAL ASSISTANT Unavailable [phone] Divina Jade RN Unavailable Reason for Visit * Reason Onset Date Comments Vortex spacer in office 02/16/2025 Encounter Details Date Type Department Care Team (Late st Contact Info) Description 02/16/2025 Telephone [facility], Allergy and Critical Care Medicine 10 [place], [place] [phone] Deborah Pugh [address] [place], [place] [phone] Vortex spacer in office Social History Tobacco [...] AM EDT Pt came to office to product picker Vortex spacer - logged in samples book- may need Rx for this going forward. Pt rcvd. documented in this encounter Plan of Treatment Upcoming Encounters Date Type Department Care Team (Late st Contact Info) Description 09/13/2024 Procedure Pass [address] [address] 03/27/2025 8:00 AM EST Appointment [address] [address] Rigo Lopez, [employer] BLOCK[employer] PRESS OPERATOR 22 [facility], [address] [place] [address] jesus 05/22/2025 2:00 PM EST Office Visit [facility] Pulmonary, Allergy and Critical Care Medicine 10 [facility] [place], [place] [phone] Remy Darby MD [address] [place] [address] 2nd [place] [address] documented as of this encounter Visit Diagnoses Not on filedocumented in this encounter Additional Health Concerns Assessment Noted Time PHQ-9 Depression Total Score: 19 024 7:15 AM EDT PHQ-2 Depression Total Score: 5 08/27/19 24 7:15 AM EDT documented as of this encounter Care Teams Bone Drier Operator Relationship Specialty Start Date End Date Rigo Lopez CNP [address] [place] [address], [address] [place] [address] jesus PCP - General Family Medicine 07/25/18 Lisa Sommers MD [address] [place] [address], [address] [place] [address] Urology 07/25/18 Smitha Simmons, RIC [address] [place] [address] Family Medicine 05/21/20 Tamara Dubon STAFF TOXICOLOGIST [address] [place] [address] Psychiatry 03/31/21 Amisha Steen FNP [address] [place] [address] Nurse Practitioner 08/27/23 Divina Jade, MAGGY [address] [place] [address] iC[employer] Solar [employer] Systems DesignerDesign Engineer Products 01/18/25 documented as of this encounter Additional Source Comments The information contained in this document represents components of the legal health record. It is not the complete legal health record.[facility]
== END 2025-02-20 14:57 | disposition home or self-care (01) ==
LOC: HO.PMCPRC 13:53
PROVIDERS: PCP Nurse Practitioner Adult Health; Visit Provider Anesthesiology
DX: M53.3 Sacrococcygeal disorders, not elsewhere classified (principal); M70.61 Trochanteric bursitis, right hip; M54.59 Other low back pain; M25.551 Pain in right hip
CPT/HCPCS: 20610; 27096; 77002

== ENCOUNTER 2025-03-22 09:58 | Outpatient (AMB) | payer MEDICARE, SELFPAY ==
--- NOTE | 2025-03-22 10:01 | MHC.OFFVIS ---
Vital Signs 03/22/25 10:05 Height 5 ft 2 in Weight 138 lb BMI 25.2 BP 136/67 Blood Pressure Location Rt brachial Position Sitting Pulse 98 Pulse Source Pulse Oximeter Pulse Oximetry (%) 100 Oxygen Delivery Method Room Air Intake Visit Reasons: S/P Right TX SIJ Inj/Right TX GTB Inj Intake Note: Pain today 3/10 Tight Rope Walker Required: No Accompanied by: self Allergies sulfamethoxazole (From BACTRIM) Allergy (Intermediate, Verified 01/12/25 08:38) hives trimethoprim (From BACTRIM) Allergy (Intermediate, Verified 01/12/25 08:38) hives propofol Allergy (Unknown, Verified 03/22/25 10:05) Anaphylaxis Sulfa (Sulfonamide Antibiotics) Allergy (Unknown, Verified 01/12/25 08:38) Unknown HPI Comments Details: The patient is a 49-year-old female presenting with right sacroiliac joint dysfunction and greater trochanteric bursitis. She underwent therapeutic injections on February 20, 2025, which were administered by Dr. Walsh. The patient reports significant pain relief, with her pain level reduced to 3/10, and an improvement in daily activities, including sleep, driving, and working. The patient also experiences chronic pelvic pain, which she attributes to other pelvic issues. She has been practicing self-hypnosis and vagus nerve stimulation, which she reports have improved her digestion and bathroom habits. The patient has a history of Samra-Danlos syndrome, which has led her to engage in myofascial massage therapy to manage her symptoms. She reports that her pain is now manageable and does not require emergency room visits, unlike before. The patient mentions ongoing arthritis and disc issues in her back, which she manages with limited use of a back brace to prevent muscle atrophy. She also uses SI joint belt brace which has worn out and she requests new script for SI joint belt. Denies any recent cough, cold, infection, fever, any significant changes in her medical history, medications or recent hospitalizations. Past Procedures: 02/20/25: Right therapeutic SIJ/GTB sdpkijvhsi-08-05% ongoing pain relief 11/11/23: Right L5 Sprint PNS lead removed 11/02/23: Right L5 Sprint PNS trial-80% ongoing pain relief 09/21/23: Bilateral Diagnostic L3-L4 DR L5 MBB-90-100% pain relief for 6-8 hours 07/14/22: Right Sacroiliac Joint RFA at [facility]-0% pain relief 12/23/21: Bilateral Therapeutic SIJ injections-80% ongoing pain relief 07/08/21: Intercostal Therapeutic Injection Rib 6,7-100% pain relief 07/22/21: Bilateral Diagnostic SIJ Hpsxxvfher-37-07% pain relief for 6 hours 08/26/21: Bilateral Therapeutic SIJ injections-100% pain relief for 2.5 weeks, ongoing 50% pain relief x 3 months PRIOR: Patient is a pleasant 45 year old female who presents to the office in no acute distress, with costochondritis, chronic back pain x 15 years, fibromyalgia, and Samra Danlos syndrome. Costochondritis pain started about 2.5 weeks ago at the lower midsternal area. She had complete work up for chest pain at ER which was negative. Today, she reports her pain is now at the left lateral rib area. Her lower back pain with radiation posteriorly to her left side just below left knee, with mild paresthesias and pain of the left buttock. She cannot sit or stand for prolonged time because her back will lock up. Patient reports she has to stand against the wall or counter, bending forward to relieve her pain partially. She denies any previous back surgery or injections. Denies trauma, injury or fall. She denies lower or upper extremities weakness. Patient denies any fever, abdominal or groin pain, malaise, weight loss, numbness, tingling, bladder/bowel dysfunction or saddle anesthesia. The pain onset was sudden, varies throughout the day and has been constant or intermittent with worst pain intensity rated at 8/10 and least severe pain at 3/10. She states the pain is interfering with sleep, activities of daily living, mood, quality of life, and she cannot function normally. The patient reports the pain in terms of tissue damage as dull, sore, hurting, aching, heavy, tiring, exhausting, punishing, and killing. She has been taking Tylenol, Ibuprofen, intranasal ketamine, gabapentin, cyclobenzaprine, medical marijuana (edible, tincture, vape), lidocaine 5% patches and short script of tramadol with some improvement in her pain. Weather changes, movements and activity aggravates her pain. Heat and cold applications, topical and oral medications have been helpful partially. She rates their pain 3/10. Previously she has tried physical therapy, the last being 5 years ago through [facility]. She is interested in restarting formal PT at different locations. Patient continues home exercise program. She also has tried home acupuncture, massage, and TENS unit. Denies chiropractic manipulation or aqua therapy. She last had imaging of the lumbar MRI within last year at [facility]. This imaging/report is not available today. Referral notes present with normal chest xrays 06/16/21, 06/17/[address] chest pulmonary angiogram 06/17/21 which was also normal and negative for pulmonary embolus. Past medical history is significant for anxiety, asthma, chronic fatigue, depressive disorder, Samra-Danlos syndrome, fibromyalgia, hypothyroidism, interstitial cystitis, irritable bowel syndrome and chronic lower back pain. [facility] Medical History Major depression, recurrent Pelvic prolapse Periodic limb movement disorder GERD (gastroesophageal reflux disease) TMJ (dislocation of temporomandibular joint) Fibromyalgia Sleep apnea Migraine PTSD (post-traumatic stress disorder) Anxiety Polyarthritis Pelvic floor dysfunction Irritable bowel syndrome (IBS) Visceral pain Polycystic ovary Depression Samra-Danlos disease Interstitial cystitis Hypothyroid Asthma Social History Substance Use Type: Other Review of Systems Const All systems reviewed & are unremarkable except as noted in HPI and below Physical Exam Vital Signs: Last Vital Signs Pulse 98 03/22/25 10:05 BP 136/67 03/22/25 10:05 Pulse Ox 100 03/22/25 10:05 Oxygen Delivery Method Room Air 03/22/25 10:05 BMI result Body Mass Index 25.2 General: Appears afebrile. Alert and oriented. Mood and affect appropriate. Follows and participates in conversation appropriately. Respiratory effort is unlabored. No cough. Able to transition from sit to stand unassisted. Ambulates with bilaterally normal heel strike and toe off. Repetitive lumbar flexion and axial rotation reproduces pain. Back/Spine/Pelvis Other: Limited lumbar ROM due to pain. Demonstrates 5/5 strength of quadriceps bilaterally as well as flexion/dorsiflexion of bilateral feet against resistance. 2+ pedal pulses bilaterally. SLR test with dorsiflexion negative bilaterally. +2 patellar and achilles reflexes bilaterally. Facet loading test positive bilaterally. Multiple widespread TTPs 16/16 bilaterally, including upper and lower extremities. Cervical Spine: cervical ROM normal, cervical muscular tenderness and No Cervical spine tenderness Thoracic/Lumbar Spine: thoracic and lumbar spine normal to inspection, Thoracic/lumbar spine scar(s), Lasegue's sign negative, straight leg raise negative bilaterally, pain with thoraco-lumbar ROM, thoraco-lumbar ROM limited, No thoracic spinal tenderness and lumbar spinal tenderness (L4-S1) Sacroiliac joints: bilaterally tender to palpation (mild) Extrem General: Yes capillary refill normal, Yes no clubbing, cyanosis or edema and Yes no calf tenderness Left upper extremity: elbow/forearm Details: normal to inspection, tenderness Location: of the olecranon and of the lateral epicondyle, normal ROM, crepitus and distal pulses intact; no swelling, no unusual warmth and no ecchymosis Assessment & Plan Assessment & Plan (1) Sacroiliac joint dysfunction of both sides: Code(s): M53.3 - Sacrococcygeal disorders, not elsewhere classified Category: Medical (2) Lumbosacral spondylosis: Code(s): M47.817 - Spondylosis without myelopathy or radiculopathy, lumbosacral region Category: Medical (3) Mid back pain: Code(s): M54.9 - Dorsalgia, unspecified Category: Medical (4) Spondylosis of lumbar region without myelopathy or radiculopathy: Code(s): M47.816 - Spondylosis without myelopathy or radiculopathy, lumbar region Category: Medical (5) Right hip pain: Code(s): M25.551 - Pain in right hip Category: Medical (6) Fibromyalgia: Code(s): M79.7 - Fibromyalgia Category: Medical Plan The patient will continue with current pain management strategies, including the use of ibuprofen as needed for pain relief. She is also performing self-hypnosis and vagus nerve stimulation, which have shown benefits in managing her symptoms. A referral to an Orthotics and Prosthetics facility is recommended for evaluation and fitting of an appropriate SI joint belt, which may provide additional support and stability. All questions and concerns have been answered and patient agreed with the treatment plan. Follow up as needed. Patient was informed and verbally consented to the use of an ambient scribe for clinic note documentation during this visit. Medications: New sacroiliac belt As directed 1 ea 0RF lumbosacral support M47.817 - Spondylosis without myelopathy or radiculopathy, lumbosacral region, M53.3 - Sacrococcygeal disorders, not elsewhere classified Coding Level of Care Code Est Pt Level 4 (50444) Complex EM visit Add On G2211 Diagnoses Sacroiliac joint dysfunction of both sides M53.3 Lumbosacral spondylosis M47.817 Mid back pain M54.9 Spondylosis of lumbar region without myelopathy or radiculopathy M47.816 Right hip pain M25.551 Fibromyalgia M79.7
[2025-03-22 10:05] VITALS: BP 136/67; PULSE 98; O2SAT 100; BMI 25.2
--- OUTSIDE RECORDS SUMMARY | 2025-03-22 11:27 | XMS_ITS | Encounter Summary ---
Author Organization [facility] Address [address] [place] [address] Phone Care Team Providers Care Shank Stitcher Name Role Phone Rigo Lopez MCKENNA Primary Care Provider [phone] Lisa Sommers MD Unavailable Kuldeep Pérez Unavailable [phone] Smitha Simmons PEDIATRIC PATHOLOGIST Unavailable [phone] Gina Barajas PA Unavailable [phone] Reddy Valdez MD Unavailable [phone] Ling Tamara A COMPUTER TECHNICAL SPECIALIST Unavailable Monika James MD Unavailable Alhaji Reese MD Unavailable [phone] Cesar Lester MD Unavailable [phone] Beth Armendariz RN Unavailable [email or web address] Amisha [email or web address] Unavailable Divina Jade RN Unavailable Kal Vo Unavailable Encounter Details Date Type Department Care Team (Late st Contact Info) Description 09/30/2020 Procedure Pass [facility] Endoscopy Admitting Dept Virtual Department [address] [place] [address] Social History Tobacco Use Types Packs/Day Years [...] st Contact Info) Description 09/13/2024 Procedure Pass [address] [address] 03/27/2025 8:00 AM EST Appointment [address] [address] Rigo Lopez CNP [address] [place] [address], [address] [place] [address] [email or web address] 05/22/2025 2:00 PM EST Office Visit [facility] Pulmonary, Allergy and Critical Care Medicine [address] [place] [address] Remy Darby MD [address] [place] [address] documented as of this encounter Visit Diagnoses Not on filedocumented in this encounter Additional Health Concerns Infection Onset Date Last Indicated Resolved Time CoV-Risk 10/09/2021 10/09/2021 10/20/2021 1:24 AM EDT Assessment Noted Time PHQ-2 Depression Total Score: 2 05/18/19 21 11:52 AM EST documented as of this encounter Care Teams Shank Stitcher Relationship Specialty Start Date End Date Rigo Lopez CNP [address] [place] [address], [address] [place] [address] jesus PCP - General Family Medicine 07/25/18 Lisa Sommers MD [address] [place] [address], [address] [place] [address] [email or web address] Urology 07/25/18 Kuldeep Pérez PA [address] [place] [address], [address] [place] [address] [email or web address] 05/21/20 03/30/21 Smitha Simmons NP [address] [place] [address] Family Medicine 05/21/20 Gina Barajas PA [address] [place] [address] Transportation Engineering Technician 05/21/20 08/20/22 Reddy Valdez MD [address] [place] [address], [facility] [address] [place] [address] Sleep Medicine 05/21/20 08/20/22 Tamara Dubon, COMPUTER TECHNICAL SPECIALIST [address] [place] [address] Psychiatry 03/31/21 Monika James MD [address] [place] [address], [address] [place] [address] Rheumatology 03/31/21 08/20/22 Alhaji Reese MD [address] [place] [address] [email or web address] Gastroenterology 05/28/21 08/20/22 Cesar Lester MD [address] [place] [address], [address] [place] [address] [email or web address] Insurance Assigned Provider 08/23/21 05/22/23 Beth Armendariz RN [address] [place] [address], [address] [place] [address] [email or web address] Patient Carrier 10/05/22 01/17/25 Amisha Steen FNP [address] [place] [address] Nurse Practitioner 08/27/23 Divina Jade, RN [address] [place] [address] [email or web address] PHC Patient CarrierFisher Diver Net 01/18/25 Kal Vo [address] [place] [address] [email or web address] Pta 03/21/25 03/21/25 documented as of this encounter Additional Source Comments The information contained in this document represents components of the legal health record. It is not the complete legal health record.[facility]
--- OUTSIDE RECORDS SUMMARY | 2025-03-22 11:27 | XMS_ITS | Encounter Summary ---
Author Organization [facility] Address [address] [address] Phone Care Team Providers Care Strategic Development Manager Name Role Phone Rigo Lopez MCKENNA Primary Care Provider Lisa Sommers MD Unavailable Smitha Simmons PLASTICS PATTERNMAKER Unavailable Gina Barajas PA Unavailable [phone] Reddy Valdez MD Unavailable [phone] Tamara Dubon PROJECT MANAGER RETAIL Unavailable Monika James MD Unavailable Alhaji Reese MD Unavailable [phone] Cesar Lester MD Unavailable [phone] Beth Armendariz RN Unavailable [email or web address] Amisha Steen RAW MATERIAL PLANNER Unavailable [phone] Divina Jade RN Unavailable Kal Vo Unavailable Encounter Details Date Type Department Care Team (Late st Contact Info) Description 07/17/2021 Procedure Pass [facility], Ct Scan - [address] [address] Social History Tobacco Use Types Packs/Day Years [...] Contact Info) Description 09/13/2024 Procedure Pass [address] [address] 03/27/2025 8:00 AM EST Appointment [address] [address] Rigo Lopez CNP [address] [place] [address], [address] [place] [address] jesus 05/22/2025 2:00 PM EST Office Visit [facility] Pulmonary, Allergy and Critical Care Medicine 10 [place] [address] Remy Darby MD [address] [place] [address] documented as of this encounter Visit Diagnoses Not on filedocumented in this encounter Additional Health Concerns Infection Onset Date Last Indicated Resolved Time CoV-Risk 10/09/2021 10/09/2021 10/20/2021 1:24 AM EDT Assessment Noted Time PHQ-2 Depression Total Score: 2 05/28/19 22 8:17 AM EST documented as of this encounter Care Teams Strategic Development Manager Relationship Specialty Start Date End Date Rigo Lopez CNP [address] [place] [address], [address] [place] [address] jesus PCP - General Family Medicine 07/25/18 Lisa Sommers MD [address] [place] [address], [address] [place] [address] [email or web address] 07/25/18 Smitha Simmons, PLASTICS PATTERNMAKER [address] [place] [address] Family Medicine 05/21/20 Gina Barajas PA [address] [place] [address] Translator And Interpreter 05/21/20 08/20/22 Reddy Valdez MD [address] [place] [address], [address] [place] [address] Sleep Medicine 05/21/20 08/20/22 Tamara Dubon, PROJECT MANAGER RETAIL [address] [place] [address] Psychiatry 03/31/21 Monika James MD [address] [place] [address], [address] [place] [address] Rheumatology 03/31/21 08/20/22 Alhaji Reese MD [address] [place] [address] Gastroenterology 05/28/21 08/20/22 Cesar Lester MD [address] [place] [address], [address] [place] [address] [email or web address] Insurance Assigned Provider 08/23/21 05/22/23 Beth Armendariz, MAGGY [address] [facility], [address] [place] [address] [email or web address] PHCM Hydrographical Technical Officer 10/05/22 01/17/25 Amisha Steen, [facility] [address] [place] [address] [place] [address] Nurse Practitioner 08/27/23 Divina Jade, MAGGY [address] [place], [place] [id number] [email or web address] PHC Hydrographical Technical OfficerWelfare Interviewer 01/18/25 Kal Vo [address] [place] [address] [email or web address] Barn Manager 03/21/25 03/21/25 documented as of this encounter Additional Source Comments The information contained in this document represents components of the legal health record. It is not the complete legal health record.[facility]
--- OUTSIDE RECORDS SUMMARY | 2025-03-22 11:27 | XMS_ITS | Encounter Summary ---
Author Organization [facility] Address [address] [address] Phone Care Team Providers Care Director Of Partner Marketing Name Role Phone Rigo Lopez MCKENNA Primary Care Provider [phone] Lisa Sommers MD Unavailable Smitha Simmons NP Unavailable [phone] Tamara Dubon PUBLIC HEALTH SANITARIAN TECHNICIAN Unavailable [phone] Beth Armendariz RN Unavailable [email or web address] Amisha Steen APPLIED PSYCHOLOGY PROFESSOR Unavailable [phone] Divina Jade RN Unavailable [phone] Kal Vo Unavailable Reason for Visit * Reason Onset Date Comments Abdominal Pain 07/06/2023 X 5 days Encounter Details Date Type Department Care Team (Late st Contact Info) Description 07/06/2023 Nurse Triage [facility] [address] [place] [address] Beth Armendariz, MAGGY [email or web address] Abdominal Pain (X 5 days) Social History [...] Contact Info) Description 09/13/2024 Procedure Pass [address] [address] 03/27/2025 8:00 AM EST Appointment [address] [address] Rigo Lopez CNP 22 [facility], [address] [place] [address] jesus 05/22/2025 2:00 PM EST Office Visit [facility] Pulmonary, Allergy and Critical Care Medicine [address] [facility] [place] [address] Remy Darby MD [address] [place] [address] documented as of this encounter Visit Diagnoses Not on filedocumented in this encounter Additional Health Concerns Assessment Noted Time PHQ-9 Depression Total Score: 19 023 7:59 AM EDT PHQ-2 Depression Total Score: 2 10/28/19 23 9:48 AM EDT documented as of this encounter Care Teams Director Of Partner Marketing Relationship Specialty Start Date End Date Rigo Lopez CNP [address] [facility], [address] [place] [address] jesus PCP - General Family Medicine 07/25/18 Lisa Sommers MD [address] [facility], [address] [place] [address] [email or web address] 07/25/18 Smitha Simmons, MARRIAGE COUNSELOR MINISTER [address] [place] [address] Family Medicine 05/21/20 Tamara Dubon PUBLIC HEALTH SANITARIAN TECHNICIAN [address] [place] [address] Psychiatry 03/31/21 Beth Armendariz, MAGGY [address] [place] [address] [email or web address] PHCM Lead Pressman 10/05/22 Amisha Steen FNP [address] [place] [address] Nurse Practitioner 08/27/23 Divina Jade, RN [address] [place] [address] PHCM Lead PressmanFood Counter Attendant 01/18/25 Kal Vo [address] [place] [address] Production Grader 03/21/25 03/21/25 documented as of this encounter Additional Source Comments The information contained in this document represents components of the legal health record. It is not the complete legal health record.[facility]
--- OUTSIDE RECORDS SUMMARY | 2025-03-22 11:27 | XMS_ITS | Clinical Summary ---
Author Organization [facility] Address [address] [address] Phone Care Team Providers Care Generalist Name Role Phone Cristela Alba MCKENNA Primary Care Provider [phone] Lisa Sommers MD Unavailable Smitha Simmons FIRE HOSE CURER Unavailable Tamara Dubon CHUCK WAGON DRIVER Unavailable [phone] Amisha Steen TAILORING TEACHER Unavailable [phone] Divina Jade RN Unavailable Allergies Active Allergy [...] mouth daily. 5 Active albuterol 90 mcg/actuation inhalerIndication s:Mild [...] Take 10 mg by mouth daily. Active budesonide-formot shelly 80-4.5 mcg/actuation inhaler Inhale 2 puffs into the lungs 2 (two) times a day. 10.2 g 5 5 Active Active Problems Patient Care Coordination [...] DME V[employer]ors, Elder Services): Mental health providers. [place] Transportation: She has her own vehicle, drives [...] GI. She will have labs drawn through [facility] at her next visit. Screening HIV test [...] AM EDT): Doing pelvic floor PT through [facility] with HEP. Interstitial cystitis 07/22/2012 Irritable bowel [...] see if it will increase sleep at [facility]. Patient is taking Seroquel and temazepam [...] Encounters Date Type Department Care Team Description 03/08/2025 Patient Outreach [facility] Primary [facility] [address] [place] [address] Alma Antunez Care Coordination (General outreach) 02/16/2025 Telephone [facility] Pulmonary, Allergy and Critical Care Medicine [address] [place] [address] Deborah Pugh in office 02/12/2025 Enrollment [facility] [address] [place] [address] 02/08/2025 Telephone [facility] Pulmonary, Allergy and Critical Care Medicine [address] [place] [address] Ewa Elaine RN 02/01/2025 Telephone [facility] Pulmonary, Allergy and Critical Care Medicine [address] [place] [address] Deborah Pugh Spacer sample 01/31/2025 3:00 PM EDT Office Visit [facility] Pulmonary, Allergy and Critical Care Medicine 10 [place] [address] Jimmy Swan MD Mild intermittent asthma without complication (Primary Dx); Seasonal allergic rhinitis due to pollen; Dermatitis 01/09/2025 Telephone [facility] [address] [place] [address] Lesli Schmid LPN 01/04/2025 Patient Outreach [facility] [address] [place] [address] Beth Armendariz, MAGGY Care Coordination ([facility] Follow up outreach, [facility] transition information ) from Last 3 Months Immunizations Immunization [...] Info) Description 09/13/2024 Procedure Pass [facility], [address] [address] 03/27/2025 8:00 AM EST Appointment [address] [address] Cristela Alba, ACADEMIC ASSISTANT [address] [facility], [address] [place] [address] jesus 05/22/2025 2:00 PM EST Office Visit [facility] Pulmonary, Allergy and Critical Care Medicine [address] [place] [address] [place] [address] Remy Darby MD [address] [place] [address] 2nd [place] [address] Health Maintenance Due Date Last Done Comments [...] Procedure Name Priority Date/Time Associated Diagnosis Comments BI MAMMOGRAM SCREENING WITH TOMOSYNTHESIS WITH CAD (BILATERAL) Routine 12/10/2023 11:22 AM EDT Visit for screening mammogram OUTSIDE GLUCOSE FASTING Routine 09/07/2023 OUTSIDE HDL Routine 06/11/2021 ENDOSCOPY, COLON 09/30/2020 1:29 PM EDT OUTSIDE HEPATITIS C VIRUS SCREENING Routine 05/28/2020 from Last 3 Months or Most Recently Relevant to Health Maintenance Results * BI MAMMOGRAM SCREENING WITH TOMOSYNTHESIS WITH [...] of the results and recommendations. Cristela Alba ACADEMIC ASSISTANT IMG MG EXAMS Final Res ult * Outside Glucose,Fasting (09/07/2023) Glucose, fasting - External 94 65 - 99 mg/dL Historical Provider LAB BLOOD ORDERABLES Татьяна l Result * Outside HDL (06/11/2021) HDL - External 71 40 - 80 mg/dL Historical Provider LAB BLOOD ORDERABLES Татьяна l Result * ENDOSCOPY, COLON (09/30/2020 1:29 PM EDT) Narrative Transcriptions Hugh, Jimmy R, MD - 09/30/2020 1:29 PM EDT Patient Name: Kaitlynn Ness Attending MD:: JIMMY KESSLER MD Procedure Date: 09/30/2020 1:29 PM Date of : 1975 Age: 45 Admit Type: Outpatient Gender: Female Room: [facility] Referring MD: CRISTELA ALBA Exam Type: Colonoscopy [...] to GI office as previously scheduled. JIMMY KESSLER MD 09/30/2020 2:01:57 PM This report has been signed electronically. Number of Addenda: 0 Note Initiated On: 09/30/2020 1:29 PM Procedure Code(s): --- Professional --- 80554, Colonoscopy, flexible; with biopsy, single or multiple --- Technical --- 09236, Colonoscopy, flexible; with biopsy, single or multiple Diagnosis Code(s): --- Professional --- K64.8, Other hemorrhoids R10.84, Generalized abdominal pain R19.4, Change in bowel habit K59.00, Constipation, unspecified Q43.8, Other specified congenital malformations of intestine --- Technical --- K64.8, Other hemorrhoids R10.84, Generalized abdominal pain R19.4, Change in bowel habit K59.00, Constipation, unspecified Q43.8, Other specified congenital malformations of intestine CPT copyright 2018 [employer]. All rights reserved. The codes documented in this report are preliminary and upon product support analyst reviewmay be revised to meet current compliance requirements. Procedure Date: 09/30/2020 1:29:[address] [place] [address] Cristela Alba ACADEMIC ASSISTANT GI PROCEDURE ORDERABLES F inal Result * Outside Hepatitis C Virus Screening (05/28/2020) Hepatitis C Screening - External Neg Historical Provider LAB BLOOD ORDERABLES Татьяна l Result from Last 3 Months or Most Recently Relevant to Health Maintenance Insurance MEDICARE PART A & B [employer] MEDEX SUPPLEMENT MEDICARE PART A & B [employer]OSS MEDEX SUPPLEMENT MEDICARE PART A & B [employer] MEDEX SUPPLEMENT MEDICARE PART A & B [employer] MEDEX SUPPLEMENT MEDICARE PART A & B [employer] MEDEX SUPPLEMENT MEDICARE PART A & B [employer] MEDEX SUPPLEMENT MEDICARE PART A & B [employer] MEDEX SUPPLEMENT MEDICARE PART A & B [facility] MEDEX SUPPLEMENT MEDICARE PART A & B Member Subscriber Plan / Payer ( fective 2017-Present) Name:Kaitlynn Ness Member ID:[id number] Relation to Subscriber:Self Name:Kaitlynn Ness Subscriber ID:[id number] Payer ID:[id number] Group ID:Not on file Type:Medicare Address: [facility] [employer] [facility] [employer] [facility] [address] [place] [address] [employer] CROSS MEDEX SUPPLEMENT Care Teams Generalist Relationship Specialty Start Date End Date Cristela Alba CNP [address] [place] [address], [address] [place] [address] jesus PCP - General Family Medicine 07/25/18 Lisa Sommers MD [address] [place] [address], [address] [place] [address] [email or web address] 07/25/18 Smitha Simmons, FIRE HOSE CURER [address] [place] [address] Family Medicine 05/21/20 Tamara Dubon CNS [address] [place] [address] Psychiatry 03/31/21 Amisha Steen FNP [address] [place] [address] Nurse Practitioner 08/27/23 Divina Jade, MAGGY [address] [place] [phone] PHCM Beater Worker HelperBalance Sheet Analyst 01/18/25 Additional Source Comments The information contained in this document represents components of the legal health record. It is not the complete legal health record.[facility]
--- OUTSIDE RECORDS SUMMARY | 2025-03-22 11:27 | XMS_ITS | Encounter Summary ---
Author Organization [facility] Address [address] [address] Phone Care Team Providers Care Final Operations Technician Name Role Phone Rigo Lopez [facility] Unavailable Alhaji Martinez MD Unavailable Rigo Lopez [facility] Primary Care Provider [phone] Harvinder Vallejo MD Unavailable [phone] Rigo Lopez [facility] Primary Care Provider Alhaji Martinez MD Unavailable Lisa Sommers MD Unavailable Cesar Lester MD Unavailable [phone] Kuldeep Pérez PA Unavailable Smitha Simmons CHIEF ULTRASOUND TECHNOLOGIST Unavailable Gina Barajas PA Unavailable Reddy Valdez MD Unavailable [phone] Tamara Dubon PER DIEM INTERPRETER Unavailable Monika James MD Unavailable Alhaji Reese MD Unavailable [phone] Cesar Lester MD Unavailable Beth Armendariz RN Unavailable [email or web address] Amisha Steen TRANSPORTATION MAINTENANCE SUPERVISOR Unavailable Divina Jade RN Unavailable Kal Vo Unavailable Reason for Referral * Physical Therapy (Routine) - Closed Specialty Diagnoses / Procedures Referred By Cruz falcon Referred To Contact Physical Therapy Diagnoses Pelvic floor dysfunction System, Provider Not In, [facility] [id number] [place] [address] Phone: tel: Referral ID Status Reason Start Date Expiration Date Visits Re quested Visits Authorized [id number] Closed 11/16/2017 05/16/2018 99 99 Encounter Details Date Type Department Care Team (Latest Contact Info) Description 11/16/2017 Transcribe Orders [facility] [address] [place] [address] Kobi Bradley MD [address] [place] [address] Pelvic floor dysfunction (Primary Dx) Social History [...] Contact Info) Description 09/13/2024 Procedure Pass [address] [address] 03/27/2025 8:00 AM EST Appointment [address] [address] Rigo Lopez CNP 22 [facility], [address] [place] [address] [email or web address] [email or web address] 05/22/2025 2:00 PM EST Office Visit [facility] Pulmonary, Allergy and Critical Care Medicine [address] [place] [address] Remy Darby MD 10 [facility] 2nd [place] [address] [email or web address] documented as of this encounter Procedures Procedure Name Priority Date/Time Associated Diagnosis Comments AMB REFERRAL TO [facility] PHYSICAL THERAPY Routine 12/02/2017 10:52 AM EDT Pelvic floor dysfunction documented in this encounter Results * Ambulatory referral to [facility] Physical Therapy (12/02/2017 10:52 AM EDT) us Provider Not In System PhD AMB [facility] REFERRALS Fin al Result documented in this encounter Visit Diagnoses Diagnosis Pelvic floor dysfunction- Primary Visit for screening mammogram documented in this encounter Additional Health Concerns Infection Onset Date Last Indicated Resolved Time CoV-Risk 09/18/2019 09/18/2019 10/02/2019 1:23 AM EDT CoV-Risk 10/09/2021 10/09/2021 10/20/2021 1:24 AM EDT documented as of this encounter Care Teams Final Operations Technician Relationship Specialty Start Date End Date Alhaji Martinez MD 22 [facility], [address] [place] [address] [email or web address] PCP - Internal Medicine Rheumatology 03/24/17 9 Rigo Lopez CNP 22 [facility], [address] [place] [address] jesus PCP - General Family Medicine 03/24/17 07/24/18 Rigo Lopez CNP 22 [facility], [address] [place] [address] jesus [email or web address] PCP - General Family Medicine 07/25/18 Rigo Lopez CNP [address] [place] [address], [address] [place] [address] jesus [email or web address] Historical LMR Provider 03/06/17 Harvinder Vallejo MD [address] [place] [address], [address] [place] [address] [email or web address] Internal Medicine 04/19/18 05/20/20 Alhaji Martinez MD [address] [place] [address], [address] [address] [email or web address] Rheumatology 07/25/18 05/20/20 Lisa Sommers MD [address] [place] [address], [address] [address] [email or web address] 07/25/18 Cesar Lester MD [address] [place] [address], [address] [address] [email or web address] Insurance Assigned Provider 02/11/19 05/25/20 Kuldeep Pérez PA [address] [place] [address], [address] [place] [address] [email or web address] 05/21/20 03/30/21 Smitha Simmons CHIEF ULTRASOUND TECHNOLOGIST [address] [place] [address] Family Medicine 05/21/20 Gina Barajas PA [address] [place] [address] Audit Practice Intern 05/21/20 08/20/22 Reddy Valdez MD [address] [place] [address], [address] [place] [address] [email or web address] Sleep Medicine 05/21/20 08/20/22 Tamara Dubon, PER DIEM INTERPRETER [address] [place] [address] Psychiatry 03/31/21 Monika James MD [address] [place] [address] [address] [place] [address] [email or web address] Rheumatology 03/31/21 08/20/22 Alhaji Reese MD [address] [place] [address] 2 [place] [address] Gastroenterology 05/28/21 08/20/22 Cesar Lester MD [address] [place] [address], [address] [place] [address] [email or web address] Insurance Assigned Provider 08/23/21 05/22/23 Beth Armendariz, MAGGY [address] [place] [address] 2 [place] [address] [email or web address] PHCM Corporate Travel Consultant 10/05/22 01/17/25 Amisha Steen FNP [address] [place] [address] Nurse Practitioner 08/27/23 Divina Jade, RN 10 [place] [address] [email or web address] PHCM Corporate Travel ConsultantShoe Salesman 01/18/25 Kal Vo [address] [place] [address] [email or web address] Conservation Technician 03/21/25 03/21/25 documented as of this encounter Additional Source Comments The information contained in this document represents components of the legal health record. It is not the complete legal health record.[facility]
--- OUTSIDE RECORDS SUMMARY | 2025-03-22 11:27 | XMS_ITS | Encounter Summary ---
Author Organization [facility] Address [address] [address] Phone Care Team Providers Care Yard Coordinator Name Role Phone Rigo Lopez [facility] Primary Care Provider Lisa Sommers MD Unavailable Smitha Simmons DIAL SCREW ASSEMBLER Unavailable [phone] Gina Barajas PA Unavailable Reddy Valdez MD Unavailable [phone] Tamara Dubon TEACHER OF THE VISUALLY IMPAIRED Unavailable Monika James MD Unavailable Alhaji Reese MD Unavailable [phone] Cesar Lester MD Unavailable [phone] Beth Armendariz RN Unavailable [email or web address] Amisha Steen WEASAND TRIMMER Unavailable Divina Jade RN Unavailable Kal Vo Unavailable Encounter Details Date Type Department Care Team (Late st Contact Info) Description 01/21/2022 Procedure Pass [facility], [address] [id number] Social History Tobacco Use Types Packs/Day Years [...] st Contact Info) Description 09/13/2024 Procedure Pass [address] [address] 03/27/2025 8:00 AM EST Appointment [address] [address] Rigo Lopez CNP [address] [place] [address], [address] [place] [address] jesus 05/22/2025 2:00 PM EST Office Visit [facility] Pulmonary, Allergy and Critical Care Medicine 10 [place] [address] Remy Darby MD [address] [address] documented as of this encounter Visit Diagnoses Not on filedocumented in this encounter Additional Health Concerns Assessment Noted Time PHQ-2 Depression Total Score: 2 05/28/19 22 8:17 AM EST documented as of this encounter Care Teams Yard Coordinator Relationship Specialty Start Date End Date Rigo Lopez CNP [address] [place] [address], [address] [place] [address] jesus PCP - General Family Medicine 07/25/18 Lisa Sommers MD [address] [place] [address], [address] [place] [address] [email or web address] 07/25/18 Smitha Simmons, DIAL SCREW ASSEMBLER [address] [place] [address] Family Medicine 05/21/20 Gina Barajas PA [address] [place] [address] Motor Racer 05/21/20 08/20/22 Reddy Valdez MD [address] [place] [address], [address] [place] [address] Sleep Medicine 05/21/20 08/20/22 Tamara Dubon, TEACHER OF THE VISUALLY IMPAIRED [address] [place] [address] Psychiatry 03/31/21 Monika James MD [address] [place] [address], [address] [place] [address] Rheumatology 03/31/21 08/20/22 Alhaji Reese MD [address] [place] [address] Gastroenterology 05/28/21 08/20/22 Cesar Lester MD [address] [place] [address], [address] [place] [address] Insurance Assigned Provider 08/23/21 05/22/23 Beth Armendariz, RN 22 [facility], [address] [place] [address] [email or web address] PHCM Crew Mess Attendant 10/05/22 01/17/25 Amisha Steen FNP [address] [place] [address] [address] [place] [address] Nurse Practitioner 08/27/23 Divina Jade, MAGGY [address] [place] [id number] [email or web address] PHC Crew Mess AttendantAccounts Receivable Executive 01/18/[address] Kal Vo [address] [place] [address] [email or web address] Wax Pot Tender 03/21/25 03/21/25 documented as of this encounter Additional Source Comments The information contained in this document represents components of the legal health record. It is not the complete legal health record.[facility]
--- OUTSIDE RECORDS SUMMARY | 2025-03-22 11:27 | XMS_ITS | Encounter Summary ---
Author Organization [facility] Address [address] [address] Phone Care Team Providers Care Career Services Representative Name Role Phone Rigo Lopez [facility] Primary Care Provider [phone] Lisa Sommers MD Unavailable Smitha Simmons ENVIRONMENTAL STUDIES PROFESSOR Unavailable Tamara Dubon DIRECTOR OF EVENT MANAGEMENT Unavailable Cesar Lester MD Unavailable Beth Armendariz RN Unavailable [email or web address] Amisha Steen COSMETIC DENTIST Unavailable Divina Jade RN Unavailable [phone] Kal Vo Unavailable Encounter Details Date Type Department Care Team (Late st Contact Info) Description 08/21/2022 Procedure Pass [facility], [address] [address] Social History Tobacco Use Types Packs/Day Years [...] st Contact Info) Description 09/13/2024 Procedure Pass [address] [address] 03/27/2025 8:00 AM EST Appointment [address] [address] Rigo Lopez CNP [address] [place] [address], [address] [place] [address] jesus 05/22/2025 2:00 PM EST Office Visit [facility] Pulmonary, Allergy and Critical Care Medicine [address] [place] [address] Remy Darby MD [address] [place] [address] documented as of this encounter Visit Diagnoses Not on filedocumented in this encounter Additional Health Concerns Assessment Noted Time PHQ-9 Depression Total Score: 19 023 7:59 AM EDT PHQ-2 Depression Total Score: 6 08/20/19 23 7:59 AM EDT documented as of this encounter Care Teams Career Services Representative Relationship Specialty Start Date End Date Rigo Lopez CNP [address] [place] [address], [address] [place] [address] jesus PCP - General Family Medicine 07/25/18 Lisa Sommesr MD [address] [place] [address], [address] [place] [address] [email or web address] 07/25/18 Smitha Simmons, ENVIRONMENTAL STUDIES PROFESSOR [address] [place] [address] Family Medicine 05/21/20 Tamara Dubon CNS [address] [place] [address] Psychiatry 03/31/21 Cesar Lester MD [address] [place] [address], [address] [place] [address] Insurance Assigned Provider 08/23/21 05/22/23 Beth Armendariz, MAGGY [address] [place] [address], [address] [place] [address] [email or web address] PHCM Tapper Shank 10/05/22 01/17/25 Amisha Steen FNP [address] [place] [address] Nurse Practitioner 08/27/23 Divina Jade, RN [address] [place] [address] [email or web address] PHC Tapper ShankSenior Medical Director 01/18/25 Kal Vo [address] [place] [address] Records Management Clerk 03/21/25 03/21/25 documented as of this encounter Additional Source Comments The information contained in this document represents components of the legal health record. It is not the complete legal health record.[facility]
--- OUTSIDE RECORDS SUMMARY | 2025-03-22 11:27 | XMS_ITS | Clinical Summary ---
Author Organization [employer] [facility] Address [address] [place] [address] Care Team Providers Care Appeals Rn Name Role Phone Unavailable Primary Care Provider [...] Advance Directives For more information, please contact: [phone] Documents on File Type Date Recorded Patient Terminal Operator Expl anation Advance Directive and Living Will 04/23/2015 Latest Code Status on File Code Status Date Activated Date Inactivated Comments Full Code 04/16/2015 6:34 PM 04/19/2015 7:40 PM This code status was ascertained in the following way: per unit protocol.
--- OUTSIDE RECORDS SUMMARY | 2025-03-22 11:27 | XMS_ITS | Encounter Summary ---
Author Organization [facility] Address [address] [address] Phone Care Team Providers Care Assistant Administrator Name Role Phone Rigo Lopez CNP Unavailable Harvinder Vallejo MD Unavailable [phone] Rigo Lopez CNP Primary Care Provider [phone] Alhaji Martinez MD Unavailable Lisa Sommers MD Unavailable Cesar Lester MD Unavailable [phone] Kuldeep Pérez PA Unavailable Smitha Simmons MUSIC GRAPHER Unavailable Gina Barajas PA Unavailable Reddy Valdez MD Unavailable [phone] Tamara Dubon FIELD CROP FARMWORKER Unavailable Monika James MD Unavailable Alhaji Reese MD Unavailable [phone] Cesar Lester MD Unavailable [phone] Beth Armendariz RN Unavailable [email or web address] Amisha Steen ENGINEER/CONDUCTOR Unavailable Divina Jade RN Unavailable SohanKal [email or web address] S Unavailable Reason for Referral * Physical Therapy (Routine) - Closed Specialty Diagnoses / Procedures Referred By Conttyrone t Referred To Contact Physical Therapy Diagnoses Encounter for rehabilitation Kobi Bradley MD Phone: tel: fax: [address] [address] Phone: tel: Referral ID Status Reason Start Date Expiration Date Visits Re quested Visits Authorized [id number] Closed 05/31/2019 05/31/2020 99 99 Encounter Details Date Type Department Care Team (Latest Contact Info) Description 05/31/2019 Transcribe Orders [facility] 8 [place] [address] Kobi Bradley MD [address] [place] [address] Encounter for rehabilitation (Primary Dx) Social History [...] st Contact Info) Description 09/13/2024 Procedure Pass [address] [address] 03/27/2025 8:00 AM EST Appointment [address] [place] [address] Rigo Lopez CNP 22 [facility], [address] [place] [address] jesus 05/22/2025 2:00 PM EST Office Visit [facility] Pulmonary, Allergy and Critical Care Medicine 10 [facility] [place] [address] Remy Darby MD [address] [address] documented as of this encounter Procedures Procedure Name Priority Date/Time Associated Diagnosis Comments AMB REFERRAL TO [facility] PHYSICAL THERAPY Routine 06/14/2019 3:15 PM EST Encounter for rehabilitation documented in this encounter Results * Ambulatory referral to [facility] Physical Therapy (06/14/2019 3:15 PM EST) Kobi Bradley MD AMB [facility] REFERRALS Final Result documented in this encounter [...] documented as of this encounter Care Teams Assistant Administrator Relationship Specialty Start Date End Date Rigo Lopez CNP 22 [facility], [address] [place] [address] jesus PCP - General Family Medicine 07/25/18 Rigo Lopez CNP 22 [facility], [address] [place] [address] jesus Historical LMR Provider 03/06/17 Harvinder Vallejo MD [address] [place] [address], [address] [place] [address] [email or web address] Internal Medicine 04/19/18 05/20/20 Alhaji Martinez MD [address] [place] [address], [address] [place] [address] [email or web address] Rheumatology 07/25/18 05/20/20 Lisa Sommers MD [address] [place] [address], [address] [place] [address] [email or web address] 07/25/18 Cesar Lester MD [address] [place] [address], [address] [place] [address] [email or web address] Insurance Assigned Provider 02/11/19 05/25/20 Kuldeep Pérez PA [address] [place] [address], [address] [place] [address] [email or web address] 05/21/20 03/30/21 Smitha Simmons NP [address] [place] [address] Family Medicine 05/21/20 Gina Barajas PA [address] [place] [address] Poultry Farmer 05/21/20 08/20/22 Reddy Valdez MD [address] [place] [address], [address] [place] [address] [email or web address] Sleep Medicine 05/21/20 08/20/22 Tamara Dubon CNS [address] [place] [address] Psychiatry 03/31/21 Monika James MD [address] [place] [address], [address] [place] [address] [email or web address] Rheumatology 03/31/21 08/20/22 Alhaji Reese MD [address] [place] [address] [email or web address] Gastroenterology 05/28/21 08/20/22 Cesar Lester MD [address] [place] [address], [address] [place] [address] [email or web address] Insurance Assigned Provider 08/23/21 05/22/23 Beth Armendariz, MAGGY [address] [place] [address] [email or web address] PHC Social Sciences Instructor 10/05/22 01/17/25 Amisha Steen FNP [address] [place] [address] Nurse Practitioner 08/27/23 Divina Jade, RN [address] [place] [address] [email or web address] PHCM Social Sciences InstructorCinnamon Grinder 01/18/25 Kal Vo [address] [place] [address] [employer] Food Products 03/21/25 03/21/25 documented as of this encounter Additional Source Comments The information contained in this document represents components of the legal health record. It is not the complete legal health record.[facility]
--- OUTSIDE RECORDS SUMMARY | 2025-03-22 11:27 | XMS_ITS | Encounter Summary ---
Author Organization [facility] Address [address] [address] Phone Care Team Providers Care Senior Contract Specialist Name Role Phone Rigo Lopez [facility] Primary Care Provider Lisa Sommers MD Unavailable [phone] Smitha Simmons COMPLIANCE ATTORNEY Unavailable Gina Barajas PA Unavailable Reddy Valdez MD Unavailable [phone] Tamara Dubno LOCAL SALES MANAGER Unavailable Monika James MD Unavailable [phone] Alhaji Reese MD Unavailable [phone] Cesar Lester MD Unavailable [phone] Beth Armendariz RN Unavailable [email or web address] Amisha Steen MOTORIZED SQUAD COMMANDING OFFICER Unavailable [phone] Divina Jade RN Unavailable Kal Vo Unavailable Encounter Details Date Type Department Care Team (Late st Contact Info) Description 06/16/2021 Procedure Pass [facility], Ct Scan - [address] [address] Social History Tobacco Use Types Packs/Day Years [...] 06/17/2021 2:02 PM Adalgisa Gonzalez CNP * [place] Suicide Severity Rating Scale (Screener/Recent Self-Report) Question [...] Contact Info) Description 09/13/2024 Procedure Pass [address] [address] 03/27/2025 8:00 AM EST Appointment [address] [address] Rigo Lopez, MCKENNA 22 [facility], [address] [place] [address] jesus 05/22/2025 2:00 PM EST Office Visit [facility] Pulmonary, Allergy and Critical Care Medicine 10 [place] [address] Remy Darby MD [address] [place] [address] [email or web address] documented as of this encounter Visit Diagnoses Not on filedocumented in this encounter Additional Health Concerns Infection Onset Date Last Indicated Resolved Time CoV-Risk 10/09/2021 10/09/2021 10/20/2021 1:24 AM EDT Assessment Noted Time PHQ-2 Depression Total Score: 2 05/28/19 22 8:17 AM EST documented as of this encounter Care Teams Senior Contract Specialist Relationship Specialty Start Date End Date Rigo Lopez CNP [address] [place] [address], [address] [place] [address] jesus [email or web address] PCP - General Family Medicine 07/25/18 Lisa Sommers MD [address] [place] [address], [address] [place] [address] [email or web address] 07/25/18 Smitha Simmons NP [address] [place] [address] Family Medicine 05/21/20 Gina Barajas PA [address] [place] [address] Automobile Detailer 05/21/20 08/20/22 Reddy Valdez MD 22 [facility], [address] [place] [address] [email or web address] Sleep Medicine 05/21/20 08/20/22 Tamara Dubon LOCAL SALES MANAGER [address] [place] [address] Psychiatry 03/31/21 Monika James MD [address] [place] [address], [address] [place] [address] Rheumatology 03/31/21 08/20/22 Alhaji Reese MD [address] [place] [address] [email or web address] Gastroenterology 05/28/21 08/20/22 Cesar Lester MD [address] [place] [address], [address] [place] [address] [email or web address] Insurance Assigned Provider 08/23/21 05/22/23 Beth Armendariz RN [address] [place] [address], [address] [place] [address] [email or web address] Farmworker Chicken [employer] 10/05/22 01/17/25 Amisha Steen FNP [address] [place] [address] Nurse Practitioner 08/27/23 Divina Jade, RN [address] [place] [address] [email or web address] PHCM Farmworker Chicken FarmElectric Fork Operator 01/18/25 Kal Vo [address] [place] [address] Hydrogeologist 03/21/25 03/21/25 documented as of this encounter Additional Source Comments The information contained in this document represents components of the legal health record. It is not the complete legal health record.[facility]
--- OUTSIDE RECORDS SUMMARY | 2025-03-22 11:27 | XMS_ITS | Encounter Summary ---
Author Organization [facility] Address [address] [address] Phone Care Team Providers Care Neck Band Maker Name Role Phone Rigo Lopez MCKENNA Primary Care Provider Lisa Sommers MD Unavailable [phone] Smitha Simmons BACTERIOLOGIST INDUSTRIAL Unavailable [phone] Gina Barajas PA Unavailable Reddy Valdez MD Unavailable [phone] Tamara Dubon CELLULAR EQUIPMENT REPAIRER Unavailable Monika James MD Unavailable Alhaji Reese MD Unavailable [phone] Cesar Lester MD Unavailable [phone] Beth Armendariz RN Unavailable [email or web address] Amisha Steen AUTO TECH Unavailable Divina Jade RN Unavailable [phone] Kal Vo Unavailable Encounter Details Date Type Department Care Team (Late st Contact Info) Description 07/10/2021 Procedure Pass [facility], [address] [id number] Social History Tobacco Use Types Packs/Day Years [...] st Contact Info) Description 09/13/2024 Procedure Pass [address] [address] 03/27/2025 8:00 AM EST Appointment [address] [address] Rigo Lopez CNP [address] [place] [address], [address] [place] [address] jesus 05/22/2025 2:00 PM EST Office Visit [facility] Pul[facility], Allergy and Critical Care Medicine 10 [place] [address] Remy Darby MD [address] [place] [address] documented as of this encounter Visit Diagnoses Not on filedocumented in this encounter Additional Health Concerns Infection Onset Date Last Indicated Resolved Time CoV-Risk 10/09/2021 10/09/2021 10/20/2021 1:24 AM EDT Assessment Noted Time PHQ-2 Depression Total Score: 2 05/28/19 22 8:17 AM EST documented as of this encounter Care Teams Neck Band Maker Relationship Specialty Start Date End Date Rigo Lopez CNP [address] [place] [address], [address] [place] [address] jesus PCP - General Family Medicine 07/25/18 Lisa Sommers MD [address] [place] [address], [address] [place] [address] [email or web address] 07/25/18 Smitha Simmons, BACTERIOLOGIST INDUSTRIAL [address] [place] [address] Family Medicine 05/21/20 Gina Barajas PA [address] [place] [address] Equine Pharmacology Technician 05/21/20 08/20/22 Reddy Valdez MD [address] [place] [address], [address] [place] [address] Sleep Medicine 05/21/20 08/20/22 Tamara Dubon, CELLULAR EQUIPMENT REPAIRER [address] [place] [address] Psychiatry 03/31/21 Monika James MD [address] [place] [address], [address] [place] [address] Rheumatology 03/31/21 08/20/22 Alhaji Reese MD [address] [place] [address] Gastroenterology 05/28/21 08/20/22 Cesar Lester MD [address] [place] [address], [address] [place] [address] [email or web address] Insurance Assigned Provider 08/23/21 05/22/23 Beth Armendariz, RN 22 [facility], [address] [place] [address] [email or web address] PHCM Slag Mixer 10/05/22 01/17/25 Amisha Steen, [facility] [address] [place] [address] Jai [address] [place] [address] Nurse Practitioner 08/27/23 Divina Jade, MAGGY 10 [place] [address] [email or web address] PHC Slag MixerHelp Desk Manager 01/18/25 Kal Vo [address] [place] [address] [email or web address] Gaming Dealer 03/21/25 03/21/25 documented as of this encounter Additional Source Comments The information contained in this document represents components of the legal health record. It is not the complete legal health record.[facility]
--- OUTSIDE RECORDS SUMMARY | 2025-03-22 11:27 | XMS_ITS | Encounter Summary ---
Author Organization [facility] Address [address] [place] [address] Phone Care Team Providers Care Puff Iron Operator Name Role Phone Rigo Lopez MCKENNA Primary Care Provider Lisa Sommers MD Unavailable Kuldeep Pérez Unavailable Smitha Simmons STUDY SPECIALIST Unavailable [phone] Gina Barajas PA Unavailable [phone] Reddy Valdez MD Unavailable [phone] Ling Tamara A HORTICULTURE WORKER Unavailable Monika James MD Unavailable Alhaji Reese MD Unavailable [phone] Cesar Lester MD Unavailable [phone] Beth Armendariz RN Unavailable [email or web address] Amisha SteenP Unavailable [phone] Divina Jade RN Unavailable Kal Vo Unavailable Encounter Details Date Type Department Care Team (Late st Contact Info) Description 03/09/2021 Procedure Pass [facility], Ct Scan [address] [address] Social History Tobacco Use Types Packs/Day Years [...] 6:16 AM EDT Vinny Marquez, MAGGY * [place] Suicide Severity Rating Scale (Screener/Recent Self-Report) Question Answer Date of Assessment Author 1. Wish to be (Past 1 Month) No 021 6:16 AM ALFREDT Vinny Marquez, MAGGY 2. Non-Specific Active Suici gonsalo Thoughts (Past 1 Month) No 03/09/2021 6:16 AM ALFREDT Luis Marquez, MAGGY 6. Suicidal Behavior (Lifetime) No 6:16 AM Vinny Newton, RN documented as of this encounter Plan of Treatment Upcoming Encounters Date Type Department Care Team (Late st Contact Info) Description 09/13/2024 Procedure [address] [address] 03/27/2025 8:00 AM EST Appointment [address] [address] Rigo Lopez, MACHINE MOLDER 22 [facility], [address] [place] [address] jesus 05/22/2025 2:00 PM EST Office Visit [facility] Pulmonary, Allergy and Critical Care Medicine 10 [place] [address] Remy Darby MD [address] [place] [address] [email or web address] documented as of this encounter Visit Diagnoses Not on filedocumented in this encounter Additional Health Concerns Infection Onset Date Last Indicated Resolved Time CoV-Risk 10/09/2021 10/09/2021 10/20/2021 1:24 AM EDT Assessment Noted Time PHQ-2 Depression Total Score: 2 05/18/19 21 11:52 AM EST documented as of this encounter Care Teams Puff Iron Operator Relationship Specialty Start Date End Date Rigo Lopez CNP [address] [place] [address], [address] [place] [address] jesus [email or web address] PCP - General Family Medicine 07/25/18 Lisa Sommers MD [address] [place] [address], [address] [place] [address] [email or web address] 07/25/18 Kuldeep Pérez PA [address] [place] [address], [address] [place] [address] [email or web address] 05/21/20 03/30/21 Smitha Simmons NP [address] [place] [address] Family Medicine 05/21/20 Gina Barajas PA [address] [place] [address] Business Leader 05/21/20 08/20/22 Reddy Valdez MD [address] [place] [address], [address] [place] [address] [email or web address] Sleep Medicine 05/21/20 08/20/22 Tamara Dubon CNS [address] [place] [address] Psychiatry 03/31/21 Monika James MD [address] [place] [address], [address] [place] [address] [email or web address] Rheumatology 03/31/21 08/20/22 Alhaji Reese MD [address] [place] [address] [email or web address] Gastroenterology 05/28/21 08/20/22 Cesar Lester MD [address] [place] [address], [address] [place] [address] [email or web address] Insurance Assigned Provider 08/23/21 05/22/23 Beth Armendariz, MAGGY [address] [place] [address], [address] [place] [address] [email or web address] PHC Testing Projects Administrator 10/05/22 01/17/25 Amisha Steen FNP [address] [place] [address] Nurse Practitioner 08/27/23 Divina Jade, RN [address] [place] [address] [email or web address] PHCM Testing Projects AdministratorCertified Emergency Vehicle Technician 01/18/25 Kal Vo [address] [place] [address] [email or web address] Research & Insights Executive 03/21/25 03/21/25 documented as of this encounter Additional Source Comments The information contained in this document represents components of the legal health record. It is not the complete legal health record.[facility]
--- OUTSIDE RECORDS SUMMARY | 2025-03-22 11:27 | XMS_ITS ---
Author Organization [facility] Address [address] [place] [address] Phone Care Team Providers Care Gate Agent Name Role Phone John Rigo ANDRES Primary Care Provider [phone] Lisa Sommers MD Unavailable [phone] Smitha Simmons SYSTEMS NAVIGATOR Unavailable Tamara Dubon FIELD CREW CHIEF Unavailable Amisha Steen SLIP TENDER Unavailable Divina Jade RN Unavailable Population Health Care Management (PHCM) Status:Enrolled (Active) Start date:06/01/2023 Enrollment date:06/01/2023 Current support & services provided:CARE [place] Related social drivers of health:Housing Stability, Child or Family Care, Education, Food, Unemployment, Paying for Meds, Paying Utility Bills, Transportation, Digital Access, SNAP/WIC Case Team Name Relationship Phone Email Divina Jade RN(Responsible Staff) Registered Nurse [phone] Alma Waller PHCM Laundry Folder [email or web address] Continued Care and Services Coordination
--- OUTSIDE RECORDS SUMMARY | 2025-03-22 11:27 | XMS_ITS | Encounter Summary ---
Author Organization [facility] Address [address] [address] Phone Care Team Providers Care Manager China Name Role Phone Rigo Lopez MCKENNA Primary Care Provider [phone] Lisa Sommers MD Unavailable Smitha Simmons GLOBAL LEAD Unavailable Gina Barajas PA Unavailable [phone] Reddy Valdez MD Unavailable [phone] Tamara Dubon MACHINE CERAMIC COATER Unavailable Monika James MD Unavailable [phone] Alhaji Reese MD Unavailable [phone] Cesar Lester MD Unavailable [phone] Beth Armendariz RN Unavailable [email or web address] Amisha Steen PLATE EMBOSSER Unavailable Divina Jade RN Unavailable Kal Vo Unavailable Encounter Details Date Type Department Care Team (Late st Contact Info) Description 05/28/2021 Procedure Pass [facility], [address] [id number] Social History Tobacco Use Types Packs/Day Years [...] st Contact Info) Description 09/13/2024 Procedure Pass [address] [address] 03/27/2025 8:00 AM EST Appointment [address] [address] Rgio Lopez CNP [address] [place] [address], [address] [place] [address] jesus 05/22/2025 2:00 PM EST Office Visit [facility] Pulmonary, Allergy and Critical Care Medicine 10 [place] [address] Remy Darby MD [address] [place] [address] documented as of this encounter Visit Diagnoses Not on filedocumented in this encounter Additional Health Concerns Infection Onset Date Last Indicated Resolved Time CoV-Risk 10/09/2021 10/09/2021 10/20/2021 1:24 AM EDT Assessment Noted Time PHQ-2 Depression Total Score: 2 05/28/19 22 8:17 AM EST documented as of this encounter Care Teams Manager China Relationship Specialty Start Date End Date Rigo Lopez CNP [address] [place] [address], [address] [place] [address] jesus PCP - General Family Medicine 07/25/18 Lisa Sommers MD [address] [place] [address], [address] [place] [address] [email or web address] ([email or web address] Urology 07/25/18 Smitha Simmons, GLOBAL LEAD [address] [place] [address] Family Medicine 05/21/20 Gina Barajas PA [address] [place] [address] Client Technologies Analyst 05/21/20 08/20/22 Reddy Valdez MD [address] [place] [address], [address] [place] [address] Sleep Medicine 05/21/20 08/20/22 Tamara Dubon, MACHINE CERAMIC COATER [address] [place] [address] Psychiatry 03/31/21 Monika James MD [address] [place] [address], [address] [place] [address] Rheumatology 03/31/21 08/20/22 Alhaji Reese MD [address] [place] [address] Gastroenterology 05/28/21 08/20/22 Cesar Lester MD [address] [place] [address], [address] [place] [address] [email or web address] Insurance Assigned Provider 08/23/21 05/22/23 Beth Armendariz, RN 22 [facility], [address] [place] [address] [email or web address] PHCM Postage Machine Operator 10/05/22 01/17/25 Amisha Steen, [facility] [address] [place] [address] Jai [address] [place] [address] Nurse Practitioner 08/27/23 Divina Jade, MAGGY 10 [place] [address] [email or web address] PHC Postage Machine OperatorScaffold Builder 01/18/25 Kal Vo [address] [place] [address] [email or web address] Safety Assistant 03/21/25 03/21/25 documented as of this encounter Additional Source Comments The information contained in this document represents components of the legal health record. It is not the complete legal health record.[facility]
--- OUTSIDE RECORDS SUMMARY | 2025-03-22 11:27 | XMS_ITS | Encounter Summary ---
Author Organization [facility] Address [address] [place] [address] Phone Care Team Providers Care Manager Speech Name Role Phone Rigo Lopez MCKENNA Primary Care Provider Lisa Sommers MD Unavailable [phone] Smitha Simmons HISTORIC PRESERVATIONIST Unavailable Gina Barajas PA Unavailable Reddy Valdez MD Unavailable Tamara Dubon MOTOR VEHICLES SUPERVISOR Unavailable Monika James MD Unavailable Alhaji Reese MD Unavailable [phone] Cesar Lester MD Unavailable [phone] Beth Armendariz RN Unavailable [email or web address] Amisha Steen FISHERIES TECHNICAL OFFICER Unavailable [phone] Divina Jade RN Unavailable Kal Vo Unavailable Encounter Details Date Type Department Care Team (Late st Contact Info) Description 06/19/2021 Ancillary Orders [facility],Outside Imaging [address] [place] [address] System, Provider Not In, [place] [address] Social History Tobacco Use Types Packs/Day Years [...] Contact Info) Description 09/13/2024 Procedure Pass [address] [address] 03/27/2025 8:00 AM EST Appointment [address] [address] Rigo Lopez, CLINIC COORDINATOR 22 [facility], [address] [place] [address] jesus 05/22/2025 2:00 PM EST Office Visit [facility] Pulmonary, Allergy and Critical Care Medicine [address] [place] [address] Remy Darby MD [address] [place] [address] documented as of this encounter Results * [...] as of this encounter Care Teams Manager Speech Relationship Specialty Start Date End Date AishwaryaRigo mckee CNP 22 [facility], [address] [place] [address] jesus [email or web address] PCP - General Family Medicine 07/25/18 Lisa Sommers MD [address] [place] [address], [address] [place] [address] [email or web address] 07/25/18 Smitha Simmons HISTORIC PRESERVATIONIST [address] [place] [address] Family Medicine 05/21/20 Gina Barajas PA [address] [place] [address] Desktop Support Associate 05/21/20 08/20/22 Reddy Valdez MD 22 [facility], [facility] 301 [place] [address] [email or web address] Sleep Medicine 05/21/20 08/20/22 Tamara Dubon, MOTOR VEHICLES SUPERVISOR [address] [place] [address] Psychiatry 03/31/21 Monika James MD 22 [facility], [address] [place] [address] Rheumatology 03/31/21 08/20/22 Alhaji Reese MD [address] [place] [address] [email or web address] Gastroenterology 05/28/21 08/20/22 Cesar Lester MD [address] [place] [address], [address] [place] [address] [email or web address] Insurance Assigned Provider 08/23/21 05/22/23 Beth Armendariz RN [address] [place] [address], [address] [place] [address] [email or web address] PHC Bookkeeper 10/05/22 01/17/25 Amisha Steen FNP [address] [place] [address] Nurse Practitioner 08/27/23 Divina Jade, RN [address] [place] [address] [email or web address] PHC BookkeeperMedical Front Desk Coordinator 01/18/25 Kal Vo [address] [place] [address] [email or web address] Insurance Loss Assessor 03/21/25 03/21/25 documented as of this encounter Additional Source Comments The information contained in this document represents components of the legal health record. It is not the complete legal health record.[facility]
--- OUTSIDE RECORDS SUMMARY | 2025-03-22 11:27 | XMS_ITS | Encounter Summary ---
Author Organization [facility] Address [address] [place] [address] Phone Care Team Providers Care Nuclear Test Technician Name Role Phone Rigo Lopez MCKENNA Primary Care Provider Lisa Sommers MD Unavailable [phone] Smitha Simmons QUILTING SUPERVISOR Unavailable Gina Barajas PA Unavailable [phone] Reddy Valdez MD Unavailable [phone] Tamara Dubon SR TECHNICAL SALES CONSULTANT Unavailable Monika James MD Unavailable [phone] Alhaji Reese MD Unavailable [phone] Cesar Lester MD Unavailable [phone] Beth Armendariz RN Unavailable [email or web address] Amisha Steen FUSING MACHINE FEEDER Unavailable Divina Jade RN Unavailable [phone] Kal Vo Unavailable Encounter Details Date Type Department Care Team (Late st Contact Info) Description 06/19/2021 Ancillary Orders [facility],Outside Imaging [address] [place] [address] System, Provider Not In, [place] [address] Social History Tobacco Use Types Packs/Day Years [...] st Contact Info) Description 09/13/2024 Procedure Pass [address] [address] 03/27/2025 8:00 AM EST Appointment [address] [address] Rigo Lopez, SHEET MANAGER 22 [facility], [address] [place] [address] jesus 05/22/2025 2:00 PM EST Office Visit [facility] Pulmonary, Allergy and Critical Care Medicine [address] [place] [address] Remy Darby MD [address] [place] [address] documented as of this encounter Results * [...] documented as of this encounter Care Teams Nuclear Test Technician Relationship Specialty Start Date End Date AishwaryaRigo mckee CNP 22 [facility], [address] [place] [address] jesus [email or web address] PCP - General Family Medicine 07/25/18 Lisa Sommers MD [address] [place] [address], [address] [place] [address] [email or web address] 07/25/18 Smitha Simmons QUILTING SUPERVISOR [address] [place] [address] Family Medicine 05/21/20 Gina Barajas PA [address] [place] [address] Time Clock Repairer 05/21/20 08/20/22 Reddy Valdez MD 22 [facility], [facility] 301 [place] [address] [email or web address] Sleep Medicine 05/21/20 08/20/22 Tamara Dubon, SR TECHNICAL SALES CONSULTANT [address] [place] [address] Psychiatry 03/31/21 Monika James MD 22 [facility], [address] [place] [address] Rheumatology 03/31/21 08/20/22 Alhaji Reese MD [address] [place] [address] [email or web address] Gastroenterology 05/28/21 08/20/22 Cesar Lester MD [address] [place] [address], [address] [place] [address] [email or web address] Insurance Assigned Provider 08/23/21 05/22/23 Beth Armendariz RN [address] [place] [address], [address] [place] [address] [email or web address] PHC Salesperson Sewing Machines 10/05/22 01/17/25 Amisha Steen FNP [address] [place] [address] Nurse Practitioner 08/27/23 Divina Jade, RN [address] [place] [address] [email or web address] PHC Salesperson Sewing MachinesSupervisor Dry Cell Assembly 01/18/25 Kal Vo [address] [place] [address] [email or web address] Credit Department Manager 03/21/25 03/21/25 documented as of this encounter Additional Source Comments The information contained in this document represents components of the legal health record. It is not the complete legal health record.[facility]
--- OUTSIDE RECORDS SUMMARY | 2025-03-22 11:27 | XMS_ITS | Encounter Summary ---
Author Organization [facility] Address [address] [address] Phone Care Team Providers Care Floor Plan Adjuster Name Role Phone Rigo Lopez MCKENNA Primary Care Provider [phone] Lisa Sommers MD Unavailable Smitha Simmons MANAGER MEDIA RELATIONS Unavailable Tamara Dubon PIPE COREMAKER Unavailable [phone] Beth Armendariz RN Unavailable [email or web address] Amisha Steen PIANO MACHINE OPERATOR Unavailable [phone] Divina Jade RN Unavailable Kal Vo Unavailable Encounter Details Date Type Department Care Team (Late st Contact Info) Description 06/25/2023 Procedure Pass [facility], [facility] 30 [place] [address] Social History Tobacco Use Types Packs/Day Years [...] st Contact Info) Description 09/13/2024 Procedure Pass [address] [address] 03/27/2025 8:00 AM EST Appointment [address] [address] Rigo Lopez CNP [address] [place] [address], [address] [place] [address] jesus 05/22/2025 2:00 PM EST Office Visit [facility] Pulmonary, Allergy and Critical Care Medicine 10 [facility] [place] [address] Remy Darby MD 10 [facility] 2nd [place] [address] documented as of this encounter Visit Diagnoses Not on filedocumented in this encounter Additional Health Concerns Assessment Noted Time PHQ-9 Depression Total Score: 19 024 7:15 AM EDT PHQ-2 Depression Total Score: 5 08/27/19 24 7:15 AM EDT documented as of this encounter Care Teams Floor Plan Adjuster Relationship Specialty Start Date End Date Rigo Lopez CNP [address] [place] [address], [address] [place] [address] jesus PCP - General Family Medicine 07/25/18 Lisa Sommers MD [address] [place] [address], [address] [place] [address] [email or web address] [email or web address] 07/25/18 Smitha Simmons, MANAGER MEDIA RELATIONS [address] [place] [address] Family Medicine 05/21/20 Tamara Dubon CNS [address] [place] [address] Psychiatry 03/31/21 Beth Armendariz, MAGGY [address] [place] [address] [email or web address] Conciliator 10/05/22 Amisha Steen FNP [address] [place] [address] Nurse Practitioner 08/27/23 Divina Jade, RN [address] [place] [address] [email or web address] PHC ConciliatorClub Licensee 01/18/25 Kal Vo [address] [place] [address] Sales Team Member 03/21/25 03/21/25 documented as of this encounter Additional Source Comments The information contained in this document represents components of the legal health record. It is not the complete legal health record.[facility]
== END 2025-03-22 10:24 | disposition home or self-care (01) ==
LOC: HO.PMC 09:59
PROVIDERS: PCP Nurse Practitioner Adult Health; Visit Provider Nurse Practitioner Family
DX: M53.3 Sacrococcygeal disorders, not elsewhere classified (principal); M47.817 Spondylosis without myelopathy or radiculopathy, lumbosacral region; M54.9 Dorsalgia, unspecified; M47.816 Spondylosis without myelopathy or radiculopathy, lumbar region; M25.551 Pain in right hip; M79.7 Fibromyalgia
CPT/HCPCS: 99214; G2211

== ENCOUNTER → 2025-03-22 09:58 | Outpatient (BNVA) | payer MEDICARE, SELFPAY | PROVIDERS: PCP Nurse Practitioner Adult Health; Visit Provider Nurse Practitioner Family | DX: M53.3 Sacrococcygeal disorders, not elsewhere classified (principal); M47.817 Spondylosis without myelopathy or radiculopathy, lumbosacral region; M54.9 Dorsalgia, unspecified; G89.4 Chronic pain syndrome; M25.551 Pain in right hip; M79.7 Fibromyalgia; Q79.60 Ehlers-Danlos syndrome, unspecified; Z98.890 Other specified postprocedural states | CPT/HCPCS: 99212 ==

== ENCOUNTER 2025-04-17 09:33 | Outpatient (AMB) | payer MEDICARE, SELFPAY ==
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
--- OUTSIDE RECORDS SUMMARY | 2025-04-17 10:21 | XMS_ITS | Encounter Summary ---
Author Organization [facility] Address [address] [address] Phone Care Team Providers Care Senior Asp Net Developer Name Role Phone Rigo Lopez MCKENNA Primary Care Provider Lisa Sommers MD Unavailable Smitha Simmons HAZMAT TECHNICIAN Unavailable Gina Barajas PA Unavailable Reddy Valdez MD Unavailable [phone] Tamara Dubon ASTRONAUTICAL ENGINEER Unavailable Monika James MD Unavailable Alhaji Reese MD Unavailable [phone] Cesar Lester MD Unavailable [phone] Beth Armendariz RN Unavailable [email or web address] Amisha Steen FULL DECATOR OPERATOR Unavailable [phone] Divina Jade RN Unavailable Kal Vo Unavailable Encounter Details Date Type Department Care Team (Late st Contact Info) Description 07/17/2021 Procedure Pass [facility], Ct Scan - [address] [address] Social History Tobacco Use Types Packs/Day Years [...] Upcoming Encounters Date Type Department Care Team ([facility] st Contact Info) Description 05/22/2025 2:00 PM EST Office Visit [facility] Pulmonary, Allergy and Critical Care Medicine [address] [place] [address] Remy Darby MD [address] [place] [address] documented as of this encounter Visit Diagnoses Not on filedocumented in this encounter Additional Health Concerns Infection Onset Date Last Indicated Resolved Time CoV-Risk 10/09/2021 10/09/2021 10/20/2021 1:24 AM EDT Assessment Noted Time PHQ-2 Depression Total Score: 2 05/28/19 22 8:17 AM EST documented as of this encounter Care Teams Senior Asp Net Developer Relationship Specialty Start Date End Date Rigo Lopez CNP [address] [place] [address], [address] [place] [address] [email or web address] PCP - General Family Medicine 07/25/18 Lisa Sommers MD [address] [place] [address], [address] [address] [email or web address] 07/25/18 Smitha Simmons NP [address] [place] [address] Family Medicine 05/21/20 Gina Barajas PA [address] [place] [address] Cvor Nurse 05/21/20 08/20/22 Reddy Valdez MD [address] [place] [address], [address] [place] [address] [email or web address] Sleep Medicine 05/21/20 08/20/22 Tamara Dubon, ASTRONAUTICAL ENGINEER [address] [place] [address] Psychiatry 03/31/21 Monika James MD [address] [place] [address], [facility] [address] [place] [address] Rheumatology 03/31/21 08/20/22 Alhaji Reese MD [address] [place] [address] [email or web address] Gastroenterology 05/28/21 08/20/22 Cesar Lester MD [address] [place] [address], [address] [place] [address] [email or web address] Insurance Assigned Provider 08/23/21 05/22/23 Beth Armendariz, MAGGY [address] [place] [address], [address] [place] [address] [email or web address] PHCM Banquet Attendant 10/05/22 01/17/25 Amisha Steen FNP [address] [place] [address] Nurse Practitioner 08/27/23 Divina Jade, RN [address] [place] [address] [email or web address] PHCM Banquet AttendantApplication Development Project Manager 01/18/25 Kal Vo [address] [place] [address] [email or web address] Explosive Ordnance Technician 03/21/25 03/21/25 documented as of this encounter Additional Source Comments The information contained in this document represents components of the legal health record. It is not the complete legal health record.[facility]
--- OUTSIDE RECORDS SUMMARY | 2025-04-17 10:21 | XMS_ITS | Encounter Summary ---
Author Organization [facility] Address [address] [address] Phone Care Team Providers Care Manager Documentation Name Role Phone Rigo Lopez [facility] Unavailable Alhaji Martinez MD Unavailable Rigo Lopez [facility] Primary Care Provider [phone] Harvinder Vallejo MD Unavailable [phone] Rigo Lopez [facility] Primary Care Provider Alhaji Martinez MD Unavailable Lisa Sommers MD Unavailable Cesar Lester MD Unavailable [phone] Kuldeep Pérez PA Unavailable Smitha Simmons LIGHTING SPECIALIST Unavailable Gina Barajas PA Unavailable Reddy Valdez MD Unavailable [phone] Tamara Dubon COUNTY ADMINISTRATOR Unavailable Monika James MD Unavailable [phone] Alhaji Reese MD Unavailable [phone] Cesar Lester MD Unavailable Beth Armendariz RN Unavailable [email or web address] Amisha Steen COPY COORDINATOR Unavailable Divina Jade RN Unavailable [phone] Kal Vo Unavailable Reason for Referral * Physical Therapy (Routine) - Closed Specialty Diagnoses / Procedures Referred By Cruz falcon Referred To Contact Physical Therapy Diagnoses Pelvic floor dysfunction System, Provider Not In, [facility] [id number] [place] [address] [address] [place] [address] Phone: tel: Referral ID Status Reason Start Date Expiration Date Visits Re quested Visits Authorized [id number] Closed 11/16/2017 05/16/2018 99 99 Encounter Details Date Type Department Care Team (Latest Contact Info) Description 11/16/2017 Transcribe Orders [facility] [address] [place] [address] Kobi Bradley MD [address] [place] [address] Pelvic floor dysfunction (Primary Dx) Social History [...] Care Team (Late st Contact Info) Description 05/22/2025 2:00 PM EST Office Visit [facility] Pulmonary, Allergy and Critical Care Medicine [address] [facility] [place] [address] Remy Darby MD 10 [facility] 2nd [place] [address] documented as of this encounter Procedures Procedure Name Priority Date/Time Associated Diagnosis Comments AMB REFERRAL TO [facility] PHYSICAL THERAPY Routine 12/02/2017 10:52 AM EDT Pelvic floor dysfunction documented in this encounter Results * Ambulatory referral to [facility] Physical Therapy (12/02/2017 10:52 AM EDT) us Provider Not In System PhD AMB [facility] REFERRALS Fin al Result documented in this encounter Visit Diagnoses Diagnosis Pelvic floor dysfunction- Primary documented in this encounter Additional Health Concerns Infection Onset Date Last Indicated Resolved Time CoV-Risk 09/18/2019 09/18/2019 10/02/2019 1:23 AM EDT CoV-Risk 10/09/2021 10/09/2021 10/20/2021 1:24 AM EDT documented as of this encounter Care Teams Manager Documentation Relationship Specialty Start Date End Date Alhaji Martinez MD [address] [place] [address], [address] [place] [address] [email or web address] PCP - Internal Medicine Rheumatology 03/24/17 9 Rigo Lopez CNP [address] [place] [address], [address] [place] [address] jesus PCP - General Family Medicine 03/24/17 07/24/18 Rigo Lopez CNP [address] [place] [address], [address] [place] [address] jesus PCP - General Family Medicine 07/25/18 Rigo Lopez CNP [address] [place] [address], [address] [place] [address] [email or web address] Historical LMR Provider 03/06/17 Harvinder Vallejo MD [address] [place], [place] [address] [place] [address] [email or web address] Internal Medicine 04/19/18 05/20/20 Alahji Martinez MD [address] [place] [address], [address] [place] [address] [email or web address] Rheumatology 07/25/18 05/20/20 Lisa Sommers MD [address] [place] [address], [address] [place] [address] [email or web address] 07/25/18 Cesar Lester MD [address] [place] [address], [address] [place] [address] [email or web address] Insurance Assigned Provider 02/11/19 05/25/20 Kuldeep Pérez PA [address] [place] [address], [address] [place] [address] [email or web address] 05/21/20 03/30/21 Smitha Simmons NP [address] [place] [address] Family Medicine 05/21/20 Gina Barajas PA [address] [place] [address] Desk Operator 05/21/20 08/20/22 Reddy Valdez MD [address] [place] [address], [address] [place] [address] [email or web address] Sleep Medicine 05/21/20 08/20/22 Tamara Dubon, RUSS [address] [place] [address] Psychiatry 03/31/21 Monika James MD [address] [place] [address], [address] [place] [address] [email or web address] Rheumatology 03/31/21 08/20/22 Alhaji Reese MD [address] [place] [address] [email or web address] Gastroenterology 05/28/21 08/20/22 Cesar Lester MD [address] [place] [address], [address] [place] [address] [email or web address] Insurance Assigned Provider 08/23/21 05/22/23 Beth Armendariz, MAGGY [address] [place] [address] [email or web address] PHC Director Workforce Management 10/05/22 01/17/25 Amisha Steen FNP [address] [place] [address] Nurse Practitioner 08/27/23 Divina Jade, MAGGY [address] [place] [address] [email or web address] [facility] Director Workforce ManagementNutrition Intern 01/18/25 Kal Vo [address] [place] [address] [email or web address] Last Ironer 03/21/25 03/21/25 documented as of this encounter Additional Source Comments The information contained in this document represents components of the legal health record. It is not the complete legal health record.[facility]
--- OUTSIDE RECORDS SUMMARY | 2025-04-17 10:21 | XMS_ITS | Encounter Summary ---
Author Organization [facility] Address [address] [address] Phone Care Team Providers Care Unit Aide Name Role Phone Rigo Lopez MCKENNA Primary Care Provider Lisa Sommers MD Unavailable [phone] Smitha Simmons BUSINESS INTEGRATION MANAGER Unavailable [phone] Gina Barajas PA Unavailable [phone] Reddy Valdez MD Unavailable Tamara Dubon BOOM CAT OPERATOR Unavailable Monika James MD Unavailable Alhaji Reese MD Unavailable [phone] Cesar Lester MD Unavailable [phone] Beth Armendariz RN Unavailable [email or web address] Amisha Steen PROOF COIN COLLECTOR Unavailable [phone] Divina Jade RN Unavailable [phone] Kal Vo Unavailable Encounter Details Date Type Department Care Team (Late st Contact Info) Description 07/10/2021 Procedure Pass [facility], [address] [address] Social History Tobacco Use Types Packs/Day Years [...] Upcoming Encounters Date Type Department Care Team ([facility] st Contact Info) Description 05/22/2025 2:00 PM EST Office Visit [facility] Pulmonary, Allergy and Critical Care Medicine [address] [place] [address] Remy Darby MD [address] [place] [address] documented as of this encounter Visit Diagnoses Not on filedocumented in this encounter Additional Health Concerns Infection Onset Date Last Indicated Resolved Time CoV-Risk 10/09/2021 10/09/2021 10/20/2021 1:24 AM EDT Assessment Noted Time PHQ-2 Depression Total Score: 2 05/28/19 22 8:17 AM EST documented as of this encounter Care Teams Unit Aide Relationship Specialty Start Date End Date Rigo Lopez CNP [address] [place] [address], [address] [place] [address] [email or web address] PCP - General Family Medicine 07/25/18 Lisa Sommers MD [address] [place] [address], [address] [place] [address] [email or web address] 07/25/18 Smitha Simmons NP [address] [place] [address] Family Medicine 05/21/20 Gina aBrajas PA [address] [place] [address] Golf Course Mechanic 05/21/20 08/20/22 Reddy Valdez MD [address] [place] [address], [address] [place] [address] [email or web address] Sleep Medicine 05/21/20 08/20/22 Tamara Dubon, BOOM CAT OPERATOR [address] [place] [address] Psychiatry 03/31/21 Monika James MD [address] [place] [address], [address] [place] [address] [email or web address] Rheumatology 03/31/21 08/20/22 Alhaji Reese MD [address] [place] [address] [email or web address] Gastroenterology 05/28/21 08/20/22 Cesar Lester MD [address] [place] [address], [address] [place] [address] [email or web address] Insurance Assigned Provider 08/23/21 05/22/23 Beth Armendariz, MAGGY [address] [place] [address], [address] [place] [address] [email or web address] PHCM Porcelain Enamel Repairer 10/05/22 01/17/25 Amisha Steen FNP [address] [place] [address] Nurse Practitioner 08/27/23 Divina Jade, RN [address] [place] [address] [email or web address] PHCM Porcelain Enamel RepairerMaintenance Pipefitter 01/18/25 Kal Vo [address] [place] [address] [email or web address] Repair Specialist 03/21/25 03/21/25 documented as of this encounter Additional Source Comments The information contained in this document represents components of the legal health record. It is not the complete legal health record.[facility]
--- OUTSIDE RECORDS SUMMARY | 2025-04-17 10:21 | XMS_ITS ---
Author Organization [facility] Address [address] [place] [address] Phone Care Team Providers Care Horses Or Mules Teamster Name Role Phone John Rigo ANDRES Primary Care Provider [phone] Lisa Sommers MD Unavailable [phone] Smitha Simmons BOILER TUBE BLOWER Unavailable [phone] Tamara Dubon RESEARCH AND DEVELOPMENT SPECIALIST Unavailable Amisha Steen COLORECTAL SURGEON Unavailable Divina Jade RN Unavailable [phone] Population Health Care Management (PHCM) Status:Enrolled (Active) Start date:06/01/2023 Enrollment date:06/01/2023 Current support & services provided:[employer] Related social drivers of health:Housing Stability, Child or Family Care, Education, Food, Unemployment, Paying for Meds, Paying Utility Bills, Transportation, Digital Access, SNAP/WIC Case Team Name Relationship Phone Email Divina Jade RN(Responsible Staff) Registered Nurse [phone] Alma Waller PHCM Kennel Technician [email or web address] [facility] Care and Services Coordination
--- OUTSIDE RECORDS SUMMARY | 2025-04-17 10:21 | XMS_ITS | Encounter Summary ---
Author Organization [facility] Address [address] [place] [address] Phone Care Team Providers Care Metal Or Wood Blocker Name Role Phone Rigo Lopez MCKENNA Primary Care Provider [phone] Lisa Sommers MD Unavailable [phone] Kuldeep Pérez Unavailable [phone] Smitha Simmons COVERAGE SPECIALIST Unavailable Gina Barajas PA Unavailable Reddy Valdez MD Unavailable [phone] Ling Tamara A RAILWAY YARD ASSISTANT Unavailable Monika James MD Unavailable Alhaji Reese MD Unavailable [phone] Cesar Lester MD Unavailable [phone] Beth Armendariz RN Unavailable [email or web address] Amisha SteenP Unavailable Divina Jade RN Unavailable Kal Vo Unavailable Encounter Details Date Type Department Care Team (Late st Contact Info) Description 09/30/2020 Procedure Pass [facility] Endoscopy Admitting Dept Virtual Department [address] [place] [address] Social History Tobacco Use Types Packs/Day Years [...] Upcoming Encounters Date Type Department Care Team ([facility] st Contact Info) Description 05/22/2025 2:00 PM EST Office Visit [facility] Pulmonary, Allergy and Critical Care Medicine [address] [place] [address] Remy Darby MD [address] [place] [address] documented as of this encounter Visit Diagnoses Not on filedocumented in this encounter Additional Health Concerns Infection Onset Date Last Indicated Resolved Time CoV-Risk 10/09/2021 10/09/2021 10/20/2021 1:24 AM EDT Assessment Noted Time PHQ-2 Depression Total Score: 2 05/18/19 21 11:52 AM EST documented as of this encounter Care Teams Metal Or Wood Blocker Relationship Specialty Start Date End Date Rigo Lopez CNP [address] [place] [address], [address] [place] [address] [email or web address] PCP - General Family Medicine 07/25/18 Lisa Sommers MD [address] [place] [address], [address] [place] [address] [email or web address] 07/25/18 Kuldeep Pérez PA [address] [place] [address], [address] [place] [address] [email or web address] 05/21/20 03/30/21 Smitha Simmons, COVERAGE SPECIALIST [address] [place] [address] Family Medicine 05/21/20 Gina Barajas PA [address] [place] [address] Supervisor Spinning 05/21/20 08/20/22 Reddy Valdez MD [address] [place] [address], [address] [place] [address] Sleep Medicine 05/21/20 08/20/22 Tamara Dubon, RAILWAY YARD ASSISTANT [address] [place] [address] Psychiatry 03/31/21 Monika James MD [address] [place] [address], [address] [place] [address] Rheumatology 03/31/21 08/20/22 Alhaji Reese MD [address] [place] [address] Gastroenterology 05/28/21 08/20/22 Cesar Lester MD [address] [place] [address], [address] [place] [address] [email or web address] Insurance Assigned Provider 08/23/21 05/22/23 Beth Armendariz, MAGGY [facility], [address] [place] [address] [email or web address] PHCM Truckload Checker 10/05/22 01/17/25 Amisha Steen FNP [address] [place] [address] Drive [address] [place] [address] Nurse Practitioner 08/27/23 Divina Jade, MAGGY [address] [place] [address] [email or web address] PHC Truckload CheckerTeletype Adjuster 01/18/25 Kal Vo [address] [place] [address] [email or web address] Data Warehouse Specialist 03/21/25 03/21/25 documented as of this encounter Additional Source Comments The information contained in this document represents components of the legal health record. It is not the complete legal health record.[facility]
--- OUTSIDE RECORDS SUMMARY | 2025-04-17 10:21 | XMS_ITS | Encounter Summary ---
Author Organization [facility] Address [address] [address] Phone Care Team Providers Care Disk And Tape Machine Tender Name Role Phone Rigo Lopez MCKENNA Primary Care Provider [phone] Lisa Sommers MD Unavailable Smitha Simmons GOLF COURSE PATROLLER Unavailable Tamara Dubon QUICK SERVICE TECHNICIAN Unavailable Cesar Lester MD Unavailable Beth Armendariz RN Unavailable [email or web address] Amisha Steen SUPERVISOR PRESSING DEPARTMENT Unavailable Divina Jade RN Unavailable Kal Vo Unavailable Encounter Details Date Type Department Care Team (Late st Contact Info) Description 08/21/2022 Procedure Pass [facility], [address] [address] Social History Tobacco Use Types Packs/Day Years [...] Allergy and Critical Care Medicine [address] [facility] [place] [address] Remy Darby MD [address] [address] documented as of this encounter Visit Diagnoses Not on filedocumented in this encounter Additional Health Concerns Assessment Noted Time PHQ-9 Depression Total Score: 19 023 7:59 AM EDT PHQ-2 Depression Total Score: 6 08/20/19 23 7:59 AM EDT documented as of this encounter Care Teams Disk And Tape Machine Tender Relationship Specialty Start Date End Date Rigo Lopez CNP 22 [facility], [address] [place] [address] [email or web address] PCP - General Family Medicine 07/25/18 Lisa Sommers MD [address] [place] [address], [address] [place] [address] [email or web address] 07/25/18 Smitha Simmons GOLF COURSE PATROLLER [address] [place] [address] Family Medicine 05/21/20 Tamara Dubon CNS [address] [place] [address] Psychiatry 03/31/21 Cesar Lester MD 22 [facility], [address] [place] [address] [email or web address] Insurance Assigned Provider 08/23/21 05/22/23 Beth Armendariz, MAGGY [address] [facility], [address] [place] [address] [email or web address] PHCM Insole Cementer 10/05/22 01/17/25 Amisha Steen FNP [address] [place] [address] [place] [address] Nurse Practitioner 08/27/23 Divina Jade, RN [address] [place] [address] [email or web address] PHC Insole CementerFood And Beverage Order Clerk 01/18/25 Kal Vo [address] [place] [address] [email or web address] Picc Nurse 03/21/25 03/21/25 documented as of this encounter Additional Source Comments The information contained in this document represents components of the legal health record. It is not the complete legal health record.[facility]
--- OUTSIDE RECORDS SUMMARY | 2025-04-17 10:21 | XMS_ITS | Encounter Summary ---
Author Organization [facility] Address [address] [facility] [address] [place] [address] Phone Care Team Providers Care Kennel Operator Name Role Phone Rigo Lopez MCKENNA Primary Care Provider Lisa Sommers MD Unavailable Smitha Simmons ABSORBER OPERATOR Unavailable [phone] Gina Barajas PA Unavailable [phone] Reddy Valdez MD Unavailable [phone] Tamara Dubon C[employer] Unavailable Monika James MD Unavailable Alhaji Reese MD Unavailable [phone] Cesar Lester MD Unavailable [phone] Beth Armendariz RN Unavailable [email or web address] Amisha Steen SHOT TUBE MACHINE TENDER Unavailable [phone] Divina Jade RN Unavailable Kal Vo Unavailable Encounter Details Date Type Department Care Team (Late st Contact Info) Description 06/16/2022 Telephone [facility] [address] [facility], [address] [place] [address] Tyrone Brennan MD [address] [place] [address] [email or web address] Social History Tobacco Use Types Packs/Day Years [...] Upcoming Encounters Date Type Department Care Team ([facility] st Contact Info) Description 05/22/2025 2:00 PM EST Office Visit [facility] Pulmonary, Allergy and Critical Care Medicine [address] [place] [address] Remy Darby MD [address] [place] [address] [email or web address] documented as of this encounter Visit Diagnoses Diagnosis Arthropathy of right sacroiliac joint- Primary documented in this encounter Additional Health Concerns Assessment Noted Time PHQ-2 Depression Total Score: 2 05/28/19 22 8:17 AM EST documented as of this encounter Care Teams Kennel Operator Relationship Specialty Start Date End Date Rigo Lopez CNP [address] [place] [address], [address] [place] [address] [email or web address] PCP - General Family Medicine 07/25/18 Lisa Sommers MD [address] [place] [address], [address] [place] [address] [email or web address] 07/25/18 Smitha Simmons, ABSORBER OPERATOR [address] [place] [address] Family Medicine 05/21/20 Gina Barajas PA [address] [place] [address] Clinical Informatics Educator 05/21/20 08/20/22 Reddy Valdez MD [address] [place] [address], [address] [place] [address] [email or web address] Sleep Medicine 05/21/20 08/20/22 Tamara Dubon, C[employer] [place] [address] Psychiatry 03/31/21 Monika James MD [address] [place] [address], [address] [place] [address] Rheumatology 03/31/21 08/20/22 Alhaji Reese MD [address] [place] [address] Gastroenterology 05/28/21 08/20/22 Cesar Lester MD [address] [place] [address], [address] [place] [address] [email or web address] Insurance Assigned Provider 08/23/21 05/22/23 Beth Armendariz, MAGGY [address] [place] [address], [address] [place] [address] [email or web address] PHCM Steam Plant Operator 10/05/22 01/17/25 Amisha Steen FNP [address] [place] [address] Nurse Practitioner 08/27/23 Divina Jade, RN [address] [place] [address] PHCM Steam Plant OperatorSenior Database Programmer 01/18/25 Kal Vo [address] [place] [address] [email or web address] Instant Potato Processor 03/21/25 03/21/25 documented as of this encounter Additional Source Comments The information contained in this document represents components of the legal health record. It is not the complete legal health record.[facility]
--- OUTSIDE RECORDS SUMMARY | 2025-04-17 10:21 | XMS_ITS | Encounter Summary ---
Author Organization [facility] Address [address] [address] Phone Care Team Providers Care Hot Box Operator Name Role Phone Rigo Lopez CNP Unavailable Harvinder Vallejo MD Unavailable [phone] Rigo Lopez CNP Primary Care Provider [phone] Alhaji Martinez MD Unavailable Lisa Sommers MD Unavailable Cesar Lester MD Unavailable [phone] Kuldeep Pérez PA Unavailable Smitha Simmons RENAL DIALYSIS RN Unavailable Gina Barajas PA Unavailable Reddy Valdez MD Unavailable [phone] Tamara Dubon BROADCAST ENGINEER Unavailable Monika James MD Unavailable Alhaji Reese MD Unavailable [phone] Cesar Lester MD Unavailable [phone] Beth Armendariz RN Unavailable [email or web address] Amisha Steen POWDER BLENDER AND POURER Unavailable Divina Jade RN Unavailable Kal Vo S Unavailable Reason for Referral * Physical Therapy (Routine) - Closed Specialty Diagnoses / Procedures Referred By Conttyrone t Referred To Contact Physical Therapy Diagnoses Encounter for rehabilitation Kobi Bradley MD Phone: tel: fax: [facility] [address] [place] [address] Phone: tel: Referral ID Status Reason Start Date Expiration Date Visits Re quested Visits Authorized [id number] Closed 05/31/2019 05/31/2020 99 [phone] Encounter Details Date Type Department Care Team (Latest Contact Info) Description 05/31/2019 Transcribe Orders [facility] [address] [place] [address] Kobi Bradley MD [address] [place] [address] Encounter for rehabilitation (Primary Dx) Social History [...] Pulmonary, Allergy and Critical Care Medicine 10 [facility] [place], [place] [id number] Remy Darby MD [address] [address] [email or web address] documented as of this encounter Procedures Procedure Name Priority Date/Time Associated Diagnosis Comments AMB REFERRAL TO [facility] PHYSICAL THERAPY Routine 06/14/2019 3:15 PM EST Encounter for rehabilitation documented in this encounter Results * Ambulatory referral to [facility] Physical Therapy (06/14/2019 3:15 PM EST) Kobi Bradley MD AMB [facility] REFERRALS Final Result documented in this encounter Visit Diagnoses Diagnosis Encounter for rehabilitation- Primary documented in this encounter Additional Health Concerns Infection Onset Date Last Indicated Resolved Time CoV-Risk 09/18/2019 09/18/2019 10/02/2019 1:23 AM EDT CoV-Risk 10/09/2021 10/09/2021 10/20/2021 1:24 AM EDT Assessment Noted Time PHQ-2 Depression Total Score: 2 07/26/19 19 8:38 AM EDT documented as of this encounter Care Teams Hot Box Operator Relationship Specialty Start Date End Date Rigo Lopez CNP [address] [place] [address], [address] [place] [address] [email or web address] [email or web address] PCP - General Family Medicine 07/25/18 Rigo Lopez CNP [address] [place] [address], [address] [place] [address] [email or web address] [email or web address] Historical LMR Provider 03/06/17 Harvinder Vallejo MD [address] [place] [address], [address] [place] [address] [email or web address] Internal Medicine 04/19/18 05/20/20 Alhaji Martinez MD [address] [place] [address], [address] [place] [address] [email or web address] Rheumatology 07/25/18 05/20/20 Lisa Sommers MD 22 [facility], [address] [place] [address] [email or web address] 07/25/18 Cesar Lester MD [address] [place] [address], [address] [place] [address] [email or web address] Insurance Assigned Provider 02/11/19 05/25/20 Kuldeep Pérez PA [address] [place] [address], [address] [place] [address] [email or web address] 05/21/20 03/30/21 Smitha Simmons NP [address] [place] [address] Family Medicine 05/21/20 Gina Barajas PA [address] [place] [address] Drawing Press Operator 05/21/20 08/20/22 Reddy Valdez MD [address] [place] [address], [address] [address] [email or web address] Sleep Medicine 05/21/20 08/20/22 Tamara Dubon CNS [address] [place] [address] Psychiatry 03/31/21 Monika James MD [address] [place] [address], [facility] [address] [place] [address] Rheumatology 03/31/21 08/20/22 Alhaji Reese MD [address] [place] [address] Gastroenterology 05/28/21 08/20/22 Cesar Lester MD [address] [place] [address], [address] [place] [address] [email or web address] Insurance Assigned Provider 08/23/21 05/22/23 Beth Armendariz RN [address] [place] [address] [email or web address] PHCM Equipment Validation Specialist 10/05/22 01/17/25 Amisha Steen FNP [address] [place] [address] Nurse Practitioner 08/27/23 Divina Jade, RN [address] [place] [address] [email or web address] PHC Equipment Validation SpecialistGrades 9 Through 12 Teacher 01/18/25 Kal Vo [address] [place] [address] Inspector Packer Glass Container 03/21/25 03/21/25 documented as of this encounter Additional Source Comments The information contained in this document represents components of the legal health record. It is not the complete legal health record.[facility]
--- OUTSIDE RECORDS SUMMARY | 2025-04-17 10:21 | XMS_ITS | Encounter Summary ---
Author Organization [facility] Address [address] [place] [address] Phone Care Team Providers Care Merchandise Supervisor Name Role Phone Rigo Lopez MCKENNA Primary Care Provider Lisa Sommers MD Unavailable Kuldeep Pérez Unavailable Smitha Simmosn LABOR OPERATOR Unavailable Gina Barajas PA Unavailable Reddy Valdez MD Unavailable [phone] Ling Tamara A FIELD UNDERWRITER Unavailable Monika James MD Unavailable [phone] Alhaji Reese MD Unavailable [phone] Cesar Lester MD Unavailable [phone] Beth Armendariz RN Unavailable [email or web address] Amisha SteenP Unavailable [phone] Divina Jade RN Unavailable [phone] Kal Vo Unavailable Encounter Details Date Type Department Care Team (Late st Contact Info) Description 03/09/2021 Procedure Pass [facility], Ct Scan - [address] [address] Social History Tobacco Use Types Packs/Day Years [...] 6:16 AM EDT Vinny Marquez, MAGGY * [place] Suicide Severity Rating Scale (Screener/Recent Self-Report) Question Answer Date of Assessment Author 1. Wish to be (Past 1 Month) No 021 6:16 AM EDT Vinny Marquez RN 2. Non-Specific Active Suici gonsalo Thoughts (Past 1 Month) No 03/09/2021 6:16 AM EDT Luis Marquez, MAGGY 6. Suicidal Behavior (Lifetime) No 6:16 AM EDT Vinny Marquez, RN documented as of this encounter Plan of Treatment Upcoming Encounters Date Type Department Care Team (Late st Contact Info) Description 05/22/2025 2:00 PM EST Office Visit [facility] Pulmonary, Allergy and Critical Care Medicine [address] [place] [address] Remy Darby MD [address] [place] [address] documented as of this encounter Visit Diagnoses Not on filedocumented in this encounter Additional Health Concerns Infection Onset Date Last Indicated Resolved Time CoV-Risk 10/09/2021 10/09/2021 10/20/2021 1:24 AM EDT Assessment Noted Time PHQ-2 Depression Total Score: 2 05/18/19 21 11:52 AM EST documented as of this encounter Care Teams Merchandise Supervisor Relationship Specialty Start Date End Date AishwaryaRigo mckee CNP 22 [facility], [address] [place] [address] jesus PCP - General Family Medicine 07/25/18 Lisa Sommers MD 22 [facility], [address] [place] [address] [email or web address] 07/25/18 Kuldeep Pérez PA [address] [place] [address], [address] [place] [address] [email or web address] 05/21/20 03/30/21 Smitha Simmons NP [address] [place] [address] Family Medicine 05/21/20 Gina Barajas PA [address] [place] [address] Mems Engineer 05/21/20 08/20/22 Reddy Valdez MD 22 [facility], [address] [address] [email or web address] Sleep Medicine 05/21/20 08/20/22 Tamara Dubon CNS [address] [place] [address] Psychiatry 03/31/21 Monika James MD 22 [facility], [facility] [address] [place] [address] Rheumatology 03/31/21 08/20/22 Alhaji Reese MD [address] [place] [address] [email or web address] Gastroenterology 05/28/21 08/20/22 Cesar Lester MD [address] [place] [address], [address] [place] [address] [email or web address] Insurance Assigned Provider 08/23/21 05/22/23 Beth Armendariz, MAGGY [address] [place] [address], [address] [place] [address] [email or web address] PHCM Buggy Operator 10/05/22 01/17/25 Amisha Steen FNP [address] [place] [address] Nurse Practitioner 08/27/23 Divina Jade, RN [address] [place] [address] [email or web address] PHC Buggy OperatorRealtime Captioner 01/18/25 Kal Vo [address] [place] [address] [employer] Hand Finisher 03/21/25 03/21/25 documented as of this encounter Additional Source Comments The information contained in this document represents components of the legal health record. It is not the complete legal health record.[facility]
--- OUTSIDE RECORDS SUMMARY | 2025-04-17 10:22 | XMS_ITS | Encounter Summary ---
Author Organization [facility] Address [address] [address] Phone Care Team Providers Care Cryptoanalysis Teacher Name Role Phone Rigo Lopez MCKENNA Primary Care Provider [phone] Lisa Sommers MD Unavailable Smitha Simmons METAL MOVER Unavailable Tamara Dubon PERCUSSION TEACHER Unavailable Beth Armendariz RN Unavailable [email or web address] Amisha Steen BLOOD DONOR RECRUITER SUPERVISOR Unavailable Divina Jade RN Unavailable Kal Vo Unavailable Encounter Details Date Type Department Care Team (Late st Contact Info) Description 06/25/2023 Procedure Pass [facility], [facility] [address] [place] [address] Social History Tobacco Use Types Packs/Day Years [...] Upcoming Encounters Date Type Department Care Team ([facility] st Contact Info) Description 05/22/2025 2:00 PM EST Office Visit [facility] Pulmonary, Allergy and Critical Care Medicine [address] [place] [address] Remy Darby MD [address] [place] [address] documented as of this encounter Visit Diagnoses Not on filedocumented in this encounter Additional Health Concerns Assessment Noted Time PHQ-9 Depression Total Score: 19 024 7:15 AM EDT PHQ-2 Depression Total Score: 5 08/27/19 24 7:15 AM EDT documented as of this encounter Care Teams Cryptoanalysis Teacher Relationship Specialty Start Date End Date Rigo Lopez CNP [address] [place] [address], [address] [place] [address] jesus PCP - General Family Medicine 07/25/18 Lisa Sommers MD [address] [place] [address], [address] [place] [address] [email or web address] 07/25/18 Smitha Simmons NP [address] [place] [address] Family Medicine 05/21/20 Tamara Dubon, PERCUSSION TEACHER [address] [place] [address] Psychiatry 03/31/21 Beth Armendariz, RN [address] [place] [address] [email or web address] PHC Cyber Security Specialist 10/05/22 Amisha Steen, BLOOD DONOR RECRUITER SUPERVISOR [address] [address] Nurse Practitioner 08/27/23 Divina Jade, RN [address] [place] [address] [email or web address] PHC Cyber Security SpecialistHigh School Special Education Teacher 01/18/25 Kal Vo [address] [place] [address] Elevator Attendant 03/21/25 03/21/25 documented as of this encounter Additional Source Comments The information contained in this document represents components of the legal health record. It is not the complete legal health record.[facility]
--- OUTSIDE RECORDS SUMMARY | 2025-04-17 10:22 | XMS_ITS | Encounter Summary ---
Author Organization [facility] Address [address] [address] Phone Care Team Providers Care Wood Floor Layer Name Role Phone Rigo Lopez MCKENNA Primary Care Provider [phone] Lisa Sommers MD Unavailable Smitha Simmons NP Unavailable Tamara Dubon TOPPER PRESS OPERATOR AUTOMATIC Unavailable Beth Armendariz RN Unavailable [email or web address] Amisha Steen ATTORNEY RECRUITER Unavailable Divina Jade RN Unavailable Kal Vo Unavailable Reason for Visit * Reason Onset Date Comments Abdominal Pain 07/06/2023 X 5 days Encounter Details Date Type Department Care Team (Late st Contact Info) Description 07/06/2023 Nurse Triage [facility] INTEGRATED CARE MANAGEMENT 30 [place] [address] Beth Armendariz, MAGGY [email or web address] Abdominal Pain (X 5 days) Social History [...] Pulmonary, Allergy and Critical Care Medicine 10 [place] [address] Remy Darby MD [address] [address] documented as of this encounter Visit Diagnoses Not on filedocumented in this encounter Additional Health Concerns Assessment Noted Time PHQ-9 Depression Total Score: 19 023 7:59 AM EDT PHQ-2 Depression Total Score: 2 10/28/19 23 9:48 AM EDT documented as of this encounter Care Teams Wood Floor Layer Relationship Specialty Start Date End Date Rigo Lopez CNP [address] [place] [address], [address] [place] [address] jesus PCP - General Family Medicine 07/25/18 Lisa Sommers MD [address] [place] [address], [address] [place] [address] [email or web address] 07/25/18 Smitha Simmons, KOSHER DIETARY SERVICE MANAGER [address] [place] [address] Family Medicine 05/21/20 Tamara Dubon CNS [address] [place] [address] Psychiatry 03/31/21 Beth Armendariz, MAGGY [address] [place] [address] [email or web address] PHC Taping Supervisor 10/05/22 Amisha Steen FNP [address] [place] [address] Nurse Practitioner 08/27/23 Divina Jade, RN [address] [place] [address] [email or web address] PHC Taping SupervisorBeverage Inspection Machine Tender 01/18/25 Kal Vo [address] [place] [address] Spine Surgeon 03/21/25 03/21/25 documented as of this encounter Additional Source Comments The information contained in this document represents components of the legal health record. It is not the complete legal health record.[facility]
--- OUTSIDE RECORDS SUMMARY | 2025-04-17 10:22 | XMS_ITS | Encounter Summary ---
Author Organization [facility] Address [address] [address] Phone Care Team Providers Care Transmission Rebuilder Name Role Phone Rigo Lopez MCKENNA Primary Care Provider Lisa Sommers MD Unavailable [phone] Smitha Simmons IDENTITY ACCESS MANAGEMENT ARCHITECT Unavailable [phone] Gina Barajas PA Unavailable Reddy Valdez MD Unavailable [phone] Tamara Dubon HIGH SCHOOL MATH TUTOR Unavailable Monika James MD Unavailable Alhaji Reese MD Unavailable [phone] Cesar Lester MD Unavailable [phone] Beth Armendariz RN Unavailable [email or web address] Amisha Steen NAVY DIVER Unavailable Divina Jade RN Unavailable [phone] Kal Vo Unavailable Encounter Details Date Type Department Care Team (Late st Contact Info) Description 01/21/2022 Procedure Pass [facility], [address] [id number] Social History Tobacco Use Types Packs/Day Years [...] Upcoming Encounters Date Type Department Care Team ([facility] st Contact Info) Description 05/22/2025 2:00 PM EST Office Visit [facility] Pulmonary, Allergy and Critical Care Medicine 10 [place] [address] Remy Darby MD [address] [address] [email or web address] documented as of this encounter Visit Diagnoses Not on filedocumented in this encounter Additional Health Concerns Assessment Noted Time PHQ-2 Depression Total Score: 2 05/28/19 22 8:17 AM EST documented as of this encounter Care Teams Transmission Rebuilder Relationship Specialty Start Date End Date Rigo Lopez CNP [address] [place] [address], [address] [place] [address] jesus PCP - General Family Medicine 07/25/18 Lisa Sommers MD [address] [place] [address], [address] [place] [address] [email or web address] 07/25/18 Smitha Simmons NP [address] [place] [address] Family Medicine 05/21/20 Gina Barajas PA [address] [place] [address] Import Export Manager 05/21/20 08/20/22 Reddy Valdez MD [address] [place] [address], [address] [place] [address] [email or web address] Sleep Medicine 05/21/20 08/20/22 Tamara Dubon, HIGH SCHOOL MATH TUTOR [address] [place] [address] Psychiatry 03/31/21 Monika James MD [address] [place] [address], [address] [place] [address] [email or web address] Rheumatology 03/31/21 08/20/22 Alhaji Reese MD [address] [place] [address] [email or web address] Gastroenterology 05/28/21 08/20/22 Cesar Lester MD [address] [place] [address], [address] [place] [address] [email or web address] Insurance Assigned Provider 08/23/21 05/22/23 Beth Armendariz, MAGGY [address] [facility], [address] [place] [address] [email or web address] PHCM Gyroscopic Instrument Tester 10/05/22 01/17/25 Amisha Steen FNP [address] [place] [address] Nurse Practitioner 08/27/23 Divina Jade, RN 10 [place] [address] [email or web address] PHCM Gyroscopic Instrument TesterDovetailer 01/18/25 Kal oV [address] [place] [address] [email or web address] 03/21/25 03/21/25 documented as of this encounter Additional Source Comments The information contained in this document represents components of the legal health record. It is not the complete legal health record.[facility]
--- OUTSIDE RECORDS SUMMARY | 2025-04-17 10:22 | XMS_ITS | Encounter Summary ---
Author Organization [facility] Address [address] [address] Phone Care Team Providers Care Prop Worker Name Role Phone Rigo Lopez MCKENNA Primary Care Provider [phone] Lisa Sommers MD Unavailable Smitha Simmons KNITTER MACHINE Unavailable [phone] Tamara Dubon DIRECTOR PAYER Unavailable [phone] Beth Armendariz RN Unavailable [email or web address] Amisha Steen STENCIL SPRAYER Unavailable Divina Jade RN Unavailable Kal Vo Unavailable Encounter Details Date Type Department Care Team (Late st Contact Info) Description 09/13/2024 Procedure Pass [facility] 30 [place] [address] Social History Tobacco Use Types Packs/Day Years [...] [facility] Pulmonary, Allergy and Critical Care Medicine [address] [place] [address] Remy Darby MD [address] [address] documented as of this encounter Visit Diagnoses Not on filedocumented in this encounter Additional Health Concerns Assessment Noted Time PHQ-9 Depression Total Score: 19 024 7:15 AM EDT PHQ-2 Depression Total Score: 5 08/27/19 24 7:15 AM EDT documented as of this encounter Care Teams Prop Worker Relationship Specialty Start Date End Date Rigo Lopez CNP [address] [place] [address], [address] [place] [address] jesus PCP - General Family Medicine 07/25/18 Lisa Sommers MD [address] [place] [address], [address] [place] [address] [email or web address] 07/25/18 Smitha Simmons, KNITTER MACHINE [address] [place] [address] Family Medicine 05/21/20 Tamara Dubon, DIRECTOR PAYER [address] [place] [address] Psychiatry 03/31/21 Beth Armendariz, MAGGY [address] [place] [address] [email or web address] PHCM Raveler 10/05/22 Amisha Steen FNP [address] [place] [address] Nurse Practitioner 08/27/23 Divina Jade, RN [address] [place] [address] [email or web address] PHCM RavelerMutual Fund Analyst 01/18/25 Kal Vo [address] [place] [address] Sports Management Intern 03/21/25 03/21/25 documented as of this encounter Additional Source Comments The information contained in this document represents components of the legal health record. It is not the complete legal health record.[facility]
--- OUTSIDE RECORDS SUMMARY | 2025-04-17 10:22 | XMS_ITS | Encounter Summary ---
Author Organization [facility] Address [address] [address] Phone Care Team Providers Care Submarine Advisory Team Watch Officer Name Role Phone Rigo Lopez MCKENNA Primary Care Provider [phone] Lisa Sommers MD Unavailable Smitha Simmons WOOD HEEL BACK LINER Unavailable Gina Barajas PA Unavailable Reddy Valdez MD Unavailable [phone] Tamara Dubon JUNIOR ACCOUNT MANAGER Unavailable Monika James MD Unavailable Alhaji Reese MD Unavailable [phone] Cesar Lester MD Unavailable Beth Armendariz RN Unavailable [email or web address] Amisha Steen ELECTRIC SHOVEL OPERATOR Unavailable Divina Jade RN Unavailable Kal Vo Unavailable Encounter Details Date Type Department Care Team (Late st Contact Info) Description 05/28/2021 Procedure Pass [facility], [address] [phone] Social History Tobacco Use Types Packs/Day Years [...] Upcoming Encounters Date Type Department Care Team ([facility] st Contact Info) Description 05/22/2025 2:00 PM EST Office Visit [facility] Pulmonary, Allergy and Critical Care Medicine [address] [place] [address] Remy Darby MD [address] [place] [address] documented as of this encounter Visit Diagnoses Not on filedocumented in this encounter Additional Health Concerns Infection Onset Date Last Indicated Resolved Time CoV-Risk 10/09/2021 10/09/2021 10/20/2021 1:24 AM EDT Assessment Noted Time PHQ-2 Depression Total Score: 2 05/28/19 22 8:17 AM EST documented as of this encounter Care Teams Submarine Advisory Team Watch Officer Relationship Specialty Start Date End Date Rigo Lopez CNP [address] [place] [address], [address] [place] [address] jesus PCP - General Family Medicine 07/25/18 Lisa Sommers MD [address] [place] [address], [address] [place] [address] [email or web address] 07/25/18 Smitha Simmons NP [address] [place] [address] Family Medicine 05/21/20 Gina Barajas PA 395 [place] [address] Manager Council 05/21/20 08/20/22 Reddy Valdez MD [address] [place] [address], [address] [place] [address] [email or web address] Sleep Medicine 05/21/20 08/20/22 Tamara Dubon, JUNIOR ACCOUNT MANAGER [address] [place] [address] Psychiatry 03/31/21 Monika James MD [address] [place] [address], [address] [place] [address] [email or web address] Rheumatology 03/31/21 08/20/22 Alhaji Reese MD [address] [place] [address] [email or web address] Gastroenterology 05/28/21 08/20/22 Cesar Lester MD [address] [place] [address], [address] [place] [address] [email or web address] Insurance Assigned Provider 08/23/21 05/22/23 Beth Armendariz, MAGGY [address] [place] [address], [address] [place] [address] [email or web address] PHCM Hand Ii Tube Bender 10/05/22 01/17/25 Amisha Steen FNP [address] [place] [address] Nurse Practitioner 08/27/23 Divina Jade, RN 10 [place] [address] [email or web address] PHCM Hand Ii Tube BenderTrimmer Sawyer 01/18/25 Kal Vo [address] [place] [address] [email or web address] Sewing Pattern Layout Technician 03/21/25 03/21/25 documented as of this encounter Additional Source Comments The information contained in this document represents components of the legal health record. It is not the complete legal health record.[facility]
--- OUTSIDE RECORDS SUMMARY | 2025-04-17 10:22 | XMS_ITS | Encounter Summary ---
Author Organization [facility] Address [address] [address] Phone Care Team Providers Care Meter Repairer Helper Name Role Phone Rigo Lopez MCKENNA Primary Care Provider Lisa Sommers MD Unavailable Smitha Simmons THIRD HELPER Unavailable [phone] Gina Barajas PA Unavailable [phone] Reddy Valdez MD Unavailable [phone] Tamara Dubon PAPER STEAMER Unavailable Monika James MD Unavailable Alhaji Reese MD Unavailable [phone] Cesar Lester MD Unavailable [phone] Beth Armendariz RN Unavailable [email or web address] Amisha Steen SECONDARY EDUCATION PROFESSOR Unavailable Divina Jade RN Unavailable [phone] Kal Vo Unavailable Encounter Details Date Type Department Care Team (Late st Contact Info) Description 06/16/2021 Procedure Pass [facility] - [address] [address] Social History Tobacco Use Types Packs/Day Years [...] No Risk Indicated 06/17/2021 2:02 PM EST Adalgisa Pardo, KEYMODULE ASSEMBLY MACHINE TENDER * Frio Suicide Severity Rating Scale (Screener/Recent Self-Report) Question Answer Date of Assessment Author 1. Wish to be (Past 1 Month) No 06/17/2021 2:02 PM EST VeronaMartinileen Jsoe perez, KEYMODULE ASSEMBLY MACHINE TENDER 2. Non-Specific Active Suicidal Thoughts (Past 1 Month) No 06/17/2021 2:02 PM EST Char Kaileen Jose duffyy, KEYMODULE ASSEMBLY MACHINE TENDER 6. Suicidal Behavior (Lifetime) No 06/17/2021 2:02 PM EST CharMartinilemaxim Eduardo, KEYMODULE ASSEMBLY MACHINE TENDER documented as of this encounter Plan of Treatment Upcoming Encounters Date Type Department Care Team (Late st Contact Info) Description 05/22/2025 2:00 PM EST Office Visit [facility] Pulmonary, Allergy and Critical Care Medicine 10 [place] [address] Remy Darby MD [address] [place] [address] documented as of this encounter Visit Diagnoses Not on filedocumented in this encounter Additional Health Concerns Infection Onset Date Last Indicated Resolved Time CoV-Risk 10/09/2021 10/09/2021 10/20/2021 1:24 AM EDT Assessment Noted Time PHQ-2 Depression Total Score: 2 05/28/19 22 8:17 AM EST documented as of this encounter Care Teams Meter Repairer Helper Relationship Specialty Start Date End Date SophyRigo frias CNP [address] [place] [address], [address] [place] [address] jesus PCP - General Family Medicine 07/25/18 Lisa Sommers MD [address] [place] [address], [address] [place] [address] [email or web address] 07/25/18 Smitha Simmons NP [address] [place] [address] Family Medicine 05/21/20 Gina Barajas PA 395 [place] [address] Technical Education Teacher 05/21/20 08/20/22 Reddy Valdez MD [address] [place] [address], [address] [place] [address] Sleep Medicine 05/21/20 08/20/22 Tamara Dubon, PAPER STEAMER [address] [place] [address] Psychiatry 03/31/21 Monika James MD [address] [place] [address], [address] [place] [address] Rheumatology 03/31/21 08/20/22 Alhaji Reese MD [address] [place] [address] [email or web address] Gastroenterology 05/28/21 08/20/22 Cesar Lester MD [address] [place] [address], [address] [place] [address] Insurance Assigned Provider 08/23/21 05/22/23 Beth Armendariz RN [address] [facility], [address] [place] [address] [email or web address] PHC Cartographic Designer 10/05/22 01/17/25 Amisha Steen FNP [address] [place] [address] [place] [address] Nurse Practitioner 08/27/23 Divina Jade, MAGGY 10 [place] [address] PHC Cartographic DesignerBread Dumper 01/18/25 Kal Vo [address] [place] [address] Employment Instructional Associate 03/21/25 03/21/25 documented as of this encounter Additional Source Comments The information contained in this document represents components of the legal health record. It is not the complete legal health record.[facility]
--- OUTSIDE RECORDS SUMMARY | 2025-04-17 10:22 | XMS_ITS | Encounter Summary ---
Author Organization [facility] Address [address] [place] [address] Phone Care Team Providers Care Environmental Epidemiologist Name Role Phone Rigo Lopez MCKENNA Primary Care Provider Lisa Sommers MD Unavailable [phone] Smitha Simmons MAJOR ASSEMBLER Unavailable Gina Barajas PA Unavailable Reddy Valdez MD Unavailable [phone] Tamara Dubon ADMINISTRATIVE PERSONAL ASSISTANT Unavailable Monika James MD Unavailable Alhaji Reese MD Unavailable [phone] Cesar Lester MD Unavailable [phone] Beth Armendariz RN Unavailable [email or web address] Amisha Steen MANAGER ENTRY Unavailable [phone] Divina Jade RN Unavailable [phone] Kal Vo Unavailable Encounter Details Date Type Department Care Team (Late st Contact Info) Description 06/19/2021 Ancillary Orders [facility],Outside Imaging 30 [place] [address] System, Provider Not In, [facility] [address] [address] Social History Tobacco Use Types Packs/Day Years [...] Upcoming Encounters Date Type Department Care Team ([facility] st Contact Info) Description 05/22/2025 2:00 PM EST Office Visit [facility] Pulmonary, Allergy and Critical Care Medicine [address] [place] [address] Remy Darby MD [address] [place] [address] documented as of this encounter Results * [...] documented as of this encounter Care Teams Environmental Epidemiologist Relationship Specialty Start Date End Date Rigo Lopez CNP [address] [place] [address], [address] [place] [address] jesus PCP - General Family Medicine 07/25/18 Lisa Sommers MD [address] [place] [address], [address] [place] [address] [email or web address] 07/25/18 Smitha Simmons NP [address] [place] [address] Family Medicine 05/21/20 Gina Barajas PA 395 [place] [address] Tracer Bullet Section Supervisor 05/21/20 08/20/22 Reddy Valdez MD [address] [place] [address], [address] [place] [address] [email or web address] Sleep Medicine 05/21/20 08/20/22 Tamara Dubon, ADMINISTRATIVE PERSONAL ASSISTANT [address] [place] [address] Psychiatry 03/31/21 Monika James MD [address] [place] [address], [address] [place] [address] Rheumatology 03/31/21 08/20/22 Alhaji Reese MD [address] [place] [address] [email or web address] Gastroenterology 05/28/21 08/20/22 Cesar Lester MD [address] [place] [address], [address] [place] [address] [email or web address] Insurance Assigned Provider 08/23/21 05/22/23 Beth Armendariz, MAGGY [address] [facility], [address] [place] [address] [email or web address] PHCM Railroad Hand 10/05/22 01/17/25 Amisha Steen, TRACY [address] [place] [address] Drive [address] [place] [address] Nurse Practitioner 08/27/23 Divina Jade, MAGGY 10 [place], [place] [id number] [email or web address] PHC Railroad HandElectronics Instructor 01/18/25 Kal Vo [address] [place] [address] [email or web address] Flight Teacher 03/21/25 03/21/25 documented as of this encounter Additional Source Comments The information contained in this document represents components of the legal health record. It is not the complete legal health record.[facility]
--- OUTSIDE RECORDS SUMMARY | 2025-04-17 10:22 | XMS_ITS | Clinical Summary ---
Author Organization [facility] Address [address] [place] [address] Care Team Providers Care Operations Mgr Name Role Phone Unavailable Primary Care Provider [...] Advance Directives For more information, please contact: [phone] Documents on File Type Date Recorded Patient Music Typographer Expl anation Advance Directive and Living Will 04/23/2015 Latest Code Status on File Code Status Date Activated Date Inactivated Comments Full Code 04/16/2015 6:34 PM 04/19/2015 7:40 PM This code status was ascertained in the following way: per unit protocol.
--- OUTSIDE RECORDS SUMMARY | 2025-04-17 10:22 | XMS_ITS | Encounter Summary ---
Author Organization [facility] Address [address] [place] [address] Phone Care Team Providers Care Dude Ranch Manager Name Role Phone Rigo Lopez MCKENNA Primary Care Provider Lisa Sommers MD Unavailable Smitha Simomns TRESTLE MECHANIC Unavailable [phone] Gina Barajas PA Unavailable [phone] Reddy Valdez MD Unavailable [phone] Tamara Dubon CORRECTIONAL COUNSELOR Unavailable Monika James MD Unavailable Alhaji Reese MD Unavailable [phone] Cesar Lester MD Unavailable [phone] Beth Armendariz RN Unavailable [email or web address] Amisha Steen CREDIT CONTROL MANAGER Unavailable Divina Jade RN Unavailable [phone] Kal Vo Unavailable Encounter Details Date Type Department Care Team (Late st Contact Info) Description 06/19/2021 Ancillary Orders [facility],Outside Imaging [address] [place] [address] System, Provider Not In, [facility] [address] [address] Social History Tobacco Use Types Packs/Day Years [...] Upcoming Encounters Date Type Department Care Team ([facility] st Contact Info) Description 05/22/2025 2:00 PM EST Office Visit [facility] [address] [place] [address] Remy Darby MD [address] [place] [address] documented as of this encounter Results * [...] documented as of this encounter Care Teams Dude Ranch Manager Relationship Specialty Start Date End Date Rigo Lopez CNP [address] [place] [address], [address] [place] [address] jesus PCP - General Family Medicine 07/25/18 Lisa Sommers MD [address] [place] [address], [address] [place] [address] [email or web address] Urology 07/25/18 Smitha Simmons NP [address] [place] [address] Family Medicine 05/21/20 Gina Barajas PA [address] [place] [address] Lead C Developer 05/21/20 08/20/22 Reddy Valdez MD [address] [place] [address], [address] [place] [address] [email or web address] Sleep Medicine 05/21/20 08/20/22 Tamara Dubon, CORRECTIONAL COUNSELOR [address] [place] [address] Psychiatry 03/31/21 Monika James MD [address] [place] [address], [address] [place] [address] Rheumatology 03/31/21 08/20/22 Alhaji Reese MD [address] [place] [address] [email or web address] Gastroenterology 05/28/21 08/20/22 Cesar Lester MD [address] [place] [address], [address] [place] [address] [email or web address] Insurance Assigned Provider 08/23/21 05/22/23 Beth Armendariz, MAGGY [address] [facility], [address] [place] [address] [email or web address] PHCM City Councilman 10/05/22 01/17/25 Amisha Steen, TRACY [address] [place] [address] Drive [address] [place] [address] Nurse Practitioner 08/27/23 Divina Jade, MAGGY [address] [place], [place] [id number] [email or web address] PHC City CouncilmanManager Interface 01/18/25 Kal Vo [address] [place] [address] [email or web address] Laundry Tech 03/21/25 03/21/25 documented as of this encounter Additional Source Comments The information contained in this document represents components of the legal health record. It is not the complete legal health record.[facility]
--- OUTSIDE RECORDS SUMMARY | 2025-04-17 10:22 | XMS_ITS | Clinical Summary ---
Author Organization [facility] Address [address] [address] Phone Care Team Providers Care Pulley Worker Name Role Phone Cristela Alba MCKENNA Primary Care Provider [phone] Lisa Sommers MD Unavailable Smitha Simmons EPIC DIRECTOR Unavailable Tamara Dubon MAST MAKER Unavailable [phone] Amisha Steen TREE CLIMBER Unavailable Divina Jade RN Unavailable Allergies Active [...] DME [employer], Elder Services): Mental health providers. [place] [employer] Transportation: She has her own vehicle, drives [...] GI. She will have labs drawn through [facility] at her next visit. Screening HIV [...] AM EDT): Doing pelvic floor PT through [facility] with HEP. Interstitial [...] see if it will increase sleep at [facility]. Patient is taking Seroquel and [...] Encounters Date Type Department Care Team Description 04/05/2025 Patient Outreach [facility] Physicians - Primary Care [address] [place] [address] Divina Jade, MAGGY Care Coordination 03/27/2025 7:11 AM EST - 03/27/2025 11:59 PM EST Hospital Encounter [facility] [address] [place] [address] Cristela Alba CNP Discharge Disposition: Home or Self Care 03/08/[address] [facility] [address] [place] [address] Alma Antunez Care Coordination (General outreach) 02/16/2025 Telephone [facility] [address] [place] [address] Lexy Deborahkirt Roldan spacer in office 02/12/[address] [facility] [address] [place] [address] 02/08/2025 Telephone [facility] [address] [place] [address] Ewa Elaine RN 02/01/2025 Telephone [facility] [address] [place] [address] Deborah Pugh Spacer sample 01/31/2025 3:00 PM EDT Office Visit [facility] [address] [place] [address] Jimmy Swan MD Mild intermittent asthma without complication (Primary Dx); Seasonal allergic rhinitis due to pollen; Dermatitis 09/13/2024 Procedure Pass [address] [address] from Last 3 Months Immunizations Immunization Administration [...] [facility] [address] [place] [address] Remy Darby MD [address] [place] [address] Health Maintenance Due Date Last Done Comments [...] ( - season) 2025 04/19/2021, 09/06/2020, 08/09/2020 LIPID PANEL 06/11/2026 06/11/2021, 05/18, 06/11/2021, Additional history exists SCREENING FOR DIABETES 09/06/2026 4, 08/07/2022, 08/20/2020, Additional history exists MAMMOGRAM 03/27/2027 03/27/2025, 11/15, 09/22/2022, Additional history exists COLONOSCOPY 09/30/2030 09/30/2020, 08/29/2012 COLORECTAL CANCER SCREENING 09/30/2030 Adult Td,Tdap Booster 05/20/2032 05/20/2022, 017 HEPATITIS C SCREENING Completed 10/24/2022, 021 HIV ONE-TIME SCREENING (18-65 YEARS) Completed 09/29/2023 SMOKING STATUS SCREENING (Once After 26 Yrs) Completed 03/27/2025 HEPATITIS A VACCINES Aged Out No long [...] SCREENING WITH TOMOSYNTHESIS WITH CAD (BILATERAL) Routine 03/27/2025 8:07 AM EST Visit for screening mammogram OUTSIDE GLUCOSE FASTING Routine 09/07/2023 OUTSIDE HDL Routine 06/11/2021 ENDOSCOPY, COLON 09/30/2020 1:29 PM EDT OUTSIDE HEPATITIS C VIRUS SCREENING Routine 05/28/2020 from Last 3 Months or Most Recently Relevant to Health Maintenance Results * BI MAMMOGRAM SCREENING WITH TOMOSYNTHESIS WITH CAD (BILATERAL) (03/27/2025 8:07 AM EST) Anatomical Region Laterality Modality Breast Left, Breast Right, Breast Bilateral Bila teral Mammography 03/27/2025 1:09 PM EST Impressions 03/27/2025 1:14 PM EST No mammographic evidence of malignancy in either breast. Annual screening mammography is recommended. BI-RADS 1 NEGATIVE The patient will be notified of the results and recommendations. Narrative 03/27/2025 1:14 PM EST BI MAMMOGRAM SCREENING WITH TOMOSYNTHESIS WITH CAD (BILATERAL) Additional patient information: Screening. COMPARISON: Comparison is made with relevant prior imaging. Breast composition: The breasts are heterogeneously dense, which may obscure small masses. FINDINGS: No abnormal masses, suspicious calcifications, or other significant findings are identified mammographically in either breast. Procedure Note Jyoti Tang MD - 03/27/2025 BI MAMMOGRAM SCREENING WITH TOMOSYNTHESIS WITH CAD (BILATERAL) Additional patient information: Screening. COMPARISON: Comparison is made with relevant prior imaging. Breast composition: The breasts are heterogeneously dense, which mayobscure small masses. FINDINGS: No abnormal masses, suspicious calcifications, or other significantfindings are identified mammographically in either breast. IMPRESSION: No mammographic evidence of malignancy in either breast. Annual screening mammography is recommended. BI-RADS 1 NEGATIVE The patient will be notified of the results and recommendations. Cristela Alba MAIL DISTRIBUTOR IMG MG EXAMS Final Res ult * [...] 47 Admit Type: Outpatient Gender: Female Room: [place] [address] Referring MD: CRISTELA ALBA Exam Type: Colonoscopy [...] 1:29 PM Procedure Code(s): --- Professional --- 26399, Colonoscopy, flexible; with biopsy, single or multiple --- Technical --- 52551, Colonoscopy, flexible; with biopsy, single or multiple Diagnosis Code(s): --- Professional --- K64.8, Other hemorrhoids R10.84, Generalized abdominal pain R19.4, Change in bowel habit K59.00, Constipation, unspecified Q43.8, Other specified congenital malformations of intestine --- Technical --- K64.8, Other hemorrhoids R10.84, Generalized abdominal pain R19.4, Change in bowel habit K59.00, Constipation, unspecified Q43.8, Other specified congenital malformations of intestine CPT copyright 2018 [employer]. All rights reserved. The codes documented in this report are preliminary and upon locomotive supervisor reviewmay be revised to meet current compliance requirements. Procedure Date: 09/30/2020 1:29:00 PM [address] [place] [address] Cristela Alba CNP GI PROCEDURE ORDERABLES F inal Result * Outside Hepatitis C Virus Screening (05/28/2020) Hepatitis C Screening - External Neg Historical Provider LAB BLOOD ORDERABLES Татьяна l Result from Last 3 Months or Most Recently Relevant to Health Maintenance Insurance MEDICARE PART A & B [employer] SUPPLEMENT MEDICARE PART A & B [employer] SUPPLEMENT MEDICARE PART A & B [facility] MEDEX SUPPLEMENT MEDICARE PART A & B [employer] MED[employer] SUPPLEMENT MEDICARE PART A & B [employer] MEDEX SUPPLEMENT MEDICARE PART A & B [employer] SUPPLEMENT MEDICARE PART A & B [employer] MED[employer] SUPPLEMENT MEDICARE PART A & B [employer] SUPPLEMENT MEDICARE PART A & B [employer] SUPPLEMENT Care Teams Pulley Worker Relationship Specialty Start Date End Date Cristela Alba CNP [address] [facility], [address] [place] [address] jesus PCP - General Family Medicine 07/25/18 Lisa Sommers MD [address] [facility], [address] [place] [address] [email or web address] 07/25/18 Smitha Simmons, EPIC DIRECTOR [address] [place] [address] Family Medicine 05/21/20 Tamara Dubon MAST MAKER [address] [place] [address] Psychiatry 03/31/21 Amisha Steen, TREE CLIMBER [address] [place] [address] Nurse Practitioner 08/27/23 Divina Jade, MAGGY [address] [place] [address] PHCM Laborer CheesemakingManager Office Services 01/18/25 Additional Source Comments The information contained in this document represents components of the legal health record. It is not the complete legal health record.[facility]
== END 2025-04-17 11:25 | disposition home or self-care (01) ==
LOC: HO.HOP 09:33
PROVIDERS: PCP Nurse Practitioner Adult Health; Visit Provider Clinical Nurse Specialist Psychiatric/Mental Health
DX: F33.0 Major depressive disorder, recurrent, mild (principal); G47.00 Insomnia, unspecified; G47.8 Other sleep disorders; F90.0 Attention-deficit hyperactivity disorder, predominantly inattentive type; F41.1 Generalized anxiety disorder
CPT/HCPCS: 99214

== ENCOUNTER → 2025-04-17 09:33 | Outpatient (BNVA) | payer MEDICARE, SELFPAY | PROVIDERS: PCP Nurse Practitioner Adult Health; Visit Provider Clinical Nurse Specialist Psychiatric/Mental Health | DX: F33.0 Major depressive disorder, recurrent, mild (principal); F90.0 Attention-deficit hyperactivity disorder, predominantly inattentive type; F41.1 Generalized anxiety disorder; G47.00 Insomnia, unspecified; G47.8 Other sleep disorders | CPT/HCPCS: 99212 ==